=== PATIENT | female | born 1965 ===

== ENCOUNTER 2016-10-01 00:18 | Emergency (ER) | payer SELFPAY ==
[2016-10-01 00:26] VITALS: BMI 23.6
[2016-10-01] MEDS ORDERED: Oxycodone/Acetaminophen 5/325 mg Tab PO STA ×2 (00:35→01:02)
[2016-10-01 00:40] VITALS: TEMP 98.3
--- NOTE | 2016-10-01 01:02 | ED PDOC ---
Arrival/HPI <Ryland Clark - Last Filed: 10/01/16 01:56> - General Historian: Patient <Lani Healy PA-C - Last Filed: 10/01/16 02:53> - General Chief Complaint: Trauma Time Seen by Provider: 10/01/16 00:34 - History of Present Illness Narrative History of Present Illness (Text): 10/01/16 01:02 Patient reports sustaining an injury to the R forearm and head when she fell down the steps of the outside deck, patient was reportedly found by her brother on the ground unconcious, who called 911, when he returned to attend to the patient, she gained consciousness on her own, stood up and ambulated back inside of the house. Patient admits to being outside, states that she was smoking a cigarette and may have trip causing her to fall. Otherwise: (-) other complaints, (-) loss of consciousness, (-) nausea, (-) vomiting, (-) severe headache, (-) other injury, (-) neck pain, (-) subjective neurologic deficit, (-) anticoagulants. Has no history of prior significant head injury. Patient does admit to drinking etoh tonight. (Lani Healy PA-C) Past Medical History - Provider Review Nursing Documentation Reviewed: Yes - Reproductive Menopause: Yes - Psychiatric Hx Substance Use: No <Lani Healy PA-C - Last Filed: 10/01/16 02:53> Family/Social History - Physician Review Nursing Documentation Reviewed: Yes Family/Social History: No Known Family HX Smoking Status: Heavy Smoker > 10 Cigarettes Daily Hx Alcohol Use: Yes Frequency of alcohol use: Socially Hx Substance Use: No <Lani Healy PA-C - Last Filed: 10/01/16 02:53> Allergies/Home Meds <Ryland Clark - Last Filed: 10/01/16 01:56> <Lani Healy PA-C - Last Filed: 10/01/16 02:53> Allergies/Adverse Reactions: Allergies No Known Allergies Allergy (Verified 10/01/16 00:26) Review of Systems - Review of Systems Constitutional: Normal. absent: Fatigue, Weight Change, Fevers Respiratory: Normal. absent: SOB, Cough Cardiovascular: Normal. absent: Chest Pain, Palpitations Musculoskeletal: Normal, Arthralgias. absent: Back Pain, Neck Pain Skin: Normal. absent: Rash, Pruritis, Skin Lesions Neurological: Normal. absent: Headache, Dizziness, Focal Weakness <Lani Healy PA-C - Last Filed: 10/01/16 02:53> Physical Exam <Eduardo,Robert - Last Filed: 10/01/16 01:56> <Lani Healy PA-C - Last Filed: 10/01/16 02:53> - Physical Exam Narrative Physical Exam (Text): 10/01/16 01:06 GENERAL APPEARANCE: Patient is awake, alert, oriented x 3, in moderate painful distress. Strong odor of etoh on patient. SKIN: Warm, dry; (-) cyanosis, (+) small abrasion to the R taoism. HEAD: (-) swelling and tenderness, with no palpable bony defect. EYES: (-) conjunctival pallor, (-) scleral icterus, (-) nystagmus. ENMT: Mucous membranes moist. (-) Sanchez's sign. TMs: (-) blood. Nose: (- ) tenderness, (-) rhinorrhea. No oral trauma. Pharynx clear. Airway patent: (-) stridor. Full ROM of mandible without pain. NECK: (-) tenderness, (-) stiffness, (-) lymphadenopathy. CHEST AND RESPIRATORY: (-) chest wall tenderness. Lungs: (-) rales, (-) rhonchi, (-) wheezes; breath sounds equal bilaterally. HEART AND CARDIOVASCULAR: (-) irregularity; (-) murmur, (-) gallop. ABDOMEN AND GI: Soft; (-) tenderness. BACK: (-) tenderness. EXTREMITIES: (+) deformity with edema, ecchymosis and tenderness to the distal R forearm, rest of the extremities nontender, (-) limitation of motion NEURO AND PSYCH: GCS=15. Mental status as above. Has full memory of episode; director emergency: Pupils equal & reactive . EOMI. (-) facial asymmetry. Tongue and uvula midline. Strength 5/5 in all extremities. No gross sensory deficits. DTRs symmetric. (Lani Healy PA-C) Vital Signs Temp Pulse Resp BP Pulse Ox 10/01/16 01:22 70 16 116/72 98 10/01/16 00:38 98.3 F 75 17 126/78 100 Medical Decision Making <Ryland Clark - Last Filed: 10/01/16 01:56> <Lani Healy PA-C - Last Filed: 10/01/16 02:53> ED Course and Treatment: 10/01/16 01:08 51 yo F s/p fall, complaining of R forearm pain, with possible head trauma. XR R forearm, CT head ordered, given percocet for pain. CT head (-). XR R forearm shows mildly displaced fx of the distal ulna. Orthoglass sugar tong splint applied by VIDAL. Neurovascular intact post splint application. Sling applied. Based on history, exam and diagnostic results plan will be for outpatient follow-up. Patient states she fully agrees with and understands discharge instructions. States that she agrees with the plan and disposition. Verbalized and repeated discharge instructions and plan. I have given the patient opportunity to ask any additional questions. Follow up with primary care physician and ortho referral provided in 1-2 days without fail. Advised to take medication as prescribed. Return to the emergency room at any time for any new or worsening symptoms. (Lani Healy PA-C) - RAD Interpretation Narrative RAD Interpretations (Text): 10/01/16 01:41 XR R forearm: mildly displaced fracture of the distal ulna, as read by VIDAL. CT head: FINDINGS: Brain: There is no evidence of intracranial hemorrhage. No evidence of acute territorial infarction. No significant white matter disease. No edema. Ventricles: Unremarkable. No ventriculomegaly. Bones/joints: There is mild beam hardening artifact most notably near the skull base which slightly limits evaluation. No acute fracture. Soft tissues: Unremarkable. Sinuses: Small fluid level in the left maxillary sinus. Mastoid air cells: Unremarkable as visualized. No mastoid effusion. IMPRESSION: 1. No evidence for acute intracranial abnormality or displaced calvarial fracture. 2. Additional incidental and/or chronic findings as described. Dictated and Authenticated by: Bhaskar Ryder MD 10/01/2016 1:17 AM Eastern Time ([place] & [place]) (Lani Healy PA-C) Radiology Orders: 10/01/16 00:34 HEAD W/O CONTRAST [CT] Stat FOREARM RIGHT [RAD] Stat - Medication Orders Current Medication Orders: Discontinued Medications Oxycodone/Acetaminophen (Percocet 5/325 Mg Tab) 1 tab PO STAT STA Stop: 10/01/16 00:36 Last Admin: 10/01/16 00:44 Dose: 1 tab Oxycodone/Acetaminophen (Percocet 5/325 Mg Tab) 1 tab PO STAT STA Stop: 10/01/16 01:03 Last Admin: 10/01/16 01:18 Dose: 1 tab - PA / PRACTICING DERMATOLOGIST / Resident Statement TIFFANY has reviewed & agrees with the documentation as recorded. TIFFANY has examined the patient and agrees with the treatment plan. <Ryland Clark - Last Filed: 10/01/16 01:56> - PA / PRACTICING DERMATOLOGIST / Resident Statement TIFFANY has reviewed & agrees with the documentation as recorded. <Lani Healy PA-C - Last Filed: 10/01/16 02:53> Disposition/Present on Arrival <Ryland Clark - Last Filed: 10/01/16 01:56> - Present on Arrival Any Indicators Present on Arrival: No History of DVT/PE: No History of Uncontrolled Diabetes: No Urinary Catheter: No History of Decub. Ulcer: No History Surgical Site Infection Following: None - Disposition Have Diagnosis and Disposition been Completed?: Yes Disposition Time: 01:30 Patient Plan: Discharge <Lani Healy PA-C - Last Filed: 10/01/16 02:53> - Disposition Diagnosis: Fracture of forearm, closed, Head injury, acute, Alcohol intoxication Disposition: HOME/ ROUTINE Condition: STABLE Discharge Instructions (ExitCare): Arm Fracture in Adults (ED), Head Injury (ED ), Splint Care (ED) Print Language: [email or web address] Additional Instructions: Thank you for letting us take care of you today. You were treated for head injury, R forearm fracture. The emergency medical care you received today was directed at your acute symptoms. If you were prescribed any medication, please fill it and take as directed. It may take several days for your symptoms to resolve. Return to the Emergency Department if your symptoms worsen, do not improve, or if you have any other problems. Please contact your doctor in 2 days for re-evaluation and follow up / or call one of the physicians/clinics you have been referred to that are listed on the Patient Visit Information form that is included in your discharge packet. Bring any paperwork you were given at discharge with you along with any medications you are taking to your follow up visit. Our treatment cannot replace ongoing medical care by a primary care provider (PCP) outside of the emergency department. Thank you for allowing the [facility] team to be part of your care today. Prescriptions: oxyCODONE/Acetaminophen [Percocet 5/325 mg Tab] 1 ea PO QID PRN #12 tab PRN Reason: Pain, Moderate (4-7) Referrals: [facility] [Outside] - Follow up with primary Bao Reyez MD [Staff Provider] - Follow up with primary
--- NOTE | 2016-10-01 01:17 | CT ---
EXAM: CT Head Without Intravenous Contrast CLINICAL HISTORY: 51 years old, female; Injury or trauma; Fall; Initial encounter; Concussion / head injury; Consciousness not specified; Additional info: Fall, trauma TECHNIQUE: Axial computed tomography images of the head/brain without intravenous contrast. This CT exam was performed using one or more of the following dose reduction techniques: automated exposure control, adjustment of the mA and/or kV according to patient size, and/or use of iterative reconstruction technique. COMPARISON: No relevant prior studies available. FINDINGS: Brain: There is no evidence of intracranial hemorrhage. No evidence of acute territorial infarction. No significant white matter disease. No edema. Ventricles: Unremarkable. No ventriculomegaly. Bones/joints: There is mild beam hardening artifact most notably near the skull base which slightly limits evaluation. No acute fracture. Soft tissues: Unremarkable. Sinuses: Small fluid level in the left maxillary sinus. Mastoid air cells: Unremarkable as visualized. No mastoid effusion. IMPRESSION: 1. No evidence for acute intracranial abnormality or displaced calvarial fracture. 2. Additional incidental and/or chronic findings as described.
[2016-10-01 01:24] VITALS: BP 116/72; PULSE 70; RESP 16; O2SAT 98
--- NOTE | 2016-10-01 09:14 | RAD ---
Right forearm History: Trauma. Findings: Two views the right forearm demonstrated a mildly displaced and comminuted fracture involving the distal ulna. Possible involvement of the radioulnar joint space. The displacement measures approximately 3 millimeters. Impression: Mildly displaced and comminuted fracture involving the right distal ulna. Possible involvement of the radioulnar joint space.
== END 2016-10-01 02:04 | disposition home or self-care (01) ==
LOC: ED 00:18
DX: S09.90XA Unspecified injury of head, initial encounter (principal); S52.601A Unspecified fracture of lower end of right ulna, initial encounter for closed fracture; W10.9XXA Fall (on) (from) unspecified stairs and steps, initial encounter; F10.129 Alcohol abuse with intoxication, unspecified; F17.210 Nicotine dependence, cigarettes, uncomplicated

== ENCOUNTER 2018-01-08 16:07 | Inpatient (IN) | payer MEDICAID, OTHER ==
[2018-01-08 16:08] VITALS: BMI 23.6
[2018-01-08] MEDS ORDERED: Sodium Chloride 0.9% 1,000 ML IV STA (16:52)
--- NOTE | 2018-01-08 17:47 | CT ---
Date of service: 01/08/2018 PROCEDURE: CT HEAD WITHOUT CONTRAST. HISTORY: dizziness COMPARISON: Noncontrast head CT performed 10/01/16 TECHNIQUE: Axial computed tomography images were obtained through the head/brain without intravenous contrast. Radiation dose: Total exam DLP = 873.58 mGy-cm. This CT exam was performed using one or more of the following dose reduction techniques: Automated exposure control, adjustment of the mA and/or kV according to patient size, and/or use of iterative reconstruction technique. FINDINGS: Streak artifact obscures evaluation of the skullbase. HEMORRHAGE: No intracranial hemorrhage. BRAIN: Diffuse atrophy with prominence of the ventricles and sulci noted. No mass effect or edema. Intracranial atherosclerotic calcifications. Bilateral basal ganglia calcifications. Scattered periventricular and subcortical white matter hypodensities, which are nonspecific, but often seen with chronic microvascular ischemic disease. Please note that MRI with diffusion imaging is more sensitive in the detection of acute ischemic event. VENTRICLES: No hydrocephalus. CALVARIUM: Unremarkable. PARANASAL SINUSES: Mucosal polyp/retention cyst within the left maxillary sinus. The remainder the visualized paranasal sinuses appear clear. MASTOID AIR CELLS: Unremarkable as visualized. No inflammatory changes. OTHER FINDINGS: None. IMPRESSION: No acute intracranial pathology identified. Additional findings as above.
[2018-01-08 18:11] LABS: ALB/GLOB RATIO 0.9 (1.1-1.8); ALBUMIN 3.2 g/dL (3.0-4.8); ALT/SGPT 31 U/L (7-56); AST/SGOT 88 U/L (14-36); BLOOD UREA NITROGEN 14 mg/dL (7-21); CALCIUM 8.6 mg/dL (8.4-10.5); GFR NON-AFRICAN AMERICAN > 60
[2018-01-08 18:12] LABS: EOS % 1.1 % (1.5-5.0); GRAN # 1.44 (1.4-6.5); GRAN % 81.8 % (50.0-68.0); LYMPH # 0.2 (1.2-3.4); LYMPH % 13.1 % (22.0-35.0); MEAN CELL VOLUME 83.7 fl (80.0-105.0); MEAN CORPUSCULAR HEMOGLOBIN 27.1 pg (25.0-35.0); MEAN CORPUSCULAR HGB CONC 32.4 g/dl (31.0-37.0); MEAN PLATELET VOLUME 10.2 fl (7.0-11.0); MONO # 0.1 (0.1-0.6); RBC 3.32 10^6/uL (3.5-6.1); RED CELL DISTRIBUTION WIDTH 14.4 % (11.5-14.5)
[2018-01-08 18:15] LABS: WHITE BLOOD COUNT 1.8 10^3/ul (4.5-11.0)
[2018-01-08 18:21] LABS: TROPONIN I < 0.01 ng/mL
--- NOTE | 2018-01-08 18:39 | ED PDOC ---
Arrival/HPI - General Chief Complaint: Dizziness/Lightheaded Time Seen by Provider: 01/08/18 16:35 Historian: Patient - History of Present Illness Narrative History of Present Illness (Text): 01/08/18 18:53 52-year-old female who was diagnosed with HIV one year ago and never started antiviral medications presents today with a one-week history of worsening dizziness and generalized fatigue. Patient also states she has been having a dry cough. Patient is complaining of occasional chest pain. She denies palpitations. She denies nausea vomiting diarrhea or constipation. She denies headache. Patient states today she felt like she was going to pass out and was unable to go to work. She denies numbness weakness or tingling in the extremities. She denies urinary symptoms. Denies sick contacts. No other complaints Time/Duration: 1 week Symptom Onset: Gradual Symptom Course: Worsening Past Medical History - Provider Review Nursing Documentation Reviewed: Yes - Travel History Have you recently traveled outside [place] w/in the past 3 mons?: No - Tetanus Immunization Tetanus Immunization: Unknown - Cardiac Hx Cardiac Disorders: No - Pulmonary Hx Respiratory Disorders: No - Neurological Hx Neurological Disorder: No - HEENT Hx HEENT Disorder: No - Renal Hx Renal Disorder: No - Endocrine/Metabolic Hx Endocrine Disorders: No - Hematological/Oncological Hx Blood Disorders: Yes - Integumentary Hx Dermatological Disorder: No - Musculoskeletal/Rheumatological Hx Musculoskeletal Disorders: No - Gastrointestinal Hx Gastrointestinal Disorders: No - Genitourinary/Gynecological Hx Genitourinary Disorders: No - Psychiatric Hx Psychophysiologic Disorder: No Hx Substance Use: Yes (HEROIN) - Surgical History Hx Orthopedic Surgery: Yes Family/Social History - Physician Review Nursing Documentation Reviewed: Yes Family/Social History: Unknown Family HX Smoking Status: Heavy Smoker > 10 Cigarettes Daily Hx Alcohol Use: Yes Hx Substance Use: Yes (HEROIN) Allergies/Home Meds Allergies/Adverse Reactions: Allergies No Known Allergies Allergy (Verified 01/08/18 16:18) Home Medications: Home Meds Medication Instructions Recorded Confirmed No Known Home Med 01/08/18 01/08/18 Review of Systems - Review of Systems Constitutional: Fatigue. absent: Fevers ENT: absent: Sore Throat, Sinus Congestion Respiratory: Cough. absent: SOB Cardiovascular: absent: Chest Pain, Palpitations Gastrointestinal: absent: Abdominal Pain, Nausea, Vomiting Musculoskeletal: absent: Arthralgias, Back Pain, Neck Pain Neurological: Dizziness. absent: Headache Psychiatric: absent: Anxiety, Depression, Suicidal Ideation Physical Exam Vital Signs Reviewed: Yes Vital Signs Temp Pulse Resp BP Pulse Ox 01/08/18 18:49 97.8 F 68 18 106/70 96 01/08/18 16:18 97.8 F 74 16 97/70 L 100 Temperature: Afebrile Blood Pressure: Hypotensive Pulse: Regular Respiratory Rate: Normal Appearance: Positive for: Well-Appearing, Non-Toxic, Comfortable Pain Distress: None Mental Status: Positive for: Alert and Oriented X 3 - Systems Exam Head: Present: Atraumatic Pupils: Present: PERRL Extroacular Muscles: Present: EOMI Mouth: Present: Moist Mucous Membranes Neck: Present: Normal Range of Motion Respiratory/Chest: Present: Good Air Exchange, Rhonchi. No: Clear to Auscultation, Respiratory Distress, Accessory Muscle Use, Wheezes, Decreased Breath Sounds Cardiovascular: Present: Regular Rate and Rhythm Abdomen: No: Tenderness, Distention, Rebound, Guarding Back: Present: Normal Inspection Upper Extremity: Present: Normal ROM Lower Extremity: Present: Normal ROM Neurological: Present: GCS=15 Skin: Present: Warm, Dry, Normal Color. No: Rashes Psychiatric: Present: Alert, Oriented x 3 Medical Decision Making ED Course and Treatment: 01/08/18 18:55 52-year-old female with a history of HIV with dizziness generalized weakness cough and intermittent chest pain EKG normal sinus rhythm at [address] elevations normal intervals Chest x-ray no effusion no cardiomegaly CBC White blood cell count 1.8, hgb; 9.0 CMP within normal limits Troponin within normal limits LDH 1814 pt given NS Iv bolus. case discussed with dr. burkett in depth; pt with hiv, wbc 1.8, elevated ldh. cxr wnl; consider PCP PNA. case discussed with dr. fernandez accepts admission for dizziness, anemia, cough, fatigue, r/o PCP PNA pt started on: bactrim Ds PO, rocephin and zithromax IV. will admit to tele for dizziness, anemia, cough, fatigue, r/o PCP PNA impression; dizziness, anemia, cough, fatigue, hx of HIV, leukopenia admit to tele. - Lab Interpretations Lab Results: 01/08/18 17:16 01/08/18 17:16 Lab Results 01/08/18 19:07: Urine Color Light yellow, Urine Appearance Clear, Urine pH 6.5, Ur Specific [place] <= 1.005, Urine Protein Negative, Urine Glucose (UA) Negative, Urine Ketones Negative, Urine Blood Negative, Urine Nitrate Negative, Urine Bilirubin Negative, Urine Urobilinogen 0.2, Ur Leukocyte Esterase Trace H , Urine RBC Negative, Urine WBC 0 - 2, Ur Epithelial Cells 0 - 2, Urine Bacteria Rare 01/08/18 17:16: Triglycerides 99, Cholesterol Pending, LDL Cholesterol Direct Pending, HDL Cholesterol 26 L 01/08/18 17:16: Phosphorus 3.2, Magnesium 1.8 01/08/18 17:16: WBC 1.8 L*, RBC 3.32 L, Hgb 9.0 L, Hct 27.8 L, MCV 83.7, MCH 27.1, MCHC 32.4, RDW 14.4, Plt Count 239, MPV 10.2, Gran % 81.8 H, Lymph % (Auto ) 13.1 L, Cook % (Auto) 4.0, Eos % (Auto) 1.1 L, Baso % (Auto) 0.0, Gran # 1.44 , Lymph # (Auto) 0.2 L, Cook # (Auto) 0.1, Eos # (Auto) 0.0, Baso # (Auto) 0.00 01/08/18 17:16: Sodium 137, Potassium 3.5 L, Chloride 103, Carbon Dioxide 24, Anion Gap 13, BUN 14, Creatinine 0.7, Est GFR ( Amer) > 60, Est GFR (Non- Af Amer) > 60, Random Glucose 97, Calcium 8.6, Total Bilirubin 0.8, AST 88 H, ALT 31, Alkaline Phosphatase 96, Lactate Dehydrogenase 1814 H, Total Creatine Kinase 118, Troponin I < 0.01, Total Protein 6.6, Albumin 3.2, Globulin 3.4, Albumin/Globulin Ratio 0.9 L - RAD Interpretation Radiology Orders: 01/08/18 16:52 HEAD W/O CONTRAST [CT] Stat CHEST PORTABLE [RAD] Stat - Medication Orders Current Medication Orders: Guaifenesin (Robitussin) 100 mg PO Q4H PRN PRN Reason: Cough Sodium Chloride (Sodium Chloride 0.9%) 1,000 mls @ 125 mls/hr IV .Q8H MCKAYLA Last Admin: 01/08/18 22:49 Dose: 125 mls/hr eMAR Start Stop Document 01/08/18 22:49 BK (Rec: 01/08/18 22:49 BK [id number]) Intravenous Solution Start Date 01/08/18 Start Time 22:49 Azithromycin (Zithromax 500mg In Ns) 500 mg in 250 mls @ 167 mls/hr IVPB DAILY MCKAYLA PRN Reason: Protocol Nicotine (Nicoderm Cq) 1 patch TD DAILY MCKAYLA Discontinued Medications Aspirin (Aspirin) 325 mg PO STAT STA Stop: 01/08/18 19:51 Last Admin: 01/08/18 20:12 Dose: 325 mg Sodium Chloride (Sodium Chloride 0.9%) 1,000 mls @ 999 mls/hr IV .Q1H1M STA Stop: 01/08/18 17:52 Last Admin: 01/08/18 17:19 Dose: 999 mls/hr eMAR Start Stop Document 01/08/18 17:19 LA (Rec: 01/08/18 17:19 [id number]) Intravenous Solution Start Date 01/08/18 Start Time 17:19 End Date 01/08/18 End time 18:20 Total Infusion Time 61 Ceftriaxone Sodium (Rocephin 1 Gram Ivpb) 1 gm in 100 mls @ 200 mls/hr IVPB STAT STA PRN Reason: Protocol Stop: 01/08/18 20:24 Last Admin: 01/08/18 20:13 Dose: 200 mls/hr eMAR Start Stop Document 01/08/18 20:13 JOL (Rec: 01/08/18 20:13 JOL [id number]) Intravenous Solution Start Date 01/08/18 Start Time 20:24 End Date 01/08/18 End time 21:20 Total Infusion Time 56 Azithromycin (Zithromax 500mg In Ns) 500 mg in 250 mls @ 167 mls/hr IVPB STAT STA PRN Reason: Protocol Stop: 01/08/18 21:24 Last Admin: 01/08/18 21:30 Dose: 167 mls/hr eMAR Start Stop Document 01/08/18 21:30 JOL (Rec: 01/08/18 21:30 JOL [id number]) Intravenous Solution Start Date 01/08/18 Start Time 21:30 End Date 01/08/18 End time 23:00 Total Infusion Time 90 Potassium Chloride (K-Dur 20 Meq Er Tab) 40 meq PO STAT STA Stop: 01/08/18 22:58 Last Admin: 01/08/18 23:05 Dose: 40 meq Trimethoprim/Sulfamethoxazole (Bactrim Ds Tab) 2 tab PO STAT STA PRN Reason: Protocol Stop: 01/08/18 19:52 Last Admin: 01/08/18 20:12 Dose: 2 tab Disposition/Present on Arrival - Present on Arrival Any Indicators Present on Arrival: No History of DVT/PE: No History of Uncontrolled Diabetes: No Urinary Catheter: No History of Decub. Ulcer: No History Surgical Site Infection Following: None - Disposition Have Diagnosis and Disposition been Completed?: Yes Diagnosis: Dizziness, Leukopenia, Cough Disposition: HOSPITALIZED Disposition Time: 19:00 Patient Plan: Admission Condition: FAIR
[2018-01-08 19:26] LABS: PH,URINE 6.5 (4.7-8.0); URINE BILIRUBIN NEGATIVE (NEGATIVE); URINE BLOOD NEGATIVE (NEGATIVE); URINE GLUCOSE (UA) NEGATIVE (NEGATIVE); URINE LEUKOCYTE ESTERASE TRACE Leu/uL (NEGATIVE); URINE PROTEIN NEGATIVE mg/dL (<30 mg/dL); URINE UROBILINOGEN 0.2 E.U./dL (<1 E.U./dL)
[2018-01-08 19:28] LABS: URINE APPEARANCE CLEAR (CLEAR); URINE COLOR LIGHT YELLOW (YELLOW)
[2018-01-08 19:39] LABS: URINE BACTERIA RARE (NEG); URINE EPITHELIAL CELLS 0 - 2 /hpf (0-5); URINE RBC NEGATIVE /hpf (0-2); URINE WBC 0 - 2 /hpf (0-6)
--- NOTE | 2018-01-08 19:40 | CARD ---
APPROVED REPORT Date of service: 01/08/2018 EKG Measurement Heart [id number] <Conclusion> Normal sinus rhythm Normal ECG
[2018-01-08] MEDS ORDERED: Tmp-Smz 800 mg-160 mg DS Tab PO STA (19:51)
[2018-01-08] MEDS ORDERED: Azithromycin 500MG/NS 250ml 500 MG/250 ML BAG IVPB STA (19:55)
[2018-01-08] MEDS ORDERED: cefTRIAXone 1 gm 1 GM/100 ML BAG IVPB STA (19:55)
--- NOTE | 2018-01-08 21:22 | CP.PCM.HP ---
<Billy Almonte - Last Filed: 01/09/18 00:22> History of Present Illness - History of Present Illness History of Present Illness: Billy Almonte, PGY-1 History and Physical for Hospitalist Service CC: Dizziness and Shortness of Breath HPI: Ms. Bobby is a 52 year old female with a PMHx of questionable HIV and chronic back pain who presents with a 2 week history of dizziness and fatigue. Sister in law of patient reported that patient has HIV per work-up done with PMD , but patient did not confirm ever having HIV or provide any supporting documentation. Patient reports a productive cough that is associated with right sided chest pain that is exacerbated by cough. Patient reports brown sputum that occasionally comes up upon coughing. Patient states that she used to be able to walk 3 blocks but can only walk 1 - 2 blocks this week because of the fatigue. Patient admits to unintentional 10 pound weight loss in last 2 months. Patient denies acute chest pain that radiates, palpitations, abdominal pain, nausea, vomiting, fevers, chills, headaches, vision changes, bloody stools, dark stools, menses, recent travel, . PMHx: chronic back pain, ?HIV PSHx: none All: NKDA Social: Heroin use for 10 years ago, tobacco pk/day x 25 years. Cleans windows. Meds: Occasional Aleve for the back pain PMD: Dr. Loving Present on Admission - Present on Admission Any Indicators Present on Admission: No Review of Systems - Review of Systems Review of Systems: 12 point ROS completed and negative except as described in HPI. Past Patient History - Tetanus Immunizations Tetanus Immunization: Unknown - Past Social History Smoking Status: Heavy Smoker > 10 Cigarettes Daily - CARDIAC Hx Cardiac Disorders: No - PULMONARY Hx Respiratory Disorders: No - NEUROLOGICAL Hx Neurological Disorder: No - HEENT Hx HEENT Problems: No - RENAL Hx Chronic Kidney Disease: No - ENDOCRINE/METABOLIC Hx Endocrine Disorders: No - HEMATOLOGICAL/ONCOLOGICAL Hx Blood Disorders: Yes - INTEGUMENTARY Hx Dermatological Problems: No - MUSCULOSKELETAL/RHEUMATOLOGICAL Hx Musculoskeletal Disorders: No - GASTROINTESTINAL Hx Gastrointestinal Disorders: No - GENITOURINARY/GYNECOLOGICAL Hx Genitourinary Disorders: No - PSYCHIATRIC Hx Psychophysiologic Disorder: No Hx Substance Use: Yes (HEROIN) - SURGICAL HISTORY Hx Orthopedic Surgery: Yes Meds Allergies/Adverse Reactions: Allergies Allergy/AdvReac Type Severity Reaction Status Date / Time No Known Allergies Allergy Verified 01/08/18 16:18 Physical Exam - Constitutional Appears: Well, Non-toxic, No Acute Distress - Head Exam Head Exam: ATRAUMATIC, NORMAL INSPECTION, NORMOCEPHALIC - Eye Exam Eye Exam: EOMI, Normal appearance Pupil Exam: PERRL - ENT Exam ENT Exam: Mucous Membranes Moist Additional comments: No thrush appreciated on tongue or erythema in throat. - Neck Exam Neck exam: Positive for: Normal Inspection. Negative for: Tenderness - Respiratory Exam Respiratory Exam: Decreased Breath Sounds, Clear to Auscultation Bilateral, Rhonchi. absent: Rales, Wheezes, Respiratory Distress Additional comments: located in bases R>L - Cardiovascular Exam Cardiovascular Exam: RRR, +S1, +S2. absent: Bradycardia, Tachycardia, Clicks - GI/Abdominal Exam GI & Abdominal Exam: Normal Bowel Sounds, Soft. absent: Distended, Organomegaly , Tenderness - Extremities Exam Extremities exam: Positive for: normal inspection, pedal pulses present. Negative for: calf tenderness, joint swelling - Back Exam Back exam: NORMAL INSPECTION. absent: CVA tenderness (L), CVA tenderness (R), paraspinal tenderness, rash noted - Neurological Exam Neurological exam: Alert, CN II-XII Intact, Oriented x3 - Psychiatric Exam Psychiatric exam: Flat Affect - Skin Skin Exam: Dry, Intact, Normal Color, Warm Results - Vital Signs Recent Vital Signs: Last Vital Signs Temp 97.8 F 01/08/18 18:49 Pulse 68 01/08/18 18:49 Resp 18 01/08/18 18:49 BP 106/70 01/08/18 18:49 Pulse Ox 96 01/08/18 18:49 - Labs Result Diagrams: 01/08/18 17:16 01/08/18 17:16 Assessment & Plan - Assessment and Plan (Free Text) Assessment: Assessment: Ms. Bobby is a 52 year old female with a PMHx of questionable HIV and chronic back pain who presents for a 2 week history of dizziness and fatigue. Plan: Productive Cough 2/2 ? PCP 2/2 ? Hx of HIV Sister in law reports that within past year, patient was diagnosed with HIV per her primary physician. Patient did not complete workup or outpatient therapy due to issues with insurance. No documentation or knowledge provided of test result. Afebrile, no SIRS criteria upon admission, VSS LDH 1814 CXR shows no opacities, some venous congestion, costophrenic angles clear, no patchy infiltrates. No effusions or cardiomegaly. Read by me. Head CT shows no acute pathology compared to 10/05 image. Diffuse atrophy with prominence of ventricles and sulci. Intracranial atherosclerotic calcifications. Likely chronic microvascular ischemic disease. f/u HIV AB, PCR, CD-4 count f/u procal f/u with Dr. Loving for more information regarding diagnosis and workup Guafenisin 100 mg PO q4h PRN Fatigue and dizziness 2/2 leukopenia 2/2 ? HIV vs symptomatic anemia WBC 1.8, RBC 3.32, PLT 239 ANC 1476 No baseline available. NS @ 125 cc/hr f/u blood and urine culture f/u TSH, lipid panel, a1c f/u with Dr. Loving for more information regarding past lab work Symptomatic Normocytic Anemia Hgb 9.0, MCV 83.7 no obvious blood loss in stool, urine or per patient history f/u Ferritin, Retic count, Fe, TIBC, FOBT Hypokalemia 3.5 on admission repleted with 40 mEq k-dur f/u AM labs Hx of smoking and heroin abuse Nicotine patch education provided to stop use last use of heroin reported 10 years ago f/u UDS GI/DVT ppx SCD's Pepcid 40 HS Patient seen, case reviewed, and plan discussed with Dr. Lazaro. Billy Almonte, PGY-1 <Iveth LAZARO,Shreyas - Last Filed: 01/09/18 07:56> Results - Vital Signs Recent Vital Signs: Last Vital Signs Temp 99.0 F 01/09/18 06:00 Pulse 68 01/09/18 06:00 Resp 19 01/09/18 06:00 BP 101/70 01/09/18 06:00 Pulse Ox 98 01/09/18 06:00 - Labs Result Diagrams: 01/09/18 05:50 01/09/18 05:50 Labs: Laboratory Results - last 24 hr 01/09/18 01/09/18 01/09/18 02:17 05:50 05:50 WBC 2.4 L* D RBC 3.04 L Hgb 8.5 L Hct 25.6 L MCV 84.2 MCH 28.0 MCHC 33.2 RDW 14.5 Plt Count 223 MPV 10.0 Gran % 82.2 H Lymph % (Auto) 8.3 L [place] % (Auto) 5.0 Eos % (Auto) 4.1 Baso % (Auto) 0.4 Gran # 1.99 Lymph # (Auto) 0.2 L [place] # (Auto) 0.1 Eos # (Auto) 0.1 Baso # (Auto) 0.01 Retic Count 0.78 Sodium Potassium Chloride Carbon Dioxide Anion Gap BUN Creatinine Est GFR ( Amer) Est GFR (Non-Af Amer) Random Glucose Calcium Iron 43 L TIBC 222 L % Saturation 19 L Total Bilirubin AST ALT Alkaline Phosphatase Total Protein Albumin Globulin Albumin/Globulin Ratio Free T4 Urine Opiates Screen Negative Urine Methadone Screen Negative Ur Barbiturates Screen Negative Ur Phencyclidine Scrn Negative Ur Amphetamines Screen Negative U Benzodiazepines Scrn Negative U Oth Cocaine Metabols Negative U Cannabinoids Screen Negative 01/09/18 01/09/18 05:50 05:50 WBC RBC Hgb Hct MCV MCH MCHC RDW Plt Count MPV Gran % Lymph % (Auto) [place] % (Auto) Eos % (Auto) Baso % (Auto) Gran # Lymph # (Auto) [place] # (Auto) Eos # (Auto) Baso # (Auto) Retic Count Sodium 140 Potassium 4.5 Chloride 110 H Carbon Dioxide 23 Anion Gap 12 BUN 10 Creatinine 0.6 L Est GFR ( Amer) > 60 Est GFR (Non-Af Amer) > 60 Random Glucose 69 L Calcium 8.0 L Iron TIBC % Saturation Total Bilirubin 0.4 AST 76 H ALT 30 Alkaline Phosphatase 82 Total Protein 6.1 Albumin 2.6 L Globulin 3.4 Albumin/Globulin Ratio 0.8 L Free T4 1.08 Urine Opiates Screen Urine Methadone Screen Ur Barbiturates Screen Ur Phencyclidine Scrn Ur Amphetamines Screen U Benzodiazepines Scrn U Oth Cocaine Metabols U Cannabinoids Screen Attending/Attestation - Attestation I have personally seen and examined this patient.: Yes I have fully participated in the care of the patient.: Yes I have reviewed all pertinent clinical information: Yes Notes (Text): -I agree with the above H&P completed by the resident physician with the following additions and/or changes: -The patient is a 52 year old woman with no significant past medical history who is admitted with acute bronchitis, leukopenia and symptomatic anemia. Of note, her [id number] reports that the patient recently was diagnosed with HIV by PMD but the patient is unsure of this information. She will be treated empirically with IV Azithromycin. Also, HIV and CD4 counts have been ordered. She will be aggressively hydrated as well.
[2018-01-08] MEDS ORDERED: guaiFENesin 100 mg/5 ml Syrup UD PO PRN (21:57)
[2018-01-08] MEDS: Sodium Chloride 0.9% 1,000 ML IV SCH (22:49)
[2018-01-08] MEDS ORDERED: Potassium Chloride 20 mEq ER Tab PO STA ×2 (22:56→22:57)
[2018-01-08 23:39] LABS: HDL CHOLESTEROL 26 mg/dL (29-60)
[2018-01-08 23:49] LABS: LDL CHOLESTEROL 54 mg/dL (0-129)
[2018-01-09 03:09] LABS: BARBITURATES, UR NEGATIVE (NEGATIVE); BENZODIAZEPINES, UR NEGATIVE (NEGATIVE); OPIATES, UR NEGATIVE (NEGATIVE); PHENCYCLIDINE, UR NEGATIVE (NEGATIVE)
[2018-01-09 06:37] LABS: BASO # 0.01 K/mm3 (0.0-2.0); BASO % 0.4 % (0.0-3.0); EOS # 0.1 (0.0-0.7); EOS % 4.1 % (1.5-5.0); GRAN # 1.99 (1.4-6.5); GRAN % 82.2 % (50.0-68.0); HEMOGLOBIN 8.5 g/dL (12.0-16.0); LYMPH # 0.2 (1.2-3.4); LYMPH % 8.3 % (22.0-35.0); MEAN CELL VOLUME 84.2 fl (80.0-105.0); MEAN CORPUSCULAR HGB CONC 33.2 g/dl (31.0-37.0); MONO # 0.1 (0.1-0.6); PLATELET COUNT 223 10^3/uL (120.0-450.0); RBC 3.04 10^6/uL (3.5-6.1); RED CELL DISTRIBUTION WIDTH 14.5 % (11.5-14.5)
[2018-01-09 06:42] LABS: WHITE BLOOD COUNT 2.4 10^3/ul (4.5-11.0)
[2018-01-09 06:44] LABS: IRON 43 ug/dL (45-180)
[2018-01-09 06:46] LABS: ALB/GLOB RATIO 0.8 (1.1-1.8); ALBUMIN 2.6 g/dL (3.0-4.8); ALT/SGPT 30 U/L (7-56); AST/SGOT 76 U/L (14-36); BLOOD UREA NITROGEN 10 mg/dL (7-21); GFR NON-AFRICAN AMERICAN > 60
[2018-01-09 06:53] LABS: % IRON SATURATION 19 % (20-55); TOTAL IRON BINDING CAPACITY 222 ug/dL (265-497)
--- NOTE | 2018-01-09 07:43 | CP.PCM.PN ---
Subjective - Date & Time of Evaluation Date of Evaluation: 01/09/18 Time of Evaluation: 07:43 Objective - Vital Signs/Intake and Output Vital Signs (last 24 hours): Temp Pulse Resp BP Pulse Ox 99.0 F 68 19 101/70 98 01/09/18 06:00 01/09/18 06:00 01/09/18 06:00 01/09/18 06:00 01/09/18 06:00 Intake and Output: 01/09/18 01/09/18 06:59 18:59 Intake Total 1300 Output Total 200 Balance 1100 - Medications Medications: Current Medications Famotidine (Pepcid) 40 mg PO HS [facility] Guaifenesin (Robitussin) 100 mg PO Q4H PRN PRN Reason: Cough Sodium Chloride (Sodium Chloride 0.9%) 1,000 mls @ 125 mls/hr IV .Q8H [facility] Last Admin: 01/08/18 22:49 Dose: 125 mls/hr Azithromycin (Zithromax 500mg In Ns) 500 mg in 250 mls @ 167 mls/hr IVPB DAILY [facility] PRN Reason: Protocol Nicotine (Nicoderm Cq) 1 patch TD DAILY [facility] Trimethoprim/Sulfamethoxazole (Bactrim Ds Tab) 1 tab PO BID [facility] PRN Reason: Protocol - Labs Labs: 01/09/18 05:50 01/09/18 05:50 Assessment and Plan - Assessment and Plan (Free Text) Assessment: Ms. Bobby is a 52 year old female with a PMHx of questionable HIV and chronic back pain who presents for a 2 week history of dizziness and fatigue. Plan: Productive Cough 2/2 ? PCP 2/2 ? Hx of HIV Sister in law reports that within past year, patient was diagnosed with HIV per her primary physician. Patient did not complete workup or outpatient therapy due to issues with insurance. No documentation or knowledge provided of test result. Afebrile, no SIRS criteria upon admission, VSS LDH 1814 CXR shows no opacities, some venous congestion, costophrenic angles clear, no patchy infiltrates. No effusions or cardiomegaly. Read by me. Head CT shows no acute pathology compared to 10/05 image. Diffuse atrophy with prominence of ventricles and sulci. Intracranial atherosclerotic calcifications. Likely chronic microvascular ischemic disease. f/u HIV AB, PCR, CD-4 count f/u procal f/u with Dr. Loving for more information regarding diagnosis and workup Guafenisin 100 mg PO q4h PRN Fatigue and dizziness 2/2 leukopenia 2/2 ? HIV vs symptomatic anemia WBC 1.8, RBC 3.32, PLT 239 ANC 1476 No baseline available. NS @ 125 cc/hr f/u blood and urine culture f/u TSH, lipid panel, a1c f/u with Dr. Loving for more information regarding past lab work Symptomatic Normocytic Anemia Hgb 9.0, MCV 83.7 no obvious blood loss in stool, urine or per patient history f/u Ferritin, Retic count, Fe, TIBC, FOBT Hypokalemia 3.5 on admission repleted with 40 mEq k-dur f/u AM labs Hx of smoking and heroin abuse Nicotine patch education provided to stop use last use of heroin reported 10 years ago f/u UDS GI/DVT ppx SCD's Pepcid 40 HS
--- NOTE | 2018-01-09 08:38 | RAD ---
Date of service: 01/08/2018 HISTORY: chest pain/dizziness/weakness COMPARISON: No prior. FINDINGS: LUNGS: The lungs are well inflated and clear. PLEURA: No significant pleural effusion identified, no pneumothorax apparent. CARDIOVASCULAR: Normal. OSSEOUS STRUCTURES: No significant abnormalities. VISUALIZED UPPER ABDOMEN: Normal. OTHER FINDINGS: None. IMPRESSION: No active pulmonary disease.
[2018-01-09] MEDS: Azithromycin 500MG/NS 250ml 500 MG/250 ML BAG IVPB SCH (09:22)
[2018-01-09] MEDS: Sodium Chloride 0.9% 1,000 ML IV SCH ×2 (09:23→10:15)
[2018-01-09] MEDS ORDERED: Albuterol-Ipratrop 3 mg / 0.5 (3 ml) UD IH PRN (09:51)
[2018-01-09] MEDS ORDERED: Tmp-Smz 800 mg-160 mg DS Tab PO SCH (10:00)
[2018-01-09] MEDS: MethylPREDNISolone 40 mg Vial IVP SCH ×2 (10:12→21:16)
[2018-01-09] MEDS: guaiFENesin-DM 600-30 mg ER Tab PO SCH ×2 (10:12→17:14)
--- NOTE | 2018-01-09 13:03 | CP.PCM.PN ---
<Daniel Huerta - Last Filed: 01/09/18 13:44> Subjective - Date & Time of Evaluation Date of Evaluation: 01/09/18 Time of Evaluation: 13:00 - Subjective Subjective: Daniel Huerta DO PGY1 - Internal Medicine Tube Cutter Operator - Hospital Progress Note 52F w/ CC of dizziness, and cough/sob. Seen this AM at bedside, no acute events reported overnight. Still complaining of same dizziness and cough she had upon initial presentation. Denies any worsening of symptoms. Denies chest pain, palpitations, abd pain, N/V /D/C, urinary complaints. Objective - Vital Signs/Intake and Output Vital Signs (last 24 hours): Temp Pulse Resp BP Pulse Ox 98.9 F 75 18 118/75 98 01/09/18 12:00 01/09/18 12:00 01/09/18 12:00 01/09/18 12:00 01/09/18 06:00 Intake and Output: 01/09/18 01/09/18 06:59 18:59 Intake Total 1300 Output Total 200 Balance 1100 - Medications Medications: Current Medications Acetaminophen (Tylenol 325mg Tab) 650 mg PO Q6H PRN PRN Reason: Pain, Mild (1-3) Last Admin: 01/09/18 10:07 Dose: 650 mg Albuterol/Ipratropium (Duoneb 3 Mg/0.5 Mg (3 Ml) Ud) 3 ml IH [id number] [facility] Albuterol/Ipratropium (Duoneb 3 Mg/0.5 Mg (3 Ml) Ud) 3 ml IH Q2H PRN PRN Reason: Shortness of Breath Aspirin (Aspirin Chewable) 81 mg PO DAILY [facility] Last Admin: 01/09/18 10:12 Dose: 81 mg Famotidine (Pepcid) 40 mg PO HS [facility] Ferrous Sulfate (Feosol) 324 mg PO TID [facility] Last Admin: 01/09/18 09:22 Dose: 324 mg Guaifenesin/Dextromethorphan (Mucinex-Dm 600-30 Mg) 1 tab PO BID [facility] Last Admin: 01/09/18 10:12 Dose: 1 tab Sodium Chloride (Sodium Chloride 0.9%) 1,000 mls @ 125 mls/hr IV .Q8H [facility] Last Admin: 01/09/18 10:15 Dose: 125 mls/hr Azithromycin (Zithromax 500mg In Ns) 500 mg in 250 mls @ 167 mls/hr IVPB DAILY [facility] PRN Reason: Protocol Last Admin: 01/09/18 09:22 Dose: 167 mls/hr Ceftriaxone Sodium (Rocephin 1 Gram Ivpb) 1 gm in 100 mls @ 100 mls/hr IVPB DAILY [facility] PRN Reason: Protocol Methylprednisolone (Solu-Medrol) 40 mg IVP Q12 [facility] Last Admin: 01/09/18 10:12 Dose: 40 mg Nicotine (Nicoderm Cq) 1 patch TD DAILY [facility] Last Admin: 01/09/18 09:22 Dose: 1 patch - Labs Labs: 01/09/18 05:50 01/09/18 05:50 Physical Exam - Constitutional Appears: Well, Non-toxic, No Acute Distress - Head Exam Head Exam: ATRAUMATIC, NORMAL INSPECTION, NORMOCEPHALIC - Eye Exam Eye Exam: EOMI, Normal appearance Pupil Exam: PERRL - ENT Exam ENT Exam: Mucous Membranes Moist Additional comments: No thrush appreciated on tongue or erythema in throat. - Neck Exam Neck exam: Positive for: Normal Inspection. Negative for: Tenderness - Respiratory Exam Respiratory Exam: Diffuse wheezing all lung loja, rhonhorous breath sounds BL , Prolonged expiratory phase - Cardiovascular Exam Cardiovascular Exam: RRR, +S1, +S2. absent: Bradycardia, Tachycardia, Clicks - GI/Abdominal Exam GI & Abdominal Exam: Normal Bowel Sounds, Soft. absent: Distended, Organomegaly , Tenderness - Extremities Exam Extremities exam: Positive for: normal inspection, pedal pulses present. Negative for: calf tenderness, joint swelling - Back Exam Back exam: NORMAL INSPECTION. absent: CVA tenderness (L), CVA tenderness (R), paraspinal tenderness, rash noted - Neurological Exam Neurological exam: Alert, CN II-XII Intact, Oriented x3 - Psychiatric Exam Psychiatric exam: Flat Affect - Skin Skin Exam: Dry, Intact, Normal Color, Warm Assessment and Plan - Assessment and Plan (Free Text) Assessment: 52F w/ questionable PMHx of HIV, and social hx significant for 25 pack year smoking, presented [place] [facility] [place] w/ CC of Cough/SOB, Fatigue, and Dizziness. Plan: Cough w/ Wheezing + ROSE - Patient unclear on length of duration of symptoms; Given smoking hx most likely a COPD exacerbation w/ chronic bronchitis - Started Duoneb Q6H [facility], Q2H PRN - Started Solumedrol 40 Q12 - Started Mucinex DM 1 PO BID - C/w Rocephin 1gm QD - C/w Azithromycin 500mg QD - CXR shows no consolidation or infiltrate - Due to leukopenia; we will follow up w/ Sputum Cx, Blood Cx, Urine Cx, and ProCal Leukopenia, most likely 2/2 HIV - History of + HIV testing as per Dr. Loving - Patient has not followed up with PMD since tested - HIV Ab, PCR, CD4 count pending - Can consider ID/Heme Onc consultation once results Dizziness - Patient reported as positional related - Etiologies include orthostatic vs anemia related vs cardiac related - Orthostatic vital signs unremarkable - TSH elevated; T4 normal - CT Head shows no acute pathology compared to 10/05 image. Diffuse atrophy with prominence of ventricles and sulci. Intracranial atherosclerotic calcifications. Likely chronic microvascular ischemic disease - Echo pending - Carotid U/S - Bilateral 0-19% ICA Stenosis Normocytic Anemia - Symptomatic anemia at this time given patient's dizzy spells - Hb 10.2/ MCV 83.7 - Folate/ B12 pending - Fe Low/ TIBC Low/ % Saturation Low/ Ferritin pending - FOBT pending - Retic count normal Hypokalemia - Resolved Hx of smoking and heroin abuse Nicotine patch; education provided to stop tobacco use last use of heroin reported 10 years ago UDS negative GI/DVT ppx SCD's Pepcid 40 HS Patient seen, examined, and case discussed w/ attending physician Dr. Leti Huerta DO PGY1 Internal Medicine Tube Cutter Operator - Pager [phone] <Ltei Huerta R - Last Filed: 01/10/18 08:15> Objective - Vital Signs/Intake and Output Vital Signs (last 24 hours): Temp Pulse Resp BP Pulse Ox 97.4 F L 86 20 97/65 L 95 01/10/18 06:00 01/10/18 06:00 01/10/18 06:00 01/10/18 06:00 01/10/18 06:00 Intake and Output: 01/10/18 01/10/18 06:59 18:59 Intake Total 240 Output Total 3 Balance 237 - Medications Medications: Current Medications Acetaminophen (Tylenol 325mg Tab) 650 mg PO Q6H PRN PRN Reason: Pain, Mild (1-3) Last Admin: 01/09/18 10:07 Dose: 650 mg Albuterol/Ipratropium (Duoneb 3 Mg/0.5 Mg (3 Ml) Ud) 3 ml IH [id number] [facility] Last Admin: 01/10/18 07:17 Dose: 3 ml Albuterol/Ipratropium (Duoneb 3 Mg/0.5 Mg (3 Ml) Ud) 3 ml IH Q2H PRN PRN Reason: Shortness of Breath Aspirin (Aspirin Chewable) 81 mg PO DAILY [facility] Last Admin: 01/09/18 10:12 Dose: 81 mg Famotidine (Pepcid) 40 mg PO HS [facility] Last Admin: 01/09/18 21:16 Dose: 40 mg Ferrous Sulfate (Feosol) 324 mg PO TID [facility] Last Admin: 01/09/18 17:13 Dose: 324 mg Guaifenesin/Dextromethorphan (Mucinex-Dm 600-30 Mg) 1 tab PO BID [facility] Last Admin: 01/09/18 17:14 Dose: 1 tab Azithromycin (Zithromax 500mg In Ns) 500 mg in 250 mls @ 167 mls/hr IVPB DAILY [facility] PRN Reason: Protocol Last Admin: 01/09/18 09:22 Dose: 167 mls/hr Ceftriaxone Sodium (Rocephin 1 Gram Ivpb) 1 gm in 100 mls @ 100 mls/hr IVPB DAILY [facility] PRN Reason: Protocol Last Admin: 01/09/18 13:09 Dose: 100 mls/hr Methylprednisolone (Solu-Medrol) 40 mg IVP Q12 [facility] Last Admin: 01/09/18 21:16 Dose: 40 mg Nicotine (Nicoderm Cq) 1 patch TD DAILY [facility] Last Admin: 01/09/18 09:22 Dose: 1 patch - Labs Labs: 01/10/18 05:40 01/10/18 05:40 Attending/Attestation - Attestation I have personally seen and examined this patient.: Yes I have fully participated in the care of the patient.: Yes I have reviewed all pertinent clinical information, including history, physical exam and plan: Yes Notes (Text): Patient seen and examined by me at 9:45AM with resident 01/09/18. Case including HPI, physical exam, and assessment and plan discussed with resident. Agree with above with following additions/corrections. Patient is a 52-year-old female with past medical history significant for possible HIV and chronic back pain that presented to the emergency room with dizziness and fatigue. Patient states she is not feeling well. She states she is feeling cold. Patient has a cough with productive phlegm. However, she states that she not coughing a lot. She also states that she feels a little dizzy when she goes from a sitting to standing position. Dizziness resolves after she stands up. No headaches. No fevers. No nausea, vomiting, or abdominal pain. No chest pain or shortness of breath. No dysuria. No diarrhea or constipation. Physical exam: Gen: Awake and alert sitting up in bed in no acute distress HEENT: Normocephalic, atraumatic. Extraocular muscles intact, pupils equal reactive. No scleral icterus. Oropharynx is pink and moist. Neck is supple. Cardiovascular: Normal rhythm. Normal S1, S2. No murmurs, rubs, or gallops appreciated Pulmonary: Normal respiratory effort. Positive coarse breath sounds. Positive mild wheezing through. No rales appreciated. Gastrointestinal: Soft, nontender, nondistended. Positive bowel sounds all 4 quadrants, no guarding. Musculoskeletal: Moves all extremities. No calf tenderness. No edema appreciated. Central nervous system: AAO x 3. CN 2-12 grossly intact. Dermatologic: Skin warm and dry Assessment and plan: Patient is a 52-year-old female with past medical history significant for possible HIV and chronic back pain that presented to the emergency room with dizziness and fatigue. 1. Cough. Likely bronchitis. Started on Rocephin and Zithromax. Chest xray per radiologist shows no active pulmonary disease. Started on Mucinex. 2. Possible COPD. Patient is smoker. Placed on solumedrol and nebulizer treatments. Patient will need outpatient PFT testing. 3. Dizziness. Orthostatics negative. Carotid dopplers per radiologist showed bilateral 0-19% proximal ICA stenosis. 2d echo pending. Head CT per radiologist showed no acute intracranial pathology identified. Possible chronic microvascular ischemic changes. Started on ASA. 4. Leukopenia. Unclearly etiology. Infection vs possible HIV. HIV pending. Blood cultures pending. Uptrended from yesterday. Continue Antibiotics. Continue to monitor 5. Anemia. Stool for occult blood pending. Likely iron deficient. Continue ferrous sulfate. Continue to monitor CBC. 6. Elevated TSH. Normal Free T4. Patient will need to follow up outpatient for repeat blood work. 7. Tobacco abuse. Patient counseled on cessation. Case was discussed in detail with the patient and patients at bedside regarding current diagnosis and treatment plan.
[2018-01-09] MEDS: cefTRIAXone 1 gm 1 GM/100 ML BAG IVPB SCH (13:09)
--- NOTE | 2018-01-09 13:30 | US ---
PROCEDURE: Bilateral carotid artery duplex ultrasound HISTORY: Carotid stenosis dizziness PHYSICIAN(S): Vasyl Dawn MD. TECHNIQUE: Duplex sonography and color-flow Doppler were used to evaluate the carotid bifurcations and limited segments of the vertebral arteries bilaterally. FINDINGS: There is mild smooth hypoechoic plaque noted at the carotid bifurcations bilaterally. The peak systolic velocity in the proximal right internal carotid artery is 71 cm/sec. This corresponds to a 0-19 percent proximal right ICA stenosis. Normal systolic velocities are noted in the proximal right external carotid artery. There is antegrade flow in the right vertebral artery. The peak systolic velocity in the proximal left internal carotid artery is 81 cm/sec. This corresponds to a 0-19 percent proximal left ICA stenosis. Normal systolic velocities are noted in the proximal left external carotid artery. There is antegrade flow in the left vertebral artery. IMPRESSION: 1. Bilateral 0-19 percent proximal ICA stenoses. 2. Antegrade flow in both vertebral arteries.
[2018-01-09] MEDS: Albuterol-Ipratrop 3 mg / 0.5 (3 ml) UD IH SCH ×2 (13:57→20:09)
--- NOTE | 2018-01-09 17:01 | CARD ---
APPROVED REPORT Date of service: 01/09/2018 EXAM: Two-dimensional and M-mode echocardiogram with Doppler and color Doppler. INDICATION Dizziness and Vertigo 2D DIMENSIONS Left Atrium (2D)4.2 (1.6-4.0cm)IVSd0.7 (0.7-1.1cm) LVDd4.8 (3.9-5.9cm)PWd0.9 (0.7-1.1cm) LVDs3.5 (2.5-4.0cm)FS (%) 27.8 % LVEF (%)53.7 (>50%) M-Mode DIMENSIONS Aortic Root3.50 (2.2-3.7cm)Aortic Cusp Exc.2.20 (1.5-2.0cm) Aortic Valve AoV Peak Ajuxyfvw955.0cm/Disha Peak GR.6mmHg Mitral Valve MV E Iuswuvgx18.4cm/sMV A Bqnuxkmd13.1cm/sE/A ratio1.2 TDI Lateral E' Peak V15.50cm/sMedial E' Peak V9.16cm/sE/Lateral E'5.3 E/Medial E'8.9 Pulmonary Valve PV Peak Srnkqsin64.0cm/sPV Peak Grad.2mmHg Tricuspid Valve TR Peak Koqbxtzt316mb/sRAP PUMOWAIF19haYdEK Peak Gr.22mmHg [id number] LEFT VENTRICLE The left ventricle is normal size. There is normal left ventricular wall thickness. The left ventricular function is normal. The left ventricular ejection fraction is within the normal range. There is normal LV segmental wall motion. The left ventricular diastolic function is normal. RIGHT VENTRICLE The right ventricle is normal size. There is normal right ventricular wall thickness. The right ventricular systolic function is normal. ATRIA The left atrium is borderline dilated. The right atrium size is normal. AORTIC VALVE The aortic valve is normal in structure. No aortic regurgitation is present. There is no aortic valvular stenosis. MITRAL VALVE The mitral valve is normal in structure. There is no mitral valve regurgitation noted. There is no mitral valve stenosis. TRICUSPID VALVE The tricuspid valve is normal in structure. There is trace tricuspid regurgitation. PULMONIC VALVE The pulmonary valve is normal in structure. There is no pulmonic valvular regurgitation. GREAT VESSELS The aortic root is normal in size. The IVC is normal in size and collapses >50% with inspiration. PERICARDIAL EFFUSION There is no pericardial effusion. <Conclusion> The left ventricle is normal size. There is normal left ventricular wall thickness. The left ventricular function is normal. The left ventricular ejection fraction is within the normal range. There is normal LV segmental wall motion. The left ventricular diastolic function is normal.
[2018-01-10] MEDS: Albuterol-Ipratrop 3 mg / 0.5 (3 ml) UD IH SCH ×3 (01:15→13:21)
[2018-01-10 06:27] LABS: GRAN # 1.7 (1.4-6.5); GRAN % 87.7 % (50.0-68.0); HEMOGLOBIN 8.8 g/dL (12.0-16.0); LYMPH # 0.2 (1.2-3.4); LYMPH % 8.2 % (22.0-35.0); MEAN CELL VOLUME 83.2 fl (80.0-105.0); MEAN CORPUSCULAR HEMOGLOBIN 27.8 pg (25.0-35.0); MEAN CORPUSCULAR HGB CONC 33.5 g/dl (31.0-37.0); MEAN PLATELET VOLUME 10.3 fl (7.0-11.0); MONO # 0.1 (0.1-0.6); MONO % 4.1 % (1.0-6.0); RBC 3.16 10^6/uL (3.5-6.1); RED CELL DISTRIBUTION WIDTH 14.7 % (11.5-14.5)
[2018-01-10 06:33] LABS: ALB/GLOB RATIO 0.8 (1.1-1.8); ALBUMIN 2.9 g/dL (3.0-4.8); ALT/SGPT 27 U/L (7-56); AST/SGOT 70 U/L (14-36); BLOOD UREA NITROGEN 10 mg/dL (7-21); CALCIUM 8.1 mg/dL (8.4-10.5); GFR NON-AFRICAN AMERICAN > 60
[2018-01-10 06:37] LABS: WHITE BLOOD COUNT 1.9 10^3/ul (4.5-11.0)
--- NOTE | 2018-01-10 06:58 | CP.PCM.PN ---
Addendum entered and electronically signed by Daniel Huerta DO 01/10/18 14:43 : Physical Exam - Constitutional Appears: Well, No acute Distress, Comfortable - Head Exam Head Exam: ATRAUMATIC, NORMAL INSPECTION, NORMOCEPHALIC - Eye Exam Eye Exam: EOMI, Normal appearance Pupil Exam: PERRL - ENT Exam ENT Exam: Mucous Membranes Moist - Neck Exam Neck exam: Positive for: Normal Inspection. Negative for: Tenderness - Respiratory Exam Respiratory Exam: Wheezing improved; no respiratory insufficiency; still has some rhonchorus breath sounds BL - Cardiovascular Exam Cardiovascular Exam: RRR, +S1, +S2, No murmur appreciated - GI/Abdominal Exam GI & Abdominal Exam: Normal Bowel Sounds, Soft. absent: Distended, Organomegaly , Tenderness - Extremities Exam Extremities exam: Positive for: normal inspection, pedal pulses present. Negative for: calf tenderness, joint swelling - Back Exam Back exam: NORMAL INSPECTION. absent: CVA tenderness (L), CVA tenderness (R), paraspinal tenderness, rash noted - Neurological Exam Neurological exam: Alert, CN II-XII Intact, Oriented x3 - Psychiatric Exam Psychiatric exam: Flat Affect - Skin Skin Exam: Dry, Intact, Normal Color, Warm Original Note: <Daniel Huerta - Last Filed: 01/10/18 14:29> Subjective - Date & Time of Evaluation Date of Evaluation: 01/10/18 Time of Evaluation: 06:55 - Subjective Subjective: Daniel Huerta DO PGY1 - Internal Medicine Cryptographic Clerk - Hospital progress Note Patient seen and examined at bedside this morning. No acute events reported overnight; No new complaints reported this morning. Patient reports her wheezing and cost have improved from day prior. She reports that her dizziness has improved with changing positions slowly. 12 system ROS otherwise negative Objective - Vital Signs/Intake and Output Vital Signs (last 24 hours): Temp Pulse Resp BP Pulse Ox 97.4 F L 86 20 97/65 L 95 01/10/18 06:00 01/10/18 06:00 01/10/18 06:00 01/10/18 06:00 01/10/18 06:00 Intake and Output: 01/09/18 01/10/18 18:59 06:59 Intake Total 2720 240 Output Total 3 Balance 2720 237 - Medications Medications: Current Medications Acetaminophen (Tylenol 325mg Tab) 650 mg PO Q6H PRN PRN Reason: Pain, Mild (1-3) Last Admin: 01/09/18 10:07 Dose: 650 mg Albuterol/Ipratropium (Duoneb 3 Mg/0.5 Mg (3 Ml) Ud) 3 ml IH [id number] [facility] Last Admin: 01/10/18 01:15 Dose: 3 ml Albuterol/Ipratropium (Duoneb 3 Mg/0.5 Mg (3 Ml) Ud) 3 ml IH Q2H PRN PRN Reason: Shortness of Breath Aspirin (Aspirin Chewable) 81 mg PO DAILY [facility] Last Admin: 01/09/18 10:12 Dose: 81 mg Famotidine (Pepcid) 40 mg PO HS [facility] Last Admin: 01/09/18 21:16 Dose: 40 mg Ferrous Sulfate (Feosol) 324 mg PO TID [facility] Last Admin: 01/09/18 17:13 Dose: 324 mg Guaifenesin/Dextromethorphan (Mucinex-Dm 600-30 Mg) 1 tab PO BID [facility] Last Admin: 01/09/18 17:14 Dose: 1 tab Azithromycin (Zithromax 500mg In Ns) 500 mg in 250 mls @ 167 mls/hr IVPB DAILY [facility] PRN Reason: Protocol Last Admin: 01/09/18 09:22 Dose: 167 mls/hr Ceftriaxone Sodium (Rocephin 1 Gram Ivpb) 1 gm in 100 mls @ 100 mls/hr IVPB DAILY [facility] PRN Reason: Protocol Last Admin: 01/09/18 13:09 Dose: 100 mls/hr Methylprednisolone (Solu-Medrol) 40 mg IVP Q12 [facility] Last Admin: 01/09/18 21:16 Dose: 40 mg Nicotine (Nicoderm Cq) 1 patch TD DAILY [facility] Last Admin: 01/09/18 09:22 Dose: 1 patch - Labs Labs: 01/10/18 05:40 01/10/18 05:40 Assessment and Plan - Assessment and Plan (Free Text) Assessment: 52F w/ questionable PMHx of HIV, and social hx significant for 25 pack year smoking, presented to [facility] on 01/08 w/ CC of Cough/SOB, Fatigue, and Dizziness. Plan: Cough w/ Wheezing + ROSE - Patient unclear on length of duration of symptoms; Given smoking hx most likely a COPD exacerbation w/ chronic bronchitis - Changed to Duoneb Q6PRN - Changed to Solumedrol 30 Q12 - C/w Mucinex DM 1 PO BID - C/w Rocephin 1gm QD Day 2 - C/w Azithromycin 500mg QD Day 2 - CXR shows no consolidation or infiltrate - Blood Cx 2/2 negative @ 24 Hours - Sputum Cx Pending - ProCal negative Leukopenia, most likely 2/2 HIV - History of + HIV testing as per Dr. Loving - Patient has not followed up with PMD since tested - HIV Ab, PCR, CD4 count pending - Can consider ID/Heme Onc consultation once results Dizziness - Patient reported as positional related - Negative Ty Hallpike - Etiologies include orthostatic vs anemia related vs cardiac related - Orthostatic vital signs unremarkable - TSH elevated; T4 normal - CT Head shows no acute pathology compared to 10/05 image. Diffuse atrophy with prominence of ventricles and sulci. Intracranial atherosclerotic calcifications. Likely chronic microvascular ischemic disease - Echo pending - Carotid U/S - Bilateral 0-19% ICA Stenosis - PT/OT Eval: Pt not a candidate for skilled PT services Normocytic Anemia - Anemia of Chronic Disease - Symptomatic anemia at this time given patient's dizzy spells - Hb 10.2/ MCV 83.7 - Folate/ B12 pending - Fe Low/ TIBC Low/ % Saturation Low/ Ferritin elevated - FOBT pending - Retic count normal Hypokalemia - Resolved Hx of smoking and heroin abuse Nicotine patch; education provided to stop tobacco use last use of heroin reported 10 years ago UDS negative GI/DVT ppx SCD's Pepcid 40 HS Dispo: Continued inpatient admission for work up of leukopenia, and management of bronchitis Patient seen, examined, and case discussed w/ attending physician Dr. Leti Huerta DO PGY1 Internal Medicine Cryptographic Clerk - Pager [phone] <Leti Huerta R - Last Filed: 01/12/18 20:09> Objective - Vital Signs/Intake and Output Vital Signs (last 24 hours): Temp Pulse Resp BP Pulse Ox 98.6 F 62 18 123/81 96 01/12/18 14:00 01/12/18 14:00 01/12/18 14:00 01/12/18 14:00 01/12/18 14:00 - Labs Labs: 01/12/18 05:45 01/12/18 05:45 Attending/Attestation - Attestation I have personally seen and examined this patient.: Yes I have fully participated in the care of the patient.: Yes I have reviewed all pertinent clinical information, including history, physical exam and plan: Yes Notes (Text): Patient seen and examined by me at 9:15AM with resident 01/10/18. Case including HPI, physical exam, and assessment and plan discussed with resident. Agree with above with following additions/corrections. Patient is a 52-year-old female with past medical history significant for possible HIV and chronic back pain that presented to the emergency room with dizziness and fatigue. Patient states she is feeling better today. Cough improved. Dizziness has improved. No fevers or chills. No nausea, vomiting, or abdominal pain. No chest pain or shortness of breath. No dysuria. No diarrhea or constipation. Denies any headaches. Physical exam: Gen: Awake and alert sitting up in bed in no acute distress HEENT: Normocephalic, atraumatic. Extraocular muscles intact, pupils equal reactive. No scleral icterus. Oropharynx is pink and moist. Neck is supple. Cardiovascular: Normal rhythm. Normal S1, S2. No murmurs, rubs, or gallops appreciated Pulmonary: Normal respiratory effort. Decreased breath sounds. No rhonchi, rales , or wheezing appreciated. Gastrointestinal: Soft, nontender, nondistended. Positive bowel sounds all 4 quadrants, no guarding. Musculoskeletal: Moves all extremities. No calf tenderness. No edema appreciated. Central nervous system: AAO x 3. CN 2-12 grossly intact. Dermatologic: Skin warm and dry Assessment and plan: Patient is a 52-year-old female with past medical history significant for possible HIV and chronic back pain that presented to the emergency room with dizziness and fatigue. 1. Cough. Acute bronchitis. Improved. Continue Rocephin and Zithromax. Chest xray per radiologist shows no active pulmonary disease. Continue Mucinex. Continue nebulizer treatments. 2. Possible COPD. Patient is smoker. Continue solumedrol, taper off. Continue nebulizer treatments. Patient will need outpatient PFT testing. 3. Dizziness. Orthostatics negative. Carotid dopplers per radiologist showed bilateral 0-19% proximal ICA stenosis. 2d echo pending. Head CT per radiologist showed no acute intracranial pathology identified. Possible chronic microvascular ischemic changes. Continue ASA. 4. Leukopenia. Likely secondary to HIV. Blood cultures negative so far. Continue Antibiotics. Continue to monitor 5. Anemia of chronic disease. Likely secondary to HIV. Stool for occult blood pending. Continue to monitor CBC. 6. HIV positive. ID consulted, follow up recommendations. CD4 count pending. 7. Elevated TSH. Normal Free T4. Patient will need to follow up outpatient for repeat blood work. 8. Tobacco abuse. Patient counseled on cessation. Case was discussed in detail with the patient regarding current diagnosis and treatment plan.
[2018-01-10] MEDS: cefTRIAXone 1 gm 1 GM/100 ML BAG IVPB SCH (09:12)
[2018-01-10] MEDS: guaiFENesin-DM 600-30 mg ER Tab PO SCH ×2 (09:12→17:43)
[2018-01-10] MEDS: MethylPREDNISolone 40 mg Vial IVP SCH ×2 (09:54→21:24)
[2018-01-10] MEDS: Azithromycin 500MG/NS 250ml 500 MG/250 ML BAG IVPB SCH (10:10)
[2018-01-10 12:57] LABS: FOLATE 6.1 ng/mL
[2018-01-10] MEDS ORDERED: Albuterol-Ipratrop 3 mg / 0.5 (3 ml) UD IH PRN (14:33)
[2018-01-10 17:49] LABS: % CD4 (T HELPER CELL) 6 Percent (30-61); % CD8 (SUPPRESSOR T CELL) 40 Percent (12-42); ABSOLUTE CD3 CELLS 76 Cells/mcL (840-3060); ABSOLUTE CD4 CELLS <20 Cells/mcL (490-1740); ABSOLUTE CD8 CELLS 64 Cells/mcL (180-1170); ABSOLUTE LYMPHOCYTES 159 Cells/mcL (850-3900); HELPER/SUPPRESSOR RATIO 0.15 Ratio (0.86-5.00)
[2018-01-11 06:29] LABS: GRAN # 3.95 (1.4-6.5); HEMOGLOBIN 8.3 g/dL (12.0-16.0); LYMPH # 0.2 (1.2-3.4); LYMPH % 4.9 % (22.0-35.0); MEAN CELL VOLUME 83.9 fl (80.0-105.0); MEAN CORPUSCULAR HEMOGLOBIN 27.8 pg (25.0-35.0); MEAN CORPUSCULAR HGB CONC 33.1 g/dl (31.0-37.0); MEAN PLATELET VOLUME 10.5 fl (7.0-11.0); MONO # 0.1 (0.1-0.6); MONO % 2.1 % (1.0-6.0); PLATELET COUNT 233 10^3/uL (120.0-450.0); RBC 2.99 10^6/uL (3.5-6.1); RED CELL DISTRIBUTION WIDTH 15.2 % (11.5-14.5); WHITE BLOOD COUNT 4.3 10^3/ul (4.5-11.0)
[2018-01-11 07:04] LABS: ALB/GLOB RATIO 0.9 (1.1-1.8); ALBUMIN 2.8 g/dL (3.0-4.8); ALT/SGPT 35 U/L (7-56); AST/SGOT 78 U/L (14-36); BLOOD UREA NITROGEN 10 mg/dL (7-21); CALCIUM 8.9 mg/dL (8.4-10.5); GFR NON-AFRICAN AMERICAN > 60
[2018-01-11] MEDS ORDERED: Sod Polystyrene Sulf 15 gm/60 ml Susp PO ONE (07:23)
[2018-01-11 07:45] LABS: BAND 3 % (0-2); LYMPHOCYTE 4 % (22.0-35.0); MONOCYTE 4 % (1.0-6.0); NEUTROPHIL 89 % (50.0-70.0); NUCLEATED RED BLOOD CELL 1 %; PLATELET ESTIMATE NORMAL (NORMAL)
[2018-01-11] MEDS: cefTRIAXone 1 gm 1 GM/100 ML BAG IVPB SCH (09:03)
[2018-01-11] MEDS: guaiFENesin-DM 600-30 mg ER Tab PO SCH ×2 (09:04→17:08)
[2018-01-11] MEDS: Azithromycin 500MG/NS 250ml 500 MG/250 ML BAG IVPB SCH (10:39)
--- NOTE | 2018-01-11 12:07 | CP.PCM.CON ---
History of Present Illness - History of Present Illness History of Present Illness: 52 year old female with PMH of chronic back pain, possible HIV, significant smoking history, history of IV drug use came in to [facility] complaining of generalized weakness and fatigue for the past 2 weeks, with associated productive cough. She also admits to about a 1 pound weight loss in the past 2- 3 months. She denies headache, no blurring of vision, no nausea or vomiting, no abdominal pain, no dysphagia or odynophagia, no sore throat, rhinorrhea, no diarrhea, no dysuria. She denies recent travel outside of [place] in the past 3 months, denies animal contacts. Infectious Diseases consult is requested to further evaluate and manage. Review of Systems - Review of Systems All systems: reviewed and no additional remarkable complaints except (as per HPI ) Past Patient History - Tetanus Immunizations Tetanus Immunization: Unknown - Past Social History Smoking Status: Heavy Smoker > 10 Cigarettes Daily - CARDIAC Hx Cardiac Disorders: No - PULMONARY Hx Respiratory Disorders: No - NEUROLOGICAL Hx Neurological Disorder: No - HEENT Hx HEENT Problems: No - RENAL Hx Chronic Kidney Disease: No - ENDOCRINE/METABOLIC Hx Endocrine Disorders: No - HEMATOLOGICAL/ONCOLOGICAL Hx Blood Disorders: Yes - INTEGUMENTARY Hx Dermatological Problems: No - MUSCULOSKELETAL/RHEUMATOLOGICAL Hx Musculoskeletal Disorders: No - GASTROINTESTINAL Hx Gastrointestinal Disorders: No - GENITOURINARY/GYNECOLOGICAL Hx Genitourinary Disorders: No - PSYCHIATRIC Hx Psychophysiologic Disorder: No Hx Substance Use: Yes (HEROIN) - SURGICAL HISTORY Hx Orthopedic Surgery: Yes Meds Home Medications: Home Medication List Medication Instructions Recorded Confirmed Type predniSONE [Prednisone] 40 mg PO DAILY #5 tab 01/11/18 Rx Allergies/Adverse Reactions: Allergies Allergy/AdvReac Type Severity Reaction Status Date / Time No Known Allergies Allergy Verified 01/08/18 16:18 - Medications Medications: Current Medications Acetaminophen (Tylenol 325mg Tab) 650 mg PO Q6H PRN PRN Reason: Pain, Mild (1-3) Last Admin: 01/09/18 10:07 Dose: 650 mg Albuterol/Ipratropium (Duoneb 3 Mg/0.5 Mg (3 Ml) Ud) 3 ml IH [id number] PRN PRN Reason: Cough and congestion Aspirin (Aspirin Chewable) 81 mg PO DAILY [facility] Last Admin: 01/10/18 09:12 Dose: 81 mg Famotidine (Pepcid) 40 mg PO HS [facility] Last Admin: 01/10/18 21:24 Dose: 40 mg Guaifenesin/Dextromethorphan (Mucinex-Dm 600-30 Mg) 1 tab PO BID [facility] Last Admin: 01/10/18 17:43 Dose: 1 tab Azithromycin (Zithromax 500mg In Ns) 500 mg in 250 mls @ 167 mls/hr IVPB DAILY [facility] PRN Reason: Protocol Last Admin: 01/10/18 10:10 Dose: 167 mls/hr Ceftriaxone Sodium (Rocephin 1 Gram Ivpb) 1 gm in 100 mls @ 100 mls/hr IVPB DAILY [facility] PRN Reason: Protocol Last Admin: 01/10/18 09:12 Dose: 100 mls/hr Methylprednisolone (Solu-Medrol) 30 mg IVP Q12 [facility] Last Admin: 01/10/18 21:24 Dose: 30 mg Nicotine (Nicoderm Cq) 1 patch TD DAILY [facility] Last Admin: 01/10/18 09:12 Dose: 1 patch Physical Exam - Constitutional Appears: No Acute Distress, Chronically Ill - ENT Exam ENT Exam: Mucous Membranes Moist, Normal Oropharynx Additional comments: no oral thrush - Neck Exam Neck exam: Negative for: Lymphadenopathy, Meningismus - Respiratory Exam Respiratory Exam: Decreased Breath Sounds - Cardiovascular Exam Cardiovascular Exam: +S1, +S2 - GI/Abdominal Exam GI & Abdominal Exam: Soft. absent: Tenderness Results - Vital Signs Recent Vital Signs: Last Vital Signs Temp 98 F 01/11/18 06:00 Pulse 50 L 01/11/18 06:00 Resp 20 01/11/18 06:00 BP 100/70 01/11/18 06:00 Pulse Ox 99 01/11/18 06:00 - Labs Result Diagrams: 01/11/18 05:40 01/11/18 09:39 Labs: Laboratory Results - last 24 hr 01/09/18 01/09/18 01/10/18 05:50 05:50 05:40 WBC RBC Hgb Hct MCV MCH MCHC RDW Plt Count MPV Gran % Lymph % (Auto) [place] % (Auto) Eos % (Auto) Baso % (Auto) Gran # Lymph # (Auto) [place] # (Auto) Eos # (Auto) Baso # (Auto) Vitamin B12 575 Folate 6.1 Absolute Lymphs (Flow) 159 L % CD3 Cells 48 L Absolute CD3 Count 76 L % CD4 Cells 6 L Absolute CD4 Count <20 L T-Help/Suppress Ratio 0.15 L % CD8 Cells 40 Absolute CD8 Count 64 L T-Lymph Analys Comment See note HIV-1 RNA Qnt (RT-PCR) 5.65 H 01/11/18 05:40 WBC 4.3 L D RBC 2.99 L Hgb 8.3 L Hct 25.1 L MCV 83.9 MCH 27.8 MCHC 33.1 RDW 15.2 H Plt Count 233 MPV 10.5 Gran % 93.0 H Lymph % (Auto) 4.9 L [place] % (Auto) 2.1 Eos % (Auto) 0.0 L Baso % (Auto) 0.0 Gran # 3.95 Lymph # (Auto) 0.2 L [place] # (Auto) 0.1 Eos # (Auto) 0.0 Baso # (Auto) 0.00 Vitamin B12 Folate Absolute Lymphs (Flow) % CD3 Cells Absolute CD3 Count % CD4 Cells Absolute CD4 Count T-Help/Suppress Ratio % CD8 Cells Absolute CD8 Count T-Lymph Analys Comment HIV-1 RNA Qnt (RT-PCR) Assessment & Plan - Assessment and Plan (Free Text) Plan: Assessment chronic HIV infection with AIDS with current CD4 count less than 20 (6%) acute bronchitis chronic back pain significant smoking history history of IV drug use Plan Will start PJP prophylaxis with Bactrim, will check serum Crypt Ag, RPR, Quantiferon TB test; HIV-1 virus load is 5.65 log - will need to be referred to an HIV provider as an outpatient will also check HCV Ab since patient has history of IV drug use reviewed CXR; will get CT chest to rule out infiltrates - patient currently being treated with Rocephin and Zithromax - PCT is only 0.08 - will d/c Rocephin will monitor clinically
[2018-01-11] MEDS: MethylPREDNISolone 40 mg Vial IVP SCH ×2 (14:10→21:13)
--- NOTE | 2018-01-11 15:12 | CT ---
Date of service: 01/11/2018 PROCEDURE: CT Chest without contrast HISTORY: R/o infiltrate COMPARISON: None available. TECHNIQUE: Contiguous axial images were obtained through the chest without intravenous contrast enhancement. Sagittal and coronal reconstructions were performed. Radiation dose (DLP): 297 mGy-cm. This CT exam was performed using one or more of the following dose reduction techniques: Automated exposure control, adjustment of the mA and/or kV according to patient size, and/or use of iterative reconstruction technique. FINDINGS: LUNGS: There is no evidence of infiltrate. Small pleural-based nodules are seen at the left lung base the largest measuring 7 mm. MEDIASTINUM: Unremarkable thoracic aorta. No aneurysm. Normal sized heart. Main pulmonary artery unremarkable. No vascular congestion. No lymphadenopathy. PLEURA: No pleural fluid. No pneumothorax. BONES: No fracture. No destructive lesion. UPPER ABDOMEN: Grossly unremarkable. OTHER FINDINGS: None. IMPRESSION: There is no evidence of infiltrate. Small pleural-based nodules are seen at the left lung base the largest measuring 7 mm.
--- NOTE | 2018-01-11 17:23 | CP.PCM.PN ---
<Daniel Huerta - Last Filed: 01/11/18 17:10> Subjective - Date & Time of Evaluation Date of Evaluation: 01/11/18 Time of Evaluation: 17:24 - Subjective Subjective: Daniel Huerta DO PGY1 - Internal Medicine [facility] - Hospital Progress Note Patient reported improved dizziness this AM. Denies any abd or GI complaints; improved breathing, reduced cough. 12 system ROS otherwise negative. Patient was updated on HIV test results; reported that she spoke with Dr. Chandler , infectious disease,this AM. Patient aware that she will need to follow up with PMD and HIV clinic outpatient. Objective - Vital Signs/Intake and Output Vital Signs (last 24 hours): Temp Pulse Resp BP Pulse Ox 97.9 F 58 L 20 99/69 L 99 01/11/18 12:00 01/11/18 12:00 01/11/18 12:00 01/11/18 12:00 01/11/18 06:00 Intake and Output: 01/11/18 01/11/18 06:59 18:59 Intake Total 120 350 Balance 120 350 - Medications Medications: Current Medications Acetaminophen (Tylenol 325mg Tab) 650 mg PO Q6H PRN PRN Reason: Pain, Mild (1-3) Last Admin: 01/09/18 10:07 Dose: 650 mg Albuterol/Ipratropium (Duoneb 3 Mg/0.5 Mg (3 Ml) Ud) 3 ml IH [id number] PRN PRN Reason: Cough and congestion Aspirin (Aspirin Chewable) 81 mg PO DAILY [facility] Last Admin: 01/11/18 09:04 Dose: 81 mg Famotidine (Pepcid) 40 mg PO HS [facility] Last Admin: 01/10/18 21:24 Dose: 40 mg Guaifenesin/Dextromethorphan (Mucinex-Dm 600-30 Mg) 1 tab PO BID [facility] Last Admin: 01/11/18 17:08 Dose: 1 tab Azithromycin (Zithromax 500mg In Ns) 500 mg in 250 mls @ 167 mls/hr IVPB DAILY [facility] PRN Reason: Protocol Last Admin: 01/11/18 10:39 Dose: 167 mls/hr Methylprednisolone (Solu-Medrol) 10 mg IVP Q8 [facility] Last Admin: 01/11/18 14:10 Dose: 10 mg Nicotine (Nicoderm Cq) 1 patch TD DAILY [facility] Last Admin: 01/11/18 09:04 Dose: 1 patch Trimethoprim/Sulfamethoxazole (Bactrim Ds Tab) 1 tab PO MWF [facility] PRN Reason: Protocol - Labs Labs: 01/11/18 05:40 01/11/18 09:39 Physical Exam - Constitutional Appears: Well, No acute Distress, Comfortable - Head Exam Head Exam: ATRAUMATIC, NORMAL INSPECTION, NORMOCEPHALIC - Eye Exam Eye Exam: EOMI, Normal appearance Pupil Exam: PERRL - ENT Exam ENT Exam: Mucous Membranes Moist; No oral thrush appreciated - Neck Exam Neck exam: Positive for: Normal Inspection. Negative for: Tenderness - Respiratory Exam Respiratory Exam: CTAB, minimal rhonci - Cardiovascular Exam Cardiovascular Exam: RRR, +S1, +S2, No murmur appreciated - GI/Abdominal Exam GI & Abdominal Exam: Normal Bowel Sounds, Soft. absent: Distended, Organomegaly , Tenderness - Extremities Exam Extremities exam: Positive for: normal inspection, pedal pulses present. Negative for: calf tenderness, joint swelling - Back Exam Back exam: NORMAL INSPECTION. absent: CVA tenderness (L), CVA tenderness (R), paraspinal tenderness, rash noted - Neurological Exam Neurological exam: Alert, CN II-XII Intact, Oriented x3 - Psychiatric Exam Psychiatric exam: Flat Affect - Skin Skin Exam: Dry, Intact, Normal Color, Warm Assessment and Plan - Assessment and Plan (Free Text) Assessment: 52F w/ questionable PMHx of HIV, and social hx significant for 25 pack year smoking, presented to [facility] on [place] w/ CC of Cough/SOB, Fatigue, and Dizziness. Plan: Cough w/ Wheezing + ROSE - Patient unclear on length of duration of symptoms; Given smoking hx most likely a COPD exacerbation w/ chronic bronchitis - Changed to Duoneb Q6PRN - Changed to Solumedrol 10 Q8 - C/w Mucinex DM 1 PO BID - DC Rocephin 1gm QD 3 Days total - C/w Azithromycin 500mg QD Day 3 - CXR shows no consolidation or infiltrate - Blood Cx 2/2 negative @ 24 Hours - Sputum Cx Pending - ProCal negative HIV w/ Leukopenia - History of + HIV testing as per Dr. Loving - Patient has not followed up with PMD since tested - Leukopenia has been resolving - HIV RNA - 5.65 - CD4 <20 - Will require the following PPX -Bactrim DS 1 TAB PO MWF -Azitrhomycin 1200mg QW - Will refer patient to HIV clinic - Hep C Ab - negative - Quantiferon ordered - Cryptococcus Ag ordered - RPR ordered - CT Lung performed; no infiltrate appreciated; small 7mm lung nodules at bases ; Pt. will follow up outpt w/ Dr. Leon - ID Following, Appreciate reccs Dizziness - Patient reported as positional related - Negative Ty Hallpike - Etiologies include orthostatic vs anemia related vs cardiac related - Orthostatic vital signs unremarkable - TSH elevated; T4 normal - CT Head shows no acute pathology compared to 10/05 image. Diffuse atrophy with prominence of ventricles and sulci. Intracranial atherosclerotic calcifications. Likely chronic microvascular ischemic disease - Echo wnl - Carotid U/S - Bilateral 0-19% ICA Stenosis - PT/OT Eval: Pt not a candidate for skilled PT services Normocytic Anemia - Anemia of Chronic Disease - Symptomatic anemia at this time given patient's dizzy spells - Hb 10.2/ MCV 83.7 - Folate/ B12 pending - Fe Low/ TIBC Low/ % Saturation Low/ Ferritin elevated - FOBT pending - Retic count normal Hyperkalemia Elevated K to 5.2 this AM Kayexalate admin; K+ now 4.3 Hx of smoking and heroin abuse Nicotine patch; education provided to stop tobacco use last use of heroin reported 10 years ago UDS negative GI/DVT ppx SCD's Pepcid 40 HS Dispo: Continued inpatient admission for work up of leukopenia, and management of bronchitis; Currently tapering patient's IV steroids Patient seen, examined, and case discussed w/ attending physician Dr. Dot Huerta DO PGY1 Internal Medicine [facility] - Pager [phone] <Esha Chris - Last Filed: 01/12/18 07:28> Objective - Vital Signs/Intake and Output Vital Signs (last 24 hours): Temp Pulse Resp BP Pulse Ox 98.6 F 63 16 112/74 97 01/11/18 22:55 01/11/18 22:55 01/11/18 22:55 01/11/18 22:55 01/11/18 22:55 - Medications Medications: Current Medications Acetaminophen (Tylenol 325mg Tab) 650 mg PO Q6H PRN PRN Reason: Pain, Mild (1-3) Last Admin: 01/11/18 18:56 Dose: 650 mg Albuterol/Ipratropium (Duoneb 3 Mg/0.5 Mg (3 Ml) Ud) 3 ml IH [id number] PRN PRN Reason: Cough and congestion Aspirin (Aspirin Chewable) 81 mg PO DAILY [facility] Last Admin: 01/11/18 09:04 Dose: 81 mg Famotidine (Pepcid) 40 mg PO HS [facility] Last Admin: 01/11/18 21:12 Dose: 40 mg Guaifenesin/Dextromethorphan (Mucinex-Dm 600-30 Mg) 1 tab PO BID [facility] Last Admin: 01/11/18 17:08 Dose: 1 tab Azithromycin (Zithromax 500mg In Ns) 500 mg in 250 mls @ 167 mls/hr IVPB DAILY [facility] PRN Reason: Protocol Last Admin: 01/11/18 10:39 Dose: 167 mls/hr Methylprednisolone (Solu-Medrol) 10 mg IVP Q8 [facility] Last Admin: 01/12/18 06:14 Dose: 10 mg Nicotine (Nicoderm Cq) 1 patch TD DAILY [facility] Last Admin: 01/11/18 09:04 Dose: 1 patch Trimethoprim/Sulfamethoxazole (Bactrim Ds Tab) 1 tab PO MWF [facility] PRN Reason: Protocol - Labs Labs: 01/12/18 05:45 01/12/18 05:45 Attending/Attestation - Attestation I have personally seen and examined this patient.: Yes I have fully participated in the care of the patient.: Yes I have reviewed all pertinent clinical information, including history, physical exam and plan: Yes Notes (Text): 01/11/18 52 year old female with past medical history of HIV and tobacco use who presented with dizziness, cough and shortness of breath. She is on tapering iv steroids for possible COPD exacerbation. She is on duonebs and antibiotics. CT chest shows small pleural nodules at bases. Recommended close outpatient follow up. Counselled on smoking cessation. Recommended outpatient PFTs and pulmonary follow up. Her dizziness has improved. PT evaluation was appreciated. Leukocopenia has improved. Likely secondary to HIV. ID evaluation was appreciated. Recommended outpatient follow up. She is on bactrim and azithromycin. Recommend to repeat TFTs in 4-6 weeks with pmd. D/c planning likely 24 hrs if symptoms continue to improve. Esha Chris MD Hospitalist.
--- NOTE | 2018-01-11 19:23 | CARD ---
APPROVED REPORT Date of service: 01/11/2018 EKG Measurement Heart [id number] <Conclusion> Marked sinus bradycardia Abnormal ECG
[2018-01-12] MEDS: MethylPREDNISolone 40 mg Vial IVP SCH ×2 (06:14→13:33)
[2018-01-12 06:49] LABS: GRAN # 2.92 (1.4-6.5); GRAN % 90.7 % (50.0-68.0); HEMOGLOBIN 8.5 g/dL (12.0-16.0); LYMPH # 0.2 (1.2-3.4); LYMPH % 5.6 % (22.0-35.0); MEAN CELL VOLUME 84.4 fl (80.0-105.0); MEAN CORPUSCULAR HEMOGLOBIN 27.7 pg (25.0-35.0); MEAN CORPUSCULAR HGB CONC 32.8 g/dl (31.0-37.0); MEAN PLATELET VOLUME 10.2 fl (7.0-11.0); MONO # 0.1 (0.1-0.6); MONO % 3.7 % (1.0-6.0); RBC 3.07 10^6/uL (3.5-6.1); RED CELL DISTRIBUTION WIDTH 15.3 % (11.5-14.5); WHITE BLOOD COUNT 3.2 10^3/ul (4.5-11.0)
[2018-01-12 07:19] LABS: ALB/GLOB RATIO 0.9 (1.1-1.8); ALBUMIN 2.9 g/dL (3.0-4.8); ALT/SGPT 59 U/L (7-56); AST/SGOT 160 U/L (14-36); BLOOD UREA NITROGEN 13 mg/dL (7-21); CALCIUM 8.5 mg/dL (8.4-10.5); GFR NON-AFRICAN AMERICAN > 60
[2018-01-12 07:39] VITALS: RESP 18
[2018-01-12] MEDS ORDERED: Tmp-Smz 800 mg-160 mg DS Tab PO SCH (10:00)
[2018-01-12] MEDS: guaiFENesin-DM 600-30 mg ER Tab PO SCH (10:11)
[2018-01-12] MEDS: Azithromycin 500MG/NS 250ml 500 MG/250 ML BAG IVPB SCH (10:13)
[2018-01-12 15:02] VITALS: BP 123/81; PULSE 62; TEMP 98.6; O2SAT 96
--- NOTE | 2018-01-12 17:08 | CP.PCM.PN ---
Subjective - Date & Time of Evaluation Date of Evaluation: 01/12/18 Time of Evaluation: 12:25 - Subjective Subjective: Comfortable on a chair, no dysphagia, no fevers, not in distress. Objective - Vital Signs/Intake and Output Vital Signs (last 24 hours): Temp Pulse Resp BP Pulse Ox 98 F 50 L 20 100/70 99 01/11/18 06:00 01/11/18 06:00 01/11/18 06:00 01/11/18 06:00 01/11/18 06:00 Intake and Output: 01/11/18 01/11/18 06:59 18:59 Intake Total 120 Balance 120 - Medications Medications: Current Medications Acetaminophen (Tylenol 325mg Tab) 650 mg PO Q6H PRN PRN Reason: Pain, Mild (1-3) Last Admin: 01/09/18 10:07 Dose: 650 mg Albuterol/Ipratropium (Duoneb 3 Mg/0.5 Mg (3 Ml) Ud) 3 ml IH [id number] PRN PRN Reason: Cough and congestion Aspirin (Aspirin Chewable) 81 mg PO DAILY [facility] Last Admin: 01/11/18 09:04 Dose: 81 mg Famotidine (Pepcid) 40 mg PO HS [facility] Last Admin: 01/10/18 21:24 Dose: 40 mg Guaifenesin/Dextromethorphan (Mucinex-Dm 600-30 Mg) 1 tab PO BID [facility] Last Admin: 01/11/18 09:04 Dose: 1 tab Azithromycin (Zithromax 500mg In Ns) 500 mg in 250 mls @ 167 mls/hr IVPB DAILY [facility] PRN Reason: Protocol Last Admin: 01/11/18 10:39 Dose: 167 mls/hr Ceftriaxone Sodium (Rocephin 1 Gram Ivpb) 1 gm in 100 mls @ 100 mls/hr IVPB DAILY [facility] PRN Reason: Protocol Last Admin: 01/11/18 09:03 Dose: 100 mls/hr Methylprednisolone (Solu-Medrol) 10 mg IVP Q8 [facility] Nicotine (Nicoderm Cq) 1 patch TD DAILY [facility] Last Admin: 01/11/18 09:04 Dose: 1 patch Trimethoprim/Sulfamethoxazole (Bactrim Ds Tab) 1 tab PO MWF [facility] PRN Reason: Protocol - Labs Labs: 01/11/18 05:40 01/11/18 09:39 - Constitutional Appears: Chronically Ill - Head Exam Head Exam: NORMAL INSPECTION - ENT Exam ENT Exam: Mucous Membranes Moist - Neck Exam Neck Exam: absent: Meningismus - Respiratory Exam Respiratory Exam: Decreased Breath Sounds - Cardiovascular Exam Cardiovascular Exam: +S1, +S2 - GI/Abdominal Exam GI & Abdominal Exam: Soft. absent: Tenderness Assessment and Plan - Assessment and Plan (Free Text) Plan: Assessment chronic HIV infection with AIDS with current CD4 count less than 20 (6%) acute bronchitis chronic back pain significant smoking history history of IV drug use Plan continue PJP prophylaxis with Bactrim, follow up serum Crypt Ag, RPR, Quantiferon TB test; HIV-1 virus load is 5.65 log - will need to be referred to an HIV provider as an outpatient will also check HCV Ab since patient has history of IV drug use reviewed CXR; CT chest does not show infiltrates - complete 3-5 days of daily Zithromax - PCT is only 0.08 - she then will need Zithromax 1200 mg qweekly for JERSON prophylaxis discussed with medical team
--- NOTE | 2018-01-12 22:19 | CP.PCM.DIS ---
<Daniel Huerta - Last Filed: 01/12/18 23:54> Provider - Provider Date of Admission: 01/08/18 19:56 Attending physician: Esha Chris MD Primary care physician: Sienna Loving MD Consults: ANA MARIA Chandler Time Spent in preparation of Discharge (in minutes): 40 Diagnosis - Discharge Diagnosis (1) HIV (human immunodeficiency virus infection) Status: Acute Priority: High (2) Obstructive airway disease Status: Acute Priority: High (3) Acute bronchitis Status: Acute Priority: Medium (4) Orthostatic hypotension Status: Acute Priority: Medium (5) Pulmonary nodule Status: Acute Priority: Low Hospital Course - Lab Results Lab Results: Micro Results 01/08/18 20:00 Blood Blood Culture - Preliminary NO GROWTH AFTER 4 DAYS Most Recent Lab Values WBC 3.2 10^3/ul (4.5-11.0) L D 01/12/18 05:45 RBC 3.07 10^6/uL (3.5-6.1) L 01/12/18 05:45 Hgb 8.5 g/dL (12.0-16.0) L 01/12/18 05:45 Hct 25.9 % (36.0-48.0) L 01/12/18 05:45 MCV 84.4 fl (80.0-105.0) 01/12/18 05:45 MCH 27.7 pg (25.0-35.0) 01/12/18 05:45 MCHC 32.8 g/dl (31.0-37.0) 01/12/18 05:45 RDW 15.3 % (11.5-14.5) H 01/12/18 05:45 Plt Count 186 10^3/uL (120.0-450.0) 01/12/18 05:45 MPV 10.2 fl (7.0-11.0) 01/12/18 05:45 Gran % 90.7 % (50.0-68.0) H 01/12/18 05:45 Lymph % (Auto) 5.6 % (22.0-35.0) L 01/12/18 05:45 [place] % (Auto) 3.7 % (1.0-6.0) 01/12/18 05:45 Eos % (Auto) 0.0 % (1.5-5.0) L 01/12/18 05:45 Baso % (Auto) 0.0 % (0.0-3.0) 01/12/18 05:45 Gran # 2.92 (1.4-6.5) 01/12/18 05:45 Lymph # (Auto) 0.2 (1.2-3.4) L 01/12/18 05:45 [place] # (Auto) 0.1 (0.1-0.6) 01/12/18 05:45 Eos # (Auto) 0.0 (0.0-0.7) 01/12/18 05:45 Baso # (Auto) 0.00 K/mm3 (0.0-2.0) 01/12/18 05:45 Neutrophils % (Manual) 89 % (50.0-70.0) H 01/11/18 05:40 Band Neutrophils % 3 % (0-2) H 01/11/18 05:40 Lymphocytes % (Manual) 4 % (22.0-35.0) L 01/11/18 05:40 Monocytes % (Manual) 4 % (1.0-6.0) 01/11/18 05:40 Nucleated RBC % 1 % 01/11/18 05:40 Platelet Evaluation Normal (NORMAL) 01/11/18 05:40 Retic Count 0.78 % (0.5-1.5) 01/09/18 05:50 Sodium 142 mmol/L (132-148) 01/12/18 05:45 Potassium 4.6 mmol/L (3.6-5.0) 01/12/18 05:45 Chloride 107 mmol/L (98-107) 01/12/18 05:45 Carbon Dioxide 29 mmol/L (21-33) 01/12/18 05:45 Anion Gap 10 (10-20) 01/12/18 05:45 BUN 13 mg/dL (7-21) 01/12/18 05:45 Creatinine 0.5 mg/dl (0.7-1.2) L 01/12/18 05:45 Est GFR ( Amer) > 60 01/12/18 05:45 Est GFR (Non-Af Amer) > 60 01/12/18 05:45 Random Glucose 123 mg/dL (70-110) H 01/12/18 05:45 Hemoglobin A1c 6.1 % (4.2-6.5) 01/08/18 17:16 Calcium 8.5 mg/dL (8.4-10.5) 01/12/18 05:45 Phosphorus 3.2 mg/dL (2.5-4.5) 01/08/18 17:16 Magnesium 1.8 mg/dL (1.7-2.2) 01/08/18 17:16 Iron 43 ug/dL (45-180) L 01/09/18 05:50 TIBC 222 ug/dL (265-497) L 01/09/18 05:50 % Saturation 19 % (20-55) L 01/09/18 05:50 Ferritin 1660.0 ng/mL 01/09/18 05:50 Total Bilirubin 0.6 mg/dL (0.2-1.3) 01/12/18 05:45 AST 160 U/L (14-36) H D 01/12/18 05:45 ALT 59 U/L (7-56) H 01/12/18 05:45 Alkaline Phosphatase 96 U/L (38-126) 01/12/18 05:45 Lactate Dehydrogenase 1814 U/L (333-699) H 01/08/18 17:16 Total Creatine Kinase 118 U/L (35-230) 01/08/18 17:16 Troponin I < 0.01 ng/mL 01/08/18 17:16 Total Protein 6.2 g/dL (5.8-8.3) 01/12/18 05:45 Albumin 2.9 g/dL (3.0-4.8) L 01/12/18 05:45 Globulin 3.4 gm/dL 01/12/18 05:45 Albumin/Globulin Ratio 0.9 (1.1-1.8) L 01/12/18 05:45 Triglycerides 99 mg/dL (35-160) 01/08/18 17:16 Cholesterol 115 mg/dL (130-200) L 01/08/18 17:16 LDL Cholesterol Direct 54 mg/dL (0-129) 01/08/18 17:16 HDL Cholesterol 26 mg/dL (29-60) L 01/08/18 17:16 Vitamin B12 575 pg/mL (239-931) 01/10/18 05:40 Folate 6.1 ng/mL 01/10/18 05:40 Procalcitonin 0.08 NG/ML (0.19-0.49) L 01/08/18 17:16 Free T4 1.08 ng/dL (0.78-2.19) 01/09/18 05:50 TSH 3rd Generation 1.26 mIU/mL (0.46-4.68) 01/11/18 06:00 Urine Color Light yellow (YELLOW) 01/08/18 19:07 Urine Appearance Clear (CLEAR) 01/08/18 19:07 Urine pH 6.5 (4.7-8.0) 01/08/18 19:07 Ur Specific [place] <= 1.005 (1.005-1.035) 01/08/18 19:07 Urine Protein Negative mg/dL (<30 mg/dL) 01/08/18 19:07 Urine Glucose (UA) Negative mg/dL (NEGATIVE) 01/08/18 19:07 Urine Ketones Negative mg/dL (NEGATIVE) 01/08/18 19:07 Urine Blood Negative (NEGATIVE) 01/08/18 19:07 Urine Nitrate Negative (NEGATIVE) 01/08/18 19:07 Urine Bilirubin Negative (NEGATIVE) 01/08/18 19:07 Urine Urobilinogen 0.2 E.U./dL (<1 E.U./dL) 01/08/18 19:07 Ur Leukocyte Esterase Trace Osiel/uL (NEGATIVE) H 01/08/18 19:07 Urine RBC Negative /hpf (0-2) 01/08/18 19:07 Urine WBC 0 - 2 /hpf (0-6) 01/08/18 19:07 Ur Epithelial Cells 0 - 2 /hpf (0-5) 01/08/18 19:07 Urine Bacteria Rare (NEG) 01/08/18 19:07 Urine Opiates Screen Negative (NEGATIVE) 01/09/18 02:17 Urine Methadone Screen Negative (NEGATIVE) 01/09/18 02:17 Ur Barbiturates Screen Negative (NEGATIVE) 01/09/18 02:17 Ur Phencyclidine Scrn Negative (NEGATIVE) 01/09/18 02:17 Ur Amphetamines Screen Negative (NEGATIVE) 01/09/18 02:17 U Benzodiazepines Scrn Negative (NEGATIVE) 01/09/18 02:17 U Oth Cocaine Metabols Negative (NEGATIVE) 01/09/18 02:17 U Cannabinoids Screen Negative (NEGATIVE) 01/09/18 02:17 Absolute Lymphs (Flow) 159 Cells/mcL (850-3900) L 01/09/18 05:50 % CD3 Cells 48 Percent (57-85) L 01/09/18 05:50 Absolute CD3 Count 76 Cells/mcL (840-3060) L 01/09/18 05:50 % CD4 Cells 6 Percent (30-61) L 01/09/18 05:50 Absolute CD4 Count <20 Cells/mcL (490-1740) L 01/09/18 05:50 T-Help/Suppress Ratio 0.15 Ratio (0.86-5.00) L 01/09/18 05:50 % CD8 Cells 40 Percent (12-42) 01/09/18 05:50 Absolute CD8 Count 64 Cells/mcL (180-1170) L 01/09/18 05:50 T-Lymph Analys Comment See note 01/09/18 05:50 RPR Nonreactive (NONREACTIVE) 01/11/18 12:30 Cryptococcus Ag Screen Not detected (Not Detected) 01/11/18 12:30 Hepatitis C Antibody Negative (NEGATIVE) 01/11/18 12:30 HIV-1 Antibody Positive (Negative) H 01/09/18 06:00 HIV-1 RNA Qnt (RT-PCR) 5.65 (Not Detected) H 01/09/18 05:50 HIV-2 Antibody Negative (Negative) 01/09/18 06:00 HIV 1&2 Ag/Ab, 4th Gen Reactive (Nonreactive) H 01/09/18 06:00 - Hospital Course Hospital Course: Daniel Huerta DO PGY1 Internal Medicine Multiple [employer] -Hospital Discharge Summary 52F w/ a PMH of questionable HIV status, chronic back pain, and smoking history [place] [facility] [place] w/ CC of cough, dizziness, and fatigue. Workup of dizziness included CT Head which was read with chronic ischemic changes and calcifications but no acute intracranial pathology. Her Echo showed normal diastolic function w/ a EF of 53.8%. Subsequently during orthostatic testing patient became symptomatic however did not exhibit any changes in blood pressure. Patient was evaluated by PT and found to not be a candidate for skilled PT services. Ty hallpike maneuver was negative. She reported her dizziness resolved with slowly changing position when going from lying to standing. Her Initial exam revealed diffuse wheezing and rhonchi, her CXR was negative for acute disease, and procalcitonin levels were normal. No complaints of fevers , and was afebrile. Subsequently started on steroids, recieved 5 total days of IV ABX, and breathing treatments with significant improvement on clinical presentation and physical exam. Patient is thought ot have acute bronchitis in setting of undiagnosed obstructive airway disease. HIV testing was initiated, and serologic markers came back + for RNA viral load of 5.65; w/ a CD4 count of <20. ID was consulted and she was recommended to begin prophylactic antibiotic therapy. Blood and urine cultures were obtained, and patient showed 2/2 negative growth in blood cultures @ 48hr, and UCx grew staph aureus thought to most likely be contaminant vs. asymptomatic bacteruria. RPR, Cryptococcus Ag, and HepC ab testing all came back nonreactive/negative. CT Chest was ordered to rule out any further infiltrate; no infiltrates were appreciated however a small pleural based nodules largest measuring 7mm were appreciated. Patient was notified of CT results, and recommended to follow up w/ Dr. Leon for further pulm testing, and monitoring of nodule. Morning prior to discharge, patient was voicing no complaints; 12 system ROS was negative. All testing results and Discharge plan were reviewed with patient , and patient verbalized understanding of management moving forward. She was given the following instructions upon discharge: You have been diagnosed with HIV. You will need to have regular follow up at an HIV clinic to monitor disease activity/progression and for HIV medication management. We recommend that you follow up with the following HIV clinic: [facility]: [facility] [address] [place] [address], [phone] You can call the number above to set up an appointment. Please ask for NAYE PEMBERTON. She handles all new patients and works Monday- 8-6. Please do so within 3-5 days after discharge as discussed. Please follow up with your primary care doctor, Dr. Leblanc, within 3-5 days after discharge for post hospitalization follow up. Please discuss all medical ailments that were addressed during your admission, including any new diagnosis. You have been diagnosed with lung nodules. You will need to have these monitored for progression with routine CT scans. Please follow up with a lung doctor for this and for outpatient pulmonary function tests, which will test for any chronic lung disease. We recommend that you follow up with Dr. Leon, lung doctor, for this. His contact information has been provided so that you may call to schedule an appointment. You will be discharged with scripts for the following medications, please take them as instructed: 1. Albuterol Inhaler- Please take two puffs of this as needed if you feel short of breath. Please do not use this medication more than four times per day. 2. Symbicort Inhaler- Please take two puffs of this inhaler in the morning and at bedtime everyday. 3. Prednisone- Please take one tablet of this medication every day for the next five days. After five days this medication will not need to be continued. 4. Azithromycin (Antibiotic Prophylaxis for MAC infection)- Please take 1200mg of this once a week until told not to do so by the HIV clinic. 5. Bactrim DS (Antibiotic Prophylaxis for PCP pneumonia)- Please take one tablet every Monday, Monday and Monday until told not to do so by the HIV clinic. 6. Aspirin- Please take one table of this every day. Please take all medications as prescribed. Should your presenting symptoms return, please seek emergency medical attention. ------- Patient is medically optimized for discharge at this time. - Date & Time of H&P Date of H&P: 01/08/18 Time of H&P: 21:19 Discharge Exam - Head Exam Head Exam: ATRAUMATIC, NORMAL INSPECTION, NORMOCEPHALIC - Eye Exam Eye Exam: EOMI, PERRL - ENT Exam ENT Exam: Mucous Membranes Moist Additional comments: No thrush - Respiratory Exam Respiratory Exam: Clear to PA & Lateral, NORMAL BREATHING PATTERN, UNREMARKABLE. absent: Wheezes, Respiratory Distress, Stridor - Cardiovascular Exam Cardiovascular Exam: REGULAR RHYTHM, +S1, +S2. absent: Systolic Murmur - GI/Abdominal Exam GI & Abdominal Exam: Normal Bowel Sounds, Soft, Unremarkable. absent: Tenderness - Extremities Exam Extremities exam: pedal pulses present (2+ DP/ TP BL ) Additional comments: No LE Edema appreciated - Back Exam Back exam: absent: CVA tenderness (L), CVA tenderness (R) - Neurological Exam Neurological exam: CN II-XII Intact, Normal Gait, Oriented x3 - Psychiatric Exam Psychiatric exam: Normal Affect, Normal Mood - Skin Skin Exam: Dry, Intact, Normal Color, Warm Discharge Plan - Discharge Medications Prescriptions: Albuterol HFA [Ventolin HFA 90 mcg/actuation (8 g)] 2 puff IH [id number] PRN #1 inhaler PRN Reason: Cough Aspirin [Aspirin Chewable] 81 mg PO DAILY #14 chew Azithromycin 1,200 mg PO QWK #4 tablet Budesonide/Formoterol Fumarate [Symbicort] 2 puff IH BID #1 aer predniSONE [Prednisone] 40 mg PO DAILY #5 tab Sulfamethoxazole/Trimethoprim [Bactrim DS Tab] 1 tab PO MWF #12 tab - Follow Up Plan Condition: FAIR Disposition: HOME/ ROUTINE Patient education suggested?: Yes Instructions: Pneumocystis Pneumonia (PCP), Pulmonary Function Tests, HIV/AIDS (DC), Pulmonary Nodule Additional Instructions: You have been diagnosed with HIV. You will need to have regular follow up at an HIV clinic to monitor disease activity/progression and for HIV medication management. We recommend that you follow up with the following HIV clinic: [facility]: [facility] [address] [place] [address], [phone] You can call the number above to set up an appointment. Please ask for NAYE PEMBERTON. She handles all new patients and works Monday- 8-6. Please do so within 3-5 days after discharge as discussed. Please follow up with your primary care doctor, Dr. Leblanc, within 3-5 days after discharge for post hospitalization follow up. Please discuss all medical ailments that were addressed during your admission, including any new diagnosis. You have been diagnosed with lung nodules. You will need to have these monitored for progression with routine CT scans. Please follow up with a lung doctor for this and for outpatient pulmonary function tests, which will test for any chronic lung disease. We recommend that you follow up with Dr. Leon, lung doctor, for this. His contact information has been provided so that you may call to schedule an appointment. You will be discharged with scripts for the following medications, please take them as instructed: 1. Albuterol Inhaler- Please take two puffs of this as needed if you feel short of breath. Please do not use this medication more than four times per day. 2. Symbicort Inhaler- Please take two puffs of this inhaler in the morning and at bedtime everyday. 3. Prednisone- Please take one tablet of this medication every day for the next five days. After five days this medication will not need to be continued. 4. Azithromycin (Antibiotic Prophylaxis for MAC infection)- Please take 1200mg of this once a week until told not to do so by the HIV clinic. 5. Bactrim DS (Antibiotic Prophylaxis for PCP pneumonia)- Please take one tablet every Monday, Monday and Monday until told not to do so by the HIV clinic. 6. Aspirin- Please take one table of this every day. Please take all medications as prescribed. Should your presenting symptoms return, please seek emergency medical attention. Referrals: Sienna Loving MD [Primary Care Provider] - Jeremy Leon MD [Staff Provider] - <Esha Chris - Last Filed: 01/13/18 07:57> Provider - Provider Date of Admission: 01/08/18 19:56 Attending physician: Esha Chris MD Primary care physician: Sienna Loving MD Hospital Course - Lab Results Lab Results: Micro Results 01/08/18 20:00 Blood Blood Culture - Preliminary NO GROWTH AFTER 4 DAYS Most Recent Lab Values WBC 3.2 10^3/ul (4.5-11.0) L D 01/12/18 05:45 RBC 3.07 10^6/uL (3.5-6.1) L 01/12/18 05:45 Hgb 8.5 g/dL (12.0-16.0) L 01/12/18 05:45 Hct 25.9 % (36.0-48.0) L 01/12/18 05:45 MCV 84.4 fl (80.0-105.0) 01/12/18 05:45 MCH 27.7 pg (25.0-35.0) 01/12/18 05:45 MCHC 32.8 g/dl (31.0-37.0) 01/12/18 05:45 RDW 15.3 % (11.5-14.5) H 01/12/18 05:45 Plt Count 186 10^3/uL (120.0-450.0) 01/12/18 05:45 MPV 10.2 fl (7.0-11.0) 01/12/18 05:45 Gran % 90.7 % (50.0-68.0) H 01/12/18 05:45 Lymph % (Auto) 5.6 % (22.0-35.0) L 01/12/18 05:45 [place] % (Auto) 3.7 % (1.0-6.0) 01/12/18 05:45 Eos % (Auto) 0.0 % (1.5-5.0) L 01/12/18 05:45 Baso % (Auto) 0.0 % (0.0-3.0) 01/12/18 05:45 Gran # 2.92 (1.4-6.5) 01/12/18 05:45 Lymph # (Auto) 0.2 (1.2-3.4) L 01/12/18 05:45 [place] # (Auto) 0.1 (0.1-0.6) 01/12/18 05:45 Eos # (Auto) 0.0 (0.0-0.7) 01/12/18 05:45 Baso # (Auto) 0.00 K/mm3 (0.0-2.0) 01/12/18 05:45 Neutrophils % (Manual) 89 % (50.0-70.0) H 01/11/18 05:40 Band Neutrophils % 3 % (0-2) H 01/11/18 05:40 Lymphocytes % (Manual) 4 % (22.0-35.0) L 01/11/18 05:40 Monocytes % (Manual) 4 % (1.0-6.0) 01/11/18 05:40 Nucleated RBC % 1 % 01/11/18 05:40 Platelet Evaluation Normal (NORMAL) 01/11/18 05:40 Retic Count 0.78 % (0.5-1.5) 01/09/18 05:50 Sodium 142 mmol/L (132-148) 01/12/18 05:45 Potassium 4.6 mmol/L (3.6-5.0) 01/12/18 05:45 Chloride 107 mmol/L (98-107) 01/12/18 05:45 Carbon Dioxide 29 mmol/L (21-33) 01/12/18 05:45 Anion Gap 10 (10-20) 01/12/18 05:45 BUN 13 mg/dL (7-21) 01/12/18 05:45 Creatinine 0.5 mg/dl (0.7-1.2) L 01/12/18 05:45 Est GFR ( Amer) > 60 01/12/18 05:45 Est GFR (Non-Af Amer) > 60 01/12/18 05:45 Random Glucose 123 mg/dL (70-110) H 01/12/18 05:45 Hemoglobin A1c 6.1 % (4.2-6.5) 01/08/18 17:16 Calcium 8.5 mg/dL (8.4-10.5) 01/12/18 05:45 Phosphorus 3.2 mg/dL (2.5-4.5) 01/08/18 17:16 Magnesium 1.8 mg/dL (1.7-2.2) 01/08/18 17:16 Iron 43 ug/dL (45-180) L 01/09/18 05:50 TIBC 222 ug/dL (265-497) L 01/09/18 05:50 % Saturation 19 % (20-55) L 01/09/18 05:50 Ferritin 1660.0 ng/mL 01/09/18 05:50 Total Bilirubin 0.6 mg/dL (0.2-1.3) 01/12/18 05:45 AST 160 U/L (14-36) H D 01/12/18 05:45 ALT 59 U/L (7-56) H 01/12/18 05:45 Alkaline Phosphatase 96 U/L (38-126) 01/12/18 05:45 Lactate Dehydrogenase 1814 U/L (333-699) H 01/08/18 17:16 Total Creatine Kinase 118 U/L (35-230) 01/08/18 17:16 Troponin I < 0.01 ng/mL 01/08/18 17:16 Total Protein 6.2 g/dL (5.8-8.3) 01/12/18 05:45 Albumin 2.9 g/dL (3.0-4.8) L 01/12/18 05:45 Globulin 3.4 gm/dL 01/12/18 05:45 Albumin/Globulin Ratio 0.9 (1.1-1.8) L 01/12/18 05:45 Triglycerides 99 mg/dL (35-160) 01/08/18 17:16 Cholesterol 115 mg/dL (130-200) L 01/08/18 17:16 LDL Cholesterol Direct 54 mg/dL (0-129) 01/08/18 17:16 HDL Cholesterol 26 mg/dL (29-60) L 01/08/18 17:16 Vitamin B12 575 pg/mL (239-931) 01/10/18 05:40 Folate 6.1 ng/mL 01/10/18 05:40 Procalcitonin 0.08 NG/ML (0.19-0.49) L 01/08/18 17:16 Free T4 1.08 ng/dL (0.78-2.19) 01/09/18 05:50 TSH 3rd Generation 1.26 mIU/mL (0.46-4.68) 01/11/18 06:00 Urine Color Light yellow (YELLOW) 01/08/18 19:07 Urine Appearance Clear (CLEAR) 01/08/18 19:07 Urine pH 6.5 (4.7-8.0) 01/08/18 19:07 Ur Specific [place] <= 1.005 (1.005-1.035) 01/08/18 19:07 Urine Protein Negative mg/dL (<30 mg/dL) 01/08/18 19:07 Urine Glucose (UA) Negative mg/dL (NEGATIVE) 01/08/18 19:07 Urine Ketones Negative mg/dL (NEGATIVE) 01/08/18 19:07 Urine Blood Negative (NEGATIVE) 01/08/18 19:07 Urine Nitrate Negative (NEGATIVE) 01/08/18 19:07 Urine Bilirubin Negative (NEGATIVE) 01/08/18 19:07 Urine Urobilinogen 0.2 E.U./dL (<1 E.U./dL) 01/08/18 19:07 Ur Leukocyte Esterase Trace Osiel/uL (NEGATIVE) H 01/08/18 19:07 Urine RBC Negative /hpf (0-2) 01/08/18 19:07 Urine WBC 0 - 2 /hpf (0-6) 08/20/18 19:07 Ur Epithelial Cells 0 - 2 /hpf (0-5) 01/08/18 19:07 Urine Bacteria Rare (NEG) 01/08/18 19:07 Urine Opiates Screen Negative (NEGATIVE) 01/09/18 02:17 Urine Methadone Screen Negative (NEGATIVE) 01/09/18 02:17 Ur Barbiturates Screen Negative (NEGATIVE) 01/09/18 02:17 Ur Phencyclidine Scrn Negative (NEGATIVE) 01/09/18 02:17 Ur Amphetamines Screen Negative (NEGATIVE) 01/09/18 02:17 U Benzodiazepines Scrn Negative (NEGATIVE) 01/09/18 02:17 U Oth Cocaine Metabols Negative (NEGATIVE) 01/09/18 02:17 U Cannabinoids Screen Negative (NEGATIVE) 01/09/18 02:17 Absolute Lymphs (Flow) 159 Cells/mcL (850-3900) L 01/09/18 05:50 % CD3 Cells 48 Percent (57-85) L 01/09/18 05:50 Absolute CD3 Count 76 Cells/mcL (840-3060) L 01/09/18 05:50 % CD4 Cells 6 Percent (30-61) L 01/09/18 05:50 Absolute CD4 Count <20 Cells/mcL (490-1740) L 01/09/18 05:50 T-Help/Suppress Ratio 0.15 Ratio (0.86-5.00) L 01/09/18 05:50 % CD8 Cells 40 Percent (12-42) 01/09/18 05:50 Absolute CD8 Count 64 Cells/mcL (180-1170) L 01/09/18 05:50 T-Lymph Analys Comment See note 01/09/18 05:50 RPR Nonreactive (NONREACTIVE) 01/11/18 12:30 Cryptococcus Ag Screen Not detected (Not Detected) 01/11/18 12:30 Hepatitis C Antibody Negative (NEGATIVE) 01/11/18 12:30 HIV-1 Antibody Positive (Negative) H 01/09/18 06:00 HIV-1 RNA Qnt (RT-PCR) 5.65 (Not Detected) H 01/09/18 05:50 HIV-2 Antibody Negative (Negative) 01/09/18 06:00 HIV 1&2 Ag/Ab, 4th Gen Reactive (Nonreactive) H 01/09/18 06:00 Attending/Attestation - Attestation I have personally seen and examined this patient.: Yes I have fully participated in the care of the patient.: Yes I have reviewed all pertinent clinical information, including history, physical exam and plan: Yes Notes (Text): 01/12/18 52 year old female with past medical history of HIV and tobacco use who presented with cough and shortness of breath secondary to COPD/bronchitis. She was on tapering iv steroids, duonebs and antibiotics with improvement of symptoms. CT chest showed small pleural nodules at bases. Recommended close outpatient follow up. She was counselled on smoking cessation. Recommended outpatient PFTs and pulmonary follow up. She also initially had dizziness which resolved. Leukocopenia has improved. Likely secondary to HIV. She was seen by ID who recommended outpatient follow up. She was started on bactrim and azithromycin. Recommend to repeat TFTs in 4-6 weeks with pmd. She has some transaminitis today; denies any abdominal pain. LFTs elevated possibly secondary to recent antibiotics. Patient is discharged home to follow up with pmd. Monitor CBC/LFTs as outpatient with pmd. Follow up with pulmonary to follow up pulmonary nodules and outpatient PFTs. Counselled on smoking cessation. [facility]. Esha Chris MD Hospitalist.
== END 2018-01-12 15:14 | disposition home or self-care (01) | DRG 541 ==
LOC: ED 16:07 → ERH 19:56 → 2RNO 22:36 → 5RSO 01-11 18:20
PROVIDERS: ADMIT Hospitalist; ATTEND Internal Medicine
PROC: 3E0F7GC Introduction of Other Therapeutic Substance into Respiratory Tract, Via Natural or Artificial Opening (ICD-10-PCS; principal; 2018-01-09)
DX: J44.0 Chronic obstructive pulmonary disease with (acute) lower respiratory infection (principal); J20.9 Acute bronchitis, unspecified; B20 Human immunodeficiency virus [HIV] disease; E87.6 Hypokalemia; I65.23 Occlusion and stenosis of bilateral carotid arteries; G89.29 Other chronic pain; M54.9 Dorsalgia, unspecified; D63.8 Anemia in other chronic diseases classified elsewhere; I95.1 Orthostatic hypotension; D72.819 Decreased white blood cell count, unspecified; R91.1 Solitary pulmonary nodule; F17.210 Nicotine dependence, cigarettes, uncomplicated

== ENCOUNTER 2018-01-14 16:36 | Inpatient (IN) | payer MEDICAID ==
[2018-01-14 16:36] VITALS: BMI 23.6
[2018-01-14] MEDS ORDERED: Sodium Chloride 0.9% 1,000 ML IV STA ×2 (16:56→21:59)
--- NOTE | 2018-01-14 17:25 | ED PDOC ---
Arrival/HPI - General Chief Complaint: Weakness/Neurological Deficit Time Seen by Provider: 01/14/18 16:52 Historian: Patient - History of Present Illness Narrative History of Present Illness (Text): 01/14/18 17:15 52-year-old female with a history of HIV presents today with chest pain, generalized weakness and near syncope. Patient states she's been having intermittent nosebleeds today. Patient is complaining of chest pain with dyspnea on exertion. Patient states she feels weak in the lower extremities is if she is going to pass out. Pt denies abdominal pain. c/o diarrhea. no vomiting. pt denies back pain. states she has been urinating frequently. no other complaints. Past Medical History - Provider Review Nursing Documentation Reviewed: Yes - Travel History Have you recently traveled outside [place] w/in the past 3 mons?: No - Infectious Disease Hx of Infectious Diseases: None - Tetanus Immunization Tetanus Immunization: Unknown - Reproductive Menopause: Yes - Cardiac Hx Cardiac Disorders: No - Pulmonary Hx Respiratory Disorders: Yes Hx Bronchitis: Yes - Neurological Hx Neurological Disorder: No - HEENT Hx HEENT Disorder: No - Renal Hx Renal Disorder: No - Endocrine/Metabolic Hx Endocrine Disorders: No - Hematological/Oncological Hx Blood Disorders: Yes - Integumentary Hx Dermatological Disorder: No - Musculoskeletal/Rheumatological Hx Musculoskeletal Disorders: No - Gastrointestinal Hx Gastrointestinal Disorders: No - Genitourinary/Gynecological Hx Genitourinary Disorders: No - Psychiatric Hx Psychophysiologic Disorder: No Hx Substance Use: Yes (HEROIN) - Surgical History Hx Orthopedic Surgery: Yes - Anesthesia Hx Anesthesia: Yes Hx Anesthesia Reactions: No Family/Social History - Physician Review Nursing Documentation Reviewed: Yes Family/Social History: Unknown Family HX Smoking Status: Heavy Smoker > 10 Cigarettes Daily Hx Alcohol Use: No Hx Substance Use: Yes (HEROIN) Allergies/Home Meds Allergies/Adverse Reactions: Allergies No Known Allergies Allergy (Verified 01/14/18 16:50) Review of Systems - Review of Systems Constitutional: Fatigue, Other (chills) Respiratory: SOB, Other (ROSE) Cardiovascular: Chest Pain, ROSE. absent: Syncope Gastrointestinal: Diarrhea. absent: Abdominal Pain, Nausea, Vomiting Genitourinary Female: Frequency. absent: Dysuria, Hematuria Musculoskeletal: absent: Back Pain, Neck Pain Skin: absent: Rash, Pruritis Neurological: absent: Dizziness Psychiatric: absent: Anxiety, Depression Physical Exam Vital Signs Reviewed: Yes Vital Signs Temp Pulse Resp BP Pulse Ox 01/14/18 18:46 101.3 F H 67 18 98/67 L 97 01/14/18 16:45 99.4 F 104 H 18 90/60 L 99 Temperature: Afebrile Blood Pressure: Hypotensive Pulse: Tachycardic Respiratory Rate: Normal Appearance: Positive for: Well-Appearing, Non-Toxic, Comfortable Pain Distress: None Mental Status: Positive for: Alert and Oriented X 3 - Systems Exam Head: Present: Atraumatic Neck: Present: Normal Range of Motion Respiratory/Chest: Present: Clear to Auscultation, Good Air Exchange. No: Respiratory Distress, Accessory Muscle Use, Wheezes Cardiovascular: Present: Regular Rate and Rhythm. No: Murmurs Abdomen: No: Tenderness, Distention, Rebound, Guarding Back: Present: Normal Inspection. No: Midline Tenderness, Paraspinal Tenderness Upper Extremity: Present: Normal ROM Lower Extremity: Present: Normal ROM Neurological: Present: GCS=15, Speech Normal Skin: Present: Warm, Dry, Normal Color Psychiatric: Present: Alert, Oriented x 3 Medical Decision Making ED Course and Treatment: 01/14/18 17:30 52yr old female with hx of HIV. c/o chest pain, fatigue, generalized weakness and near syncope. Pt given NS iv bolus cbc: wnl CMP: elevated lfts trop; wnl LDH; 4300 bnp: elevated EKG: NSR at 71b/m no st elevations, normal axis. cxr: + infiltrate pt/ptt: UA; + blood blood and urine cultures pending pt reassessment; feeling better. BP remains low. found to be febrile 101.3. toradol 15IV given. pt with hemolysis, consider cause to be bactrim. pt found to have PNA on cxr; started on vancomycin and zosyn IV. case was discussed with dr. clement [employer]; he accepts ICU admission for Pneumonia, hypotension, hemolysis, HIV/aids all aspects of this case were discussed the attending of record. impression; Pneumonia, hypotension, hemolysis, HIV/aids admit to ICU - Lab Interpretations Lab Results: 01/14/18 17:15 01/14/18 17:15 Lab Results 01/14/18 18:07: Urine Color Light yellow, Urine Appearance Clear, Urine pH 7.0, Ur Specific [place] <= 1.005, Urine Protein Negative, Urine Glucose (UA) Negative, Urine Ketones Negative, Urine Blood Small H, Urine Nitrate Negative, Urine Bilirubin Negative, Urine Urobilinogen 0.2, Ur Leukocyte Esterase Negative , Urine RBC 5 - 10, Urine WBC 2 - 5, Ur Epithelial Cells 1 - 3, Urine Bacteria Small 01/14/18 17:15: pO2 25 L, VBG pH 7.46 H, VBG pCO2 38.0 L, VBG HCO3 27.0, VBG Total CO2 28.2 H, VBG O2 Sat (Calc) 57.1, VBG Base Excess 3.1 H, VBG Potassium 3.2 L, Sodium 130.0 L, Chloride 99.0, Glucose 133 H, Lactate 1.6, FiO2 21.0, Venous Blood Potassium 3.2 L 01/14/18 17:15: PT 16.5 H, INR 1.44, APTT 31.0 01/14/18 17:15: WBC 4.5 D, RBC 3.47 L, Hgb 9.6 L, Hct 28.8 L, MCV 83.0, MCH 27.7, MCHC 33.3, RDW 14.4, Plt Count 122, MPV 10.0, Gran % 84.6 H, Lymph % (Auto ) 9.7 L, [place] % (Auto) 5.3, Eos % (Auto) 0.2 L, Baso % (Auto) 0.2, Gran # 3.83, Lymph # (Auto) 0.4 L, [place] # (Auto) 0.2, Eos # (Auto) 0.0, Baso # (Auto) 0.01 01/14/18 17:15: Sodium 132, Chloride 97 L, Potassium 4.3, Carbon Dioxide 27, Anion Gap 12, BUN 11, Creatinine 0.7, Est GFR ( Amer) > 60, Est GFR (Non- Af Amer) > 60, Random Glucose 128 H, Calcium 8.4, Total Bilirubin 1.5 H, AST 220 H D, ALT 47, Alkaline Phosphatase 226 H D, Lactate Dehydrogenase > 4300 H, Total Creatine Kinase 427 H, CK-MB (CK-2) 2.2, CK-MB (CK-2) % Cancelled, Troponin I < 0.01, NT-Pro-B Natriuret Pep 2180 H, Total Protein 7.1, Albumin 3.3 , Globulin 3.8, Albumin/Globulin Ratio 0.9 L - RAD Interpretation Radiology Orders: 01/14/18 16:55 CHEST PORTABLE [RAD] Stat - Medication Orders Current Medication Orders: Vancomycin HCl (Vancomycin 1gm) 1 gm in 250 mls @ 167 mls/hr IVPB STAT STA PRN Reason: Protocol Stop: 01/14/18 20:16 Discontinued Medications Sodium Chloride (Sodium Chloride 0.9%) 1,000 mls @ 999 mls/hr IV .Q1H1M STA Stop: 01/14/18 17:56 Last Admin: 01/14/18 17:39 Dose: 999 mls/hr eMAR Start Stop Document 01/14/18 17:39 [facility] (Rec: 01/14/18 17:39 [facility] [id number]) Intravenous Solution Start Date 01/14/18 Start Time 17:39 End Date 01/14/18 End time 18:40 Total Infusion Time 61 Piperacillin Sod/Tazobactam Sod (Zosyn 3.375 In Ns 100ml) 100 mls @ 200 mls/hr IVPB STAT STA PRN Reason: Protocol Stop: 01/14/18 19:16 Last Admin: 01/14/18 19:29 Dose: 200 mls/hr eMAR Start Stop Document 01/14/18 19:29 [facility] (Rec: 01/14/18 19:29 GMD [id number]) Intravenous Solution Start Date 01/14/18 Start Time 19:29 End Date 01/14/18 End time 19:59 Total Infusion Time 30 Ketorolac Tromethamine (Toradol) 15 mg IVP STAT STA Stop: 01/14/18 18:50 Last Admin: 01/14/18 19:04 Dose: 15 mg MAR Pain Assessment Document 01/14/18 19:04 [facility] (Rec: 01/14/18 19:04 [facility] [id number]) Pain Reassessment Is this a pain reassessment? No IVP Administration Document 01/14/18 19:04 GMD (Rec: 01/14/18 19:04 GMD [id number]) Charges for Administration # of IVP Administrations 1 Disposition/Present on Arrival - Present on Arrival Any Indicators Present on Arrival: No History of DVT/PE: No History of Uncontrolled Diabetes: No Urinary Catheter: No History of Decub. Ulcer: No History Surgical Site Infection Following: None - Disposition Have Diagnosis and Disposition been Completed?: Yes Diagnosis: HIV (human immunodeficiency virus infection), Hypotension, Pneumonia, Hemolysis , Elevated brain natriuretic peptide (BNP) level, Generalized weakness Disposition: HOSPITALIZED Disposition Time: 19:45 Patient Plan: Admission Condition: CRITICAL Discharge Instructions (ExitCare): Human Immunodeficiency Virus and Acquired Immune Deficiency Syndrome (ED), Weakness (ED) Forms: [employer] ([employer])
[2018-01-14 17:51] LABS: BASO # 0.01 K/mm3 (0.0-2.0); BASO % 0.2 % (0.0-3.0); EOS % 0.2 % (1.5-5.0); GRAN # 3.83 (1.4-6.5); GRAN % 84.6 % (50.0-68.0); HEMOGLOBIN 9.6 g/dL (12.0-16.0); LYMPH # 0.4 (1.2-3.4); LYMPH % 9.7 % (22.0-35.0); MEAN CORPUSCULAR HEMOGLOBIN 27.7 pg (25.0-35.0); MEAN CORPUSCULAR HGB CONC 33.3 g/dl (31.0-37.0); MONO # 0.2 (0.1-0.6); MONO % 5.3 % (1.0-6.0); RBC 3.47 10^6/uL (3.5-6.1); RED CELL DISTRIBUTION WIDTH 14.4 % (11.5-14.5); WHITE BLOOD COUNT 4.5 10^3/ul (4.5-11.0)
[2018-01-14 17:53] LABS: VENOUS BLOOD GAS BASE EXCESS 3.1 mmol/L (0.0-2.0); VENOUS BLOOD GAS PO2 25 mm/Hg (30-55); VENOUS BLOOD PH 7.46 (7.32-7.43)
[2018-01-14 17:55] LABS: ALB/GLOB RATIO 0.9 (1.1-1.8); ALBUMIN 3.3 g/dL (3.0-4.8); ALT/SGPT 47 U/L (7-56); AST/SGOT 220 U/L (14-36); BLOOD UREA NITROGEN 11 mg/dL (7-21); CALCIUM 8.4 mg/dL (8.4-10.5); GFR NON-AFRICAN AMERICAN > 60
[2018-01-14 17:56] LABS: INR 1.44; PROTHROMBIN TIME 16.5 SECONDS (9.4-12.5)
[2018-01-14 18:09] LABS: B-TYPE NATRIURETIC PEPTIDE 2180 pg/mL (0-450); TROPONIN I < 0.01 ng/mL
[2018-01-14 18:19] LABS: URINE BILIRUBIN NEGATIVE (NEGATIVE); URINE BLOOD SMALL (NEGATIVE); URINE GLUCOSE (UA) NEGATIVE (NEGATIVE); URINE LEUKOCYTE ESTERASE NEGATIVE Leu/uL (NEGATIVE); URINE PROTEIN NEGATIVE mg/dL (<30 mg/dL); URINE UROBILINOGEN 0.2 E.U./dL (<1 E.U./dL)
[2018-01-14 18:20] LABS: CK-MB 2.2 ng/mL (0.0-3.6)
[2018-01-14 18:21] LABS: URINE APPEARANCE CLEAR (CLEAR); URINE COLOR LIGHT YELLOW (YELLOW)
[2018-01-14 18:28] LABS: URINE BACTERIA SMALL (NEG)
[2018-01-14] MEDS ORDERED: Piperacillin/Tazobact 3.375 gm 100 ML IVPB STA (18:47)
[2018-01-14] MEDS ORDERED: Vancomycin 1gm in NS 250ml 1 GM/250 ML BAG IVPB STA (18:47)
--- NOTE | 2018-01-14 21:26 | CP.PCM.HP ---
<Rene Sanz - Last Filed: 01/15/18 09:27> History of Present Illness - History of Present Illness History of Present Illness: History and Physical note for: Dr. Batista CC: Weakness, SOB and nose bleed Pt is a 52 yo F with pmhx of COPD, HIV, who presents today for weakness, SOB and nose bleed. She was recently d/frederick from the hospital on 01/12 where she was being treated for COPD exacerbation. She was also diagnosed with new found HIV RNA - 5.65 and CD4 <20. She was informed to follow up at the clinic to begin her ART therapy, but she states that she was too weak to go to clinic and did not follow up. She states that she was having weakness since before the hospital admission, and that she has been having difficulty breathing since 01/13 , which is present at rest. She states that her nose bleed started this morning and was brisk, but has since resolved. She admits to fever, chills, night sweats , weakness, but denies AMS, dizziness. She denies SOB at rest, denies cough, hemoptysis, wheezing, chest pain, palpitations, abdominal pain, dysphagia. She admits to increased frequency in urination, but denies dysuria, hematuria. PMHx: HIV, COPD, chronic back pain PSHx: Wrist surgery Social Hx: 1 ppd smoker x 25 yrs, quit 2 weeks ago, denies etoh abuse, Heroin use stopped 10 yrs ago Medications: ASA 81 mg QD, Zithromax 600 once/wk, symbicort, ventolin, Bactrim M ,W,F Allergies: NKDA Family Hx: Denies Present on Admission - Present on Admission Any Indicators Present on Admission: No Review of Systems - Constitutional Constitutional: Chills, Fever. absent: Headache - EENT Eyes: absent: Change in Vision, Photophobia Nose/Mouth/Throat: Epistaxis (has since resolved). absent: Bleeding Gums, Dry Mouth, Odynophagia - Cardiovascular Cardiovascular: absent: Chest Pain, Chest Pain at Rest, Edema, Pain Radiating to Arm/Neck/Jaw, Lightheadedness - Respiratory Respiratory: Dyspnea on Exertion. absent: Cough, Hemoptysis, Wheezing, Stridor - Gastrointestinal Gastrointestinal: absent: Abdominal Pain, Diarrhea, Hematemesis, Hematochezia - Genitourinary Genitourinary: Urinary Frequency. absent: Difficulty Urinating, Dysuria, Hematuria - Musculoskeletal Musculoskeletal: absent: Myalgias, Neck Pain Past Patient History - Infectious Disease Hx of Infectious Diseases: None - Tetanus Immunizations Tetanus Immunization: Unknown - Past Social History Smoking Status: Heavy Smoker > 10 Cigarettes Daily - CARDIAC Hx Cardiac Disorders: No - PULMONARY Hx Respiratory Disorders: Yes Hx Bronchitis: Yes - NEUROLOGICAL Hx Neurological Disorder: No - HEENT Hx HEENT Problems: No - RENAL Hx Chronic Kidney Disease: No - ENDOCRINE/METABOLIC Hx Endocrine Disorders: No - HEMATOLOGICAL/ONCOLOGICAL Hx Blood Disorders: Yes - INTEGUMENTARY Hx Dermatological Problems: No - MUSCULOSKELETAL/RHEUMATOLOGICAL Hx Musculoskeletal Disorders: No - GASTROINTESTINAL Hx Gastrointestinal Disorders: No - GENITOURINARY/GYNECOLOGICAL Hx Genitourinary Disorders: No - PSYCHIATRIC Hx Psychophysiologic Disorder: No Hx Substance Use: Yes (HEROIN) - SURGICAL HISTORY Hx Orthopedic Surgery: Yes - ANESTHESIA Hx Anesthesia: Yes Hx Anesthesia Reactions: No Meds Allergies/Adverse Reactions: Allergies Allergy/AdvReac Type Severity Reaction Status Date / Time No Known Allergies Allergy Verified 01/14/18 16:50 Physical Exam - Constitutional Appears: Non-toxic, No Acute Distress Additional comments: Diaphoretic - Head Exam Head Exam: ATRAUMATIC, NORMAL INSPECTION, NORMOCEPHALIC - Eye Exam Eye Exam: EOMI, Normal appearance - ENT Exam ENT Exam: Mucous Membranes Moist, Normal Exam - Neck Exam Neck exam: Positive for: Normal Inspection. Negative for: Lymphadenopathy, Meningismus, Tenderness - Respiratory Exam Respiratory Exam: Clear to Auscultation Bilateral, NORMAL BREATHING PATTERN. absent: Accessory Muscle Use, Respiratory Distress - Cardiovascular Exam Cardiovascular Exam: REGULAR RHYTHM, +S1, +S2. absent: Gallop, Rubs, +S4 - GI/Abdominal Exam GI & Abdominal Exam: Normal Bowel Sounds, Soft. absent: Guarding, Rebound, Rigid, Tenderness - Neurological Exam Neurological exam: Alert, Oriented x3 - Psychiatric Exam Psychiatric exam: Normal Affect, Normal Mood Results - Vital Signs Recent Vital Signs: Last Vital Signs Temp 101.3 F H 01/14/18 18:46 Pulse 67 01/14/18 18:46 Resp 18 01/14/18 18:46 BP 98/67 L 01/14/18 18:46 Pulse Ox 97 01/14/18 18:46 - Labs Result Diagrams: 01/15/18 04:00 01/15/18 04:00 Assessment & Plan - Assessment and Plan (Free Text) Assessment: 52 yo F with pmhx of COPD, HIV presents to the ED for weakness, SOB starting , and nosebleed which started today. Plan: Neuro: - Generalized weakness - likely 2/2 anemia vs new AIDS diagnosis - Head CT from 01/08 admission shows no acute pathology compared to 10/05 image. Diffuse atrophy with prominence of ventricles and sulci. Intracranial atherosclerotic calcifications. 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 Dr. Ramesh Amaya: - SOB with cough likely 2/2 suspected COPD exacerbation with possible URI - CXR shows no change from previous: no opacities, some venous congestion, costophrenic angles clear, no patchy infiltrates. No effusions or cardiomegaly. Read by typewriter operator automatic, official read pending. - Will give pt Duonebs, and pulmicort - Extensive smoking hx, 1 ppd x 25 yrs quit 2 wks ago - Pulm Nodule: - CT Lung performed on 01/08 admission no infiltrate appreciated; small 7mm lung nodules at bases; Heme: - Epistaxsis, resolved - Hold ASA and anticoagulants - INR, PTT is wnl - Elevated LDH: - f/u blood smear - Anemia: - Work up done on previous admission shows high ferritin with low TIBC GI: - Elevated AST - Elevated T. bili - f/u LFTs in AM : - Polyuria - recent urinalysis: - LE, - nitrates, few WBCs - F/u urine culture - Date & Time Date: 01/15/18 Time: 09:29 <LesterZoila - Last Filed: 01/15/18 19:15> Results - Vital Signs Recent Vital Signs: Last Vital Signs Temp 97.7 F 01/15/18 17:27 Pulse 72 01/15/18 18:00 Resp 16 01/15/18 17:20 BP 103/68 01/15/18 17:20 Pulse Ox 100 01/15/18 17:27 - Labs Result Diagrams: 01/15/18 04:00 01/15/18 04:00 Labs: Laboratory Results - last 24 hr 01/14/18 01/15/18 01/15/18 23:26 04:00 04:00 WBC 3.5 L D RBC 3.27 L Hgb 9.0 L Hct 27.1 L MCV 82.9 MCH 27.5 MCHC 33.2 RDW 14.7 H Plt Count 116 L MPV 10.5 Gran % 86.5 H Lymph % (Auto) 9.2 L [place] % (Auto) 4.0 Eos % (Auto) 0.0 L Baso % (Auto) 0.3 Gran # 3.01 Lymph # (Auto) 0.3 L [place] # (Auto) 0.1 Eos # (Auto) 0.0 Baso # (Auto) 0.01 Retic Count 2.36 H Haptoglobin pCO2 pO2 HCO3 ABG pH ABG Total CO2 ABG O2 Saturation ABG O2 Content ABG Base Excess ABG Hemoglobin ABG Carboxyhemoglobin POC ABG HHb (Measured) ABG Methemoglobin ABG O2 Capacity VBG pH VBG pCO2 VBG HCO3 VBG Total CO2 VBG O2 Sat (Calc) VBG Base Excess VBG Potassium Hgb O2 Saturation Glucose Lactate FiO2 Sodium 141 Potassium 3.5 L Chloride 109 H Carbon Dioxide 25 Anion Gap 10 BUN 12 Creatinine 0.5 L Est GFR ( Amer) > 60 Est GFR (Non-Af Amer) > 60 POC Glucose (mg/dL) 240 H Random Glucose 175 H Calcium 7.5 L Total Bilirubin 1.1 AST 139 H D ALT 43 Alkaline Phosphatase 168 H D NT-Pro-B Natriuret Pep 1510 H Total Protein 5.7 L Albumin 2.5 L Globulin 3.2 Albumin/Globulin Ratio 0.8 L Folate Procalcitonin Free T4 TSH 3rd Generation Cortisol AM Sample Venous Blood Potassium 01/15/18 01/15/18 01/15/18 04:00 04:00 05:00 WBC RBC Hgb Hct MCV MCH MCHC RDW Plt Count MPV Gran % Lymph % (Auto) [place] % (Auto) Eos % (Auto) Baso % (Auto) Gran # Lymph # (Auto) [place] # (Auto) Eos # (Auto) Baso # (Auto) Retic Count Haptoglobin < 20.0 L pCO2 pO2 HCO3 ABG pH ABG Total CO2 ABG O2 Saturation ABG O2 Content ABG Base Excess ABG Hemoglobin ABG Carboxyhemoglobin POC ABG HHb (Measured) ABG Methemoglobin ABG O2 Capacity VBG pH VBG pCO2 VBG HCO3 VBG Total CO2 VBG O2 Sat (Calc) VBG Base Excess VBG Potassium Hgb O2 Saturation Glucose Lactate FiO2 Sodium Potassium Chloride Carbon Dioxide Anion Gap BUN Creatinine Est GFR ( Amer) Est GFR (Non-Af Amer) POC Glucose (mg/dL) Random Glucose Calcium Total Bilirubin AST ALT Alkaline Phosphatase NT-Pro-B Natriuret Pep Total Protein Albumin Globulin Albumin/Globulin Ratio Folate 8.5 Procalcitonin Free T4 TSH 3rd Generation Cortisol AM Sample 7.9 Venous Blood Potassium 01/15/18 01/15/18 01/15/18 05:00 07:35 08:42 WBC RBC Hgb Hct MCV MCH MCHC RDW Plt Count MPV Gran % Lymph % (Auto) [place] % (Auto) Eos % (Auto) Baso % (Auto) Gran # Lymph # (Auto) [place] # (Auto) Eos # (Auto) Baso # (Auto) Retic Count Haptoglobin pCO2 pO2 HCO3 ABG pH ABG Total CO2 ABG O2 Saturation ABG O2 Content ABG Base Excess ABG Hemoglobin ABG Carboxyhemoglobin POC ABG HHb (Measured) ABG Methemoglobin ABG O2 Capacity VBG pH VBG pCO2 VBG HCO3 VBG Total CO2 VBG O2 Sat (Calc) VBG Base Excess VBG Potassium Hgb O2 Saturation Glucose Lactate FiO2 Sodium Potassium Chloride Carbon Dioxide Anion Gap BUN Creatinine Est GFR ( Amer) Est GFR (Non-Af Amer) POC Glucose (mg/dL) 98 Random Glucose Calcium Total Bilirubin AST ALT Alkaline Phosphatase NT-Pro-B Natriuret Pep Total Protein Albumin Globulin Albumin/Globulin Ratio Folate Procalcitonin 0.42 Free T4 0.93 TSH 3rd Generation 4.06 Cortisol AM Sample Venous Blood Potassium 01/15/18 01/15/18 01/15/18 08:42 10:45 11:22 WBC RBC Hgb Hct MCV MCH MCHC RDW Plt Count MPV Gran % Lymph % (Auto) [place] % (Auto) Eos % (Auto) Baso % (Auto) Gran # Lymph # (Auto) [place] # (Auto) Eos # (Auto) Baso # (Auto) Retic Count Haptoglobin pCO2 23 L pO2 74 H 160.0 H HCO3 18.8 L ABG pH 7.52 H ABG Total CO2 19.5 L ABG O2 Saturation 99.3 H ABG O2 Content 10.7 L ABG Base Excess -3.4 L ABG Hemoglobin 7.5 L ABG Carboxyhemoglobin 0.8 POC ABG HHb (Measured) 0.7 ABG Methemoglobin 1.1 ABG O2 Capacity 10.8 L VBG pH 7.34 VBG pCO2 41.0 VBG HCO3 22.1 VBG Total CO2 23.4 VBG O2 Sat (Calc) 97.2 H VBG Base Excess -3.5 L VBG Potassium 3.3 L Hgb O2 Saturation 97.5 Glucose 99 Lactate 3.0 H FiO2 21.0 28.0 Sodium 139.0 Potassium Chloride 109.0 H Carbon Dioxide Anion Gap BUN Creatinine Est GFR ( Amer) Est GFR (Non-Af Amer) POC Glucose (mg/dL) 115 H Random Glucose Calcium Total Bilirubin AST ALT Alkaline Phosphatase NT-Pro-B Natriuret Pep Total Protein Albumin Globulin Albumin/Globulin Ratio Folate Procalcitonin Free T4 TSH 3rd Generation Cortisol AM Sample Venous Blood Potassium 3.3 L 01/15/18 01/15/18 16:09 16:10 WBC RBC Hgb Hct MCV MCH MCHC RDW Plt Count MPV Gran % Lymph % (Auto) [place] % (Auto) Eos % (Auto) Baso % (Auto) Gran # Lymph # (Auto) [place] # (Auto) Eos # (Auto) Baso # (Auto) Retic Count Haptoglobin pCO2 pO2 80 H HCO3 ABG pH ABG Total CO2 ABG O2 Saturation ABG O2 Content ABG Base Excess ABG Hemoglobin ABG Carboxyhemoglobin POC ABG HHb (Measured) ABG Methemoglobin ABG O2 Capacity VBG pH 7.44 H VBG pCO2 29.0 L VBG HCO3 19.7 L VBG Total CO2 20.6 L VBG O2 Sat (Calc) 98.5 H VBG Base Excess -3.2 L VBG Potassium 3.3 L Hgb O2 Saturation Glucose 203 H Lactate 1.5 FiO2 21.0 Sodium 138.0 Potassium Chloride 112.0 H Carbon Dioxide Anion Gap BUN Creatinine Est GFR ( Amer) Est GFR (Non-Af Amer) POC Glucose (mg/dL) 188 H Random Glucose Calcium Total Bilirubin AST ALT Alkaline Phosphatase NT-Pro-B Natriuret Pep Total Protein Albumin Globulin Albumin/Globulin Ratio Folate Procalcitonin Free T4 TSH 3rd Generation Cortisol AM Sample Venous Blood Potassium 3.3 L Attending/Attestation - Attestation I have personally seen and examined this patient.: Yes I have fully participated in the care of the patient.: Yes I have reviewed all pertinent clinical information: Yes Notes (Text): will hold Bactrim 2/2 elevated LDH and concern for hemolysis. Will check haptoglobin and retic count. ID for Bactrim alternative. 01/15/18 19:15
[2018-01-14] MEDS ORDERED: Albuterol-Ipratrop 3 mg / 0.5 (3 ml) UD IH PRN (21:55)
[2018-01-15] MEDS: Piperacillin/Tazobact 3.375 gm 100 ML IVPB SCH ×2 (00:30→06:15)
[2018-01-15] MEDS: Albuterol-Ipratrop 3 mg / 0.5 (3 ml) UD IH SCH ×4 (01:19→19:21)
[2018-01-15] MEDS: Sodium Chloride 0.9% 1,000 ML IV SCH ×3 (01:54→21:53)
[2018-01-15 04:37] LABS: BASO # 0.01 K/mm3 (0.0-2.0); BASO % 0.3 % (0.0-3.0); GRAN # 3.01 (1.4-6.5); GRAN % 86.5 % (50.0-68.0); LYMPH # 0.3 (1.2-3.4); LYMPH % 9.2 % (22.0-35.0); MEAN CELL VOLUME 82.9 fl (80.0-105.0); MEAN CORPUSCULAR HEMOGLOBIN 27.5 pg (25.0-35.0); MEAN CORPUSCULAR HGB CONC 33.2 g/dl (31.0-37.0); MEAN PLATELET VOLUME 10.5 fl (7.0-11.0); MONO # 0.1 (0.1-0.6); PLATELET COUNT 116 10^3/uL (120.0-450.0); RBC 3.27 10^6/uL (3.5-6.1); RED CELL DISTRIBUTION WIDTH 14.7 % (11.5-14.5)
[2018-01-15 04:51] LABS: ALB/GLOB RATIO 0.8 (1.1-1.8); ALBUMIN 2.5 g/dL (3.0-4.8); ALT/SGPT 43 U/L (7-56); AST/SGOT 139 U/L (14-36); BLOOD UREA NITROGEN 12 mg/dL (7-21); CALCIUM 7.5 mg/dL (8.4-10.5); GFR NON-AFRICAN AMERICAN > 60
[2018-01-15 04:52] LABS: B-TYPE NATRIURETIC PEPTIDE 1510 pg/mL (0-450)
[2018-01-15 04:57] LABS: WHITE BLOOD COUNT 3.5 10^3/ul (4.5-11.0)
[2018-01-15] MEDS: Arformoterol 15 mcg/2 ml Inh Sol IH SCH ×2 (07:57→19:21)
[2018-01-15] MEDS: Budesonide 0.5 mg/2 ml Inhal Susp UD IH SCH ×2 (07:58→19:22)
--- NOTE | 2018-01-15 08:39 | CARD ---
APPROVED REPORT Date of service: 01/15/2018 EKG Measurement Heart [id number] <Conclusion> Marked sinus bradycardia, new Small inferior q waves NSSTW changes Prolonged QTc
[2018-01-15 08:49] LABS: VENOUS BLOOD GAS BASE EXCESS -3.5 mmol/L (0.0-2.0); VENOUS BLOOD GAS PO2 74 mm/Hg (30-55); VENOUS BLOOD PH 7.34 (7.32-7.43)
[2018-01-15 09:16] LABS: FREE T4 0.93 ng/dL (0.78-2.19)
--- NOTE | 2018-01-15 09:37 | RAD ---
Date of service: 01/14/2018 HISTORY: weakness COMPARISON: 01/08/2018 FINDINGS: LUNGS: No active pulmonary disease. PLEURA: No significant pleural effusion identified, no pneumothorax apparent. CARDIOVASCULAR: Normal. OSSEOUS STRUCTURES: No significant abnormalities. VISUALIZED UPPER ABDOMEN: Normal. OTHER FINDINGS: None. IMPRESSION: No active disease.
[2018-01-15] MEDS ORDERED: Azithromycin 500MG/NS 250ml 500 MG/250 ML BAG IVPB SCH (10:00)
[2018-01-15] MEDS ORDERED: Tmp-Smz 800 mg-160 mg DS Tab PO SCH ×2 (10:00→18:00)
[2018-01-15] MEDS ORDERED: Vancomycin 1gm in NS 250ml 1 GM/250 ML BAG IVPB SCH (10:00)
[2018-01-15] MEDS: Cefepime 1gm in NS 100ml 1 GM/100 ML BAG IVPB SCH ×2 (10:00→13:37)
[2018-01-15] MEDS: MethylPREDNISolone 40 mg Vial IVP SCH (10:51)
[2018-01-15 10:55] LABS: ARTERIAL BLOOD GAS HCO3 18.8 mmol/L (21-28); ARTERIAL BLOOD GAS HEMOGLOBIN 7.5 g/dL (11.7-17.4); ARTERIAL BLOOD GAS O2 CAPACITY 10.8 mL/dl (16-24); ARTERIAL BLOOD GAS O2 CONTENT 10.7 ML/dl (15-23); ARTERIAL BLOOD GAS O2 SAT 99.3 % (95-98); ARTERIAL BLOOD GAS PCO2 23 mm/Hg (35-45); ARTERIAL BLOOD GAS PH 7.52 (7.35-7.45); ARTERIAL BLOOD GAS TCO2 19.5 mmol.L (22-28)
--- NOTE | 2018-01-15 11:24 | CARD ---
APPROVED REPORT Date of service: 01/14/2018 EKG Measurement Heart [id number] <Conclusion> Normal sinus rhythm Cannot rule out Inferior infarct, age undetermined Abnormal ECG
--- NOTE | 2018-01-15 13:03 | CP.CCUPN ---
<Daniel Huerta - Last Filed: 01/15/18 12:54> CCU Subjective - Physician Review Subjective (Free Text): 01/15/18 12:54 Daniel Huerta DO PGY1 - Internal Medicine [employer] Technician - ICU Progress Note Patient was seen and examined this AM at bedside; no acute events overnight Only complaining of weakness and tremors this AM 12 system ROS is otherwise negative Critical Care Time Spent (in minutes): 60 CCU Objective - Vital Signs / Intake & Output Vital Signs (Last 4 hours): Vital Signs Temp Pulse Resp BP Pulse Ox 01/15/18 12:40 101.1 F H 75 29 H 91/57 L 99 01/15/18 12:20 100.9 F H 86 14 96/59 L 100 01/15/18 12:10 100.8 F H 89 100 01/15/18 12:00 100.8 F H 88 23 118/70 100 01/15/18 11:57 100.8 F H 84 100 01/15/18 11:49 100.6 F H 70 97 01/15/18 11:48 100.6 F H 69 98 01/15/18 11:47 100.6 F H 72 100 01/15/18 11:44 100.6 F H 79 98 01/15/18 11:40 100.6 F H 72 27 H 92/62 L 99 01/15/18 11:26 100.6 F H 77 99 01/15/18 11:20 100.4 F H 79 13 95/64 L 100 01/15/18 11:17 100.6 F H 81 100 01/15/18 11:13 100.6 F H 77 100 01/15/18 11:00 93/55 L 01/15/18 10:59 99.5 F 90 25 H 100 01/15/18 10:40 83 19 94/60 L 100 01/15/18 10:34 75 16 89/58 L 100 01/15/18 10:20 72 13 94/61 L 100 01/15/18 10:00 97 H 14 101/64 100 01/15/18 09:40 85 21 94/61 L 100 01/15/18 09:20 113 H 17 92/57 L 100 01/15/18 09:13 115 H 25 H 103/69 100 01/15/18 09:08 99.9 F H 01/15/18 09:00 117 H 25 H 103/63 100 Intake and Output (Last 8hrs): Intake & Output 01/14/18 01/15/18 01/15/18 22:59 06:59 14:59 Intake Total 1000 Balance 1000 Intake: IV 1000 Right Antecubital 1000 Other: Voiding Method Bedpan - Physical Exam Narrative Physical Exam (Free Text): 01/15/18 13:06 General: Shivering Head: Positive for: Atraumatic, Normocephalic Pupils: Positive for: PERRL Extroacular Muscles: Positive for: EOMI Mouth: Positive for: Moist Mucous Membranes, Other (Thrush) Neck: Positive for: Normal Range of Motion Respiratory/Chest: Positive for: Clear to Auscultation, Good Air Exchange, Rhonchi (minimal and diffuse). Negative for: Respiratory Distress, Accessory Muscle Use, Wheezes Cardiovascular: Positive for: Normal S1, S2, Tachycardic. Negative for: Murmurs Abdomen: Positive for: Normal Bowel Sounds. Negative for: Tenderness, Distention, Rebound, Guarding Back: Positive for: Normal Inspection. Negative for: Midline Tenderness, Paraspinal Tenderness Upper Extremity: Positive for: Normal ROM Lower Extremity: Positive for: NORMAL PULSES, Normal ROM. Negative for: Edema Neurological: Positive for: GCS=15, CN II-XII Intact, Speech Normal Skin: Positive for: Warm, Dry, Normal Color Psychiatric: Positive for: Alert, Oriented x 3 - Medications Active Medications: Active Medications Generic Name Dose Route Start Last Admin Trade Name Freq PRN Reason Stop Dose Admin Acetaminophen 650 mg 01/14/18 21:35 01/15/18 08:08 Tylenol 325mg Tab PO 650 mg Q6H PRN Administration Fever >100.4 F Albuterol/Ipratropium 3 ml 01/15/18 02:00 01/15/18 07:57 Duoneb 3 Mg/0.5 Mg (3 Ml) Ud IH 3 ml [id number] MCKAYLA Administration Albuterol/Ipratropium 3 ml 01/14/18 21:55 Duoneb 3 Mg/0.5 Mg (3 Ml) Ud IH Q2H PRN Shortness of Breath Arformoterol Tartrate 15 mcg 01/15/18 08:00 01/15/18 07:57 Brovana IH 15 mcg [id number] MCKAYLA Administration Budesonide 0.5 mg 01/15/18 08:00 01/15/18 07:58 Pulmicort Respules IH 0.5 mg [id number] MCKAYLA Administration Sodium Chloride 1,000 mls @ 100 mls/hr 01/14/18 21:45 01/15/18 10:00 Sodium Chloride 0.9% IV 100 mls/hr .Q10H MCKAYLA Administration Vancomycin HCl 1 gm in 250 mls @ 167 mls/hr 01/15/18 10:00 01/15/18 10:01 Vancomycin 1gm IVPB 167 mls/hr DAILY MCKAYLA Administration Protocol Azithromycin 500 mg in 250 mls @ 167 mls/hr 01/15/18 10:00 01/15/18 10:01 Zithromax 500mg In Ns IVPB 167 mls/hr DAILY MCKAYLA Administration Protocol Cefepime HCl 1 gm in 100 mls @ 100 mls/hr 01/15/18 09:30 01/15/18 10:00 Maxipime 1gm IVPB 100 mls/hr Q8 MCKAYLA Administration Protocol Potassium Chloride 10 meq in 100 mls @ 50 mls/hr 01/15/18 09:45 01/15/18 12: 11 Potassium Chloride 10 Meq/100 Ml IVPB 01/15/18 13:44 Not Given Q2H MCKAYLA Methylprednisolone 40 mg 01/15/18 10:15 01/15/18 10:51 Solu-Medrol IVP 40 mg DAILY MCKAYLA Administration Nicotine 1 patch 01/15/18 10:00 01/15/18 10:01 Nicoderm Cq TD 1 patch DAILY MCKAYLA Administration Trimethoprim/Sulfamethoxazole 1 tab 01/15/18 10:00 Bactrim Ds Tab PO MWF [facility] Protocol - Patient Studies Lab Studies: Lab Studies 01/15/18 01/15/18 01/15/18 Range/Units 11:22 10:45 08:42 WBC (4.5-11.0) 10^3/ul RBC (3.5-6.1) 10^6/uL Hgb (12.0-16.0) g/dL Hct (36.0-48.0) % MCV (80.0-105.0) fl MCH (25.0-35.0) pg MCHC (31.0-37.0) g/dl RDW (11.5-14.5) % Plt Count (120.0-450.0) 10^3/uL MPV (7.0-11.0) fl Gran % (50.0-68.0) % Lymph % (Auto) (22.0-35.0) % Blount % (Auto) (1.0-6.0) % Eos % (Auto) (1.5-5.0) % Baso % (Auto) (0.0-3.0) % Gran # (1.4-6.5) Lymph # (Auto) (1.2-3.4) Blount # (Auto) (0.1-0.6) Eos # (Auto) (0.0-0.7) Baso # (Auto) (0.0-2.0) K/mm3 Retic Count (0.5-1.5) % pCO2 23 L (35-45) mm/Hg pO2 160.0 H 74 H (30-55) mm/Hg HCO3 18.8 L (21-28) mmol/L ABG pH 7.52 H (7.35-7.45) ABG Total CO2 19.5 L (22-28) mmol.L ABG O2 Saturation 99.3 H (95-98) % ABG O2 Content 10.7 L (15-23) ML/dl ABG Base Excess -3.4 L (-2.0-3.0) mmol/L ABG Hemoglobin 7.5 L (11.7-17.4) g/dL ABG Carboxyhemoglobin 0.8 (0.5-1.5) % POC ABG HHb (Measured) 0.7 (0-5) % ABG Methemoglobin 1.1 (0.0-3.0) % ABG O2 Capacity 10.8 L (16-24) mL/dl VBG pH 7.34 (7.32-7.43) VBG pCO2 41.0 (40-60) VBG HCO3 22.1 (21-28) mmol/l VBG Total CO2 23.4 (22-28) mmol.L VBG O2 Sat (Calc) 97.2 H (40-65) % VBG Base Excess -3.5 L (0.0-2.0) mmol/L VBG Potassium 3.3 L (3.6-5.2) mmol/L Hgb O2 Saturation 97.5 (95.0-98.0) % Glucose 99 (65-105) mg/dl Lactate 3.0 H (0.7-2.1) mmol/L FiO2 28.0 21.0 % Sodium 139.0 (132-148) mmol/L Potassium (3.6-5.0) mmol/L Chloride 109.0 H (98-107) mmol/L Carbon Dioxide (21-33) mmol/L Anion Gap (10-20) BUN (7-21) mg/dL Creatinine (0.7-1.2) mg/dl Est GFR ( Amer) Est GFR (Non-Af Amer) POC Glucose (mg/dL) 115 H (65-110) mg/dL Random Glucose (70-110) mg/dL Calcium (8.4-10.5) mg/dL Total Bilirubin (0.2-1.3) mg/dL AST (14-36) U/L ALT (7-56) U/L Alkaline Phosphatase (38-126) U/L NT-Pro-B Natriuret Pep (0-450) pg/mL Total Protein (5.8-8.3) g/dL Albumin (3.0-4.8) g/dL Globulin gm/dL Albumin/Globulin Ratio (1.1-1.8) Procalcitonin (0.19-0.49) NG/ML Free T4 (0.78-2.19) ng/dL TSH 3rd Generation (0.46-4.68) mIU/mL Venous Blood Potassium 3.3 L (3.6-5.2) mmol/L 01/15/18 01/15/18 01/15/18 Range/Units 08:42 07:35 05:00 WBC (4.5-11.0) 10^3/ul RBC (3.5-6.1) 10^6/uL Hgb (12.0-16.0) g/dL Hct (36.0-48.0) % MCV (80.0-105.0) fl MCH (25.0-35.0) pg MCHC (31.0-37.0) g/dl RDW (11.5-14.5) % Plt Count (120.0-450.0) 10^3/uL MPV (7.0-11.0) fl Gran % (50.0-68.0) % Lymph % (Auto) (22.0-35.0) % Blount % (Auto) (1.0-6.0) % Eos % (Auto) (1.5-5.0) % Baso % (Auto) (0.0-3.0) % Gran # (1.4-6.5) Lymph # (Auto) (1.2-3.4) Blount # (Auto) (0.1-0.6) Eos # (Auto) (0.0-0.7) Baso # (Auto) (0.0-2.0) K/mm3 Retic Count (0.5-1.5) % pCO2 (35-45) mm/Hg pO2 (30-55) mm/Hg HCO3 (21-28) mmol/L ABG pH (7.35-7.45) ABG Total CO2 (22-28) mmol.L ABG O2 Saturation (95-98) % ABG O2 Content (15-23) ML/dl ABG Base Excess (-2.0-3.0) mmol/L ABG Hemoglobin (11.7-17.4) g/dL ABG Carboxyhemoglobin (0.5-1.5) % POC ABG HHb (Measured) (0-5) % ABG Methemoglobin (0.0-3.0) % ABG O2 Capacity (16-24) mL/dl VBG pH (7.32-7.43) VBG pCO2 (40-60) VBG HCO3 (21-28) mmol/l VBG Total CO2 (22-28) mmol.L VBG O2 Sat (Calc) (40-65) % VBG Base Excess (0.0-2.0) mmol/L VBG Potassium (3.6-5.2) mmol/L Hgb O2 Saturation (95.0-98.0) % Glucose (65-105) mg/dl Lactate (0.7-2.1) mmol/L FiO2 % Sodium (132-148) mmol/L Potassium (3.6-5.0) mmol/L Chloride (98-107) mmol/L Carbon Dioxide (21-33) mmol/L Anion Gap (10-20) BUN (7-21) mg/dL Creatinine (0.7-1.2) mg/dl Est GFR ( Amer) Est GFR (Non-Af Amer) POC Glucose (mg/dL) 98 (65-110) mg/dL Random Glucose (70-110) mg/dL Calcium (8.4-10.5) mg/dL Total Bilirubin (0.2-1.3) mg/dL AST (14-36) U/L ALT (7-56) U/L Alkaline Phosphatase (38-126) U/L NT-Pro-B Natriuret Pep (0-450) pg/mL Total Protein (5.8-8.3) g/dL Albumin (3.0-4.8) g/dL Globulin gm/dL Albumin/Globulin Ratio (1.1-1.8) Procalcitonin 0.42 (0.19-0.49) NG/ML Free T4 0.93 (0.78-2.19) ng/dL TSH 3rd Generation 4.06 (0.46-4.68) mIU/mL Venous Blood Potassium (3.6-5.2) mmol/L 01/15/18 01/15/18 01/14/18 Range/Units 04:00 04:00 23:26 WBC 3.5 L D (4.5-11.0) 10^3/ul RBC 3.27 L (3.5-6.1) 10^6/uL Hgb 9.0 L (12.0-16.0) g/dL Hct 27.1 L (36.0-48.0) % MCV 82.9 (80.0-105.0) fl MCH 27.5 (25.0-35.0) pg MCHC 33.2 (31.0-37.0) g/dl RDW 14.7 H (11.5-14.5) % Plt Count 116 L (120.0-450.0) 10^3/uL MPV 10.5 (7.0-11.0) fl Gran % 86.5 H (50.0-68.0) % Lymph % (Auto) 9.2 L (22.0-35.0) % Blount % (Auto) 4.0 (1.0-6.0) % Eos % (Auto) 0.0 L (1.5-5.0) % Baso % (Auto) 0.3 (0.0-3.0) % Gran # 3.01 (1.4-6.5) Lymph # (Auto) 0.3 L (1.2-3.4) Blount # (Auto) 0.1 (0.1-0.6) Eos # (Auto) 0.0 (0.0-0.7) Baso # (Auto) 0.01 (0.0-2.0) K/mm3 Retic Count 2.36 H (0.5-1.5) % pCO2 (35-45) mm/Hg pO2 (30-55) mm/Hg HCO3 (21-28) mmol/L ABG pH (7.35-7.45) ABG Total CO2 (22-28) mmol.L ABG O2 Saturation (95-98) % ABG O2 Content (15-23) ML/dl ABG Base Excess (-2.0-3.0) mmol/L ABG Hemoglobin (11.7-17.4) g/dL ABG Carboxyhemoglobin (0.5-1.5) % POC ABG HHb (Measured) (0-5) % ABG Methemoglobin (0.0-3.0) % ABG O2 Capacity (16-24) mL/dl VBG pH (7.32-7.43) VBG pCO2 (40-60) VBG HCO3 (21-28) mmol/l VBG Total CO2 (22-28) mmol.L VBG O2 Sat (Calc) (40-65) % VBG Base Excess (0.0-2.0) mmol/L VBG Potassium (3.6-5.2) mmol/L Hgb O2 Saturation (95.0-98.0) % Glucose (65-105) mg/dl Lactate (0.7-2.1) mmol/L FiO2 % Sodium 141 (132-148) mmol/L Potassium 3.5 L (3.6-5.0) mmol/L Chloride 109 H (98-107) mmol/L Carbon Dioxide 25 (21-33) mmol/L Anion Gap 10 (10-20) BUN 12 (7-21) mg/dL Creatinine 0.5 L (0.7-1.2) mg/dl Est GFR ( Amer) > 60 Est GFR (Non-Af Amer) > 60 POC Glucose (mg/dL) 240 H (65-110) mg/dL Random Glucose 175 H (70-110) mg/dL Calcium 7.5 L (8.4-10.5) mg/dL Total Bilirubin 1.1 (0.2-1.3) mg/dL AST 139 H D (14-36) U/L ALT 43 (7-56) U/L Alkaline Phosphatase 168 H D (38-126) U/L NT-Pro-B Natriuret Pep 1510 H (0-450) pg/mL Total Protein 5.7 L (5.8-8.3) g/dL Albumin 2.5 L (3.0-4.8) g/dL Globulin 3.2 gm/dL Albumin/Globulin Ratio 0.8 L (1.1-1.8) Procalcitonin (0.19-0.49) NG/ML Free T4 (0.78-2.19) ng/dL TSH 3rd Generation (0.46-4.68) mIU/mL Venous Blood Potassium (3.6-5.2) mmol/L Laboratory Results - last 24 hr 01/14/18 01/15/18 01/15/18 23:26 04:00 04:00 WBC 3.5 L D RBC 3.27 L Hgb 9.0 L Hct 27.1 L MCV 82.9 MCH 27.5 MCHC 33.2 RDW 14.7 H Plt Count 116 L MPV 10.5 Gran % 86.5 H Lymph % (Auto) 9.2 L Blount % (Auto) 4.0 Eos % (Auto) 0.0 L Baso % (Auto) 0.3 Gran # 3.01 Lymph # (Auto) 0.3 L Blount # (Auto) 0.1 Eos # (Auto) 0.0 Baso # (Auto) 0.01 Retic Count 2.36 H pCO2 pO2 HCO3 ABG pH ABG Total CO2 ABG O2 Saturation ABG O2 Content ABG Base Excess ABG Hemoglobin ABG Carboxyhemoglobin POC ABG HHb (Measured) ABG Methemoglobin ABG O2 Capacity VBG pH VBG pCO2 VBG HCO3 VBG Total CO2 VBG O2 Sat (Calc) VBG Base Excess VBG Potassium Hgb O2 Saturation Glucose Lactate FiO2 Sodium 141 Potassium 3.5 L Chloride 109 H Carbon Dioxide 25 Anion Gap 10 BUN 12 Creatinine 0.5 L Est GFR ( Amer) > 60 Est GFR (Non-Af Amer) > 60 POC Glucose (mg/dL) 240 H Random Glucose 175 H Calcium 7.5 L Total Bilirubin 1.1 AST 139 H D ALT 43 Alkaline Phosphatase 168 H D NT-Pro-B Natriuret Pep 1510 H Total Protein 5.7 L Albumin 2.5 L Globulin 3.2 Albumin/Globulin Ratio 0.8 L Procalcitonin Free T4 TSH 3rd Generation Venous Blood Potassium 01/15/18 01/15/18 01/15/18 05:00 07:35 08:42 WBC RBC Hgb Hct MCV MCH MCHC RDW Plt Count MPV Gran % Lymph % (Auto) Blount % (Auto) Eos % (Auto) Baso % (Auto) Gran # Lymph # (Auto) Blount # (Auto) Eos # (Auto) Baso # (Auto) Retic Count pCO2 pO2 HCO3 ABG pH ABG Total CO2 ABG O2 Saturation ABG O2 Content ABG Base Excess ABG Hemoglobin ABG Carboxyhemoglobin POC ABG HHb (Measured) ABG Methemoglobin ABG O2 Capacity VBG pH VBG pCO2 VBG HCO3 VBG Total CO2 VBG O2 Sat (Calc) VBG Base Excess VBG Potassium Hgb O2 Saturation Glucose Lactate FiO2 Sodium Potassium Chloride Carbon Dioxide Anion Gap BUN Creatinine Est GFR ( Amer) Est GFR (Non-Af Amer) POC Glucose (mg/dL) 98 Random Glucose Calcium Total Bilirubin AST ALT Alkaline Phosphatase NT-Pro-B Natriuret Pep Total Protein Albumin Globulin Albumin/Globulin Ratio Procalcitonin 0.42 Free T4 0.93 TSH 3rd Generation 4.06 Venous Blood Potassium 01/15/18 01/15/18 01/15/18 08:42 10:45 11:22 WBC RBC Hgb Hct MCV MCH MCHC RDW Plt Count MPV Gran % Lymph % (Auto) Blount % (Auto) Eos % (Auto) Baso % (Auto) Gran # Lymph # (Auto) Blount # (Auto) Eos # (Auto) Baso # (Auto) Retic Count pCO2 23 L pO2 74 H 160.0 H HCO3 18.8 L ABG pH 7.52 H ABG Total CO2 19.5 L ABG O2 Saturation 99.3 H ABG O2 Content 10.7 L ABG Base Excess -3.4 L ABG Hemoglobin 7.5 L ABG Carboxyhemoglobin 0.8 POC ABG HHb (Measured) 0.7 ABG Methemoglobin 1.1 ABG O2 Capacity 10.8 L VBG pH 7.34 VBG pCO2 41.0 VBG HCO3 22.1 VBG Total CO2 23.4 VBG O2 Sat (Calc) 97.2 H VBG Base Excess -3.5 L VBG Potassium 3.3 L Hgb O2 Saturation 97.5 Glucose 99 Lactate 3.0 H FiO2 21.0 28.0 Sodium 139.0 Potassium Chloride 109.0 H Carbon Dioxide Anion Gap BUN Creatinine Est GFR ( Amer) Est GFR (Non-Af Amer) POC Glucose (mg/dL) 115 H Random Glucose Calcium Total Bilirubin AST ALT Alkaline Phosphatase NT-Pro-B Natriuret Pep Total Protein Albumin Globulin Albumin/Globulin Ratio Procalcitonin Free T4 TSH 3rd Generation Venous Blood Potassium 3.3 L EKG/Cardiology Studies: Cardiology / EKG Studies 01/15/18 00:02 EKG [ELECTROCARDIOGRAM] Stat Comment: Reason For Exam: bradycardia Review of Systems - Review of Systems All systems: reviewed and no additional remarkable complaints except Review of Systems: As per [facility] Critical Care Progress Note - Extremities/Vascular Does the Patient have a Central Venous Catheter?: No - Prophylaxis GI Prophylaxis GI: PPI - Nutrition Nutrition: Nutrition Category Date Time Status Regular Diet [DIET] Diets 01/14/18 Dinner Ordered Assessment/Plan - Assessment and Plan (Free Text) Assessment: 52F w/ recently discharged from [facility] for new onset obstructive airway disease exacerbation 2/2 bronchitis, and 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 Admitted to ICU 2/2 elevated LDH and concerns of hemolysis. Neuro: Patient AAOx3 No complaints of focal deficit No findings of focal deficit on exam Less concerning for meningitis at this time CV: Map: 70-110 HR: Initially bradycardic, then tachycardic, now regular rate Findings can be secondary to shock or infectious processes BNP elevated - 2180 --> 1510 Previous Echo 1 week ago - EF 54% Repeat Echo pending Cardiology Consulted Pulm: Hypoxemia- Requiring 2.5 L O2 to maintain sats >95% ABG - Respiratory alkalosis Started on solumedrol 40 Q12 COPD O2 Sat Goal ~92% Duoneb Q6 MCKAYLA/ Q2 PRN Afometerol Q12 Budesonide Q12 No active airway disease on XR CT Chest - No infiltrate one week prior Concerns for PCP pneumo given patient is HIV/AIDS + ; and LDH - 4300 GI: Transamnitis w/ cholestatic pattern on itinitial presetnation; resolving patient denies any complaints with eating; denies any abbdominal pain on exam Can consider abd US if further concerning : Previous UCx+ for staph aureus 1wk ago Repeat Ucx No concerning findings on UA No urinary complaints Most likely asymptomatic bacteruria Renal: BUN/Cr stable Continue to monitor ID Febrile w/ complaints of chills; requiring cooling blankets to stabilize temperature Can consider offirmev if fevers don't break CXR findings as above CT Chest on previous admission negative for pulmonary infiltrate HIV CD4< 20; Not on HAART Azithromycin 500 QD Vancomycin QD Cefepime Q8 Bactrim - PCP Empiric coverage Fluconazole - Nidia Empiric coverage Thrush appreciated in mouth - started nystatin swish and swallow ID Following appreciate reccs Heme: H/H Stable LDH - 4300 Patient did received 2-3 doses of bactrim on previous admission DVT ppx - SCD GI ppx - Protonix IVP Patient seen and evaluated at bedside w/ attending physician Dr. Samuel Huerta DO PGY1 - Internal Medicine [employer] Technician - Pager [phone] - Date & Time Date: 01/15/18 Time: 14:25 <Samuel Amador - Last Filed: 01/15/18 15:18> CCU Objective - Vital Signs / Intake & Output Vital Signs (Last 4 hours): Vital Signs Temp Pulse Resp BP Pulse Ox 01/15/18 13:37 100.4 F H 01/15/18 12:40 101.1 F H 75 29 H 91/57 L 99 01/15/18 12:20 100.9 F H 86 14 96/59 L 100 01/15/18 12:10 100.8 F H 89 100 01/15/18 12:00 100.8 F H 88 23 118/70 100 01/15/18 11:57 100.8 F H 84 100 08/27/18 11:49 100.6 F H 70 97 01/15/18 11:48 100.6 F H 69 98 01/15/18 11:47 100.6 F H 72 100 01/15/18 11:44 100.6 F H 79 98 01/15/18 11:40 100.6 F H 72 27 H 92/62 L 99 01/15/18 11:26 100.6 F H 77 99 01/15/18 11:20 100.4 F H 79 13 95/64 L 100 01/15/18 11:17 100.6 F H 81 100 Intake and Output (Last 8hrs): Intake & Output 01/15/18 01/15/18 01/15/18 06:59 14:59 22:59 Intake Total 1000 Balance 1000 Intake: IV 1000 Right Antecubital 1000 Other: Voiding Method Bedpan - Medications Active Medications: Active Medications Generic Name Dose Route Start Last Admin Trade Name Freq PRN Reason Stop Dose Admin Acetaminophen 650 mg 01/14/18 21:35 01/15/18 13:37 Tylenol 325mg Tab PO 650 mg Q6H PRN Administration Fever >100.4 F Albuterol/Ipratropium 3 ml 01/15/18 02:00 01/15/18 13:03 Duoneb 3 Mg/0.5 Mg (3 Ml) Ud IH 3 ml [id number] MCKAYLA Administration Albuterol/Ipratropium 3 ml 01/14/18 21:55 Duoneb 3 Mg/0.5 Mg (3 Ml) Ud IH Q2H PRN Shortness of Breath Arformoterol Tartrate 15 mcg 01/15/18 08:00 01/15/18 07:57 Brovana IH 15 mcg [id number] MCKAYLA Administration Budesonide 0.5 mg 01/15/18 08:00 01/15/18 07:58 Pulmicort Respules IH 0.5 mg [id number] MCKAYLA Administration Sodium Chloride 1,000 mls @ 100 mls/hr 01/14/18 21:45 01/15/18 10:00 Sodium Chloride 0.9% IV 100 mls/hr .Q10H MCKAYLA Administration Vancomycin HCl 1 gm in 250 mls @ 167 mls/hr 01/15/18 10:00 01/15/18 10:01 Vancomycin 1gm IVPB 167 mls/hr DAILY MCKAYLA Administration Protocol Azithromycin 500 mg in 250 mls @ 167 mls/hr 01/15/18 10:00 01/15/18 10:01 Zithromax 500mg In Ns IVPB 167 mls/hr DAILY MCKAYLA Administration Protocol Cefepime HCl 1 gm in 100 mls @ 100 mls/hr 01/15/18 09:30 01/15/18 13:37 Maxipime 1gm IVPB 100 mls/hr Q8 MCKAYLA Administration Protocol Fluconazole 200 mls @ 100 mls/hr 01/15/18 14:40 Diflucan Iv 400mg/200ml Ns IVPB 01/15/18 16:39 STAT STA Protocol Methylprednisolone 40 mg 01/15/18 10:15 01/15/18 10:51 Solu-Medrol IVP 40 mg DAILY MCKAYLA Administration Nicotine 1 patch 01/15/18 10:00 01/15/18 10:01 Nicoderm Cq TD 1 patch DAILY MCKAYLA Administration Nystatin 5 ml 01/15/18 14:00 01/15/18 13:37 Nystatin Oral Susp PO 5 ml QID MCKAYLA Administration Pantoprazole Sodium 40 mg 01/15/18 14:30 01/15/18 14:40 Protonix Inj IVP 40 mg DAILY MCKAYLA Administration Trimethoprim/Sulfamethoxazole 1 tab 01/15/18 18:00 Bactrim Ds Tab PO TID [facility] Protocol - Patient Studies Lab Studies: Lab Studies 01/15/18 01/15/18 01/15/18 Range/Units 11:22 10:45 08:42 WBC (4.5-11.0) 10^3/ul RBC (3.5-6.1) 10^6/uL Hgb (12.0-16.0) g/dL Hct (36.0-48.0) % MCV (80.0-105.0) fl MCH (25.0-35.0) pg MCHC (31.0-37.0) g/dl RDW (11.5-14.5) % Plt Count (120.0-450.0) 10^3/uL MPV (7.0-11.0) fl Gran % (50.0-68.0) % Lymph % (Auto) (22.0-35.0) % Blount % (Auto) (1.0-6.0) % Eos % (Auto) (1.5-5.0) % Baso % (Auto) (0.0-3.0) % Gran # (1.4-6.5) Lymph # (Auto) (1.2-3.4) Blount # (Auto) (0.1-0.6) Eos # (Auto) (0.0-0.7) Baso # (Auto) (0.0-2.0) K/mm3 Retic Count (0.5-1.5) % pCO2 23 L (35-45) mm/Hg pO2 160.0 H 74 H (30-55) mm/Hg HCO3 18.8 L (21-28) mmol/L ABG pH 7.52 H (7.35-7.45) ABG Total CO2 19.5 L (22-28) mmol.L ABG O2 Saturation 99.3 H (95-98) % ABG O2 Content 10.7 L (15-23) ML/dl ABG Base Excess -3.4 L (-2.0-3.0) mmol/L ABG Hemoglobin 7.5 L (11.7-17.4) g/dL ABG Carboxyhemoglobin 0.8 (0.5-1.5) % POC ABG HHb (Measured) 0.7 (0-5) % ABG Methemoglobin 1.1 (0.0-3.0) % ABG O2 Capacity 10.8 L (16-24) mL/dl VBG pH 7.34 (7.32-7.43) VBG pCO2 41.0 (40-60) VBG HCO3 22.1 (21-28) mmol/l VBG Total CO2 23.4 (22-28) mmol.L VBG O2 Sat (Calc) 97.2 H (40-65) % VBG Base Excess -3.5 L (0.0-2.0) mmol/L VBG Potassium 3.3 L (3.6-5.2) mmol/L Hgb O2 Saturation 97.5 (95.0-98.0) % Glucose 99 (65-105) mg/dl Lactate 3.0 H (0.7-2.1) mmol/L FiO2 28.0 21.0 % Sodium 139.0 (132-148) mmol/L Potassium (3.6-5.0) mmol/L Chloride 109.0 H (98-107) mmol/L Carbon Dioxide (21-33) mmol/L Anion Gap (10-20) BUN (7-21) mg/dL Creatinine (0.7-1.2) mg/dl Est GFR ( Amer) Est GFR (Non-Af Amer) POC Glucose (mg/dL) 115 H (65-110) mg/dL Random Glucose (70-110) mg/dL Calcium (8.4-10.5) mg/dL Total Bilirubin (0.2-1.3) mg/dL AST (14-36) U/L ALT (7-56) U/L Alkaline Phosphatase (38-126) U/L NT-Pro-B Natriuret Pep (0-450) pg/mL Total Protein (5.8-8.3) g/dL Albumin (3.0-4.8) g/dL Globulin gm/dL Albumin/Globulin Ratio (1.1-1.8) Folate ng/mL Procalcitonin (0.19-0.49) NG/ML Free T4 (0.78-2.19) ng/dL TSH 3rd Generation (0.46-4.68) mIU/mL Venous Blood Potassium 3.3 L (3.6-5.2) mmol/L 01/15/18 01/15/18 01/15/18 Range/Units 08:42 07:35 05:00 WBC (4.5-11.0) 10^3/ul RBC (3.5-6.1) 10^6/uL Hgb (12.0-16.0) g/dL Hct (36.0-48.0) % MCV (80.0-105.0) fl MCH (25.0-35.0) pg MCHC (31.0-37.0) g/dl RDW (11.5-14.5) % Plt Count (120.0-450.0) 10^3/uL MPV (7.0-11.0) fl Gran % (50.0-68.0) % Lymph % (Auto) (22.0-35.0) % Blount % (Auto) (1.0-6.0) % Eos % (Auto) (1.5-5.0) % Baso % (Auto) (0.0-3.0) % Gran # (1.4-6.5) Lymph # (Auto) (1.2-3.4) Blount # (Auto) (0.1-0.6) Eos # (Auto) (0.0-0.7) Baso # (Auto) (0.0-2.0) K/mm3 Retic Count (0.5-1.5) % pCO2 (35-45) mm/Hg pO2 (30-55) mm/Hg HCO3 (21-28) mmol/L ABG pH (7.35-7.45) ABG Total CO2 (22-28) mmol.L ABG O2 Saturation (95-98) % ABG O2 Content (15-23) ML/dl ABG Base Excess (-2.0-3.0) mmol/L ABG Hemoglobin (11.7-17.4) g/dL ABG Carboxyhemoglobin (0.5-1.5) % POC ABG HHb (Measured) (0-5) % ABG Methemoglobin (0.0-3.0) % ABG O2 Capacity (16-24) mL/dl VBG pH (7.32-7.43) VBG pCO2 (40-60) VBG HCO3 (21-28) mmol/l VBG Total CO2 (22-28) mmol.L VBG O2 Sat (Calc) (40-65) % VBG Base Excess (0.0-2.0) mmol/L VBG Potassium (3.6-5.2) mmol/L Hgb O2 Saturation (95.0-98.0) % Glucose (65-105) mg/dl Lactate (0.7-2.1) mmol/L FiO2 % Sodium (132-148) mmol/L Potassium (3.6-5.0) mmol/L Chloride (98-107) mmol/L Carbon Dioxide (21-33) mmol/L Anion Gap (10-20) BUN (7-21) mg/dL Creatinine (0.7-1.2) mg/dl Est GFR ( Amer) Est GFR (Non-Af Amer) POC Glucose (mg/dL) 98 (65-110) mg/dL Random Glucose (70-110) mg/dL Calcium (8.4-10.5) mg/dL Total Bilirubin (0.2-1.3) mg/dL AST (14-36) U/L ALT (7-56) U/L Alkaline Phosphatase (38-126) U/L NT-Pro-B Natriuret Pep (0-450) pg/mL Total Protein (5.8-8.3) g/dL Albumin (3.0-4.8) g/dL Globulin gm/dL Albumin/Globulin Ratio (1.1-1.8) Folate ng/mL Procalcitonin 0.42 (0.19-0.49) NG/ML Free T4 0.93 (0.78-2.19) ng/dL TSH 3rd Generation 4.06 (0.46-4.68) mIU/mL Venous Blood Potassium (3.6-5.2) mmol/L 01/15/18 01/15/18 01/15/18 Range/Units 05:00 04:00 04:00 WBC 3.5 L D (4.5-11.0) 10^3/ul RBC 3.27 L (3.5-6.1) 10^6/uL Hgb 9.0 L (12.0-16.0) g/dL Hct 27.1 L (36.0-48.0) % MCV 82.9 (80.0-105.0) fl MCH 27.5 (25.0-35.0) pg MCHC 33.2 (31.0-37.0) g/dl RDW 14.7 H (11.5-14.5) % Plt Count 116 L (120.0-450.0) 10^3/uL MPV 10.5 (7.0-11.0) fl Gran % 86.5 H (50.0-68.0) % Lymph % (Auto) 9.2 L (22.0-35.0) % Blount % (Auto) 4.0 (1.0-6.0) % Eos % (Auto) 0.0 L (1.5-5.0) % Baso % (Auto) 0.3 (0.0-3.0) % Gran # 3.01 (1.4-6.5) Lymph # (Auto) 0.3 L (1.2-3.4) Blount # (Auto) 0.1 (0.1-0.6) Eos # (Auto) 0.0 (0.0-0.7) Baso # (Auto) 0.01 (0.0-2.0) K/mm3 Retic Count 2.36 H (0.5-1.5) % pCO2 (35-45) mm/Hg pO2 (30-55) mm/Hg HCO3 (21-28) mmol/L ABG pH (7.35-7.45) ABG Total CO2 (22-28) mmol.L ABG O2 Saturation (95-98) % ABG O2 Content (15-23) ML/dl ABG Base Excess (-2.0-3.0) mmol/L ABG Hemoglobin (11.7-17.4) g/dL ABG Carboxyhemoglobin (0.5-1.5) % POC ABG HHb (Measured) (0-5) % ABG Methemoglobin (0.0-3.0) % ABG O2 Capacity (16-24) mL/dl VBG pH (7.32-7.43) VBG pCO2 (40-60) VBG HCO3 (21-28) mmol/l VBG Total CO2 (22-28) mmol.L VBG O2 Sat (Calc) (40-65) % VBG Base Excess (0.0-2.0) mmol/L VBG Potassium (3.6-5.2) mmol/L Hgb O2 Saturation (95.0-98.0) % Glucose (65-105) mg/dl Lactate (0.7-2.1) mmol/L FiO2 % Sodium 141 (132-148) mmol/L Potassium 3.5 L (3.6-5.0) mmol/L Chloride 109 H (98-107) mmol/L Carbon Dioxide 25 (21-33) mmol/L Anion Gap 10 (10-20) BUN 12 (7-21) mg/dL Creatinine 0.5 L (0.7-1.2) mg/dl Est GFR ( Amer) > 60 Est GFR (Non-Af Amer) > 60 POC Glucose (mg/dL) (65-110) mg/dL Random Glucose 175 H (70-110) mg/dL Calcium 7.5 L (8.4-10.5) mg/dL Total Bilirubin 1.1 (0.2-1.3) mg/dL AST 139 H D (14-36) U/L ALT 43 (7-56) U/L Alkaline Phosphatase 168 H D (38-126) U/L NT-Pro-B Natriuret Pep 1510 H (0-450) pg/mL Total Protein 5.7 L (5.8-8.3) g/dL Albumin 2.5 L (3.0-4.8) g/dL Globulin 3.2 gm/dL Albumin/Globulin Ratio 0.8 L (1.1-1.8) Folate 8.5 ng/mL Procalcitonin (0.19-0.49) NG/ML Free T4 (0.78-2.19) ng/dL TSH 3rd Generation (0.46-4.68) mIU/mL Venous Blood Potassium (3.6-5.2) mmol/L 01/14/18 Range/Units 23:26 WBC (4.5-11.0) 10^3/ul RBC (3.5-6.1) 10^6/uL Hgb (12.0-16.0) g/dL Hct (36.0-48.0) % MCV (80.0-105.0) fl MCH (25.0-35.0) pg MCHC (31.0-37.0) g/dl RDW (11.5-14.5) % Plt Count (120.0-450.0) 10^3/uL MPV (7.0-11.0) fl Gran % (50.0-68.0) % Lymph % (Auto) (22.0-35.0) % Blount % (Auto) (1.0-6.0) % Eos % (Auto) (1.5-5.0) % Baso % (Auto) (0.0-3.0) % Gran # (1.4-6.5) Lymph # (Auto) (1.2-3.4) Blount # (Auto) (0.1-0.6) Eos # (Auto) (0.0-0.7) Baso # (Auto) (0.0-2.0) K/mm3 Retic Count (0.5-1.5) % pCO2 (35-45) mm/Hg pO2 (30-55) mm/Hg HCO3 (21-28) mmol/L ABG pH (7.35-7.45) ABG Total CO2 (22-28) mmol.L ABG O2 Saturation (95-98) % ABG O2 Content (15-23) ML/dl ABG Base Excess (-2.0-3.0) mmol/L ABG Hemoglobin (11.7-17.4) g/dL ABG Carboxyhemoglobin (0.5-1.5) % POC ABG HHb (Measured) (0-5) % ABG Methemoglobin (0.0-3.0) % ABG O2 Capacity (16-24) mL/dl VBG pH (7.32-7.43) VBG pCO2 (40-60) VBG HCO3 (21-28) mmol/l VBG Total CO2 (22-28) mmol.L VBG O2 Sat (Calc) (40-65) % VBG Base Excess (0.0-2.0) mmol/L VBG Potassium (3.6-5.2) mmol/L Hgb O2 Saturation (95.0-98.0) % Glucose (65-105) mg/dl Lactate (0.7-2.1) mmol/L FiO2 % Sodium (132-148) mmol/L Potassium (3.6-5.0) mmol/L Chloride (98-107) mmol/L Carbon Dioxide (21-33) mmol/L Anion Gap (10-20) BUN (7-21) mg/dL Creatinine (0.7-1.2) mg/dl Est GFR ( Amer) Est GFR (Non-Af Amer) POC Glucose (mg/dL) 240 H (65-110) mg/dL Random Glucose (70-110) mg/dL Calcium (8.4-10.5) mg/dL Total Bilirubin (0.2-1.3) mg/dL AST (14-36) U/L ALT (7-56) U/L Alkaline Phosphatase (38-126) U/L NT-Pro-B Natriuret Pep (0-450) pg/mL Total Protein (5.8-8.3) g/dL Albumin (3.0-4.8) g/dL Globulin gm/dL Albumin/Globulin Ratio (1.1-1.8) Folate ng/mL Procalcitonin (0.19-0.49) NG/ML Free T4 (0.78-2.19) ng/dL TSH 3rd Generation (0.46-4.68) mIU/mL Venous Blood Potassium (3.6-5.2) mmol/L Laboratory Results - last 24 hr 01/14/18 01/15/18 01/15/18 23:26 04:00 04:00 WBC 3.5 L D RBC 3.27 L Hgb 9.0 L Hct 27.1 L MCV 82.9 MCH 27.5 MCHC 33.2 RDW 14.7 H Plt Count 116 L MPV 10.5 Gran % 86.5 H Lymph % (Auto) 9.2 L Blount % (Auto) 4.0 Eos % (Auto) 0.0 L Baso % (Auto) 0.3 Gran # 3.01 Lymph # (Auto) 0.3 L Blount # (Auto) 0.1 Eos # (Auto) 0.0 Baso # (Auto) 0.01 Retic Count 2.36 H pCO2 pO2 HCO3 ABG pH ABG Total CO2 ABG O2 Saturation ABG O2 Content ABG Base Excess ABG Hemoglobin ABG Carboxyhemoglobin POC ABG HHb (Measured) ABG Methemoglobin ABG O2 Capacity VBG pH VBG pCO2 VBG HCO3 VBG Total CO2 VBG O2 Sat (Calc) VBG Base Excess VBG Potassium Hgb O2 Saturation Glucose Lactate FiO2 Sodium 141 Potassium 3.5 L Chloride 109 H Carbon Dioxide 25 Anion Gap 10 BUN 12 Creatinine 0.5 L Est GFR ( Amer) > 60 Est GFR (Non-Af Amer) > 60 POC Glucose (mg/dL) 240 H Random Glucose 175 H Calcium 7.5 L Total Bilirubin 1.1 AST 139 H D ALT 43 Alkaline Phosphatase 168 H D NT-Pro-B Natriuret Pep 1510 H Total Protein 5.7 L Albumin 2.5 L Globulin 3.2 Albumin/Globulin Ratio 0.8 L Folate Procalcitonin Free T4 TSH 3rd Generation Venous Blood Potassium 01/15/18 01/15/18 01/15/18 05:00 05:00 07:35 WBC RBC Hgb Hct MCV MCH MCHC RDW Plt Count MPV Gran % Lymph % (Auto) Blount % (Auto) Eos % (Auto) Baso % (Auto) Gran # Lymph # (Auto) Blount # (Auto) Eos # (Auto) Baso # (Auto) Retic Count pCO2 pO2 HCO3 ABG pH ABG Total CO2 ABG O2 Saturation ABG O2 Content ABG Base Excess ABG Hemoglobin ABG Carboxyhemoglobin POC ABG HHb (Measured) ABG Methemoglobin ABG O2 Capacity VBG pH VBG pCO2 VBG HCO3 VBG Total CO2 VBG O2 Sat (Calc) VBG Base Excess VBG Potassium Hgb O2 Saturation Glucose Lactate FiO2 Sodium Potassium Chloride Carbon Dioxide Anion Gap BUN Creatinine Est GFR ( Amer) Est GFR (Non-Af Amer) POC Glucose (mg/dL) 98 Random Glucose Calcium Total Bilirubin AST ALT Alkaline Phosphatase NT-Pro-B Natriuret Pep Total Protein Albumin Globulin Albumin/Globulin Ratio Folate 8.5 Procalcitonin 0.42 Free T4 TSH 3rd Generation Venous Blood Potassium 01/15/18 01/15/18 01/15/18 08:42 08:42 10:45 WBC RBC Hgb Hct MCV MCH MCHC RDW Plt Count MPV Gran % Lymph % (Auto) Blount % (Auto) Eos % (Auto) Baso % (Auto) Gran # Lymph # (Auto) Blount # (Auto) Eos # (Auto) Baso # (Auto) Retic Count pCO2 23 L pO2 74 H 160.0 H HCO3 18.8 L ABG pH 7.52 H ABG Total CO2 19.5 L ABG O2 Saturation 99.3 H ABG O2 Content 10.7 L ABG Base Excess -3.4 L ABG Hemoglobin 7.5 L ABG Carboxyhemoglobin 0.8 POC ABG HHb (Measured) 0.7 ABG Methemoglobin 1.1 ABG O2 Capacity 10.8 L VBG pH 7.34 VBG pCO2 41.0 VBG HCO3 22.1 VBG Total CO2 23.4 VBG O2 Sat (Calc) 97.2 H VBG Base Excess -3.5 L VBG Potassium 3.3 L Hgb O2 Saturation 97.5 Glucose 99 Lactate 3.0 H FiO2 21.0 28.0 Sodium 139.0 Potassium Chloride 109.0 H Carbon Dioxide Anion Gap BUN Creatinine Est GFR ( Amer) Est GFR (Non-Af Amer) POC Glucose (mg/dL) Random Glucose Calcium Total Bilirubin AST ALT Alkaline Phosphatase NT-Pro-B Natriuret Pep Total Protein Albumin Globulin Albumin/Globulin Ratio Folate Procalcitonin Free T4 0.93 TSH 3rd Generation 4.06 Venous Blood Potassium 3.3 L 01/15/18 11:22 WBC RBC Hgb Hct MCV MCH MCHC RDW Plt Count MPV Gran % Lymph % (Auto) Blount % (Auto) Eos % (Auto) Baso % (Auto) Gran # Lymph # (Auto) Blount # (Auto) Eos # (Auto) Baso # (Auto) Retic Count pCO2 pO2 HCO3 ABG pH ABG Total CO2 ABG O2 Saturation ABG O2 Content ABG Base Excess ABG Hemoglobin ABG Carboxyhemoglobin POC ABG HHb (Measured) ABG Methemoglobin ABG O2 Capacity VBG pH VBG pCO2 VBG HCO3 VBG Total CO2 VBG O2 Sat (Calc) VBG Base Excess VBG Potassium Hgb O2 Saturation Glucose Lactate FiO2 Sodium Potassium Chloride Carbon Dioxide Anion Gap BUN Creatinine Est GFR ( Amer) Est GFR (Non-Af Amer) POC Glucose (mg/dL) 115 H Random Glucose Calcium Total Bilirubin AST ALT Alkaline Phosphatase NT-Pro-B Natriuret Pep Total Protein Albumin Globulin Albumin/Globulin Ratio Folate Procalcitonin Free T4 TSH 3rd Generation Venous Blood Potassium EKG/Cardiology Studies: Cardiology / EKG Studies 01/15/18 00:02 EKG [ELECTROCARDIOGRAM] Stat Comment: Reason For Exam: bradycardia Critical Care Progress Note - Nutrition Nutrition: Nutrition Category Date Time Status Regular Diet [DIET] Diets 01/14/18 Dinner Ordered Addendum Addendum: 01/15/18 15:16 ICU Attending Addendum: Patient seen and examined. Case reviewed on round with housestaff. Agree with resident note above with the following additions/exceptions: 52F with COPD and recently dx with AIDS (CD4 < 20) returns to the hospital after recently being discharged on 01/12 where she was tx for a COPD exasc and dx with AIDS. Apparently she has not been taking her opportunist infection ppx. She presented to the ED on 01/14 with sob, lethargy, nose bleeding. She was borderline hypotensive on admission but has not required pressors. She is requiring 3L NC. She has been hypothermic and also very febrile with temps up to 104. On admittion, bactrim was held with concern for side effects. She has not been started on ART. At this point, she is likely septic with a wide-range of possible causes given her immunocomp state. She may simply have HCAP given her recent hospitalization so I agree with vanc/zosyn for coverage. I would expect her CXR to be more suggestive of HCAP so my main concern is PCP. She was not taking her bactrim ppx and she should be empirically treated. ID is on board and I will discuss the following concerns with them: -> We should begin tx with high dose bactrim . Although CXR not classic, upto 39 % of patients will have a normal CXR especially if early in the infection process. If she no longer requiring 02, and if ABG shows PaO2 > 70 then will not need steroids for PCP tx. -> She should begin ART therapy as data suggests early (<2 weeks) initiation of ART has improved morbidity and mortality outcomes as opposed to late (>2weeks). We will have to guard for IRIS howevever benefits have been shown to outweight the risk. ->Given her fevers, we should begin Fluconazole empircally to cover most fungi -> Azithro for mac ppx -> With nosebleed in an immunocomp patient, Mucor is a concern however I do not see lesions consistent with it. May consider CT sinus. Will need to follow up on blood cultures as well as repeat CXR tomorrow Check induced sputum Will also treat with duonebds and steroids for COPD check ABG Ultimately may need broncoscopy when staff available / scheduling Trend LFTs, AST 2x > ALT; etoh? Rest of care as noted above. Samuel Amador MD Charge Entry Clerk Critical care time : 55 mins
[2018-01-15] MEDS: Nystatin 100,000 Units/ml Oral Susp 5 ml UD PO SCH ×3 (13:37→21:52)
[2018-01-15] MEDS ORDERED: Fluconazole IV 400mg/200ml NS 200 ML IVPB STA (14:40)
--- NOTE | 2018-01-15 14:42 | CP.PCM.PN ---
<Ricky Dang - Last Filed: 01/15/18 18:00> Subjective - Date & Time of Evaluation Date of Evaluation: 01/15/18 Time of Evaluation: 07:00 - Subjective Subjective: Hospitalist Service Progress Note Ricky Laurence, PGY-3 IM Patient seen and examined at bedside in ICU. Currently receiving breathing tx at time of exam. While examining, concerning for temp of 105.4 on bedside monitor, acutely shaking which patient reported was chills. Awake and alert, fully cognizant throughout, so unlikely seizure. Denies hx of IV drug use, although has previously admitted to IV heroin as per admitting team and prior documentation, so patient is unreliable. Insists she picked up all medications on last discharge and was compliant. Denies emesis, current chest pain, current shortness of breath, focal weakness, syncope/near syncope. Admits to persisting general weakness, chills, malaise. Objective - Vital Signs/Intake and Output Vital Signs (last 24 hours): Temp Pulse Resp BP Pulse Ox 100.4 F H 75 29 H 91/57 L 99 01/15/18 13:37 01/15/18 12:40 01/15/18 12:40 01/15/18 12:40 01/15/18 12:40 Intake and Output: 01/15/18 01/15/18 06:59 18:59 Intake Total 1000 Balance 1000 - Medications Medications: Current Medications Acetaminophen (Tylenol 325mg Tab) 650 mg PO Q6H PRN PRN Reason: Fever >100.4 F Last Admin: 01/15/18 13:37 Dose: 650 mg Albuterol/Ipratropium (Duoneb 3 Mg/0.5 Mg (3 Ml) Ud) 3 ml IH [id number] [facility] Last Admin: 01/15/18 13:03 Dose: 3 ml Albuterol/Ipratropium (Duoneb 3 Mg/0.5 Mg (3 Ml) Ud) 3 ml IH Q2H PRN PRN Reason: Shortness of Breath Arformoterol Tartrate (Brovana) 15 mcg IH [id number] [facility] Last Admin: 01/15/18 07:57 Dose: 15 mcg Budesonide (Pulmicort Respules) 0.5 mg IH [id number] [facility] Last Admin: 01/15/18 07:58 Dose: 0.5 mg Sodium Chloride (Sodium Chloride 0.9%) 1,000 mls @ 100 mls/hr IV .Q10H [facility] Last Admin: 01/15/18 10:00 Dose: 100 mls/hr Vancomycin HCl (Vancomycin 1gm) 1 gm in 250 mls @ 167 mls/hr IVPB DAILY WIN PRN Reason: Protocol Last Admin: 01/15/18 10:01 Dose: 167 mls/hr Azithromycin (Zithromax 500mg In Ns) 500 mg in 250 mls @ 167 mls/hr IVPB DAILY IWN PRN Reason: Protocol Last Admin: 01/15/18 10:01 Dose: 167 mls/hr Cefepime HCl (Maxipime 1gm) 1 gm in 100 mls @ 100 mls/hr IVPB Q8 WIN PRN Reason: Protocol Last Admin: 01/15/18 13:37 Dose: 100 mls/hr Methylprednisolone (Solu-Medrol) 40 mg IVP DAILY [facility] Last Admin: 01/15/18 10:51 Dose: 40 mg Nicotine (Nicoderm Cq) 1 patch TD DAILY [facility] Last Admin: 01/15/18 10:01 Dose: 1 patch Nystatin (Nystatin Oral Susp) 5 ml PO QID [facility] Last Admin: 01/15/18 13:37 Dose: 5 ml Pantoprazole Sodium (Protonix Inj) 40 mg IVP DAILY [facility] Trimethoprim/Sulfamethoxazole (Bactrim Ds Tab) 1 tab PO MWF WIN PRN Reason: Protocol - Labs Labs: 01/15/18 04:00 01/15/18 04:00 PT 16.5 SECONDS (9.4-12.5) H 01/14/18 17:15 INR 1.44 01/14/18 17:15 APTT 31.0 Seconds (25.1-36.5) 01/14/18 17:15 - Constitutional Appears: Unkempt, Chronically Ill, Other (acutely tremulous, but not distressed , ill-appearing but not toxic) - Head Exam Head Exam: ATRAUMATIC, NORMOCEPHALIC - Eye Exam Eye Exam: EOMI, Normal appearance. absent: Conjunctival injection, Scleral icterus Pupil Exam: absent: Fixed, Irregular - ENT Exam ENT Exam: Mucous Membranes Moist Additional comments: receiving breathing tx during exam - Neck Exam Neck Exam: Full ROM. absent: Thyromegaly Additional comments: no neck stiffness appreciated, but exam limited due to breathing tx and grossly tremulous patient - Respiratory Exam Respiratory Exam: Decreased Breath Sounds (minimal breath sounds in all lung loja), Prolonged Expiratory Phase. absent: Accessory Muscle Use, Chest Wall Tenderness, Clear to Ausculation Bilateral, Rales, Rhonchi, Wheezes, Stridor - Cardiovascular Exam Cardiovascular Exam: Tachycardia, REGULAR RHYTHM, +S1, +S2. absent: Bradycardia , Irregular Rhythm, JVD, +S4 - GI/Abdominal Exam GI & Abdominal Exam: Soft, Normal Bowel Sounds. absent: Distended, Firm, Rigid , Tenderness, Diminished Bowel Sounds, Hyperactive Bowel Sounds, Hypoactive Bowel Sounds - Extremities Exam Extremities Exam: absent: Calf Tenderness, Pedal Edema - Neurological Exam Additional comments: awake and alert diffusely tremulous but no AMS and remains able to independently move extremities so unlikely seizure motor appears grossly intact and equal bilaterally following commands appropriately - Psychiatric Exam Psychiatric exam: Normal Affect, Normal Mood - Skin Skin Exam: Dry, Intact, Normal Color, Warm Assessment and Plan - Assessment and Plan (Free Text) Assessment: This is a 52 yo F with PMH of COPD, recently diagnosed AIDS, hx of IV heroin abuse, and chronic back pain, recently discharged for COPD exacerbation, who represented for weakness, SOB, and nose bleed (resolved prior to admission). She was admitted to the ICU due to bradycardia and hypotension on presentation, concerning for possible severe sepsis in setting of immunocompromised patient. Plan: 1) Severe sepsis -ddx: HCAP vs PCP Pneumo vs MAC, high risk for opportunistic infxns in setting of AIDS (CDS < 20) and possibly non-compliance with ppx meds -Severe sepsis due to possible end-organ damage (elevated LFTs), elevated lactate (3.0) this AM, hypotensive/bradycardic/hypothermic, in setting of immunocompromised patient BP now stable, no pressor support needed at this time Trever hugger for hypothermia, Cooling blanket for Temp 105.4F -Unclear source, CXR and UA not suggestive of infectious processes -CXR on admission not suggestive of acute infectious process, no clear infiltrates, will repeat tomorrow -Hypoxemia requiring supplemental O2, but may be due to COPD rather than sepsis -Given elevated LFTs and med non-compliance, highly concerning for PCP pneumo; bactrim currently on hold due to concerns for medication adverse reaction -On Vanco for MRSA/G+ coverage, Zithro for atypicals; got IV Zosyn x1 in ED, fell off, will empirically cover for G- and Pseudomonas with Cefepime; pending ID's recs for abx coverage; also given fluconazole IV x1 for empiric antifungal coverage Nystatin swish and swallow for oral candidiasis, but no sore throat/dysphagia , so low suspicious of esophageal candidiasis -cultures pending, f/u -ID following, appreciate all recs -Not presently on HAART medications, pending ID/ICU recs for starting 2) Transaminitis -shock liver vs 2/2 severe sepsis -concern for PCP pneumo in this patient -improved today -avoid hepatotoxic meds where feasible; will need some tylenol vs active cooling measures for fevers, ofirmev? defer to ICU team for determination -when improved stability, can consider abd US 3) COPD -possible exacerbation, raiv in setting of questionable med compliance -on solumedrol 40q12, Nebs q6 win/q2 prn -Sat goal > 92%, but avoid persistent oxygenation at 100% to prevent suppression of respiratory drive -Continue alfometerol and budesonide q12 -AM ABG reviewed, suggestive of respiratory alkalosis, not retaining CO2 4) Bradycardia and elevated BNP -Bradycardia resolved -BNP improving, no hx of CHF, may be stress 2/2 severe sepsis -Cardio consulted, appreciate all recs -Echo 1 week prior with EF 54%, and low suspicion for SD, so unlikely acute CHF picture 5) Elevated LDH -hemolysis vs elevation 2/2 liver dysfunction from severe sepsis -continue to monitor -peripheral smear obtained, sent to Pathologist for review, will f/u Dispo: ICU for severe sepsis in setting of AIDS with suspected medication non- compliance FEN: Regular diet Access: Peripheral IVs Consults: ICU, Cardio, ID Ppx: SCDs for DVT, Protonix for GI Code Status: DNI Patient seen, reviewed, and discussed with attending, Dr. Chris <Esha Chris - Last Filed: 01/16/18 08:35> Objective - Vital Signs/Intake and Output Vital Signs (last 24 hours): Temp Pulse Resp BP Pulse Ox 101 F H 50 L 29 H 132/74 98 01/16/18 06:00 01/16/18 06:00 01/16/18 06:00 01/16/18 06:00 01/16/18 06:00 Intake and Output: 01/16/18 01/16/18 06:59 18:59 Intake Total 1900 Output Total 1200 Balance 700 - Medications Medications: Current Medications Acetaminophen (Tylenol 325mg Tab) 650 mg PO Q6H PRN PRN Reason: Fever >100.4 F Last Admin: 01/16/18 03:27 Dose: 650 mg Albuterol/Ipratropium (Duoneb 3 Mg/0.5 Mg (3 Ml) Ud) 3 ml IH [id number] [facility] Last Admin: 01/16/18 07:20 Dose: 3 ml Albuterol/Ipratropium (Duoneb 3 Mg/0.5 Mg (3 Ml) Ud) 3 ml IH Q2H PRN PRN Reason: Shortness of Breath Arformoterol Tartrate (Brovana) 15 mcg IH [id number] [facility] Last Admin: 01/16/18 07:20 Dose: 15 mcg Atovaquone (Mepron) 750 mg PO BID WIN PRN Reason: Protocol Stop: 01/24/18 19:31 Last Admin: 01/15/18 19:50 Dose: 750 mg Budesonide (Pulmicort Respules) 0.5 mg IH [id number] [facility] Last Admin: 01/16/18 07:20 Dose: 0.5 mg Clarithromycin (Biaxin Filmtab) 500 mg PO Q12 WIN PRN Reason: Protocol Stop: 01/24/18 22:01 Last Admin: 01/15/18 21:48 Dose: 500 mg Sodium Chloride (Sodium Chloride 0.9%) 1,000 mls @ 100 mls/hr IV .Q10H [facility] Last Admin: 01/15/18 21:53 Dose: 100 mls/hr Meropenem (Merrem Iv 1 Gm Premix) 50 mls @ 100 mls/hr IVPB Q8 WIN PRN Reason: Protocol Stop: 01/24/18 19:31 Last Admin: 01/16/18 06:15 Dose: 100 mls/hr Methylprednisolone (Solu-Medrol) 40 mg IVP DAILY [facility] Last Admin: 01/15/18 10:51 Dose: 40 mg Nicotine (Nicoderm Cq) 1 patch TD DAILY [facility] Last Admin: 01/15/18 10:01 Dose: 1 patch Nystatin (Nystatin Oral Susp) 5 ml PO QID [facility] Last Admin: 01/15/18 21:52 Dose: 5 ml Pantoprazole Sodium (Protonix Ec Tab) 40 mg PO 0600 [facility] - Labs Labs: 01/16/18 06:00 01/16/18 06:00 PT 16.5 SECONDS (9.4-12.5) H 01/14/18 17:15 INR 1.44 01/14/18 17:15 APTT 31.0 Seconds (25.1-36.5) 01/14/18 17:15 Attending/Attestation - Attestation I have personally seen and examined this patient.: Yes I have fully participated in the care of the patient.: Yes I have reviewed all pertinent clinical information, including history, physical exam and plan: Yes Notes (Text): 01/15/18 52 year old female with past medical history of COPD, HIV/AIDs, history of IVDA , and chronic back pain who was recently discharged after COPD exacerbation. She presented with sepsis with fever, hypotension and bradycardia. Source was unclear as UA/CXR were negative but she has history of HIV/AIDs, medication noncompliance. She is started on broad spectrum iv antibiotics. Will follow up on cultures. ID evaluation was requested. Cardiology evaluation was requested for bradycardia/hypotension which have improved. She also has some transaminitis. Will continue to monitor. She is on iv steroids for COPD and duonebs. Esha Chris MD Hospitalist.
--- NOTE | 2018-01-15 15:56 | CON ---
Copied To: Ten Bains MD Attending MD: Ten Bains MD DATE: 01/15/2018 REASON FOR CONSULTATION: Chest pain and near syncope. HISTORY OF PRESENT ILLNESS: Patient is a 52-year-old female who is HIV positive. Patient with chest pain, generalized weakness and near syncope. Patient denies any history of heart attack in the past. At the time of my evaluation, patient was chest pain free. Patient was recently discharged after she was admitted on 01/08/2018 for similar scenario of dizziness, weakness and near syncope. Echocardiographic study six days ago revealed normal ventricular size, wall thickness, systolic function as well as diastolic function. SOCIAL HISTORY: Patient is a smoker and drinker. MEDICATIONS: Bactrim DS one tablet Monday, Monday and Monday; Brovana 15 mcg inhalation every 12 hours; albuterol inhaler every 2 hours p.r.n., Maxipime 1 g intravenously every 8 hours, nicotine patch, KCl intravenous supplement, vancomycin 1 g intravenously daily, Zithromax 500 mg intravenously daily. PHYSICAL EXAMINATION: GENERAL: The patient is a middle-aged female who does not appear to be in acute distress. VITAL SIGNS: Blood pressure 120/90, heart rate 102, rectal temperature 104.4. HEENT: Pale conjunctivae. CHEST: Bilateral rhonchi. HEART: S1, S2 regular. EXTREMITIES: No edema. LABORATORY DATA: Today, sodium 141, potassium 3.5, chloride 109, CO2 25, glucose 175, BUN 12, creatinine 0.5. ProBNP 1510. Today's hemoglobin and hematocrit 9 and 27.1, white count 3.5, platelet count 116,000. Urine drug screen was negative during the last admission. Chest x-ray on admission was unremarkable except for prominent central vasculature. EKG revealed sinus rhythm with inferior Q waves. ASSESSMENT: 1. Atypical chest pain, rule out myocardial infarction. 2. Dizziness and near syncope. 3. Human immunodeficiency virus positive. 4. Anemia and thrombocytopenia as well as leukopenia on the most recent admission last week. 5. Hypokalemia. 6. Chronic obstructive lung disease. RECOMMENDATIONS: Continue current Bactrim, IV Maxipime, potassium chloride intravenous replacement, normal saline hydration 100 mL per hour, IV vancomycin 1 g daily and IV Zithromax 500 mg intravenously daily. During last admission, carotid ultrasound revealed no significant disease. Head CT scan without contrast revealed no acute findings. No further cardiac workup is indicated at this time. Ten Bains MD
[2018-01-15 16:18] LABS: VENOUS BLOOD GAS BASE EXCESS -3.2 mmol/L (0.0-2.0); VENOUS BLOOD GAS PO2 80 mm/Hg (30-55); VENOUS BLOOD PH 7.44 (7.32-7.43)
[2018-01-15] MEDS ORDERED: Iohexol 240 (50 ml) ONE (19:31)
[2018-01-15] MEDS: Atovaquone 750 mg/5 ml Susp UD PO SCH (19:50)
[2018-01-15] MEDS: Meropenem IV 1 gm in NS 50 ML IVPB SCH (19:51)
[2018-01-16] MEDS: Albuterol-Ipratrop 3 mg / 0.5 (3 ml) UD IH SCH ×4 (01:49→20:35)
[2018-01-16] MEDS: Meropenem IV 1 gm in NS 50 ML IVPB SCH ×3 (06:15→21:42)
--- NOTE | 2018-01-16 06:50 | CON ---
Copied To: Seymour Siddiqi MD Attending MD: Seymour Siddiqi MD DATE: 01/15/2018 LOCATION: The patient was seen earlier today in [facility], bed 3 in CCU. CHIEF COMPLAINT: Weakness x several days. HISTORY OF PRESENT ILLNESS: This is a 52-year-old [place]ian female with positive HIV, recently hospitalized. The patient has a history of intravenous drug abuser and is significant for long time for smoking and was admitted with weakness, was recently in the hospital, found to be HIV, has not been on any HIV medications and she has used heroin in the past and she is having fevers and shortness of breath and cough and she denies any blurred vision. No headaches. No neck pain. No abdominal pain, diarrhea or constipation or bright red blood per rectum or melena. PAST MEDICAL HISTORY: Significant for chronic back pain, smoking, history of intravenous drug abuse and the patient with HIV and AIDS, although, she states that diagnosis was recently made. PAST SURGICAL HISTORY: Significant for orthopedic surgery. SOCIAL HISTORY: She lives in [place]. ALLERGIES: SHE HAS NO KNOWN ALLERGIES. She states she has not used intravenous drugs recently and she has no exposure to tuberculosis. Last travel to [place] was 3 years ago. MEDICATIONS AT HOME: Reveals the patient had been on prednisone. The patient was also given Bactrim, azithromycin because she did not take care of medication. PHYSICAL EXAMINATION: GENERAL: On exam, she is in bed, appearing chronically ill and debilitated. VITAL SIGNS: Temperature of 98. She did have a temperature of 100.4 earlier and was up to 100.8. She was hypothermic prior to that and heart rate of 63, was in the 50s and was up to 113 earlier. Respiratory rate of 16, was up to 23, blood pressure is 103/60. The patient's BMI is 25. The patient's saturation is at 100% O2 saturation with room air. HEENT: Examination of HEENT is unremarkable. No oral thrush. NECK: Supple. LUNGS: Have decreased breath sounds. HEART: Normal S1, S2. ABDOMEN: Soft, nontender. LABORATORY DATA: Laboratory examination reveals white count is 4.5, hemoglobin of 9, platelets are noted 122, 84% granulocytosis. Coagulation is noted and chemistries and gases are noted. The patient's pO2 is noted. The chemistries reveals the patient has a glucose 175, AST is 139, ALT is 43, alk phos is 168. BNP is 1510 with a creatinine of 0.5, procalcitonin 0.42. LDH is greater than 4300. Urinalysis is unremarkable. Review of laboratories from previous admission on 01/11/2018, 4 days ago, reveals the RPR to be negative. The Cryptococcus antigen is negative. Hepatitis C antibody is negative. HIV is positive, RNA is 5.65, log positive and fourth generation HIV is positive and TB QuantiFERON is indeterminate. Immunology reveals CD-4 percentage is 6% with less than 20, total absolute count. By definition, she has AIDS. Toxicology is negative. Urinalysis is noted. Chemistries are reviewed and BNP is noted and microbiology reveals the blood cultures are negative from 01/14/2018 and also from 01/08/2018. Imaging reveals the patient had a chest x-ray which was reported to be negative and Dr. Selby progress note is reviewed and Dr. Ryan's progress note is reviewed. Dr. Amador's progress note is reviewed. Review of the imaging from last admission, the patient did have a CT scan of the chest on 01/11/2018. No evidence of infiltrate. There is a small pleural base nodule in left base and a CAT scan of the head is reviewed. No evidence of any acute findings. The patient also had an echo on the 01/09/2018 which showed an ejection fraction of 53%. Normal left ventricular size and left ventricular wall thickness is normal and normal diastolic function. ____ consultation is reviewed from today. ASSESSMENT AND PLAN: A 52-year-old female with positive human immunodeficiency virus and acquired immune deficiency syndrome, intravenous drug abuser by history, but not recently, smoking, chronic back pain, chronic obstructive lung disease. The patient has LFT elevation with alk phos elevation with fever and leukopenia, tachycardia. 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 Statistically with T-cells of less than 20. The patient has a 95% of having Mycobacterium avium-intracellulare which can be cultured from the bone marrow in a patient with end-stage acquired immune deficiency syndrome and end-stage chronic obstructive pulmonary disease with no infiltrates on the CAT scan on this last admission and LDH of over 4000 can give you either lymphoma, toxoplasmosis or histoplasmosis. Currently, we will continue the intravenous antibiotics, may empirically treat with meropenem which has Mycobacterium avium intracellulare activity in addition to nosocomial infections, although with a negative chest x-ray, oxygenation healthcare-associated pneumonia and with normal procalcitonin makes bacterial pneumonia less likely with a negative chest x-ray. We will treat with meropenem for Mycobacterium avium complex therapy intravenously at 1 g IV every 8 hours, discontinue the cefepime. We will discontinue the Bactrim due to fact that the patient is already bone marrow suppressed and use Mepron. We will also use p.o. Zithromax and also we will also discontinue the vancomycin. Negative blood cultures both on this admission makes endocarditis less likely and I will order a nasal methicillin-sensitive Staphylococcus aureus screen and we will use the Biaxin for Mycobacterium avium intracellulare treatment. We will order a Histoplasma urine for Histoplasma antigen and Fungitell 2-3, 1-3 beta-D Glucan assay and a CAT scan of the abdomen and pelvis and evaluate the size of the liver and spleen and we will make further recommendations upon the availability of the Histoplasma galactomannan antigen testing, Histoplasma antibody and toxoplasma IgG, IgM. The patient should be followed with human immunodeficiency virus medications. I will make further recommendations upon availability of initial results. Overall prognosis is quite poor for this patient. Seymour Siddiqi MD
[2018-01-16 07:10] LABS: BASO # 0.01 K/mm3 (0.0-2.0); BASO % 0.4 % (0.0-3.0); EOS % 0.4 % (1.5-5.0); GRAN # 2.36 (1.4-6.5); GRAN % 84.8 % (50.0-68.0); HEMOGLOBIN 7.8 g/dL (12.0-16.0); LYMPH # 0.3 (1.2-3.4); LYMPH % 9.4 % (22.0-35.0); MEAN CELL VOLUME 81.8 fl (80.0-105.0); MEAN CORPUSCULAR HEMOGLOBIN 27.9 pg (25.0-35.0); MEAN CORPUSCULAR HGB CONC 34.1 g/dl (31.0-37.0); MEAN PLATELET VOLUME 10.8 fl (7.0-11.0); MONO # 0.1 (0.1-0.6); RBC 2.8 10^6/uL (3.5-6.1); RED CELL DISTRIBUTION WIDTH 15.1 % (11.5-14.5)
[2018-01-16] MEDS: Arformoterol 15 mcg/2 ml Inh Sol IH SCH ×2 (07:20→20:35)
[2018-01-16] MEDS: Budesonide 0.5 mg/2 ml Inhal Susp UD IH SCH ×2 (07:20→20:35)
[2018-01-16 07:33] LABS: ALB/GLOB RATIO 0.8 (1.1-1.8); ALBUMIN 2.5 g/dL (3.0-4.8); ALT/SGPT 36 U/L (7-56); AST/SGOT 130 U/L (14-36); BLOOD UREA NITROGEN 6 mg/dL (7-21); CALCIUM 7.5 mg/dL (8.4-10.5); GFR NON-AFRICAN AMERICAN > 60
[2018-01-16] MEDS: Pantoprazole 40 mg EC Tab PO SCH (07:35)
[2018-01-16 07:45] LABS: WHITE BLOOD COUNT 2.8 10^3/ul (4.5-11.0)
--- NOTE | 2018-01-16 08:50 | CP.PCM.PN ---
Subjective - Date & Time of Evaluation Date of Evaluation: 01/16/18 Time of Evaluation: 08:49 - Subjective Subjective: PGY3 ID Progress note for Dr. Siddiqi Objective - Vital Signs/Intake and Output Vital Signs (last 24 hours): Temp Pulse Resp BP Pulse Ox 101 F H 50 L 29 H 132/74 98 01/16/18 06:00 01/16/18 06:00 01/16/18 06:00 01/16/18 06:00 01/16/18 06:00 Intake and Output: 01/16/18 01/16/18 06:59 18:59 Intake Total 1900 Output Total 1200 Balance 700 - Medications Medications: Current Medications Acetaminophen (Tylenol 325mg Tab) 650 mg PO Q6H PRN PRN Reason: Fever >100.4 F Last Admin: 01/16/18 03:27 Dose: 650 mg Albuterol/Ipratropium (Duoneb 3 Mg/0.5 Mg (3 Ml) Ud) 3 ml IH [id number] [facility] Last Admin: 01/16/18 07:20 Dose: 3 ml Albuterol/Ipratropium (Duoneb 3 Mg/0.5 Mg (3 Ml) Ud) 3 ml IH Q2H PRN PRN Reason: Shortness of Breath Arformoterol Tartrate (Brovana) 15 mcg IH [id number] [facility] Last Admin: 01/16/18 07:20 Dose: 15 mcg Atovaquone (Mepron) 750 mg PO BID [facility]CK[facility] PRN Reason: Protocol Stop: 01/24/18 19:31 Last Admin: 01/15/18 19:50 Dose: 750 mg Budesonide (Pulmicort Respules) 0.5 mg IH [id number] [facility] Last Admin: 01/16/18 07:20 Dose: 0.5 mg Clarithromycin (Biaxin Filmtab) 500 mg PO Q12 [facility]CKAY[facility] PRN Reason: Protocol Stop: 01/24/18 22:01 Last Admin: 01/15/18 21:48 Dose: 500 mg Sodium Chloride (Sodium Chloride 0.9%) 1,000 mls @ 100 mls/hr IV .Q10H [facility]CKAY[facility] Last Admin: 01/15/18 21:53 Dose: 100 mls/hr Meropenem (Merrem Iv 1 Gm Premix) 50 mls @ 100 mls/hr IVPB Q8 [facility] PRN Reason: Protocol Stop: 01/24/18 19:31 Last Admin: 01/16/18 06:15 Dose: 100 mls/hr Methylprednisolone (Solu-Medrol) 40 mg IVP DAILY [facility] Last Admin: 01/15/18 10:51 Dose: 40 mg Nicotine (Nicoderm Cq) 1 patch TD DAILY [facility] Last Admin: 01/15/18 10:01 Dose: 1 patch Nystatin (Nystatin Oral Susp) 5 ml PO QID [facility] Last Admin: 01/15/18 21:52 Dose: 5 ml Pantoprazole Sodium (Protonix Ec Tab) 40 mg PO 0600 [facility] - Labs Labs: 01/16/18 06:00 01/16/18 06:00 PT 16.5 SECONDS (9.4-12.5) H 01/14/18 17:15 INR 1.44 01/14/18 17:15 APTT 31.0 Seconds (25.1-36.5) 01/14/18 17:15
[2018-01-16] MEDS ORDERED: Potassium Phosphate 15 MMOLE in Sodium Chloride 0.9% 250 ML IVPB ONE (09:53)
--- NOTE | 2018-01-16 10:02 | CT ---
Date of service: 01/15/2018 PROCEDURE: CT Abdomen and Pelvis with contrast HISTORY: fever live r spleen size COMPARISON: No prior abdomen and pelvis CT available for comparison. TECHNIQUE: Helical CT of the abdomen and pelvis was performed following oral contrast administration. Intravenous contrast was not administered as per referring physician request. Contrast dose: None Radiation dose: Total exam DLP = 538.86 mGy-cm. This CT exam was performed using one or more of the following dose reduction techniques: Automated exposure control, adjustment of the mA and/or kV according to patient size, and/or use of iterative reconstruction technique. FINDINGS: LOWER THORAX: Limited bibasilar atelectasis identified. Minimal hiatal hernia noted. LIVER: A 4.2 x 3.7 x 3.3 cm hypodense lesion is seen at the dome of the liver potentially representing a complex cyst or low-density soft tissue mass. A 1.6 cm lucency seen in the right lobe more laterally with density similar to that in the larger lesion noted above. Follow-up MRI recommended with without intravenous gadolinium unless there is a contraindication. GALLBLADDER AND BILE DUCTS: Unremarkable. PANCREAS: Unremarkable. No gross lesion or ductal dilatation. SPLEEN: Borderline splenomegaly with the spleen measuring 13.0 cm. No focal lesion appreciable in this unenhanced examination. ADRENALS: Unremarkable. No mass. KIDNEYS AND URETERS: Unremarkable. No hydronephrosis. No solid mass. VASCULATURE: Unremarkable. No aortic aneurysm. BOWEL: Unremarkable. No obstruction. No gross mural thickening. APPENDIX: Normal appendix. PERITONEUM: Unremarkable. No free fluid. No free air. LYMPH NODES: Unremarkable. No enlarged lymph nodes. BLADDER: Unremarkable. REPRODUCTIVE: Unremarkable. BONES: No acute fracture. OTHER FINDINGS: None. IMPRESSION: Two indeterminate hepatic lesions are identified requiring further characterization as they do not reflects simple cyst by Hounsfield measurements alone. Follow-up MRI or CT with and without contrast is advised for greater characterization. Given clinical history, abscess not excluded however neoplasm and other etiologies are possible as well. No additional potential acute abdominal or pelvic findings. Concordant preliminary report from [facility], 01/15/2018.
[2018-01-16] MEDS: MethylPREDNISolone 40 mg Vial IVP SCH (10:10)
[2018-01-16] MEDS: Nystatin 100,000 Units/ml Oral Susp 5 ml UD PO SCH ×4 (10:10→21:42)
[2018-01-16] MEDS: Atovaquone 750 mg/5 ml Susp UD PO SCH ×2 (10:17→17:14)
--- NOTE | 2018-01-16 11:20 | PN ---
Copied To: Seymour Siddiqi MD Attending MD: Seymour Siddiqi MD DATE: 01/16/2018 SUBJECTIVE: The patient is seen earlier today in the ICU 129, bed 3. She is awake and alert. She is doing well. She continues to have fever; however, nontoxic. She does not have any headaches, no blurred vision. No chest pain. No cough. No abdominal pain or diarrhea. No dysuria or frequency. PHYSICAL EXAMINATION: VITAL SIGNS: The patient's temperature is 102.5, heart rate is 71, respiratory rate of 29, blood pressure is 130/70. HEENT: Unremarkable. NECK: Supple. LUNGS: Have decreased breath sounds. HEART: Normal S1, S2. ABDOMEN: Soft, nontender. LABORATORY EXAMINATION: Reveals a white count of 2.8, hemoglobin of 7 and platelets of 92 with the patient's 84% granulocytosis. Coagulation is noted. INR of 1.44. Blood gases are reviewed and chemistries reveals the patient does have an elevated LDH of 4300, creatinine of 0.4. The patient has a procalcitonin which is negative x2; yesterday is 0.42 and alk phos is elevated at 137, low albumin of 2.5 and urinalysis is unremarkable. The patient's blood cultures are no growth at 24 hours. The patient had a CAT scan of the abdomen and pelvis, results are pending. ASSESSMENT AND PLAN: A 52-year-old female who states that she is known she has been positive for many years, she was told by Dr. 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 We will check on the CAT scan of the abdomen and pelvis. We will check on the Histoplasma, toxoplasma, serology, Histoplasma urine antigen should be checked, currently on meropenem. Continues to have fevers and we will check on the final culture results. The patient had a negative on the 01/11. We will check on hepatitis profile, the Parvovirus, histo and 1-3 beta-D Glucan assay. We will make further recommendations. The patient is also currently on clarithromycin for empiric JERSON therapy and Mepron and meropenem which has Mycobacterium avium complex coverage and Solu-Medrol for chronic obstructive pulmonary disease. May consider discontinuing the Solu-Medrol and the patient is not wheezing and we will follow closely with you. Seymour Siddiqi MD
--- NOTE | 2018-01-16 12:08 | RAD ---
Date of service: 01/16/2018 HISTORY: Possible PCP PNA COMPARISON: 01/14/2018 FINDINGS: LUNGS: No active pulmonary disease. PLEURA: No significant pleural effusion identified, no pneumothorax apparent. CARDIOVASCULAR: Normal. OSSEOUS STRUCTURES: No significant abnormalities. VISUALIZED UPPER ABDOMEN: Normal. OTHER FINDINGS: None. IMPRESSION: No active disease.
--- NOTE | 2018-01-16 12:13 | PN ---
Copied To: Ten Bains MD Attending MD: Ten Bains MD DATE: 01/16/2018 FOLLOWUP SUBJECTIVE: The patient denies chest pain. PHYSICAL EXAMINATION: VITAL SIGNS: Blood pressure 18/74, heart rate 50, rectal temperature is 101 degrees Fahrenheit. HEENT: Pale conjunctivae. CHEST: Bilateral rhonchi. HEART: S1 and S2 regular. EXTREMITIES: Trace leg edema. LABORATORY DATA: Hemoglobin and hematocrit 7.8 and 22.9, white count 2.8, platelet count 92,000. Today's SMA-7: Sodium 138, potassium 3.6, chloride of 110, CO2 of 21, glucose 90, BUN 6, creatinine 0.4. ASSESSMENT: 1. Intermittent chest pain, myocardial infarction ruled out. 2. Dizziness and near syncope. 3. Human immunodeficiency virus positive. 4. Pancytopenia. 5. Chronic obstructive lung disease. 6. Improved hyponatremia. RECOMMENDATIONS: Continue current oral Biaxin at 500 mg twice a day, Brovana 15 mcg inhalation every 12 hours, IV meropenem at 1 g every 8 hours, Nicoderm patch, intravenous potassium chloride supplement, Solu-Medrol at 40 mg intravenously daily. The patient can be transferred to telemetry. Ten Bains MD
[2018-01-16 13:07] LABS: HEPATITIS C ANTIBODY NEGATIVE (NEGATIVE)
--- NOTE | 2018-01-16 13:58 | CP.PCM.PN ---
Subjective - Date & Time of Evaluation Date of Evaluation: 01/16/18 Time of Evaluation: 09:45 - Subjective Subjective: Vishnu Henderson DO PGY-1, Vendor Management Specialist Medicine Progress Note for Dr. Chris Pt seen and examined at bedside this am. Denies any acute complaints currently. Had issues with sleeping overnight per RN report. Tolerating PO diet. 12 point ROS obtained and otherwise neg. Objective - Vital Signs/Intake and Output Vital Signs (last 24 hours): Temp Pulse Resp BP Pulse Ox 102.2 F H 92 H 23 132/86 83 L 01/16/18 12:41 01/16/18 12:00 01/16/18 12:00 01/16/18 12:00 01/16/18 12:00 Intake and Output: 01/16/18 01/16/18 06:59 18:59 Intake Total 1900 Output Total 1200 Balance 700 - Medications Medications: Current Medications Acetaminophen (Tylenol 325mg Tab) 650 mg PO Q6H PRN PRN Reason: Fever >100.4 F Last Admin: 01/16/18 12:41 Dose: 650 mg Albuterol/Ipratropium (Duoneb 3 Mg/0.5 Mg (3 Ml) Ud) 3 ml IH [id number] [facility] Last Admin: 01/16/18 07:20 Dose: 3 ml Albuterol/Ipratropium (Duoneb 3 Mg/0.5 Mg (3 Ml) Ud) 3 ml IH Q2H PRN PRN Reason: Shortness of Breath Arformoterol Tartrate (Brovana) 15 mcg IH [id number] [facility] Last Admin: 01/16/18 07:20 Dose: 15 mcg Atovaquone (Mepron) 750 mg PO BID [facility] PRN Reason: Protocol Stop: 01/24/18 19:31 Last Admin: 01/16/18 10:17 Dose: 750 mg Budesonide (Pulmicort Respules) 0.5 mg IH [id number] [facility] Last Admin: 01/16/18 07:20 Dose: 0.5 mg Clarithromycin (Biaxin Filmtab) 500 mg PO Q12 [facility] PRN Reason: Protocol Stop: 01/24/18 22:01 Last Admin: 01/16/18 10:19 Dose: 500 mg Sodium Chloride (Sodium Chloride 0.9%) 1,000 mls @ 100 mls/hr IV .Q10H [facility] Last Admin: 01/15/18 21:53 Dose: 100 mls/hr Meropenem (Merrem Iv 1 Gm Premix) 50 mls @ 100 mls/hr IVPB Q8 [facility] PRN Reason: Protocol Stop: 01/24/18 19:31 Last Admin: 01/16/18 13:28 Dose: 100 mls/hr Potassium Phosphate 15 mmole/ (Sodium Chloride) 255 mls @ 42.5 mls/hr IVPB ONCE ONE Stop: 01/16/18 15:52 Last Admin: 01/16/18 10:14 Dose: 42.5 mls/hr Methylprednisolone (Solu-Medrol) 40 mg IVP DAILY [facility] Last Admin: 01/16/18 10:10 Dose: 40 mg Nicotine (Nicoderm Cq) 1 patch TD DAILY [facility] Last Admin: 01/16/18 10:10 Dose: 1 patch Nystatin (Nystatin Oral Susp) 5 ml PO QID [facility] Last Admin: 01/16/18 13:28 Dose: 5 ml Pantoprazole Sodium (Protonix Ec Tab) 40 mg PO 0600 [facility] Last Admin: 01/16/18 07:35 Dose: 40 mg - Labs Labs: 01/16/18 06:00 01/16/18 06:00 PT 16.5 SECONDS (9.4-12.5) H 01/14/18 17:15 INR 1.44 01/14/18 17:15 APTT 31.0 Seconds (25.1-36.5) 01/14/18 17:15 - Constitutional Appears: Non-toxic, No Acute Distress - Head Exam Head Exam: ATRAUMATIC, NORMAL INSPECTION - Eye Exam Eye Exam: EOMI, Normal appearance, PERRL - ENT Exam ENT Exam: Mucous Membranes Moist - Respiratory Exam Respiratory Exam: Decreased Breath Sounds, NORMAL BREATHING PATTERN - Cardiovascular Exam Cardiovascular Exam: REGULAR RHYTHM, +S1, +S2 - GI/Abdominal Exam GI & Abdominal Exam: Soft, Normal Bowel Sounds - Extremities Exam Extremities Exam: Full ROM, Normal Capillary Refill, Normal Inspection - Neurological Exam Neurological Exam: Alert, Awake, CN II-XII Intact, Oriented x3 - Skin Skin Exam: Dry, Intact, Normal Color, Warm Assessment and Plan - Assessment and Plan (Free Text) Assessment: 52 yo F with PMH of COPD, recently diagnosed AIDS, hx of IV heroin abuse, and chronic back pain, recently discharged for COPD exacerbation, who presented with weakness, SOB, and nose bleed (resolved prior to admission). She was admitted to the ICU due to bradycardia and hypotension on presentation, concerning for possible severe sepsis in setting of immunocompromised patient. Pt downgraded from ICU this am to medical floor. Plan: Severe Sepsis -Ddx: HCAP vs PCP Pneumo vs MAC, high risk for opportunistic infxns in setting of AIDS (CD4 < 20) and possible non-compliance with ppx meds -Severe sepsis due to possible end-organ damage (elevated LFTs), elevated lactate 3.0, hypotensive/bradycardic/hypothermic, in setting of immunocompromised patient; BP now stable, no pressor support needed at this time -Tmax 102.5 overnight, not needing Trever hugger at this time -Pt downgraded to medical floor -Unclear source, CXR and UA not suggestive of infectious processes -CXR on admission not suggestive of acute infectious process, no clear infiltrates -Repeat CXR this am demonstrated no active disease -Hypoxemia requiring supplemental O2, but may be due to COPD rather than sepsis -Given elevated LFTs and med non-compliance, highly concerning for PCP pneumo; bactrim currently on hold due to concerns for medication adverse reaction -C/w atovaquone 750 mg PO bid, Biaxin 500 mg PO q 12h, Merrem 1 g q 8 h IVPB -Nystatin swish and swallow for oral candidiasis, but no sore throat/dysphagia, so low suspicious of esophageal candidiasis -Blood cxs x 2 NG after 24 hrs -ID consulted, recs appreciated -Not presently on HAART medications, pending ID recs for initiating regimen Transaminitis -Shock liver vs. 2/2 severe sepsis -Concern for PCP pneumo vs. JERSON -Improved today, AST 130, ALT 36, Alk phos 137, total bili 0.9 -Avoid hepatotoxic meds where feasible -Repeat abd/pelvis CT 01/15: 2 indeterminate hepatic lesions identified, do not represent simple cysts, abscess and neoplasm not excluded; no acute findings noted COPD -Possible exacerbation, ravi in setting of questionable med compliance -Solumedrol 40 mg daily, Nebs q6 win/q2 prn -Sat goal > 92%, but avoid persistent oxygenation at 100% to prevent suppression of respiratory drive -Continue alfometerol and budesonide q12 -Continue to monitor pt clinically Bradycardia and elevated BNP -Bradycardia resolved -BNP improving, no hx of CHF, may be stress 2/2 severe sepsis -Cardio consulted, recs appreciated -Echo 1 week prior to admission with EF 54%, and low suspicion for DE, so unlikely acute CHF picture Elevated LDH -Hemolysis vs elevation 2/2 liver dysfunction from severe sepsis -Continue to monitor -Peripheral smear: no evidence for increased blast population or lymphoproliferative disorder Pancytopenia Likely 2/2 to AIDS dx Heme/onc consulted, recs appreciated GI/DVT ppx: Protonix/SCDs Pt seen, examined with, and plan discussed with Dr. Chris, attending. Vishnu Henderson DO PGY-1, Vendor Management Specialist Pager #[phone]
--- NOTE | 2018-01-16 16:36 | CP.CCUPN ---
<Daniel Huerta - Last Filed: 01/16/18 16:31> CCU Subjective - Physician Review Subjective (Free Text): 01/16/18 16:31 Daniel Huerta DO PGY1 - Internal Medicine Crate [facility] - ICU Progress Note 12 system ROS is otherwise negative No complaints this AM; Denies SOB, CP, COugh, Abd pain, N/V/D/C, FND. 12 system ROS is negative at this time. Critical Care Time Spent (in minutes): 60 CCU Objective - Vital Signs / Intake & Output Vital Signs (Last 4 hours): Vital Signs Temp Pulse Resp BP Pulse Ox 01/16/18 14:00 98.7 F 75 18 116/79 99 01/16/18 12:41 102.2 F H Intake and Output (Last 8hrs): Intake & Output 01/16/18 01/16/18 01/16/18 06:59 14:59 22:59 Intake Total 1900 Output Total 1200 Balance 700 Weight 175 lb Intake: IV 1400 Left Antecubital 0 Right Wrist 1400 Oral 500 Output: Urine 1200 Urine, Voided 1200 Other: # Bowel Movements 0 - Physical Exam Head: Positive for: Atraumatic, Normocephalic Pupils: Positive for: PERRL Extroacular Muscles: Positive for: EOMI Mouth: Positive for: Moist Mucous Membranes, Other (Thrush improving) Neck: Positive for: Normal Range of Motion Respiratory/Chest: Positive for: Clear to Auscultation, Good Air Exchange, Rhonchi (minimal and diffuse - improving). Negative for: Respiratory Distress, Accessory Muscle Use, Wheezes Cardiovascular: Positive for: Normal S1, S2, Tachycardic. Negative for: Murmurs Abdomen: Positive for: Normal Bowel Sounds. Negative for: Tenderness, Distention, Rebound, Guarding Back: Positive for: Normal Inspection. Negative for: Midline Tenderness, Paraspinal Tenderness Upper Extremity: Positive for: Normal ROM Lower Extremity: Positive for: NORMAL PULSES, Normal ROM. Negative for: Edema Neurological: Positive for: GCS=15, CN II-XII Intact, Speech Normal Skin: Positive for: Warm, Dry, Normal Color Psychiatric: Positive for: Alert, Oriented x 3 - Medications Active Medications: Active Medications Generic Name Dose Route Start Last Admin Trade Name Freq PRN Reason Stop Dose Admin Acetaminophen 650 mg 01/14/18 21:35 01/16/18 12:41 Tylenol 325mg Tab PO 650 mg Q6H PRN Administration Fever >100.4 F Albuterol/Ipratropium 3 ml 01/15/18 02:00 01/16/18 13:54 Duoneb 3 Mg/0.5 Mg (3 Ml) Ud IH 3 ml [id number] MCKAYLA Administration Albuterol/Ipratropium 3 ml 01/14/18 21:55 Duoneb 3 Mg/0.5 Mg (3 Ml) Ud IH Q2H PRN Shortness of Breath Arformoterol Tartrate 15 mcg 01/15/18 08:00 01/16/18 07:20 Brovana IH 15 mcg [id number] MCKAYLA Administration Atovaquone 750 mg 01/15/18 19:30 01/16/18 10:17 Mepron PO 01/24/18 19:31 750 mg BID MCKAYLA Administration Protocol Budesonide 0.5 mg 01/15/18 08:00 01/16/18 07:20 Pulmicort Respules IH 0.5 mg [id number] MCKAYLA Administration Clarithromycin 500 mg 01/15/18 22:00 01/16/18 10:19 Biaxin Filmtab PO 01/24/18 22:01 500 mg Q12 MCKAYLA Administration Protocol Sodium Chloride 1,000 mls @ 100 mls/hr 01/14/18 21:45 01/15/18 21:53 Sodium Chloride 0.9% IV 100 mls/hr .Q10H MCKAYLA Administration Meropenem 50 mls @ 100 mls/hr 01/15/18 19:30 01/16/18 13:28 Merrem Iv 1 Gm Premix IVPB 01/24/18 19:31 100 mls/hr Q8 MCKAYLA Administration Protocol Methylprednisolone 40 mg 01/15/18 10:15 01/16/18 10:10 Solu-Medrol IVP 40 mg DAILY MCKAYLA Administration Nicotine 1 patch 01/15/18 10:00 01/16/18 10:10 Nicoderm Cq TD 1 patch DAILY MCKAYLA Administration Nystatin 5 ml 01/15/18 14:00 01/16/18 13:28 Nystatin Oral Susp PO 5 ml QID MCKAYLA Administration Pantoprazole Sodium 40 mg 01/16/18 06:30 01/16/18 07:35 Protonix Ec Tab PO 40 mg 0600 MCKAYLA Administration - Patient Studies Lab Studies: Microbiology Studies 08/26/18 23:20 MRSA Culture (Admit) - Final Nose MRSA NOT DETECTED Lab Studies 01/16/18 01/16/18 01/16/18 Range/Units 07:43 06:00 06:00 WBC (4.5-11.0) 10^3/ul RBC (3.5-6.1) 10^6/uL Hgb (12.0-16.0) g/dL Hct (36.0-48.0) % MCV (80.0-105.0) fl MCH (25.0-35.0) pg MCHC (31.0-37.0) g/dl RDW (11.5-14.5) % Plt Count (120.0-450.0) 10^3/uL MPV (7.0-11.0) fl Gran % (50.0-68.0) % Lymph % (Auto) (22.0-35.0) % Stevens % (Auto) (1.0-6.0) % Eos % (Auto) (1.5-5.0) % Baso % (Auto) (0.0-3.0) % Gran # (1.4-6.5) Lymph # (Auto) (1.2-3.4) Stevens # (Auto) (0.1-0.6) Eos # (Auto) (0.0-0.7) Baso # (Auto) (0.0-2.0) K/mm3 Sodium 138 (132-148) mmol/L Potassium 3.6 (3.6-5.0) mmol/L Chloride 110 H (98-107) mmol/L Carbon Dioxide 21 (21-33) mmol/L Anion Gap 11 (10-20) BUN 6 L (7-21) mg/dL Creatinine 0.4 L (0.7-1.2) mg/dl Est GFR ( Amer) > 60 Est GFR (Non-Af Amer) > 60 POC Glucose (mg/dL) 86 (65-110) mg/dL Random Glucose 90 (70-110) mg/dL Calcium 7.5 L (8.4-10.5) mg/dL Phosphorus 1.9 L (2.5-4.5) mg/dL Magnesium 1.8 (1.7-2.2) mg/dL Total Bilirubin 0.9 (0.2-1.3) mg/dL AST 130 H (14-36) U/L ALT 36 (7-56) U/L Alkaline Phosphatase 137 H (38-126) U/L Total Protein 5.7 L (5.8-8.3) g/dL Albumin 2.5 L (3.0-4.8) g/dL Globulin 3.2 gm/dL Albumin/Globulin Ratio 0.8 L (1.1-1.8) Cortisol AM Sample (4.46-22.7) ug/dL Hepatitis C Antibody (NEGATIVE) Blood Type Confirm 01/16/18 01/16/18 01/16/18 Range/Units 06:00 06:00 05:45 WBC 2.8 L* (4.5-11.0) 10^3/ul RBC 2.80 L (3.5-6.1) 10^6/uL Hgb 7.8 L (12.0-16.0) g/dL Hct 22.9 L (36.0-48.0) % MCV 81.8 (80.0-105.0) fl MCH 27.9 (25.0-35.0) pg MCHC 34.1 (31.0-37.0) g/dl RDW 15.1 H (11.5-14.5) % Plt Count 92 L (120.0-450.0) 10^3/uL MPV 10.8 (7.0-11.0) fl Gran % 84.8 H (50.0-68.0) % Lymph % (Auto) 9.4 L (22.0-35.0) % Stevens % (Auto) 5.0 (1.0-6.0) % Eos % (Auto) 0.4 L (1.5-5.0) % Baso % (Auto) 0.4 (0.0-3.0) % Gran # 2.36 (1.4-6.5) Lymph # (Auto) 0.3 L (1.2-3.4) Stevens # (Auto) 0.1 (0.1-0.6) Eos # (Auto) 0.0 (0.0-0.7) Baso # (Auto) 0.01 (0.0-2.0) K/mm3 Sodium (132-148) mmol/L Potassium (3.6-5.0) mmol/L Chloride (98-107) mmol/L Carbon Dioxide (21-33) mmol/L Anion Gap (10-20) BUN (7-21) mg/dL Creatinine (0.7-1.2) mg/dl Est GFR ( Amer) Est GFR (Non-Af Amer) POC Glucose (mg/dL) (65-110) mg/dL Random Glucose (70-110) mg/dL Calcium (8.4-10.5) mg/dL Phosphorus (2.5-4.5) mg/dL Magnesium (1.7-2.2) mg/dL Total Bilirubin (0.2-1.3) mg/dL AST (14-36) U/L ALT (7-56) U/L Alkaline Phosphatase (38-126) U/L Total Protein (5.8-8.3) g/dL Albumin (3.0-4.8) g/dL Globulin gm/dL Albumin/Globulin Ratio (1.1-1.8) Cortisol AM Sample (4.46-22.7) ug/dL Hepatitis C Antibody Negative (NEGATIVE) Blood Type Confirm B POSITIVE 01/15/18 01/15/18 Range/Units 22:04 04:00 WBC (4.5-11.0) 10^3/ul RBC (3.5-6.1) 10^6/uL Hgb (12.0-16.0) g/dL Hct (36.0-48.0) % MCV (80.0-105.0) fl MCH (25.0-35.0) pg MCHC (31.0-37.0) g/dl RDW (11.5-14.5) % Plt Count (120.0-450.0) 10^3/uL MPV (7.0-11.0) fl Gran % (50.0-68.0) % Lymph % (Auto) (22.0-35.0) % Stevens % (Auto) (1.0-6.0) % Eos % (Auto) (1.5-5.0) % Baso % (Auto) (0.0-3.0) % Gran # (1.4-6.5) Lymph # (Auto) (1.2-3.4) Stevens # (Auto) (0.1-0.6) Eos # (Auto) (0.0-0.7) Baso # (Auto) (0.0-2.0) K/mm3 Sodium (132-148) mmol/L Potassium (3.6-5.0) mmol/L Chloride (98-107) mmol/L Carbon Dioxide (21-33) mmol/L Anion Gap (10-20) BUN (7-21) mg/dL Creatinine (0.7-1.2) mg/dl Est GFR ( Amer) Est GFR (Non-Af Amer) POC Glucose (mg/dL) 255 H (65-110) mg/dL Random Glucose (70-110) mg/dL Calcium (8.4-10.5) mg/dL Phosphorus (2.5-4.5) mg/dL Magnesium (1.7-2.2) mg/dL Total Bilirubin (0.2-1.3) mg/dL AST (14-36) U/L ALT (7-56) U/L Alkaline Phosphatase (38-126) U/L Total Protein (5.8-8.3) g/dL Albumin (3.0-4.8) g/dL Globulin gm/dL Albumin/Globulin Ratio (1.1-1.8) Cortisol AM Sample 7.9 (4.46-22.7) ug/dL Hepatitis C Antibody (NEGATIVE) Blood Type Confirm Laboratory Results - last 24 hr 01/15/18 01/15/18 01/16/18 04:00 22:04 05:45 WBC RBC Hgb Hct MCV MCH MCHC RDW Plt Count MPV Gran % Lymph % (Auto) Stevens % (Auto) Eos % (Auto) Baso % (Auto) Gran # Lymph # (Auto) Stevens # (Auto) Eos # (Auto) Baso # (Auto) Sodium Potassium Chloride Carbon Dioxide Anion Gap BUN Creatinine Est GFR ( Amer) Est GFR (Non-Af Amer) POC Glucose (mg/dL) 255 H Random Glucose Calcium Phosphorus Magnesium Total Bilirubin AST ALT Alkaline Phosphatase Total Protein Albumin Globulin Albumin/Globulin Ratio Cortisol AM Sample 7.9 Hepatitis C Antibody Blood Type Confirm B POSITIVE 08/01/16/18 01/16/18 06:00 06:00 06:00 WBC 2.8 L* RBC 2.80 L Hgb 7.8 L Hct 22.9 L MCV 81.8 MCH 27.9 MCHC 34.1 RDW 15.1 H Plt Count 92 L MPV 10.8 Gran % 84.8 H Lymph % (Auto) 9.4 L Stevens % (Auto) 5.0 Eos % (Auto) 0.4 L Baso % (Auto) 0.4 Gran # 2.36 Lymph # (Auto) 0.3 L Stevens # (Auto) 0.1 Eos # (Auto) 0.0 Baso # (Auto) 0.01 Sodium 138 Potassium 3.6 Chloride 110 H Carbon Dioxide 21 Anion Gap 11 BUN 6 L Creatinine 0.4 L Est GFR ( Amer) > 60 Est GFR (Non-Af Amer) > 60 POC Glucose (mg/dL) Random Glucose 90 Calcium 7.5 L Phosphorus Magnesium Total Bilirubin 0.9 AST 130 H ALT 36 Alkaline Phosphatase 137 H Total Protein 5.7 L Albumin 2.5 L Globulin 3.2 Albumin/Globulin Ratio 0.8 L Cortisol AM Sample Hepatitis C Antibody Negative Blood Type Confirm 01/16/18 01/16/18 06:00 07:43 WBC RBC Hgb Hct MCV MCH MCHC RDW Plt Count MPV Gran % Lymph % (Auto) Stevens % (Auto) Eos % (Auto) Baso % (Auto) Gran # Lymph # (Auto) Stevens # (Auto) Eos # (Auto) Baso # (Auto) Sodium Potassium Chloride Carbon Dioxide Anion Gap BUN Creatinine Est GFR ( Amer) Est GFR (Non-Af Amer) POC Glucose (mg/dL) 86 Random Glucose Calcium Phosphorus 1.9 L Magnesium 1.8 Total Bilirubin AST ALT Alkaline Phosphatase Total Protein Albumin Globulin Albumin/Globulin Ratio Cortisol AM Sample Hepatitis C Antibody Blood Type Confirm Fingerstick Blood Sugar Results: 133 Review of Systems - Review of Systems All systems: reviewed and no additional remarkable complaints except Review of Systems: as per HPI Critical Care Progress Note - Nutrition Nutrition: Nutrition Category Date Time Status Regular Diet [DIET] Diets 01/14/18 Dinner Ordered Assessment/Plan - Assessment and Plan (Free Text) Assessment: 52F w/ recently [place] [facility] [place] new onset obstructive airway disease exacerbation 2/2 bronchitis, and 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 Admitted to ICU 2/2 elevated LDH and concerns of hemolysis. Neuro: Patient AAOx3 No complaints of focal deficit No findings of focal deficit on exam Less concerning for meningitis at this time CV: Map: 70-110 HR: Jose Cruz this AM, now RR Findings can be secondary to infection BNP elevated - 2180 --> 1510 Previous Echo 1 week ago - EF 54% Cardiology Following Pulm: Hypoxemia- Requiring 2.5 L O2 to maintain sats >95% ABG - Respiratory alkalosis Started on solumedrol 40 Q12 COPD O2 Sat Goal ~92% Duoneb Q6 MCKAYLA/ Q2 PRN Afometerol Q12 Budesonide Q12 No active airway disease on XR CT Chest - No infiltrate one week prior Concerns for PCP pneumo given patient is HIV/AIDS + ; and LDH - 4300 GI: Transamnitis w/ cholestatic pattern on itinitial presetnation; resolving patient denies any complaints with eating; denies any abbdominal pain on exam Can consider abd US if further concerning : Previous UCx+ for staph aureus 1wk ago Repeat Ucx No concerning findings on UA No urinary complaints Most likely asymptomatic bacteruria Renal: BUN/Cr stable Continue to monitor ID AFebrile at this time; fevers overnight controlled w/ acetaminophen 650 CXR findings as above CT Chest on previous admission negative for pulmonary infiltrate HIV CD4< 20; Not on HAART DC'd Azithromycin 500 QD, Vancomycin QD, Cefepime Q8 Started: Clarithromycin 500 Q12, Merem 1gm Q8, and Atovaquone 750mg BID Bactrim - PCP Empiric coverage Fluconazole - Nidia Empiric coverage Thrush appreciated in mouth - started nystatin swish and swallow - improving ID Following appreciate reccs Heme: H/H Stable LDH - 4300 Patient did received 2-3 doses of bactrim on previous admission Heme-Onc consulted for pancytopenia DVT ppx - SCD GI ppx - Protonix IVP DISPO: Stable for transfer to med/surg Patient seen and evaluated at bedside w/ attending physician Dr. Nataliia Huerta DO PGY1 - Internal Medicine [facility] - Pager [phone] - Date & Time Date: 01/16/18 Time: 16:45 <Medardo William - Last Filed: 01/18/18 16:25> CCU Objective - Vital Signs / Intake & Output Vital Signs (Last 4 hours): Vital Signs Temp Pulse Resp BP Pulse Ox 01/18/18 14:00 98 F 100 H 20 121/83 97 Intake and Output (Last 8hrs): Intake & Output 01/18/18 01/18/18 01/18/18 06:59 14:59 22:59 Intake Total 1740 Balance 1740 Intake: IV 1200 Left Antecubital 1200 Oral 540 Other: # Voids Urine, Voided 2 - Medications Active Medications: Active Medications Generic Name Dose Route Start Last Admin Trade Name Freq PRN Reason Stop Dose Admin Acetaminophen 650 mg 01/14/18 21:35 01/16/18 12:41 Tylenol 325mg Tab PO 650 mg Q6H PRN Administration Fever >100.4 F Albuterol/Ipratropium 3 ml 01/15/18 02:00 01/18/18 13:21 Duoneb 3 Mg/0.5 Mg (3 Ml) Ud IH 3 ml [id number] MCKAYLA Administration Albuterol/Ipratropium 3 ml 01/14/18 21:55 Duoneb 3 Mg/0.5 Mg (3 Ml) Ud IH Q2H PRN Shortness of Breath Arformoterol Tartrate 15 mcg 01/15/18 08:00 01/18/18 08:30 Brovana IH 15 mcg [id number] MCKAYLA Administration Atovaquone 750 mg 01/15/18 19:30 01/18/18 10:12 Mepron PO 01/24/18 19:31 750 mg BID MCKAYLA Administration Protocol Budesonide 0.5 mg 01/15/18 08:00 01/18/18 08:31 Pulmicort Respules IH 0.5 mg [id number] MCKAYLA Administration Clarithromycin 500 mg 01/15/18 22:00 01/18/18 10:12 Biaxin Filmtab PO 01/24/18 22:01 500 mg Q12 MCKAYLA Administration Protocol Sodium Chloride 1,000 mls @ 100 mls/hr 01/14/18 21:45 01/17/18 21:18 Sodium Chloride 0.9% IV 100 mls/hr .Q10H MCKAYLA Administration Nicotine 1 patch 01/15/18 10:00 01/18/18 10:12 Nicoderm Cq TD 1 patch DAILY MCKAYLA Administration Nystatin 5 ml 01/15/18 14:00 01/18/18 13:30 Nystatin Oral Susp PO 5 ml QID MCKAYLA Administration Pantoprazole Sodium 40 mg 01/16/18 06:30 01/18/18 05:19 Protonix Ec Tab PO 40 mg 0600 MCKAYLA Administration Potassium Phos/Sodium Phos 3 pkt 01/17/18 10:00 01/18/18 13:30 Neutra-Phos PO 3 pkt TID MCKAYLA Administration Prednisone 40 mg 01/18/18 10:00 01/18/18 10:12 Prednisone Tab PO 40 mg DAILY MCKAYLA Administration - Patient Studies Lab Studies: Lab Studies 01/18/18 01/18/18 01/18/18 Range/Units 16:11 11:16 06:43 WBC (4.5-11.0) 10^3/ul RBC (3.5-6.1) 10^6/uL Hgb (12.0-16.0) g/dL Hct (36.0-48.0) % MCV (80.0-105.0) fl MCH (25.0-35.0) pg MCHC (31.0-37.0) g/dl RDW (11.5-14.5) % Plt Count (120.0-450.0) 10^3/uL MPV (7.0-11.0) fl Gran % (50.0-68.0) % Lymph % (Auto) (22.0-35.0) % Stevens % (Auto) (1.0-6.0) % Eos % (Auto) (1.5-5.0) % Baso % (Auto) (0.0-3.0) % Gran # (1.4-6.5) Lymph # (Auto) (1.2-3.4) Stevens # (Auto) (0.1-0.6) Eos # (Auto) (0.0-0.7) Baso # (Auto) (0.0-2.0) K/mm3 Neutrophils % (Manual) (50.0-70.0) % Band Neutrophils % (0-2) % Lymphocytes % (Manual) (22.0-35.0) % Monocytes % (Manual) (1.0-6.0) % Myelocytes % % Platelet Evaluation (NORMAL) Sodium (132-148) mmol/L Potassium (3.6-5.0) mmol/L Chloride (98-107) mmol/L Carbon Dioxide (21-33) mmol/L Anion Gap (10-20) BUN (7-21) mg/dL Creatinine (0.7-1.2) mg/dl Est GFR ( Amer) Est GFR (Non-Af Amer) POC Glucose (mg/dL) 134 H 174 H 92 (65-110) mg/dL Random Glucose (70-110) mg/dL Calcium (8.4-10.5) mg/dL Phosphorus (2.5-4.5) mg/dL Magnesium (1.7-2.2) mg/dL Total Bilirubin (0.2-1.3) mg/dL AST (14-36) U/L ALT (7-56) U/L Alkaline Phosphatase (38-126) U/L Total Protein (5.8-8.3) g/dL Albumin (3.0-4.8) g/dL Globulin gm/dL Albumin/Globulin Ratio (1.1-1.8) Cryptococcus Ag Screen (Not Detected) Parvovirus B19 IgG Ab (<0.9) Parvovirus B19 IgM Ab (<0.9) Parvovirus Interpret (()) 01/18/18 01/18/18 01/17/18 Range/Units 06:30 06:30 22:00 WBC 4.6 (4.5-11.0) 10^3/ul RBC 2.77 L (3.5-6.1) 10^6/uL Hgb 7.7 L (12.0-16.0) g/dL Hct 23.0 L (36.0-48.0) % MCV 83.0 (80.0-105.0) fl MCH 27.8 (25.0-35.0) pg MCHC 33.5 (31.0-37.0) g/dl RDW 15.5 H (11.5-14.5) % Plt Count 130 (120.0-450.0) 10^3/uL MPV 10.8 (7.0-11.0) fl Gran % 90.1 H (50.0-68.0) % Lymph % (Auto) 6.6 L (22.0-35.0) % Stevens % (Auto) 3.1 (1.0-6.0) % Eos % (Auto) 0.0 L (1.5-5.0) % Baso % (Auto) 0.2 (0.0-3.0) % Gran # 4.12 (1.4-6.5) Lymph # (Auto) 0.3 L (1.2-3.4) Stevens # (Auto) 0.1 (0.1-0.6) Eos # (Auto) 0.0 (0.0-0.7) Baso # (Auto) 0.01 (0.0-2.0) K/mm3 Neutrophils % (Manual) 88 H (50.0-70.0) % Band Neutrophils % 1 (0-2) % Lymphocytes % (Manual) 8 L (22.0-35.0) % Monocytes % (Manual) 2 (1.0-6.0) % Myelocytes % 1 % Platelet Evaluation Normal (NORMAL) Sodium 141 (132-148) mmol/L Potassium 4.1 (3.6-5.0) mmol/L Chloride 106 (98-107) mmol/L Carbon Dioxide 27 (21-33) mmol/L Anion Gap 12 (10-20) BUN 6 L (7-21) mg/dL Creatinine 0.5 L (0.7-1.2) mg/dl Est GFR ( Amer) > 60 Est GFR (Non-Af Amer) > 60 POC Glucose (mg/dL) 273 H (65-110) mg/dL Random Glucose 100 (70-110) mg/dL Calcium 8.1 L (8.4-10.5) mg/dL Phosphorus 2.6 (2.5-4.5) mg/dL Magnesium 2.1 (1.7-2.2) mg/dL Total Bilirubin 0.9 (0.2-1.3) mg/dL AST 176 H D (14-36) U/L ALT 49 (7-56) U/L Alkaline Phosphatase 145 H (38-126) U/L Total Protein 5.4 L (5.8-8.3) g/dL Albumin 2.7 L (3.0-4.8) g/dL Globulin 2.7 gm/dL Albumin/Globulin Ratio 1.0 L (1.1-1.8) Cryptococcus Ag Screen (Not Detected) Parvovirus B19 IgG Ab (<0.9) Parvovirus B19 IgM Ab (<0.9) Parvovirus Interpret (()) 01/17/18 01/17/18 01/17/18 Range/Units 16:16 11:22 06:53 WBC (4.5-11.0) 10^3/ul RBC (3.5-6.1) 10^6/uL Hgb (12.0-16.0) g/dL Hct (36.0-48.0) % MCV (80.0-105.0) fl MCH (25.0-35.0) pg MCHC (31.0-37.0) g/dl RDW (11.5-14.5) % Plt Count (120.0-450.0) 10^3/uL MPV (7.0-11.0) fl Gran % (50.0-68.0) % Lymph % (Auto) (22.0-35.0) % Stevens % (Auto) (1.0-6.0) % Eos % (Auto) (1.5-5.0) % Baso % (Auto) (0.0-3.0) % Gran # (1.4-6.5) Lymph # (Auto) (1.2-3.4) Stevens # (Auto) (0.1-0.6) Eos # (Auto) (0.0-0.7) Baso # (Auto) (0.0-2.0) K/mm3 Neutrophils % (Manual) (50.0-70.0) % Band Neutrophils % (0-2) % Lymphocytes % (Manual) (22.0-35.0) % Monocytes % (Manual) (1.0-6.0) % Myelocytes % % Platelet Evaluation (NORMAL) Sodium (132-148) mmol/L Potassium (3.6-5.0) mmol/L Chloride (98-107) mmol/L Carbon Dioxide (21-33) mmol/L Anion Gap (10-20) BUN (7-21) mg/dL Creatinine (0.7-1.2) mg/dl Est GFR ( Amer) Est GFR (Non-Af Amer) POC Glucose (mg/dL) 178 H 137 H 114 H (65-110) mg/dL Random Glucose (70-110) mg/dL Calcium (8.4-10.5) mg/dL Phosphorus (2.5-4.5) mg/dL Magnesium (1.7-2.2) mg/dL Total Bilirubin (0.2-1.3) mg/dL AST (14-36) U/L ALT (7-56) U/L Alkaline Phosphatase (38-126) U/L Total Protein (5.8-8.3) g/dL Albumin (3.0-4.8) g/dL Globulin gm/dL Albumin/Globulin Ratio (1.1-1.8) Cryptococcus Ag Screen (Not Detected) Parvovirus B19 IgG Ab (<0.9) Parvovirus B19 IgM Ab (<0.9) Parvovirus Interpret (()) 01/16/18 01/16/18 Range/Units 06:00 06:00 WBC (4.5-11.0) 10^3/ul RBC (3.5-6.1) 10^6/uL Hgb (12.0-16.0) g/dL Hct (36.0-48.0) % MCV (80.0-105.0) fl MCH (25.0-35.0) pg MCHC (31.0-37.0) g/dl RDW (11.5-14.5) % Plt Count (120.0-450.0) 10^3/uL MPV (7.0-11.0) fl Gran % (50.0-68.0) % Lymph % (Auto) (22.0-35.0) % Stevens % (Auto) (1.0-6.0) % Eos % (Auto) (1.5-5.0) % Baso % (Auto) (0.0-3.0) % Gran # (1.4-6.5) Lymph # (Auto) (1.2-3.4) Stevens # (Auto) (0.1-0.6) Eos # (Auto) (0.0-0.7) Baso # (Auto) (0.0-2.0) K/mm3 Neutrophils % (Manual) (50.0-70.0) % Band Neutrophils % (0-2) % Lymphocytes % (Manual) (22.0-35.0) % Monocytes % (Manual) (1.0-6.0) % Myelocytes % % Platelet Evaluation (NORMAL) Sodium (132-148) mmol/L Potassium (3.6-5.0) mmol/L Chloride (98-107) mmol/L Carbon Dioxide (21-33) mmol/L Anion Gap (10-20) BUN (7-21) mg/dL Creatinine (0.7-1.2) mg/dl Est GFR ( Amer) Est GFR (Non-Af Amer) POC Glucose (mg/dL) (65-110) mg/dL Random Glucose (70-110) mg/dL Calcium (8.4-10.5) mg/dL Phosphorus (2.5-4.5) mg/dL Magnesium (1.7-2.2) mg/dL Total Bilirubin (0.2-1.3) mg/dL AST (14-36) U/L ALT (7-56) U/L Alkaline Phosphatase (38-126) U/L Total Protein (5.8-8.3) g/dL Albumin (3.0-4.8) g/dL Globulin gm/dL Albumin/Globulin Ratio (1.1-1.8) Cryptococcus Ag Screen Not detected (Not Detected) Parvovirus B19 IgG Ab 0.1 (<0.9) Parvovirus B19 IgM Ab 0.1 (<0.9) Parvovirus Interpret (()) Laboratory Results - last 24 hr 01/16/18 01/16/18 01/17/18 06:00 06:00 06:53 WBC RBC Hgb Hct MCV MCH MCHC RDW Plt Count MPV Gran % Lymph % (Auto) Stevens % (Auto) Eos % (Auto) Baso % (Auto) Gran # Lymph # (Auto) Stevens # (Auto) Eos # (Auto) Baso # (Auto) Neutrophils % (Manual) Band Neutrophils % Lymphocytes % (Manual) Monocytes % (Manual) Myelocytes % Platelet Evaluation Sodium Potassium Chloride Carbon Dioxide Anion Gap BUN Creatinine Est GFR ( Amer) Est GFR (Non-Af Amer) POC Glucose (mg/dL) 114 H Random Glucose Calcium Phosphorus Magnesium Total Bilirubin AST ALT Alkaline Phosphatase Total Protein Albumin Globulin Albumin/Globulin Ratio Cryptococcus Ag Screen Not detected Parvovirus B19 IgG Ab 0.1 Parvovirus B19 IgM Ab 0.1 Parvovirus Interpret 01/17/18 01/17/18 01/17/18 11:22 16:16 22:00 WBC RBC Hgb Hct MCV MCH MCHC RDW Plt Count MPV Gran % Lymph % (Auto) Stevens % (Auto) Eos % (Auto) Baso % (Auto) Gran # Lymph # (Auto) Stevens # (Auto) Eos # (Auto) Baso # (Auto) Neutrophils % (Manual) Band Neutrophils % Lymphocytes % (Manual) Monocytes % (Manual) Myelocytes % Platelet Evaluation Sodium Potassium Chloride Carbon Dioxide Anion Gap BUN Creatinine Est GFR ( Amer) Est GFR (Non-Af Amer) POC Glucose (mg/dL) 137 H 178 H 273 H Random Glucose Calcium Phosphorus Magnesium Total Bilirubin AST ALT Alkaline Phosphatase Total Protein Albumin Globulin Albumin/Globulin Ratio Cryptococcus Ag Screen Parvovirus B19 IgG Ab Parvovirus B19 IgM Ab Parvovirus Interpret 01/18/18 01/18/18 01/18/18 06:30 06:30 06:43 WBC 4.6 RBC 2.77 L Hgb 7.7 L Hct 23.0 L MCV 83.0 MCH 27.8 MCHC 33.5 RDW 15.5 H Plt Count 130 MPV 10.8 Gran % 90.1 H Lymph % (Auto) 6.6 L Stevens % (Auto) 3.1 Eos % (Auto) 0.0 L Baso % (Auto) 0.2 Gran # 4.12 Lymph # (Auto) 0.3 L Stevens # (Auto) 0.1 Eos # (Auto) 0.0 Baso # (Auto) 0.01 Neutrophils % (Manual) 88 H Band Neutrophils % 1 Lymphocytes % (Manual) 8 L Monocytes % (Manual) 2 Myelocytes % 1 Platelet Evaluation Normal Sodium 141 Potassium 4.1 Chloride 106 Carbon Dioxide 27 Anion Gap 12 BUN 6 L Creatinine 0.5 L Est GFR ( Amer) > 60 Est GFR (Non-Af Amer) > 60 POC Glucose (mg/dL) 92 Random Glucose 100 Calcium 8.1 L Phosphorus 2.6 Magnesium 2.1 Total Bilirubin 0.9 AST 176 H D ALT 49 Alkaline Phosphatase 145 H Total Protein 5.4 L Albumin 2.7 L Globulin 2.7 Albumin/Globulin Ratio 1.0 L Cryptococcus Ag Screen Parvovirus B19 IgG Ab Parvovirus B19 IgM Ab Parvovirus Interpret 01/18/18 01/18/18 11:16 16:11 WBC RBC Hgb Hct MCV MCH MCHC RDW Plt Count MPV Gran % Lymph % (Auto) Stevens % (Auto) Eos % (Auto) Baso % (Auto) Gran # Lymph # (Auto) Stevens # (Auto) Eos # (Auto) Baso # (Auto) Neutrophils % (Manual) Band Neutrophils % Lymphocytes % (Manual) Monocytes % (Manual) Myelocytes % Platelet Evaluation Sodium Potassium Chloride Carbon Dioxide Anion Gap BUN Creatinine Est GFR ( Amer) Est GFR (Non-Af Amer) POC Glucose (mg/dL) 174 H 134 H Random Glucose Calcium Phosphorus Magnesium Total Bilirubin AST ALT Alkaline Phosphatase Total Protein Albumin Globulin Albumin/Globulin Ratio Cryptococcus Ag Screen Parvovirus B19 IgG Ab Parvovirus B19 IgM Ab Parvovirus Interpret Critical Care Progress Note - Nutrition Nutrition: Nutrition Category Date Time Status Regular Diet [DIET] Diets 01/14/18 Dinner Ordered Attending/Attestation - Attestation I have personally seen and examined this patient.: Yes I have fully participated in the care of the patient.: Yes I have reviewed all pertinent clinical information: Yes Notes (Text): 01/18/18 16:24 52 yo female with HIV, came with sepsis, was fluid resuscitated and achieved hemodynamic stability. Ok to downgrade to tele ccm time 40 min
[2018-01-16 19:45] LABS: HEPATITIS B SURFACE AG Negative (NEGATIVE)
[2018-01-16 19:51] LABS: HEPATITIS A IGM NEGATIVE (NEGATIVE); HEPATITIS B CORE AB NEGATIVE (NEGATIVE)
[2018-01-17] MEDS: Albuterol-Ipratrop 3 mg / 0.5 (3 ml) UD IH SCH ×4 (02:57→19:52)
[2018-01-17] MEDS: Sodium Chloride 0.9% 1,000 ML IV SCH ×2 (05:19→21:18)
[2018-01-17] MEDS: Pantoprazole 40 mg EC Tab PO SCH (05:31)
[2018-01-17] MEDS: Meropenem IV 1 gm in NS 50 ML IVPB SCH ×3 (05:31→21:14)
[2018-01-17 07:00] LABS: BASO # 0.01 K/mm3 (0.0-2.0); BASO % 0.2 % (0.0-3.0); EOS % 0.2 % (1.5-5.0); GRAN # 3.81 (1.4-6.5); GRAN % 87.1 % (50.0-68.0); HEMOGLOBIN 8.1 g/dL (12.0-16.0); LYMPH # 0.4 (1.2-3.4); LYMPH % 9.8 % (22.0-35.0); MEAN CELL VOLUME 82.4 fl (80.0-105.0); MEAN CORPUSCULAR HEMOGLOBIN 27.5 pg (25.0-35.0); MEAN CORPUSCULAR HGB CONC 33.3 g/dl (31.0-37.0); MEAN PLATELET VOLUME 10.8 fl (7.0-11.0); MONO # 0.1 (0.1-0.6); MONO % 2.7 % (1.0-6.0); RBC 2.95 10^6/uL (3.5-6.1); RED CELL DISTRIBUTION WIDTH 15.5 % (11.5-14.5); WHITE BLOOD COUNT 4.4 10^3/ul (4.5-11.0)
[2018-01-17] MEDS: Arformoterol 15 mcg/2 ml Inh Sol IH SCH ×2 (07:29→19:52)
[2018-01-17] MEDS: Budesonide 0.5 mg/2 ml Inhal Susp UD IH SCH ×2 (07:29→19:52)
[2018-01-17 07:57] VITALS: RESP 20
[2018-01-17 08:29] LABS: ALB/GLOB RATIO 0.8 (1.1-1.8); ALBUMIN 2.5 g/dL (3.0-4.8); ALT/SGPT 33 U/L (7-56); AST/SGOT 98 U/L (14-36); BLOOD UREA NITROGEN 7 mg/dL (7-21); CALCIUM 7.7 mg/dL (8.4-10.5); GFR NON-AFRICAN AMERICAN > 60
[2018-01-17] MEDS ORDERED: Potassium Phosphate 15 MMOLE in Dextrose 5% In Water 250 ML IVPB ONE (08:45)
[2018-01-17] MEDS ORDERED: Potassium Phosphate 15 MMOLE in Sodium Chloride 0.9% 250 ML IVPB ONE (09:00)
[2018-01-17] MEDS: Atovaquone 750 mg/5 ml Susp UD PO SCH ×2 (09:19→18:51)
[2018-01-17] MEDS: Potassium & Sodium Phosphate PO SCH ×3 (09:19→18:52)
[2018-01-17] MEDS: Nystatin 100,000 Units/ml Oral Susp 5 ml UD PO SCH ×4 (09:19→21:13)
[2018-01-17] MEDS: MethylPREDNISolone 40 mg Vial IVP SCH (09:32)
--- NOTE | 2018-01-17 09:35 | CP.PCM.PN ---
Subjective - Date & Time of Evaluation Date of Evaluation: 01/17/18 Time of Evaluation: 07:30 - Subjective Subjective: Vishnu Henderson, PGY-1, [employer] [facility] Progress Note for Dr. Walter Pt seen and examined at bedside. States she has had pinpoint chest pain all night underneath L breast radiating laterally, but did not inform nurse about her pain. Stating it's 5/10, improved from 8/10 during symptom onset. Requesting pain med to help with symptoms. Otherwise denies fever, chills, headache, shortness of breath, n/v/d/c, abd pain, urinary complaints, or other symptoms. Last time pt spiked fever was 12 noon yesterday, 102.5. Objective - Vital Signs/Intake and Output Vital Signs (last 24 hours): Temp Pulse Resp BP Pulse Ox 98.6 F 65 20 113/73 99 01/17/18 06:00 01/17/18 06:00 01/17/18 06:00 01/17/18 06:00 01/17/18 06:00 Intake and Output: 01/17/18 01/17/18 06:59 18:59 Intake Total 3000 Balance 3000 - Medications Medications: Current Medications Acetaminophen (Tylenol 325mg Tab) 650 mg PO Q6H PRN PRN Reason: Fever >100.4 F Last Admin: 01/16/18 12:41 Dose: 650 mg Albuterol/Ipratropium (Duoneb 3 Mg/0.5 Mg (3 Ml) Ud) 3 ml [facility] [id number] [facility] Last Admin: 01/17/18 07:29 Dose: 3 ml Albuterol/Ipratropium (Duoneb 3 Mg/0.5 Mg (3 Ml) Ud) 3 ml IH Q2H PRN PRN Reason: Shortness of Breath Arformoterol Tartrate (Brovana) 15 mcg IH [id number] WIN Last Admin: 01/17/18 07:29 Dose: 15 mcg Atovaquone (Mepron) 750 mg PO BID WIN PRN Reason: Protocol Stop: 01/24/18 19:31 Last Admin: 01/17/18 09:19 Dose: 750 mg Budesonide (Pulmicort Respules) 0.5 mg I[facility] [id number] [facility] Last Admin: 01/17/18 07:29 Dose: 0.5 mg Clarithromycin (Biaxin Filmtab) 500 mg PO Q12 [facility] PRN Reason: Protocol Stop: 01/24/18 22:01 Last Admin: 01/17/18 09:19 Dose: 500 mg Sodium Chloride (Sodium Chloride 0.9%) 1,000 mls @ 100 mls/hr IV .Q10H [facility] Last Admin: 01/17/18 05:19 Dose: 100 mls/hr Meropenem (Merrem Iv 1 Gm Premix) 50 mls @ 100 mls/hr IVPB Q8 WIN PRN Reason: Protocol Stop: 01/24/18 19:31 Last Admin: 01/17/18 05:31 Dose: 100 mls/hr Potassium Phosphate 15 mmole/ (Sodium Chloride) 255 mls @ 42.5 mls/hr IVPB ONCE ONE Stop: 01/17/18 14:59 Methylprednisolone (Solu-Medrol) 40 mg IVP DAILY [facility] Last Admin: 01/16/18 10:10 Dose: 40 mg Nicotine (Nicoderm Cq) 1 patch TD DAILY [facility] Last Admin: 01/17/18 09:21 Dose: 1 patch Nystatin (Nystatin Oral Susp) 5 ml PO QID [facility] Last Admin: 01/17/18 09:19 Dose: 5 ml Pantoprazole Sodium (Protonix Ec Tab) 40 mg PO 0600 [facility] Last Admin: 01/17/18 05:31 Dose: 40 mg Potassium Phos/Sodium Phos (Neutra-Phos) 3 pkt PO TID [facility] Last Admin: 01/17/18 09:19 Dose: 3 pkt - Labs Labs: 01/17/18 06:15 01/17/18 06:15 PT 16.5 SECONDS (9.4-12.5) H 01/14/18 17:15 INR 1.44 01/14/18 17:15 APTT 31.0 Seconds (25.1-36.5) 01/14/18 17:15 - Constitutional Appears: Non-toxic, No Acute Distress, Chronically Ill - Head Exam Head Exam: ATRAUMATIC, NORMAL INSPECTION - Eye Exam Eye Exam: EOMI, Normal appearance, PERRL - ENT Exam ENT Exam: Mucous Membranes Moist, Normal Oropharynx - Respiratory Exam Respiratory Exam: Clear to Ausculation Bilateral, NORMAL BREATHING PATTERN - Cardiovascular Exam Cardiovascular Exam: REGULAR RHYTHM, +S1, +S2 Additional comments: Reproducible tenderness with palpation of chest wall - GI/Abdominal Exam GI & Abdominal Exam: Soft, Normal Bowel Sounds. absent: Tenderness - Extremities Exam Extremities Exam: Full ROM, Normal Capillary Refill, Normal Inspection - Neurological Exam Neurological Exam: Alert, Awake, CN II-XII Intact, Oriented x3 - Skin Skin Exam: Dry, Intact, Normal Color, Warm Assessment and Plan - Assessment and Plan (Free Text) Assessment: 52 yo F with PMH of COPD, recently diagnosed AIDS, hx of IV heroin abuse, and chronic back pain, recently discharged for COPD exacerbation, who presented with weakness, SOB, and nose bleed (resolved prior to admission). She was admitted to the ICU due to bradycardia and hypotension on presentation, concerning for possible severe sepsis in setting of immunocompromised patient. Pt downgraded from ICU this am to medical floor. Plan: Severe Sepsis -Ddx: HCAP vs PCP Pneumo vs MAC, high risk for opportunistic infxns in setting of AIDS (CD4 < 20) and possible non-compliance with ppx meds -Severe sepsis due to possible end-organ damage (elevated LFTs), elevated lactate 3.0, hypotensive/bradycardic/hypothermic, in setting of immunocompromised patient; BP now stable, no pressor support needed at this time -Tmax 102.5 yesterday at noon, not needing Trever hugger at this time, continue to monitor temps -Pt downgraded to medical floor from ICU -Unclear source, CXR and UA not suggestive of infectious processes -CXR on admission not suggestive of acute infectious process, no clear infiltrates -Hypoxemia resolved, pt saturating well on room air at this time -Given elevated LFTs and med non-compliance, highly concerning for PCP pneumo; bactrim currently on hold due to concerns for medication adverse reaction -C/w atovaquone 750 mg PO bid, Biaxin 500 mg PO q 12h, Merrem 1 g q 8 h IVPB -Nystatin swish and swallow for oral candidiasis, but no sore throat/dysphagia, so low suspicious of esophageal candidiasis -Blood cxs x 2 NG after 24 hrs -ID consulted, recs appreciated -Not presently on HAART medications, pending ID recs for initiating regimen -CT head today demonstrated no acute changes; pt tested positive for Toxoplasma Ab Transaminitis -Shock liver vs. 2/2 severe sepsis -Concern for PCP pneumo vs. JERSON -Improved today, AST 130, ALT 36, Alk phos 137, total bili 0.9 -Avoid hepatotoxic meds where feasible -Repeat abd/pelvis CT 01/15: 2 indeterminate hepatic lesions identified, do not represent simple cysts, abscess and neoplasm not excluded; no acute findings noted COPD -Possible exacerbation, ravi in setting of questionable med compliance -Will change to PO Prednisone 40 mg daily, Nebs q6 win/q2 prn -Sat goal > 92%, but avoid persistent oxygenation at 100% to prevent suppression of respiratory drive -Continue alfometerol and budesonide q12 -Continue to monitor pt clinically Bradycardia and elevated BNP -Bradycardia resolved -BNP improving, no hx of CHF, may be stress 2/2 severe sepsis -Cardio consulted, recs appreciated -Echo 1 week prior to admission with EF 54%, and low suspicion for NH, so unlikely acute CHF picture Elevated LDH -Hemolysis vs elevation 2/2 liver dysfunction from severe sepsis -Continue to monitor -Peripheral smear: no evidence for increased blast population or lymphoproliferative disorder Pancytopenia Likely 2/2 to AIDS dx Heme/onc consulted, recs appreciated Hypophosphatemia P 1.3, s/p IV Potassium Phosphate and Neutra-Phos 3 packets PO tid F/u repeat levels tomorrow am GI/DVT ppx: Protonix/SCDs PT eval pending Pt seen, examined with, and plan discussed with Dr. Walter, attending. Vishnu Henderson DO PGY-1, [employer] Pager #[phone]
[2018-01-17] MEDS ORDERED: Iohexol 350 MG/100 ML VIAL ONE (12:24)
--- NOTE | 2018-01-17 13:36 | CT ---
Date of service: 01/17/2018 PROCEDURE: CT HEAD WITH CONTRAST HISTORY: positive toxoplasmosis antibody, recent dx aids COMPARISON: None available. TECHNIQUE: Axial computed tomography images were obtained through the head/brain with intravenous contrast. Contrast dose: 100 cc of Omni 350 Radiation dose: Total exam DLP = 944 mGy-cm. This CT exam was performed using one or more of the following dose reduction techniques: Automated exposure control, adjustment of the mA and/or kV according to patient size, and/or use of iterative reconstruction technique. FINDINGS: HEMORRHAGE: No intracranial hemorrhage. BRAIN: No mass, mass effect or edema. No abnormal intracranial enhancement. No atrophy or chronic microvascular ischemic changes. VENTRICLES: Unremarkable. No hydrocephalus. CALVARIUM: Unremarkable. PARANASAL SINUSES: Unremarkable as visualized. No significant inflammatory changes. MASTOID AIR CELLS: Unremarkable as visualized. No mastoid effusion. OTHER FINDINGS: None. IMPRESSION: Normal contrast enhanced CT of the head.
[2018-01-18] MEDS: Albuterol-Ipratrop 3 mg / 0.5 (3 ml) UD IH SCH ×3 (01:11→13:21)
[2018-01-18] MEDS: Meropenem IV 1 gm in NS 50 ML IVPB SCH (05:18)
[2018-01-18] MEDS: Pantoprazole 40 mg EC Tab PO SCH (05:19)
[2018-01-18 07:24] LABS: BASO # 0.01 K/mm3 (0.0-2.0); BASO % 0.2 % (0.0-3.0); GRAN # 4.12 (1.4-6.5); GRAN % 90.1 % (50.0-68.0); HEMOGLOBIN 7.7 g/dL (12.0-16.0); LYMPH # 0.3 (1.2-3.4); LYMPH % 6.6 % (22.0-35.0); MEAN CORPUSCULAR HEMOGLOBIN 27.8 pg (25.0-35.0); MEAN CORPUSCULAR HGB CONC 33.5 g/dl (31.0-37.0); MEAN PLATELET VOLUME 10.8 fl (7.0-11.0); MONO # 0.1 (0.1-0.6); MONO % 3.1 % (1.0-6.0); PLATELET COUNT 130 10^3/uL (120.0-450.0); RBC 2.77 10^6/uL (3.5-6.1); RED CELL DISTRIBUTION WIDTH 15.5 % (11.5-14.5); WHITE BLOOD COUNT 4.6 10^3/ul (4.5-11.0)
[2018-01-18 08:03] LABS: ALBUMIN 2.7 g/dL (3.0-4.8); ALT/SGPT 49 U/L (7-56); AST/SGOT 176 U/L (14-36); BLOOD UREA NITROGEN 6 mg/dL (7-21); CALCIUM 8.1 mg/dL (8.4-10.5); GFR NON-AFRICAN AMERICAN > 60
--- NOTE | 2018-01-18 08:23 | PN ---
Copied To: Seymour Siddiqi MD Attending MD: Seymour Siddiqi MD DATE: 01/17/2018 SUBJECTIVE: The patient was seen earlier this morning in room 570, bed 1. No fevers and no chills. PHYSICAL EXAMINATION VITAL SIGNS: Temperature is 98, blood pressure is 119/80, respiratory rate of 16. HEENT: Examination of HEENT is unremarkable. NECK: Supple. LUNGS: Have decreased breath sounds. HEART: Normal S1, S2. ABDOMEN: Soft. LABORATORY DATA: Laboratory examination reveals the patient to have a white count of 4.4, hemoglobin of 8, platelets of 120 and coagulation is noted. Blood gases are reviewed and chemistries revealed the patient's BUN of 12 and creatinine of 0.5. Procalcitonin is 0.42. Urinalysis is noted and the patient's serology is positive for toxoplasma and antibody it is not clear whether it is IgG or IgM. 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 The patient had a CAT scan of the head. She denied any headaches in the past. was normal. We will follow with you. Seymour Siddiqi MD
[2018-01-18] MEDS: Arformoterol 15 mcg/2 ml Inh Sol IH SCH (08:30)
[2018-01-18] MEDS: Budesonide 0.5 mg/2 ml Inhal Susp UD IH SCH (08:31)
[2018-01-18 09:07] LABS: BAND 1 % (0-2); LYMPHOCYTE 8 % (22.0-35.0); MONOCYTE 2 % (1.0-6.0); MYELOCYTE 1 %; NEUTROPHIL 88 % (50.0-70.0); PLATELET ESTIMATE NORMAL (NORMAL)
[2018-01-18] MEDS: Nystatin 100,000 Units/ml Oral Susp 5 ml UD PO SCH ×2 (10:11→13:30)
[2018-01-18] MEDS: Potassium & Sodium Phosphate PO SCH ×2 (10:12→13:30)
[2018-01-18] MEDS: Atovaquone 750 mg/5 ml Susp UD PO SCH (10:12)
--- NOTE | 2018-01-18 13:47 | PN ---
Copied To: Seymour Siddiqi MD Attending MD: Seymour Siddiqi MD DATE: 01/18/2018 SUBJECTIVE: The patient is in bed, in no acute distress, nontoxic. PHYSICAL EXAMINATION: VITAL SIGNS: On exam, temperature is 97, blood pressure is 120/80, respiratory rate of 18. HEENT: Examination of HEENT is unremarkable. NECK: Supple. LUNGS: Have decreased breath sounds. HEART: Normal S1, S2. ABDOMEN: Soft, nontender. LABORATORY DATA: Laboratory examination reveals a white count of 4.6, hemoglobin of 7, platelets of 130, BUN of 6, creatinine of 0.5. Procalcitonin is 0.42. Cryptococcus is negative. Hepatitis profile is negative. Toxoplasma antibody is positive. Urine cultures positive. Review of orders reveals the patient to be on p.o. clarithromycin and p.o. Mepron and meropenem and prednisone. The patient had a CAT scan of the head. It is a normal contrast enhanced CAT scan. 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 At this point. we will discontinue the meropenem. The patient should follow up with her primary doctor and human immunodeficiency virus specialist. She is advised to go to [facility]'s human immunodeficiency virus clinic. The patient's last chest x-ray was on 01/14/2018, which is no active disease. Seymour Siddiqi MD
[2018-01-18 14:14] VITALS: BP 121/83; PULSE 100; TEMP 98; O2SAT 97
--- NOTE | 2018-01-18 14:53 | CP.PCM.DIS ---
<Vishnu Henderson - Last Filed: 01/18/18 14:49> Provider - Provider Date of Admission: 01/14/18 19:48 Attending physician: Esha Chris MD Primary care physician: Sienna Loving MD Consults: Cardiology - Dr. Bains ID - Dr. Siddiqi Heme/Onc: Dr. Lerner Time Spent in preparation of Discharge (in minutes): 45 Hospital Course - Lab Results Lab Results: Micro Results 01/14/18 23:20 Nose MRSA Culture (Admit) - Final MRSA NOT DETECTED Most Recent Lab Values WBC 4.6 10^3/ul (4.5-11.0) 01/18/18 06:30 RBC 2.77 10^6/uL (3.5-6.1) L 01/18/18 06:30 Hgb 7.7 g/dL (12.0-16.0) L 01/18/18 06:30 Hct 23.0 % (36.0-48.0) L 01/18/18 06:30 MCV 83.0 fl (80.0-105.0) 01/18/18 06:30 MCH 27.8 pg (25.0-35.0) 01/18/18 06:30 MCHC 33.5 g/dl (31.0-37.0) 01/18/18 06:30 RDW 15.5 % (11.5-14.5) H 01/18/18 06:30 Plt Count 130 10^3/uL (120.0-450.0) 01/18/18 06:30 MPV 10.8 fl (7.0-11.0) 01/18/18 06:30 Gran % 90.1 % (50.0-68.0) H 01/18/18 06:30 Lymph % (Auto) 6.6 % (22.0-35.0) L 01/18/18 06:30 Whitman % (Auto) 3.1 % (1.0-6.0) 01/18/18 06:30 Eos % (Auto) 0.0 % (1.5-5.0) L 01/18/18 06:30 Baso % (Auto) 0.2 % (0.0-3.0) 01/18/18 06:30 Gran # 4.12 (1.4-6.5) 01/18/18 06:30 Lymph # (Auto) 0.3 (1.2-3.4) L 01/18/18 06:30 Whitman # (Auto) 0.1 (0.1-0.6) 01/18/18 06:30 Eos # (Auto) 0.0 (0.0-0.7) 01/18/18 06:30 Baso # (Auto) 0.01 K/mm3 (0.0-2.0) 01/18/18 06:30 Neutrophils % (Manual) 88 % (50.0-70.0) H 01/18/18 06:30 Band Neutrophils % 1 % (0-2) 01/18/18 06:30 Lymphocytes % (Manual) 8 % (22.0-35.0) L 01/18/18 06:30 Monocytes % (Manual) 2 % (1.0-6.0) 01/18/18 06:30 Myelocytes % 1 % 01/18/18 06:30 Platelet Evaluation Normal (NORMAL) 01/18/18 06:30 Retic Count 2.36 % (0.5-1.5) H 01/15/18 04:00 Haptoglobin < 20.0 mg/dL (30.0-200.0) L 01/15/18 04:00 PT 16.5 SECONDS (9.4-12.5) H 01/14/18 17:15 INR 1.44 01/14/18 17:15 APTT 31.0 Seconds (25.1-36.5) 01/14/18 17:15 pCO2 23 mm/Hg (35-45) L 01/15/18 10:45 pO2 80 mm/Hg (30-55) H 01/15/18 16:10 HCO3 18.8 mmol/L (21-28) L 01/15/18 10:45 ABG pH 7.52 (7.35-7.45) H 01/15/18 10:45 ABG Total CO2 19.5 mmol.L (22-28) L 01/15/18 10:45 ABG O2 Saturation 99.3 % (95-98) H 01/15/18 10:45 ABG O2 Content 10.7 ML/dl (15-23) L 01/15/18 10:45 ABG Base Excess -3.4 mmol/L (-2.0-3.0) L 01/15/18 10:45 ABG Hemoglobin 7.5 g/dL (11.7-17.4) L 01/15/18 10:45 ABG Carboxyhemoglobin 0.8 % (0.5-1.5) 01/15/18 10:45 POC ABG HHb (Measured) 0.7 % (0-5) 01/15/18 10:45 ABG Methemoglobin 1.1 % (0.0-3.0) 01/15/18 10:45 ABG O2 Capacity 10.8 mL/dl (16-24) L 01/15/18 10:45 VBG pH 7.44 (7.32-7.43) H 01/15/18 16:10 VBG pCO2 29.0 (40-60) L 01/15/18 16:10 VBG HCO3 19.7 mmol/l (21-28) L 01/15/18 16:10 VBG Total CO2 20.6 mmol.L (22-28) L 01/15/18 16:10 VBG O2 Sat (Calc) 98.5 % (40-65) H 01/15/18 16:10 VBG Base Excess -3.2 mmol/L (0.0-2.0) L 01/15/18 16:10 VBG Potassium 3.3 mmol/L (3.6-5.2) L 01/15/18 16:10 Hgb O2 Saturation 97.5 % (95.0-98.0) 01/15/18 10:45 Sodium 138.0 mmol/L (132-148) 01/15/18 16:10 Chloride 112.0 mmol/L (98-107) H 01/15/18 16:10 Glucose 203 mg/dl (65-105) H 01/15/18 16:10 Lactate 1.5 mmol/L (0.7-2.1) 01/15/18 16:10 FiO2 21.0 % 01/15/18 16:10 Sodium 141 mmol/L (132-148) 01/18/18 06:30 Potassium 4.1 mmol/L (3.6-5.0) 01/18/18 06:30 Chloride 106 mmol/L (98-107) 01/18/18 06:30 Carbon Dioxide 27 mmol/L (21-33) 01/18/18 06:30 Anion Gap 12 (10-20) 01/18/18 06:30 BUN 6 mg/dL (7-21) L 01/18/18 06:30 Creatinine 0.5 mg/dl (0.7-1.2) L 01/18/18 06:30 Est GFR ( Amer) > 60 01/18/18 06:30 Est GFR (Non-Af Amer) > 60 01/18/18 06:30 POC Glucose (mg/dL) 174 mg/dL (65-110) H 01/18/18 11:16 Random Glucose 100 mg/dL (70-110) 01/18/18 06:30 Calcium 8.1 mg/dL (8.4-10.5) L 01/18/18 06:30 Phosphorus 2.6 mg/dL (2.5-4.5) 01/18/18 06:30 Magnesium 2.1 mg/dL (1.7-2.2) 01/18/18 06:30 Total Bilirubin 0.9 mg/dL (0.2-1.3) 01/18/18 06:30 AST 176 U/L (14-36) H D 01/18/18 06:30 ALT 49 U/L (7-56) 01/18/18 06:30 Alkaline Phosphatase 145 U/L (38-126) H 01/18/18 06:30 Lactate Dehydrogenase > 4300 U/L (333-699) H 01/14/18 17:15 Total Creatine Kinase 427 U/L (35-230) H 01/14/18 17:15 CK-MB (CK-2) 2.2 ng/mL (0.0-3.6) 01/14/18 17:15 CK-MB (CK-2) % Cancelled 01/14/18 17:15 Troponin I < 0.01 ng/mL 01/14/18 17:15 NT-Pro-B Natriuret Pep 1510 pg/mL (0-450) H 01/15/18 04:00 Total Protein 5.4 g/dL (5.8-8.3) L 01/18/18 06:30 Albumin 2.7 g/dL (3.0-4.8) L 01/18/18 06:30 Globulin 2.7 gm/dL 01/18/18 06:30 Albumin/Globulin Ratio 1.0 (1.1-1.8) L 01/18/18 06:30 Folate 8.5 ng/mL 01/15/18 05:00 Procalcitonin 0.42 NG/ML (0.19-0.49) 01/15/18 05:00 Free T4 0.93 ng/dL (0.78-2.19) 01/15/18 08:42 TSH 3rd Generation 4.06 mIU/mL (0.46-4.68) 01/15/18 08:42 Cortisol AM Sample 7.9 ug/dL (4.46-22.7) 01/15/18 04:00 Venous Blood Potassium 3.3 mmol/L (3.6-5.2) L 01/15/18 16:10 Urine Color Light yellow (YELLOW) 01/14/18 18:07 Urine Appearance Clear (CLEAR) 01/14/18 18:07 Urine pH 7.0 (4.7-8.0) 01/14/18 18:07 Ur Specific Miller <= 1.005 (1.005-1.035) 01/14/18 18:07 Urine Protein Negative mg/dL (<30 mg/dL) 01/14/18 18:07 Urine Glucose (UA) Negative mg/dL (NEGATIVE) 01/14/18 18:07 Urine Ketones Negative mg/dL (NEGATIVE) 01/14/18 18:07 Urine Blood Small (NEGATIVE) H 01/14/18 18:07 Urine Nitrate Negative (NEGATIVE) 01/14/18 18:07 Urine Bilirubin Negative (NEGATIVE) 01/14/18 18:07 Urine Urobilinogen 0.2 E.U./dL (<1 E.U./dL) 01/14/18 18:07 Ur Leukocyte Esterase Negative Osiel/uL (NEGATIVE) 01/14/18 18:07 Urine RBC 5 - 10 /hpf (0-2) 01/14/18 18:07 Urine WBC 2 - 5 /hpf (0-6) 01/14/18 18:07 Ur Epithelial Cells 1 - 3 /hpf (0-5) 08/26/18 18:07 Urine Bacteria Small (NEG) 01/14/18 18:07 Cryptococcus Ag Screen Not detected (Not Detected) 01/16/18 06:00 Hepatitis A IgM Ab Negative (NEGATIVE) 01/16/18 06:00 Hep Bs Antigen Negative (NEGATIVE) 01/16/18 06:00 Hep B Core IgM Ab Negative (NEGATIVE) 01/16/18 06:00 Hepatitis C Antibody Negative (NEGATIVE) 01/16/18 06:00 Toxoplasma Antibody Positive (NEGATIVE) H 01/16/18 06:00 Blood Type B POSITIVE 01/14/18 19:20 Blood Type Confirm B POSITIVE 01/16/18 05:45 Antibody Screen Negative 01/14/18 19:20 DEBORAH, Poly Interpret Negative (NEGATIVE) 01/14/18 19:20 Indirect Antiglob Test Negative 01/14/18 19:20 BBK History Checked No verified bt 01/14/18 19:20 - Hospital Course Hospital Course: Vishnu Henderson DO PGY-1, [employer] Medicine Discharge Summary Pt is a 52 yo F with Pmhx of COPD, HIV, who presented on 01/15/18 for weakness, SOB and nose bleed. She was recently discharged from the hospital on 01/12/18 when she was being treated for COPD exacerbation. She was also diagnosed with new found HIV RNA - 5.65 and CD4 <20. She was informed to follow up at the clinic to begin her ART therapy, but she stated that she was too weak to go to clinic and did not follow up. She states that she was having weakness since before the hospital admission, and that she had been having difficulty breathing since 01/13/18, which was present at rest. She stated that her nose bleed started this morning and was brisk, but has since resolved. She admitted to fever, chills, night sweats, weakness, but denied AMS, dizziness. She denied SOB at rest, denies cough, hemoptysis, wheezing, chest pain, palpitations, abdominal pain, dysphagia. She admitted to increased frequency in urination, but denies dysuria, hematuria. Pt's generalized weakness likely secondary to anemia vs. new AIDS diagnosis. Head Ct demonstrated no acute changes, despite pt testing positive for Toxoplasma Ab. Pt was given fluids, blood cxs were drawn which demonstrated no growth of bacteria. BNP was elevated, but likely secondary to severe sepsis pt presented with, not likely due to acute CHF. Pt had echo done on 01/08/18 which demonstrated no abnormalities and normal EF of 53 %. Pt was initially presented with fever, was started on Bactrim but was d/c'd by ID (Dr. Sididqi) due to low cell counts and transaminitis during admission. 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 Pt was admitted to ICU for hypotension, bradycardia, and severe sepsis, and was downgraded to medical floor with improvement of symptoms. Dr. Lerner (Heme/Onc) was consulted for pancytopenia, likely 2/2 to AIDS dx, and recommended pt follow-up as outpatient in clinic. Pt was discharged to home in stable condition on 01/18/18 on home medications and PO Mepron and Biaxin (given 30 day course, pt instructed to follow-up with infectious disease specialist for refills) as per Dr. Siddiqi , and instructed to follow-up with PCP Dr. Loving within 1 week of discharge and an infectious disease specialist accepted by her insurance within 1-2 weeks of discharge to discuss initiation of HAART therapy. Pt understood course of treatment and is compliant with discharge and follow-up instructions. Discharge Exam - Head Exam Head Exam: ATRAUMATIC, NORMAL INSPECTION - Eye Exam Eye Exam: EOMI, Normal appearance, PERRL - ENT Exam ENT Exam: Mucous Membranes Moist, Normal Oropharynx - Respiratory Exam Respiratory Exam: Clear to PA & Lateral, NORMAL BREATHING PATTERN, UNREMARKABLE - Cardiovascular Exam Cardiovascular Exam: REGULAR RHYTHM, +S1, +S2 - GI/Abdominal Exam GI & Abdominal Exam: Normal Bowel Sounds, Soft, Unremarkable - Extremities Exam Extremities exam: full ROM, normal capillary refill, normal inspection, pedal pulses present - Neurological Exam Neurological exam: Alert, CN II-XII Intact, Normal Gait, Oriented x3 - Psychiatric Exam Psychiatric exam: Normal Affect, Normal Mood - Skin Skin Exam: Dry, Intact, Normal Color, Warm Discharge Plan - Discharge Medications Prescriptions: RX: Atovaquone [Mepron] 750 mg PO BID #60 packet RX: Clarithromycin [Biaxin Filmtab] 500 mg PO BID #60 tab - Follow Up Plan Condition: CRITICAL Disposition: HOME/ ROUTINE Instructions: Fatigue, HIV/AIDS (DC), Generalized Weakness, Low Blood Pressure , Human Immunodeficiency Virus and Acquired Immune Deficiency Syndrome (DC), Weakness (GEN) Additional Instructions: Please follow-up with your primary care physician (Dr. Loving) within 1 week of discharge. Please follow-up with an infectious disease specialist within 1-2 weeks of discharge regarding initiating medication therapy for HIV/AIDS. Please follow-up with Dr. Lerner (Hematology/Oncology) within 1-2 weeks of discharge. Please resume all home medications as prescribed. Please take Mepron twice daily. Please take Biaxin twice daily. Should symptoms recur or worsen, please go to your primary care physician's office, or go to your nearest emergency department. Referrals: Sienna Loving MD [Primary Care Provider] - Nhan Lerner MD [Staff Provider] - <Zoila Batista - Last Filed: 01/18/18 16:09> Provider - Provider Date of Admission: 01/14/18 19:48 Attending physician: Esha Chris MD Primary care physician: Sienna Loving MD Hospital Course - Lab Results Lab Results: Micro Results 01/14/18 23:20 Nose MRSA Culture (Admit) - Final MRSA NOT DETECTED Most Recent Lab Values WBC 4.6 10^3/ul (4.5-11.0) 01/18/18 06:30 RBC 2.77 10^6/uL (3.5-6.1) L 01/18/18 06:30 Hgb 7.7 g/dL (12.0-16.0) L 01/18/18 06:30 Hct 23.0 % (36.0-48.0) L 01/18/18 06:30 MCV 83.0 fl (80.0-105.0) 01/18/18 06:30 MCH 27.8 pg (25.0-35.0) 01/18/18 06:30 MCHC 33.5 g/dl (31.0-37.0) 01/18/18 06:30 RDW 15.5 % (11.5-14.5) H 01/18/18 06:30 Plt Count 130 10^3/uL (120.0-450.0) 01/18/18 06:30 MPV 10.8 fl (7.0-11.0) 01/18/18 06:30 Gran % 90.1 % (50.0-68.0) H 01/18/18 06:30 Lymph % (Auto) 6.6 % (22.0-35.0) L 01/18/18 06:30 Whitman % (Auto) 3.1 % (1.0-6.0) 01/18/18 06:30 Eos % (Auto) 0.0 % (1.5-5.0) L 01/18/18 06:30 Baso % (Auto) 0.2 % (0.0-3.0) 01/18/18 06:30 Gran # 4.12 (1.4-6.5) 01/18/18 06:30 Lymph # (Auto) 0.3 (1.2-3.4) L 01/18/18 06:30 Whitman # (Auto) 0.1 (0.1-0.6) 01/18/18 06:30 Eos # (Auto) 0.0 (0.0-0.7) 01/18/18 06:30 Baso # (Auto) 0.01 K/mm3 (0.0-2.0) 01/18/18 06:30 Neutrophils % (Manual) 88 % (50.0-70.0) H 01/18/18 06:30 Band Neutrophils % 1 % (0-2) 01/18/18 06:30 Lymphocytes % (Manual) 8 % (22.0-35.0) L 01/18/18 06:30 Monocytes % (Manual) 2 % (1.0-6.0) 01/18/18 06:30 Myelocytes % 1 % 01/18/18 06:30 Platelet Evaluation Normal (NORMAL) 01/18/18 06:30 Retic Count 2.36 % (0.5-1.5) H 01/15/18 04:00 Haptoglobin < 20.0 mg/dL (30.0-200.0) L 01/15/18 04:00 PT 16.5 SECONDS (9.4-12.5) H 01/14/18 17:15 INR 1.44 01/14/18 17:15 APTT 31.0 Seconds (25.1-36.5) 01/14/18 17:15 pCO2 23 mm/Hg (35-45) L 01/15/18 10:45 pO2 80 mm/Hg (30-55) H 01/15/18 16:10 HCO3 18.8 mmol/L (21-28) L 01/15/18 10:45 ABG pH 7.52 (7.35-7.45) H 01/15/18 10:45 ABG Total CO2 19.5 mmol.L (22-28) L 01/15/18 10:45 ABG O2 Saturation 99.3 % (95-98) H 01/15/18 10:45 ABG O2 Content 10.7 ML/dl (15-23) L 01/15/18 10:45 ABG Base Excess -3.4 mmol/L (-2.0-3.0) L 01/15/18 10:45 ABG Hemoglobin 7.5 g/dL (11.7-17.4) L 01/15/18 10:45 ABG Carboxyhemoglobin 0.8 % (0.5-1.5) 01/15/18 10:45 POC ABG HHb (Measured) 0.7 % (0-5) 01/15/18 10:45 ABG Methemoglobin 1.1 % (0.0-3.0) 01/15/18 10:45 ABG O2 Capacity 10.8 mL/dl (16-24) L 01/15/18 10:45 VBG pH 7.44 (7.32-7.43) H 01/15/18 16:10 VBG pCO2 29.0 (40-60) L 01/15/18 16:10 VBG HCO3 19.7 mmol/l (21-28) L 01/15/18 16:10 VBG Total CO2 20.6 mmol.L (22-28) L 01/15/18 16:10 VBG O2 Sat (Calc) 98.5 % (40-65) H 01/15/18 16:10 VBG Base Excess -3.2 mmol/L (0.0-2.0) L 01/15/18 16:10 VBG Potassium 3.3 mmol/L (3.6-5.2) L 01/15/18 16:10 Hgb O2 Saturation 97.5 % (95.0-98.0) 01/15/18 10:45 Sodium 138.0 mmol/L (132-148) 01/15/18 16:10 Chloride 112.0 mmol/L (98-107) H 01/15/18 16:10 Glucose 203 mg/dl (65-105) H 01/15/18 16:10 Lactate 1.5 mmol/L (0.7-2.1) 01/15/18 16:10 FiO2 21.0 % 01/15/18 16:10 Sodium 141 mmol/L (132-148) 01/18/18 06:30 Potassium 4.1 mmol/L (3.6-5.0) 01/18/18 06:30 Chloride 106 mmol/L (98-107) 01/18/18 06:30 Carbon Dioxide 27 mmol/L (21-33) 01/18/18 06:30 Anion Gap 12 (10-20) 01/18/18 06:30 BUN 6 mg/dL (7-21) L 01/18/18 06:30 Creatinine 0.5 mg/dl (0.7-1.2) L 01/18/18 06:30 Est GFR ( Amer) > 60 01/18/18 06:30 Est GFR (Non-Af Amer) > 60 01/18/18 06:30 POC Glucose (mg/dL) 174 mg/dL (65-110) H 01/18/18 11:16 Random Glucose 100 mg/dL (70-110) 01/18/18 06:30 Calcium 8.1 mg/dL (8.4-10.5) L 01/18/18 06:30 Phosphorus 2.6 mg/dL (2.5-4.5) 01/18/18 06:30 Magnesium 2.1 mg/dL (1.7-2.2) 01/18/18 06:30 Total Bilirubin 0.9 mg/dL (0.2-1.3) 01/18/18 06:30 AST 176 U/L (14-36) H D 01/18/18 06:30 ALT 49 U/L (7-56) 01/18/18 06:30 Alkaline Phosphatase 145 U/L (38-126) H 01/18/18 06:30 Lactate Dehydrogenase > 4300 U/L (333-699) H 01/14/18 17:15 Total Creatine Kinase 427 U/L (35-230) H 01/14/18 17:15 CK-MB (CK-2) 2.2 ng/mL (0.0-3.6) 01/14/18 17:15 CK-MB (CK-2) % Cancelled 01/14/18 17:15 Troponin I < 0.01 ng/mL 01/14/18 17:15 NT-Pro-B Natriuret Pep 1510 pg/mL (0-450) H 01/15/18 04:00 Total Protein 5.4 g/dL (5.8-8.3) L 01/18/18 06:30 Albumin 2.7 g/dL (3.0-4.8) L 01/18/18 06:30 Globulin 2.7 gm/dL 01/18/18 06:30 Albumin/Globulin Ratio 1.0 (1.1-1.8) L 01/18/18 06:30 Folate 8.5 ng/mL 01/15/18 05:00 Procalcitonin 0.42 NG/ML (0.19-0.49) 01/15/18 05:00 Free T4 0.93 ng/dL (0.78-2.19) 01/15/18 08:42 TSH 3rd Generation 4.06 mIU/mL (0.46-4.68) 01/15/18 08:42 Cortisol AM Sample 7.9 ug/dL (4.46-22.7) 01/15/18 04:00 Venous Blood Potassium 3.3 mmol/L (3.6-5.2) L 01/15/18 16:10 Urine Color Light yellow (YELLOW) 01/14/18 18:07 Urine Appearance Clear (CLEAR) 01/14/18 18:07 Urine pH 7.0 (4.7-8.0) 01/14/18 18:07 Ur Specific Miller <= 1.005 (1.005-1.035) 01/14/18 18:07 Urine Protein Negative mg/dL (<30 mg/dL) 01/14/18 18:07 Urine Glucose (UA) Negative mg/dL (NEGATIVE) 01/14/18 18:07 Urine Ketones Negative mg/dL (NEGATIVE) 01/14/18 18:07 Urine Blood Small (NEGATIVE) H 01/14/18 18:07 Urine Nitrate Negative (NEGATIVE) 01/14/18 18:07 Urine Bilirubin Negative (NEGATIVE) 01/14/18 18:07 Urine Urobilinogen 0.2 E.U./dL (<1 E.U./dL) 01/14/18 18:07 Ur Leukocyte Esterase Negative Osiel/uL (NEGATIVE) 01/14/18 18:07 Urine RBC 5 - 10 /hpf (0-2) 01/14/18 18:07 Urine WBC 2 - 5 /hpf (0-6) 01/14/18 18:07 Ur Epithelial Cells 1 - 3 /hpf (0-5) 01/14/18 18:07 Urine Bacteria Small (NEG) 01/14/18 18:07 Cryptococcus Ag Screen Not detected (Not Detected) 01/16/18 06:00 Hepatitis A IgM Ab Negative (NEGATIVE) 01/16/18 06:00 Hep Bs Antigen Negative (NEGATIVE) 01/16/18 06:00 Hep B Core IgM Ab Negative (NEGATIVE) 01/16/18 06:00 Hepatitis C Antibody Negative (NEGATIVE) 01/16/18 06:00 Parvovirus B19 IgG Ab 0.1 (<0.9) 01/16/18 06:00 Parvovirus B19 IgM Ab 0.1 (<0.9) 01/16/18 06:00 Parvovirus Interpret (()) 01/16/18 06:00 Toxoplasma Antibody Positive (NEGATIVE) H 01/16/18 06:00 Blood Type B POSITIVE 01/14/18 19:20 Blood Type Confirm B POSITIVE 01/16/18 05:45 Antibody Screen Negative 01/14/18 19:20 DEBORAH, Poly Interpret Negative (NEGATIVE) 01/14/18 19:20 Indirect Antiglob Test Negative 01/14/18 19:20 BBK History Checked No verified bt 01/14/18 19:20 Attending/Attestation - Attestation I have personally seen and examined this patient.: Yes I have fully participated in the care of the patient.: Yes I have reviewed all pertinent clinical information, including history, physical exam and plan: Yes
[2018-01-18 15:06] LABS: PARVOVIRUS B19 AB (IGG) 0.1 (<0.9); PARVOVIRUS B19 AB (IGM) 0.1 (<0.9)
[2018-01-19 10:22] LABS: SOURCE: PLASMA
== END 2018-01-18 17:01 | disposition home or self-care (01) | DRG 710 ==
LOC: ED 16:36 → ERH 19:48 → CCU 22:56 → 5RSO 01-16 12:24
PROVIDERS: ADMIT Internal Medicine; ATTEND Internal Medicine
PROC: 3E0F7GC Introduction of Other Therapeutic Substance into Respiratory Tract, Via Natural or Artificial Opening (ICD-10-PCS; principal; 2018-01-15)
DX: A41.9 Sepsis, unspecified organism (principal); B20 Human immunodeficiency virus [HIV] disease; E87.6 Hypokalemia; A31.0 Pulmonary mycobacterial infection; J44.9 Chronic obstructive pulmonary disease, unspecified; R09.02 Hypoxemia; B37.0 Candidal stomatitis; E87.1 Hypo-osmolality and hyponatremia; D61.818 Other pancytopenia; E87.3 Alkalosis; R65.20 Severe sepsis without septic shock; E83.39 Other disorders of phosphorus metabolism; R00.1 Bradycardia, unspecified; G89.29 Other chronic pain; M54.9 Dorsalgia, unspecified; R74.0 Nonspecific elevation of levels of transaminase and lactic acid dehydrogenase [LDH]; Z91.14 Patient's other noncompliance with medication regimen; F17.210 Nicotine dependence, cigarettes, uncomplicated

== ENCOUNTER 2018-01-19 12:29 | Inpatient (IN) | payer MEDICAID ==
[2018-01-19 12:32] VITALS: BMI 25.8
--- NOTE | 2018-01-19 12:55 | ED PDOC ---
Arrival/HPI - General Chief Complaint: Female Genitourinary Time Seen by Provider: 01/19/18 12:43 Historian: Patient - History of Present Illness Narrative History of Present Illness (Text): 01/19/18 13:16 A 52 year old female, whose past medical history includes HIV, presents to the emergency department complaining of difficulty urinating. Patient was discharged yesterday after [id number] for pneumonia. Since arriving home yesterday, patient has not been able to urinate. Patient notes also experiencing fever, however denies any abdominal pain, headache, or any other complaints at this time. PMD: Dr. Loving Time/Duration: 24 hours Symptom Onset: Sudden Symptom Course: Unchanged Past Medical History - Provider Review Nursing Documentation Reviewed: Yes - Infectious Disease Hx of Infectious Diseases: None - Tetanus Immunization Tetanus Immunization: Unknown - Reproductive Menopause: Yes - Cardiac Hx Cardiac Disorders: No - Pulmonary Hx Respiratory Disorders: Yes Hx Bronchitis: Yes Hx Pneumonia: Yes - Neurological Hx Neurological Disorder: No - HEENT Hx HEENT Disorder: No - Renal Hx Renal Disorder: No - Endocrine/Metabolic Hx Endocrine Disorders: No - Hematological/Oncological Hx Blood Disorders: Yes - Integumentary Hx Dermatological Disorder: No - Musculoskeletal/Rheumatological Hx Musculoskeletal Disorders: No - Gastrointestinal Hx Gastrointestinal Disorders: No - Genitourinary/Gynecological Hx Genitourinary Disorders: No - Psychiatric Hx Psychophysiologic Disorder: No Hx Substance Use: Yes (HEROIN) - Surgical History Hx Orthopedic Surgery: Yes - Anesthesia Hx Anesthesia: Yes Hx Anesthesia Reactions: No Hx Malignant Hyperthermia: No Family/Social History - Physician Review Nursing Documentation Reviewed: Yes Family/Social History: No Known Family HX Smoking Status: Heavy Smoker > 10 Cigarettes Daily Hx Alcohol Use: No Hx Substance Use: Yes (HEROIN) Allergies/Home Meds Allergies/Adverse Reactions: Allergies No Known Allergies Allergy (Verified 01/14/18 16:50) Review of Systems - Physician Review All systems were reviewed & negative as marked: Yes - Review of Systems Constitutional: Fevers Gastrointestinal: absent: Abdominal Pain Genitourinary Female: Urine Output Changes (difficulty urinating) Neurological: absent: Headache Physical Exam - Physical Exam Narrative Physical Exam (Text): Gen: VS reviewed, alert, well developed, well nourished, nontoxic, mild distress. ENT: normal pharynx. Eye: EOMI, PERRL. Neck: no JVD, supple, no adenopathy. CV: regular rate, regular rhythm, no rubs, no murmur, no gallops, S1, S2, pulses equal and strong. Pulm: no distress, clear to auscultation, no wheeze, no rhonchi, breath sounds equal, no rales. Abd: soft, nontender, no guarding, no rebound, no rigidity, normal bowel sounds , rasheed catheter in place yellow urine in collection bag. Ext: no edema. Skin: good color, no rash, no cyanosis. Psych: responds appropriately to questions, normal affect. Neuro: oriented x 3, CN2-12 intact grossly, motor intact, sensation intact. Vital Signs Reviewed: Yes Vital Signs Temp Pulse Resp BP Pulse Ox 01/19/18 17:53 99.8 F H 75 18 119/61 98 01/19/18 16:48 99.8 F H 74 18 95/56 L 96 01/19/18 14:49 100.3 F H 84 20 97/53 L 97 01/19/18 12:47 104.3 F H 95 H 18 135/74 98 Temperature: Febrile Blood Pressure: Normal Pulse: Regular Respiratory Rate: Normal Appearance: Positive for: Well-Appearing, Non-Toxic, Comfortable Pain Distress: None Mental Status: Positive for: Alert and Oriented X 3 Medical Decision Making ED Course and Treatment: 01/19/18 13:17 Impression: 52 year old female with difficulty urinating. No acute findings on physical exam except rasheed catheter in place with yellow urine in collection bag. Plan: -- EKG -- Abd/Pelvis CT -- Chest X-ray -- Venous Blood Gas -- Blood Culture -- Urine Culture -- Labs -- POC Urine Test -- Urinary Catheter Insertion -- Urinalysis -- Tylenol -- IV Fluids -- Reassess and disposition Prior Visits: Notes and results from previous visits were reviewed. Patient was last seen in the emergency department on 01/14/2018 for chest pain, generalized weakness, and syncopal episode. Patient was admitted. Progress Notes: 01/19/18 13:37 EKG: Ordered, reviewed, and independently interpreted the EKG. Rate : 90 BPM Rhythm : NSR Interpretation : Normal QRS, normal access, non-specific ST- and T- wave abnormality. Comparison : No previous EKG for comparison. 01/19/2018 14:10 Chest X-ray IMPRESSION: No active disease. Dictator: Anant Singer MD 01/19/2018 14:42 ABd/Pelvis CT IMPRESSION: No acute intra-abdominal findings. Dictator: Anant Singer MD 01/19/18 16:28 admit accepted by hospitalist dr. carbajal. patient to be admitted for eval and workup and high fever, no overt infectious source at this time, patient denies any focal physical complaints such as headache, photophobia, neck stiffness, dysuria, productive cough, rash. Rasheed catheter was placed for presumed urine retention as this was patient's only presenting complaint. CT was done to rule out overt pelvic tumor. Cultures were obtained. Patient remained in stable condition throughout Ed course. - Lab Interpretations Lab Results: 01/19/18 13:00 01/19/18 13:00 Lab Results 01/19/18 13:05: pO2 32, VBG pH 7.43, VBG pCO2 45.0, VBG HCO3 29.9 H, VBG Total CO2 31.3 H, VBG O2 Sat (Calc) 65.3 H, VBG Base Excess 4.8 H, VBG Potassium 3.4 L , Glucose 73, Lactate 1.6, FiO2 21.0, Sodium 130.0 L, Chloride 97.0 L, Venous Blood Potassium 3.4 L 01/19/18 13:00: Urine Color Yellow, Urine Appearance Clear, Urine pH 7.0, Ur Specific [place] 1.015, Urine Protein Trace H, Urine Glucose (UA) Negative, Urine Ketones Negative, Urine Blood Small H, Urine Nitrate Negative, Urine Bilirubin Negative, Urine Urobilinogen 0.2, Ur Leukocyte Esterase Negative, Urine RBC 1 - 3, Urine WBC 0 - 2, Ur Epithelial Cells 0 - 2, Urine Bacteria Few 01/19/18 13:00: Sodium 131 L, Potassium 3.5 L, Chloride 94 L, Carbon Dioxide 29 , Anion Gap 11, BUN 10, Creatinine 0.7, Est GFR ( Amer) > 60, Est GFR ( Non-Af Amer) > 60, Random Glucose 73, Calcium 8.5, Total Bilirubin 1.7 H, AST 175 H, ALT 55, Alkaline Phosphatase 182 H D, Total Protein 6.6, Albumin 3.2, Globulin 3.4, Albumin/Globulin Ratio 0.9 L 01/19/18 13:00: WBC 6.3 D, RBC 3.05 L, Hgb 8.5 L, Hct 25.1 L, MCV 82.3, MCH 27.9, MCHC 33.9, RDW 15.1 H, Plt Count 114 L, MPV 10.3, Gran % 82.1 H, Lymph % ( Auto) 12.0 L, [place] % (Auto) 5.4, Eos % (Auto) 0.2 L, Baso % (Auto) 0.3, Gran # 5.21, Lymph # (Auto) 0.8 L, [place] # (Auto) 0.3, Eos # (Auto) 0.0, Baso # (Auto) 0.02 I have reviewed the lab results: Yes - RAD Interpretation Radiology Orders: 01/19/18 12:53 CHEST PORTABLE [RAD] Stat 01/19/18 12:54 ABDOMEN & PELVIS [ABD & PELVIS IV CONTRAST ONLY] [CT] Stat - Medication Orders Current Medication Orders: Acetaminophen (Tylenol 325mg Tab) 650 mg PO Q6H PRN PRN Reason: Fever >100.4 F Last Admin: 01/19/18 19:03 Dose: 650 mg MAR Pain/Vitals Document 01/19/18 19:03 VS (Rec: 01/19/18 19:04 VS [id number]) Pain Reassessment Is This A Pain ReAssessment? No Vitals Temperature (97.6 F-99.6 F) 103.6 F Temperature Source Oral Albuterol/Ipratropium (Duoneb 3 Mg/0.5 Mg (3 Ml) Ud) 3 ml IH [id number] [facility] Last Admin: 01/19/18 20:21 Dose: 3 ml Albuterol/Ipratropium (Duoneb 3 Mg/0.5 Mg (3 Ml) Ud) 3 ml IH Q2H PRN PRN Reason: Shortness of Breath Atovaquone (Mepron) 750 mg PO BID [facility] PRN Reason: Protocol Last Admin: 01/19/18 22:24 Dose: 750 mg Clarithromycin (Biaxin Filmtab) 500 mg PO Q12 MCKAYLA PRN Reason: Protocol Last Admin: 01/19/18 22:23 Dose: 500 mg Enoxaparin Sodium (Lovenox) 40 mg SC DAILY [facility] PRN Reason: Protocol Sodium Chloride (Sodium Chloride 0.9%) 1,000 mls @ 75 mls/hr IV .[id number] [facility] Last Admin: 01/19/18 19:42 Dose: 75 mls/hr eMAR Start Stop Document 01/19/18 19:42 VS (Rec: 01/19/18 19:42 VS [id number]) Intravenous Solution Start Date 01/19/18 Start Time 19:42 Meropenem (Merrem Iv 1 Gm Premix) 50 mls @ 100 mls/hr IVPB Q8 MCKAYLA PRN Reason: Protocol Stop: 01/20/18 06:29 Last Admin: 01/19/18 22:24 Dose: 100 mls/hr eMAR Start Stop Document 01/19/18 22:24 LVC (Rec: 01/19/18 22:24 LVC [facility] [id number] Intravenous Solution Start Date 01/19/18 Start Time 22:24 Midodrine (Proamatine) 5 mg PO TID PRN PRN Reason: Systolic Blood Pressure Nystatin (Nystatin Oral Susp) 5 ml PO QID [facility] Last Admin: 01/19/18 22:24 Dose: 5 ml Discontinued Medications Acetaminophen (Tylenol 325mg Tab) 650 mg PO STAT STA Stop: 01/19/18 13:09 Last Admin: 01/19/18 13:15 Dose: 650 mg [facility] Pain/Vitals Document 01/19/18 13:15 SRE (Rec: 01/19/18 13:15 SRE [facility] [id number] Pain Reassessment Is This A Pain ReAssessment? Yes Re-Assess: [facility] Pain/Vitals Document 01/19/18 14:15 SRE (Rec: 01/19/18 17:26 SRE [id number]) Pain Reassessment Is This A Pain ReAssessment? Yes Sleep Is patient sleeping during reassessment? No Presence of Pain Presence of Pain Yes Pain Scale Used Pain Scale Used Numeric Sodium Chloride (Sodium Chloride 0.9%) 1,000 mls @ 150 mls/hr IV .Q6H40M [facility] Last Admin: 01/19/18 13:14 Dose: 150 mls/hr eMAR Start Stop Document 01/19/18 13:14 SRE (Rec: 01/19/18 13:15 SRE [facility] [id number]) Intravenous Solution Start Date 01/19/18 Start Time 13:15 End Date 01/19/18 End time 20:30 Total Infusion Time 435 Sodium Chloride (Sodium Chloride 0.9%) 1,000 mls @ 999 mls/hr IV .Q1H1M STA Stop: 01/19/18 17:24 Last Admin: 01/19/18 17:29 Dose: 999 mls/hr eMAR Start Stop Document 01/19/18 17:29 SRE (Rec: 01/19/18 17:29 SRE [id number]) Intravenous Solution Start Date 01/19/18 Start Time 16:30 End Date 01/19/18 End time 17:30 Total Infusion Time 60 Potassium Chloride (K-Dur 20 Meq Er Tab) 20 meq PO ONCE ONE Stop: 01/19/18 22:01 Last Admin: 01/19/18 22:23 Dose: 20 meq - Scribe Statement The provider has reviewed the documentation as recorded by the Ra Dhaliwal Provider Scribe Attestation: All medical record entries made by the Ra were at my direction and personally dictated by me. I have reviewed the chart and agree that the record accurately reflects my personal performance of the history, physical exam, medical decision making, and the department course for this patient. I have also personally directed, reviewed, and agree with the discharge instructions and disposition. Disposition/Present on Arrival - Present on Arrival Any Indicators Present on Arrival: No History of DVT/PE: No History of Uncontrolled Diabetes: No Urinary Catheter: No History of Decub. Ulcer: No History Surgical Site Infection Following: None - Disposition Have Diagnosis and Disposition been Completed?: Yes Diagnosis: Fever, Urine retention Disposition: HOSPITALIZED Disposition Time: 16:31 Patient Plan: Admission Patient Problems: Current Active Problems Problem Status Onset Fever Acute Urine retention Acute Condition: STABLE
[2018-01-19] MEDS ORDERED: Iohexol 350 MG/100 ML VIAL ONE (13:02)
[2018-01-19] MEDS ORDERED: Sodium Chloride 0.9% 1,000 ML IV SCH (13:15)
[2018-01-19 13:17] LABS: BASO # 0.02 K/mm3 (0.0-2.0); BASO % 0.3 % (0.0-3.0); EOS % 0.2 % (1.5-5.0); GRAN # 5.21 (1.4-6.5); GRAN % 82.1 % (50.0-68.0); HEMOGLOBIN 8.5 g/dL (12.0-16.0); LYMPH # 0.8 (1.2-3.4); MEAN CELL VOLUME 82.3 fl (80.0-105.0); MEAN CORPUSCULAR HEMOGLOBIN 27.9 pg (25.0-35.0); MEAN CORPUSCULAR HGB CONC 33.9 g/dl (31.0-37.0); MEAN PLATELET VOLUME 10.3 fl (7.0-11.0); MONO # 0.3 (0.1-0.6); MONO % 5.4 % (1.0-6.0); RBC 3.05 10^6/uL (3.5-6.1); RED CELL DISTRIBUTION WIDTH 15.1 % (11.5-14.5); WHITE BLOOD COUNT 6.3 10^3/ul (4.5-11.0)
[2018-01-19 13:19] LABS: VENOUS BLOOD GAS BASE EXCESS 4.8 mmol/L (0.0-2.0); VENOUS BLOOD GAS PO2 32 mm/Hg (30-55); VENOUS BLOOD PH 7.43 (7.32-7.43)
[2018-01-19 13:20] LABS: URINE BILIRUBIN NEGATIVE (NEGATIVE); URINE BLOOD SMALL (NEGATIVE); URINE GLUCOSE (UA) NEGATIVE (NEGATIVE); URINE LEUKOCYTE ESTERASE NEGATIVE Leu/uL (NEGATIVE); URINE PROTEIN TRACE mg/dL (<30 mg/dL); URINE UROBILINOGEN 0.2 E.U./dL (<1 E.U./dL)
[2018-01-19 13:21] LABS: URINE APPEARANCE CLEAR (CLEAR); URINE COLOR YELLOW (YELLOW)
[2018-01-19 13:30] LABS: ALB/GLOB RATIO 0.9 (1.1-1.8); ALBUMIN 3.2 g/dL (3.0-4.8); ALT/SGPT 55 U/L (7-56); AST/SGOT 175 U/L (14-36); BLOOD UREA NITROGEN 10 mg/dL (7-21); CALCIUM 8.5 mg/dL (8.4-10.5); GFR NON-AFRICAN AMERICAN > 60; URINE BACTERIA FEW (NEG); URINE EPITHELIAL CELLS 0 - 2 /hpf (0-5); URINE WBC 0 - 2 /hpf (0-6)
--- NOTE | 2018-01-19 14:12 | RAD ---
Date of service: 01/19/2018 HISTORY: chest pain COMPARISON: 01/16/2018 FINDINGS: LUNGS: No active pulmonary disease. PLEURA: No significant pleural effusion identified, no pneumothorax apparent. CARDIOVASCULAR: Normal. OSSEOUS STRUCTURES: No significant abnormalities. VISUALIZED UPPER ABDOMEN: Normal. OTHER FINDINGS: None. IMPRESSION: No active disease.
--- NOTE | 2018-01-19 14:43 | CT ---
Date of service: 01/19/2018 PROCEDURE: CT Abdomen and Pelvis with contrast HISTORY: lower abdominal pain, urine retention COMPARISON: None. TECHNIQUE: Contrast dose: 100 cc of Omni 350 Radiation dose: Total exam DLP = 546 mGy-cm. This CT exam was performed using one or more of the following dose reduction techniques: Automated exposure control, adjustment of the mA and/or kV according to patient size, and/or use of iterative reconstruction technique. FINDINGS: LOWER THORAX: Unremarkable. LIVER: There is a 30 x 37 mm hypodense lesion in the right lobe of the liver with some peripheral enhancing nodularity. Findings are most consistent with hemangioma. A smaller hypodense lesion is seen adjacent to the alida GALLBLADDER AND BILE DUCTS: Unremarkable. PANCREAS: Unremarkable. No gross lesion or ductal dilatation. SPLEEN: Unremarkable. ADRENALS: Unremarkable. No mass. KIDNEYS AND URETERS: Unremarkable. No hydronephrosis. No solid mass. VASCULATURE: Unremarkable. No aortic aneurysm. BOWEL: Unremarkable. No obstruction. No gross mural thickening. APPENDIX: Normal appendix. PERITONEUM: Unremarkable. No free fluid. No free air. LYMPH NODES: Unremarkable. No enlarged lymph nodes. BLADDER: Guerra catheter in the bladder. REPRODUCTIVE: Unremarkable. BONES: No acute fracture. OTHER FINDINGS: None. IMPRESSION: No acute intra-abdominal findings
[2018-01-19] MEDS ORDERED: Sodium Chloride 0.9% 1,000 ML IV STA (16:24)
--- NOTE | 2018-01-19 18:38 | CP.PCM.HP ---
<Gaby Alberts - Last Filed: 01/19/18 19:08> History of Present Illness - History of Present Illness History of Present Illness: Gaby Alberts, PGY-1 H&P Note for Hospitalist Service CC: Urinary retention This is a 52 year old female with PMH of HIV and COPD presenting to the ED today for urinary retention. Patient has been admitted twice to the hospital this month for generalized weakness and COPD exacerbation and was recently diagnosed with HIV and found to have a CD4 <20. Patient's most recent discharge was yesterday and was told to follow up with [facility]'s human immunodeficiency virus clinic to begin HAART therapy. However, patient returned to the ED today for inability to urinate since discharge yesterday. Last bowel movement was yesterday night. Patient denies any other symptoms at this time including CP, SOB, headaches, fevers, chills, nausea, vomiting, back pain, hematochezia and swelling. Patient denies any recent travel, sick contacts at home and recent lifestyle changes. 12 point ROS noted here, otherwise unremarkable. In the ED, patient was given 2L of normal saline and tylenol. CT abd/pelvis was negative for intra-abdominal findings. CXR revealed no acute disease. Guerra catheter placement produced approximately 2L of urine. Being admitted to the hospital for fever of unknown etiology with history of HIV. PMD: Dr. Loving PMHx: HIV and COPD PSHx: Wrist surgery Social Hx: 1 ppd smoker for 25 yrs, denies alcohol use, former heroin use Medications: as per MAR Family Hx: denies Allergies: NKDA Present on Admission - Present on Admission Any Indicators Present on Admission: No Past Patient History - Infectious Disease Hx of Infectious Diseases: None - Tetanus Immunizations Tetanus Immunization: Unknown - Past Social History Smoking Status: Heavy Smoker > 10 Cigarettes Daily - CARDIAC Hx Cardiac Disorders: No - PULMONARY Hx Respiratory Disorders: Yes Hx Bronchitis: Yes Hx Pneumonia: Yes - NEUROLOGICAL Hx Neurological Disorder: No - HEENT Hx HEENT Problems: No - RENAL Hx Chronic Kidney Disease: No - ENDOCRINE/METABOLIC Hx Endocrine Disorders: No - HEMATOLOGICAL/ONCOLOGICAL Hx Blood Disorders: Yes - INTEGUMENTARY Hx Dermatological Problems: No - MUSCULOSKELETAL/RHEUMATOLOGICAL Hx Musculoskeletal Disorders: No - GASTROINTESTINAL Hx Gastrointestinal Disorders: No - GENITOURINARY/GYNECOLOGICAL Hx Genitourinary Disorders: No - PSYCHIATRIC Hx Psychophysiologic Disorder: No Hx Substance Use: Yes (HEROIN) - SURGICAL HISTORY Hx Orthopedic Surgery: Yes - ANESTHESIA Hx Anesthesia: Yes Hx Anesthesia Reactions: No Hx Malignant Hyperthermia: No Meds Allergies/Adverse Reactions: Allergies Allergy/AdvReac Type Severity Reaction Status Date / Time No Known Allergies Allergy Verified 01/14/18 16:50 Physical Exam - Head Exam Head Exam: ATRAUMATIC, NORMOCEPHALIC - Eye Exam Eye Exam: EOMI Pupil Exam: PERRL - ENT Exam ENT Exam: Mucous Membranes Moist - Respiratory Exam Respiratory Exam: Clear to Auscultation Bilateral, NORMAL BREATHING PATTERN - Cardiovascular Exam Cardiovascular Exam: RRR, +S1, +S2 - GI/Abdominal Exam GI & Abdominal Exam: Normal Bowel Sounds, Soft. absent: Firm, Guarding Additional comments: no suprapubic tenderness appreciated - Extremities Exam Extremities exam: Positive for: normal inspection, pedal pulses present. Negative for: calf tenderness - Back Exam Back exam: NORMAL INSPECTION. absent: CVA tenderness (L), CVA tenderness (R) - Neurological Exam Neurological exam: Alert, Oriented x3 - Skin Skin Exam: Normal Color, Warm Results - Vital Signs Recent Vital Signs: Last Vital Signs Temp 99.8 F H 01/19/18 17:56 Pulse 75 01/19/18 17:56 Resp 18 01/19/18 17:56 BP 119/61 01/19/18 17:56 Pulse Ox 98 01/19/18 17:56 - Labs Result Diagrams: 01/19/18 13:00 01/19/18 13:00 Assessment & Plan - Assessment and Plan (Free Text) Assessment: This is a 52 year old female with PMH of HIV and COPD presenting to the hospital for management of fever of unknown etiology. Blood, urine, and sputum culture pending. Most recent CD4 is less than 20. Fever of unknown etiology -fever on presentation to ED was 104.3 -given tylenol with improvement in temperature, however temp continues to be high with most recent of temp of 103.6 -blood, urine, and sputum culture pending -U/A unremarkable -NS @ 75cc/hr -continue clarithromycin, atovaquone (patient's discharge antibiotics from yesterday) -Start merrem -TSH, cortisol pending -tylenol 650mg q6 prn -concern for MAC per ID on last admission -Lactate normal at 1.6 -ID on consult, Dr. Maher History of HIV -HIV RNA 5.65 and CD4 <20 this month -not currently on HIV medications -Head CT on 01/17/18 was normal, patient tested positive for Toxo antibody on -Chest CT on 01/11 showed no evidence of infiltrate. Small pleural based nodules are seen at the left lung base the largest measuring 7mm. -Patient given instructions previously to follow up with [facility]'s human immunodeficiency virus clinic to begin HAART therapy -follow ID recommendations Elevated LFT's -consider MAC -AST/ALT: 175/55 -Total Bili 1.7 -Alkaline phosptataste 182 -CT abd/pelvis today revealed no acute intra-abdominal findings -CT abd/pelvis 01/15: 2 indeterminate hepatic lesions identified, do not represent simple cysts, abscess and neoplasm not excluded. No acute findings noted Anemia -Hg is 8.5 on admission -likely secondary to advanced HIV -will monitor Low Blood pressure -In ED, BP noted to be 97/53 -midodrine 10mg q8 if SBP <100 -Echo from 01/09/18 EF 53%, RVSP of 32. Normal LV segmental wall motion and size -Carotid US on 01/09 showed B/L 0-19 percent proximal ICA stenoses -BNP on 01/15/18 was 1510. Unlikely CHF in light of normal echo History of COPD -duonebs q6 -currently doing well on room air at 98% PPX with heparin Case reviewed and discussed with attending, Dr Zapata <Zoila Batista - Last Filed: 01/20/18 19:13> Results - Vital Signs Recent Vital Signs: Last Vital Signs Temp 98.6 F 01/20/18 16:56 Pulse 91 H 01/20/18 18:00 Resp 20 01/20/18 16:56 BP 100/69 01/20/18 16:56 Pulse Ox 97 01/20/18 16:56 - Labs Result Diagrams: 01/20/18 06:30 01/20/18 06:30 Labs: Laboratory Results - last 24 hr 01/20/18 01/20/18 01/20/18 06:30 06:30 06:30 WBC RBC Hgb Hct MCV MCH MCHC RDW Plt Count MPV Gran % Lymph % (Auto) [place] % (Auto) Eos % (Auto) Baso % (Auto) Gran # Lymph # (Auto) [place] # (Auto) Eos # (Auto) Baso # (Auto) ESR Sodium 136 Potassium 3.8 Chloride 101 Carbon Dioxide 29 Anion Gap 10 BUN 12 Creatinine 0.5 L Est GFR ( Amer) > 60 Est GFR (Non-Af Amer) > 60 Random Glucose 68 L Calcium 8.3 L Phosphorus 3.9 Magnesium 1.9 Total Bilirubin 1.4 H Direct Bilirubin GGT AST 133 H D ALT 47 Alkaline Phosphatase 134 H D Lactate Dehydrogenase 6189 H C-Reactive Protein Total Protein 6.0 Albumin 2.7 L Globulin 3.3 Albumin/Globulin Ratio 0.8 L TSH 3rd Generation 8.55 H Cortisol AM Sample 16.8 01/20/18 01/20/18 01/20/18 06:30 12:30 16:35 WBC 4.5 D RBC 3.33 L Hgb 9.0 L Hct 27.7 L MCV 83.2 MCH 27.0 MCHC 32.5 RDW 15.3 H Plt Count 100 L MPV 10.5 Gran % 83.9 H Lymph % (Auto) 12.5 L [place] % (Auto) 2.5 Eos % (Auto) 0.7 L Baso % (Auto) 0.4 Gran # 3.76 Lymph # (Auto) 0.6 L [place] # (Auto) 0.1 Eos # (Auto) 0.0 Baso # (Auto) 0.02 ESR Sodium Potassium Chloride Carbon Dioxide Anion Gap BUN Creatinine Est GFR ( Amer) Est GFR (Non-Af Amer) Random Glucose Calcium Phosphorus Magnesium Total Bilirubin Direct Bilirubin 0.3 GGT 302 H AST ALT Alkaline Phosphatase Lactate Dehydrogenase C-Reactive Protein 58.80 H Total Protein Albumin Globulin Albumin/Globulin Ratio TSH 3rd Generation Cortisol AM Sample 01/20/18 16:43 WBC RBC Hgb Hct MCV MCH MCHC RDW Plt Count MPV Gran % Lymph % (Auto) [place] % (Auto) Eos % (Auto) Baso % (Auto) Gran # Lymph # (Auto) [place] # (Auto) Eos # (Auto) Baso # (Auto) ESR 27 H Sodium Potassium Chloride Carbon Dioxide Anion Gap BUN Creatinine Est GFR ( Amer) Est GFR (Non-Af Amer) Random Glucose Calcium Phosphorus Magnesium Total Bilirubin Direct Bilirubin GGT AST ALT Alkaline Phosphatase Lactate Dehydrogenase C-Reactive Protein Total Protein Albumin Globulin Albumin/Globulin Ratio TSH 3rd Generation Cortisol AM Sample Attending/Attestation - Attestation I have personally seen and examined this patient.: Yes I have fully participated in the care of the patient.: Yes I have reviewed all pertinent clinical information: Yes
[2018-01-19] MEDS ORDERED: Albuterol-Ipratrop 3 mg / 0.5 (3 ml) UD IH PRN (19:20)
[2018-01-19] MEDS ORDERED: Potassium Chloride 20 mEq ER Tab PO ONE ×2 (19:29→22:00)
[2018-01-19] MEDS: Sodium Chloride 0.9% 1,000 ML IV SCH (19:42)
[2018-01-19] MEDS: Albuterol-Ipratrop 3 mg / 0.5 (3 ml) UD IH SCH (20:21)
[2018-01-19] MEDS: Nystatin 100,000 Units/ml Oral Susp 5 ml UD PO SCH (22:24)
[2018-01-19] MEDS: Atovaquone 750 mg/5 ml Susp UD PO SCH (22:24)
[2018-01-19] MEDS: Meropenem IV 1 gm in NS 50 ML IVPB SCH (22:24)
--- NOTE | 2018-01-20 01:47 | CP.PCM.CON ---
History of Present Illness - History of Present Illness History of Present Illness: Infectious Disease Consultation: December 52 yo female presenting for urinary retention. Multiple hospitalizations this past month for generalized weakness and COPD exacerbation. Recent diagnosis of HIV with CD4 less than 20. Was discharged from the hospital the day before this admission. Returned for inability to urinate for one day. Fever up to 104.3 F. PMHx: HIV and COPD PSHx: Wrist surgery Social Hx: 1 ppd smoker for 25 yrs, denies alcohol use, former heroin use Active Medications Acetaminophen (Tylenol 325mg Tab) 650 mg PO Q6H PRN PRN Reason: Fever >100.4 F Last Admin: 01/20/18 00:48 Dose: 650 mg Albuterol/Ipratropium (Duoneb 3 Mg/0.5 Mg (3 Ml) Ud) 3 ml IH [id number] [facility] Last Admin: 01/20/18 02:15 Dose: 3 ml Albuterol/Ipratropium (Duoneb 3 Mg/0.5 Mg (3 Ml) Ud) 3 ml IH Q2H PRN PRN Reason: Shortness of Breath Atovaquone (Mepron) 750 mg PO BID MCKAYLA PRN Reason: Protocol Last Admin: 01/19/18 22:24 Dose: 750 mg Clarithromycin (Biaxin Filmtab) 500 mg PO Q12 MCKAYLA PRN Reason: Protocol Last Admin: 01/19/18 22:23 Dose: 500 mg Enoxaparin Sodium (Lovenox) 40 mg SC DAILY [facility] PRN Reason: Protocol Sodium Chloride (Sodium Chloride 0.9%) 1,000 mls @ 75 mls/hr IV .[id number] [facility] Last Admin: 01/19/18 19:42 Dose: 75 mls/hr Meropenem (Merrem Iv 1 Gm Premix) 50 mls @ 100 mls/hr IVPB Q8 [facility]CKAYLA PRN Reason: Protocol Stop: 01/20/18 06:29 Last Admin: 01/19/18 22:24 Dose: 100 mls/hr Midodrine (Proamatine) 5 mg PO TID PRN PRN Reason: Systolic Blood Pressure Nystatin (Nystatin Oral Susp) 5 ml PO QID [facility] Last Admin: 01/19/18 22:24 Dose: 5 ml Family Hx: denies Allergies: NKDA ROS: inability to urinate. Positive fevers NO chills, nausea, vomiting, diarrhea, headaches, dizziness, chest pain, abdominal pain, melena, hematuria, hematemesis, hematochezia, depression, anxiety Past Patient History - Infectious Disease Hx of Infectious Diseases: None - Tetanus Immunizations Tetanus Immunization: Unknown - Past Social History Smoking Status: Heavy Smoker > 10 Cigarettes Daily - CARDIAC Hx Cardiac Disorders: No - PULMONARY Hx Respiratory Disorders: Yes Hx Bronchitis: Yes Hx Pneumonia: Yes - NEUROLOGICAL Hx Neurological Disorder: No - HEENT Hx HEENT Problems: No - RENAL Hx Chronic Kidney Disease: No - ENDOCRINE/METABOLIC Hx Endocrine Disorders: No - HEMATOLOGICAL/ONCOLOGICAL Hx Blood Disorders: Yes - INTEGUMENTARY Hx Dermatological Problems: No - MUSCULOSKELETAL/RHEUMATOLOGICAL Hx Musculoskeletal Disorders: No - GASTROINTESTINAL Hx Gastrointestinal Disorders: No - GENITOURINARY/GYNECOLOGICAL Hx Genitourinary Disorders: No - PSYCHIATRIC Hx Psychophysiologic Disorder: No Hx Substance Use: Yes (HEROIN) - SURGICAL HISTORY Hx Orthopedic Surgery: Yes - ANESTHESIA Hx Anesthesia: Yes Hx Anesthesia Reactions: No Hx Malignant Hyperthermia: No Meds Allergies/Adverse Reactions: Allergies Allergy/AdvReac Type Severity Reaction Status Date / Time No Known Allergies Allergy Verified 01/14/18 16:50 - Medications Medications: Current Medications Acetaminophen (Tylenol 325mg Tab) 650 mg PO Q6H PRN PRN Reason: Fever >100.4 F Last Admin: 01/20/18 00:48 Dose: 650 mg Albuterol/Ipratropium (Duoneb 3 Mg/0.5 Mg (3 Ml) Ud) 3 ml IH [id number] [facility] Last Admin: 01/19/18 20:21 Dose: 3 ml Albuterol/Ipratropium (Duoneb 3 Mg/0.5 Mg (3 Ml) Ud) 3 ml IH Q2H PRN PRN Reason: Shortness of Breath Atovaquone (Mepron) 750 mg PO BID [facility] PRN Reason: Protocol Last Admin: 01/19/18 22:24 Dose: 750 mg Clarithromycin (Biaxin Filmtab) 500 mg PO Q12 [facility] PRN Reason: Protocol Last Admin: 01/19/18 22:23 Dose: 500 mg Enoxaparin Sodium (Lovenox) 40 mg SC DAILY [facility] PRN Reason: Protocol Sodium Chloride (Sodium Chloride 0.9%) 1,000 mls @ 75 mls/hr IV .[id number] [facility] Last Admin: 01/19/18 19:42 Dose: 75 mls/hr Meropenem (Merrem Iv 1 Gm Premix) 50 mls @ 100 mls/hr IVPB Q8 [facility] PRN Reason: Protocol Stop: 01/20/18 06:29 Last Admin: 01/19/18 22:24 Dose: 100 mls/hr Midodrine (Proamatine) 5 mg PO TID PRN PRN Reason: Systolic Blood Pressure Nystatin (Nystatin Oral Susp) 5 ml PO QID [facility] Last Admin: 01/19/18 22:24 Dose: 5 ml Physical Exam - Constitutional Appears: Non-toxic, No Acute Distress, Chronically Ill - Head Exam Head Exam: ATRAUMATIC, NORMOCEPHALIC - Eye Exam Eye Exam: EOMI, PERRL Pupil Exam: NORMAL ACCOMODATION, PERRL - ENT Exam ENT Exam: Mucous Membranes Moist, Normal External Ear Exam, TM's Normal Bilaterally - Neck Exam Neck exam: Positive for: Full Rom, Normal Inspection - Respiratory Exam Respiratory Exam: Clear to Auscultation Bilateral, NORMAL BREATHING PATTERN. absent: Rales, Rhonchi, Wheezes - Cardiovascular Exam Cardiovascular Exam: REGULAR RHYTHM, RRR, +S1, +S2 - GI/Abdominal Exam GI & Abdominal Exam: Normal Bowel Sounds, Soft. absent: Distended, Tenderness - Extremities Exam Extremities exam: Positive for: full ROM, normal inspection - Neurological Exam Neurological exam: Alert, CN II-XII Intact, Oriented x3 - Psychiatric Exam Psychiatric exam: Normal Affect, Normal Mood - Skin Skin Exam: Intact, Normal Color Results - Vital Signs Recent Vital Signs: Last Vital Signs Temp 103.1 F H 01/20/18 00:48 Pulse 106 H 01/19/18 18:15 Resp 16 01/19/18 18:15 BP 119/61 01/19/18 18:15 Pulse Ox 98 01/19/18 17:56 - Labs Result Diagrams: 01/19/18 13:00 01/19/18 13:00 Assessment & Plan - Assessment and Plan (Free Text) Assessment: 52 yo Female with newly diagnosed HIV disease presenting with inability to urinate for 1 day and findings of fevers up to 104 F. The patient likely requires set up with HIV clinic and to start HAART. Continue with meropenem for now. CT Abd/Pel with no acute findings. Chest X-ray with no acute cardiopulmonary findings. Given previous hospitalizations and lack of findings with a similar presentation but high [id number], the patient may have a mycobacterium (nontuberculosis) disease of the lung. Thank you for allowing me to participate in the care of the patient, we will follow with you.
[2018-01-20] MEDS: Albuterol-Ipratrop 3 mg / 0.5 (3 ml) UD IH SCH ×4 (02:15→20:00)
--- NOTE | 2018-01-20 05:10 | CARD ---
APPROVED REPORT Date of service: 01/19/2018 EKG Measurement Heart [id number] <Conclusion> Normal sinus rhythm Nonspecific T wave abnormality Abnormal ECG
[2018-01-20] MEDS: Meropenem IV 1 gm in NS 50 ML IVPB SCH (05:50)
[2018-01-20 07:09] LABS: ALB/GLOB RATIO 0.8 (1.1-1.8); ALBUMIN 2.7 g/dL (3.0-4.8); ALT/SGPT 47 U/L (7-56); AST/SGOT 133 U/L (14-36); BLOOD UREA NITROGEN 12 mg/dL (7-21); CALCIUM 8.3 mg/dL (8.4-10.5); GFR NON-AFRICAN AMERICAN > 60
[2018-01-20 07:15] LABS: BASO # 0.02 K/mm3 (0.0-2.0); BASO % 0.4 % (0.0-3.0); EOS % 0.7 % (1.5-5.0); GRAN # 3.76 (1.4-6.5); GRAN % 83.9 % (50.0-68.0); LYMPH # 0.6 (1.2-3.4); LYMPH % 12.5 % (22.0-35.0); MEAN CELL VOLUME 83.2 fl (80.0-105.0); MEAN CORPUSCULAR HGB CONC 32.5 g/dl (31.0-37.0); MEAN PLATELET VOLUME 10.5 fl (7.0-11.0); MONO # 0.1 (0.1-0.6); MONO % 2.5 % (1.0-6.0); RBC 3.33 10^6/uL (3.5-6.1); RED CELL DISTRIBUTION WIDTH 15.3 % (11.5-14.5); WHITE BLOOD COUNT 4.5 10^3/ul (4.5-11.0)
[2018-01-20] MEDS: Enoxaparin 40 mg Syringe SC SCH (10:38)
[2018-01-20] MEDS: Atovaquone 750 mg/5 ml Susp UD PO SCH ×2 (10:39→17:50)
[2018-01-20] MEDS: Nystatin 100,000 Units/ml Oral Susp 5 ml UD PO SCH ×4 (10:39→22:56)
[2018-01-20 12:48] LABS: BILIRUBIN,DIRECT 0.3 mg/dL (0.0-0.4)
[2018-01-20] MEDS: Meropenem 500 MG in Sodium Chloride 0.9% 50 ML IVPB SCH ×2 (13:44→22:56)
[2018-01-20] MEDS: Sodium Chloride 0.9% 1,000 ML IV SCH (13:45)
--- NOTE | 2018-01-20 16:03 | CP.PCM.CON ---
History of Present Illness - History of Present Illness History of Present Illness: 52 F former smoker with recent dx of (AIDS CDS < 20) not on HAART yet also with hx of COPD admitted for the 3rd time within one month. Her first admission was 01/12 for syncope/COPD exasc. She was dx with AIDS on that admission. She was discharged and subsequently readmitted the next day to the ICU with lethargy, sepsis, hypotension and bradycardia. She responded quickly to IV fluids and abx, sent to the floors and d/c on 01/18 on PO Mepron and Biaxin treating JERSON. She returns again with fevers and this time urinary retention. She denies Sob, no cough, no sputum. No ROSE. Of note, I took care of her in the MICU during her last visit. There was a consideration for PCP given her CD4 status and elevated LDH however she did not have any resp symptoms, did not require oxygen and CXR was clear. She has a hx of IVDA which is likely how she acquired the HIV virus. She was born in [place] and has not traveled outside [place]. PMHx: HIV and COPD PSHx: Wrist surgery Social Hx: 1 ppd smoker for 25 yrs, denies alcohol use, former heroin use Medications: as above Family Hx: denies Allergies: NKDA ROS: as above Review of Systems - Constitutional Constitutional: As Per HPI - EENT Eyes: As Per HPI, Decreased Night Vision Nose/Mouth/Throat: As Per HPI - Cardiovascular Cardiovascular: As Per HPI - Respiratory Respiratory: absent: Cough, Dyspnea, Hemoptysis, Dyspnea on Exertion, Wheezing, Pain on Inspiration, Chest Congestion, Change in Mucous Color - Gastrointestinal Gastrointestinal: As Per HPI - Genitourinary Genitourinary: As Per HPI - Musculoskeletal Musculoskeletal: As Per HPI - Integumentary Integumentary: As Per HPI - Neurological Neurological: As Per HPI Past Patient History - Infectious Disease Hx of Infectious Diseases: None - Tetanus Immunizations Tetanus Immunization: Unknown - Past Social History Smoking Status: Heavy Smoker > 10 Cigarettes Daily - CARDIAC Hx Cardiac Disorders: No - PULMONARY Hx Respiratory Disorders: Yes Hx Bronchitis: Yes Hx Pneumonia: Yes - NEUROLOGICAL Hx Neurological Disorder: No - HEENT Hx HEENT Problems: No - RENAL Hx Chronic Kidney Disease: No - ENDOCRINE/METABOLIC Hx Endocrine Disorders: No - HEMATOLOGICAL/ONCOLOGICAL Hx Blood Disorders: Yes - INTEGUMENTARY Hx Dermatological Problems: No - MUSCULOSKELETAL/RHEUMATOLOGICAL Hx Musculoskeletal Disorders: No - GASTROINTESTINAL Hx Gastrointestinal Disorders: No - GENITOURINARY/GYNECOLOGICAL Hx Genitourinary Disorders: No - PSYCHIATRIC Hx Psychophysiologic Disorder: No Hx Substance Use: Yes (HEROIN) - SURGICAL HISTORY Hx Orthopedic Surgery: Yes - ANESTHESIA Hx Anesthesia: Yes Hx Anesthesia Reactions: No Hx Malignant Hyperthermia: No Meds Allergies/Adverse Reactions: Allergies Allergy/AdvReac Type Severity Reaction Status Date / Time No Known Allergies Allergy Verified 01/14/18 16:50 - Medications Medications: Current Medications Acetaminophen (Tylenol 325mg Tab) 650 mg PO Q6H PRN PRN Reason: Fever >100.4 F Last Admin: 01/20/18 13:50 Dose: 650 mg Albuterol/Ipratropium (Duoneb 3 Mg/0.5 Mg (3 Ml) Ud) 3 ml IH [id number] [facility] Last Admin: 01/20/18 08:09 Dose: 3 ml Albuterol/Ipratropium (Duoneb 3 Mg/0.5 Mg (3 Ml) Ud) 3 ml IH Q2H PRN PRN Reason: Shortness of Breath Atovaquone (Mepron) 750 mg PO BID [facility] PRN Reason: Protocol Last Admin: 01/20/18 10:39 Dose: 750 mg Clarithromycin (Biaxin Filmtab) 500 mg PO Q12 [facility]CKAYLA PRN Reason: Protocol Last Admin: 01/20/18 10:38 Dose: 500 mg Enoxaparin Sodium (Lovenox) 40 mg SC DAILY [facility] PRN Reason: Protocol Last Admin: 01/20/18 10:38 Dose: 40 mg Sodium Chloride (Sodium Chloride 0.9%) 1,000 mls @ 75 mls/hr IV .[id number] [facility] Last Admin: 01/20/18 13:45 Dose: 75 mls/hr Meropenem 500 mg/ Sodium (Chloride) 50 mls @ 100 mls/hr IVPB Q8 [facility] PRN Reason: Protocol Last Admin: 01/20/18 13:44 Dose: 100 mls/hr Ibuprofen (Motrin Tab) 400 mg PO Q6H PRN PRN Reason: Fever >100.4 F Midodrine (Proamatine) 5 mg PO TID PRN PRN Reason: Systolic Blood Pressure Nystatin (Nystatin Oral Susp) 5 ml PO QID [facility] Last Admin: 01/20/18 13:44 Dose: 5 ml Physical Exam - Constitutional Appears: Toxic, Unkempt - Head Exam Head Exam: ATRAUMATIC, NORMAL INSPECTION, NORMOCEPHALIC - Eye Exam Eye Exam: EOMI, PERRL - Neck Exam Neck exam: Negative for: Lymphadenopathy, Thyromegaly - Respiratory Exam Respiratory Exam: Clear to Auscultation Bilateral, NORMAL BREATHING PATTERN. absent: Accessory Muscle Use, Chest Wall Tenderness, Prolonged Expiratory Phase - Cardiovascular Exam Cardiovascular Exam: REGULAR RHYTHM - GI/Abdominal Exam GI & Abdominal Exam: Normal Bowel Sounds - Neurological Exam Neurological exam: Alert, Oriented x3 - Psychiatric Exam Psychiatric exam: Normal Affect, Normal Mood - Skin Skin Exam: Diaphoretic, Warm Results - Vital Signs Recent Vital Signs: Last Vital Signs Temp 103.2 F H 01/20/18 13:50 Pulse 101 H 01/20/18 14:00 Resp 19 01/20/18 07:00 BP 108/77 01/20/18 07:00 Pulse Ox 97 01/20/18 07:00 - Labs Result Diagrams: 01/20/18 06:30 01/20/18 06:30 Labs: Laboratory Results - last 24 hr 01/20/18 01/20/18 01/20/18 06:30 06:30 06:30 WBC RBC Hgb Hct MCV MCH MCHC RDW Plt Count MPV Gran % Lymph % (Auto) [place] % (Auto) Eos % (Auto) Baso % (Auto) Gran # Lymph # (Auto) [place] # (Auto) Eos # (Auto) Baso # (Auto) Sodium 136 Potassium 3.8 Chloride 101 Carbon Dioxide 29 Anion Gap 10 BUN 12 Creatinine 0.5 L Est GFR ( Amer) > 60 Est GFR (Non-Af Amer) > 60 Random Glucose 68 L Calcium 8.3 L Phosphorus 3.9 Magnesium 1.9 Total Bilirubin 1.4 H Direct Bilirubin GGT AST 133 H D ALT 47 Alkaline Phosphatase 134 H D Lactate Dehydrogenase 6189 H Total Protein 6.0 Albumin 2.7 L Globulin 3.3 Albumin/Globulin Ratio 0.8 L TSH 3rd Generation 8.55 H Cortisol AM Sample 16.8 01/20/18 01/20/18 06:30 12:30 WBC 4.5 D RBC 3.33 L Hgb 9.0 L Hct 27.7 L MCV 83.2 MCH 27.0 MCHC 32.5 RDW 15.3 H Plt Count 100 L MPV 10.5 Gran % 83.9 H Lymph % (Auto) 12.5 L [place] % (Auto) 2.5 Eos % (Auto) 0.7 L Baso % (Auto) 0.4 Gran # 3.76 Lymph # (Auto) 0.6 L [place] # (Auto) 0.1 Eos # (Auto) 0.0 Baso # (Auto) 0.02 Sodium Potassium Chloride Carbon Dioxide Anion Gap BUN Creatinine Est GFR ( Amer) Est GFR (Non-Af Amer) Random Glucose Calcium Phosphorus Magnesium Total Bilirubin Direct Bilirubin 0.3 GGT 302 H AST ALT Alkaline Phosphatase Lactate Dehydrogenase Total Protein Albumin Globulin Albumin/Globulin Ratio TSH 3rd Generation Cortisol AM Sample Assessment & Plan - Assessment and Plan (Free Text) Assessment: 52F former smoker with COPD and recently dx with AIDS (CD4 < 20) for the third time this month with fevers and this time, urinary symptoms. Although she is a former smoker, it is unclear if she actually has a dx of COPD. She has never had PFTs done and there is no obvious radiographic evidence of air trapping. In addition, she is currently asymptomatic from a pulmonary perspective. She is able to walk 2 flights (prior to first admission) without any difficulty. She is not wheezing and pulm exam is clear. PCP is reasonable to consider while her CD4 < 200 however in the absence of symptoms and normal CXR, it is not very likely at this point. She should be on PCP ppx. MAC/JERSON is likely as it is very common in patient with CD4 < 25. She also has liver simple cysts that may reflect MAC. She does not have TB risk factors that she offers although it must always be considered. At this point I recommend: Empiric duonebs PRN while inpatient Outpatient PFTs when well Follow cultures from past, may need outpatient bronch in the future (r/o MAC and PCP) PCP PPX Cont MAC tx as per ID Rest of care per primary team. Thank you for the consultation. Please re-call if any pulmonary concerns. Samuel Amador MD Pulm/CC/Sleep
--- NOTE | 2018-01-20 17:44 | CP.PCM.PN ---
Subjective - Date & Time of Evaluation Date of Evaluation: 01/20/18 Time of Evaluation: 16:00 - Subjective Subjective: Infectious Disease Follow Up: January 20, 2018 52 yo female presenting for urinary retention. Multiple hospitalizations this past month for generalized weakness and COPD exacerbation. Recent diagnosis of HIV with CD4 less than 20. Was discharged from the hospital the day before this admission. Returned for inability to urinate for one day. Fever up to 104.3 F in the past 24 hours. Still with fever up to 103.2 F today. Most likely diagnosis remains JERSON given the state of her HIV. My concerns remain with her compliance with therapy. Objective - Vital Signs/Intake and Output Vital Signs (last 24 hours): Temp Pulse Resp BP Pulse Ox 98.6 F 87 20 100/69 97 01/20/18 16:56 01/20/18 16:56 01/20/18 16:56 01/20/18 16:56 01/20/18 16:56 - Medications Medications: Current Medications Albuterol/Ipratropium (Duoneb 3 Mg/0.5 Mg (3 Ml) Ud) 3 ml IH [id number] [facility] Last Admin: 01/20/18 08:09 Dose: 3 ml Albuterol/Ipratropium (Duoneb 3 Mg/0.5 Mg (3 Ml) Ud) 3 ml IH Q2H PRN PRN Reason: Shortness of Breath Atovaquone (Mepron) 750 mg PO BID [facility]CKAYLA PRN Reason: Protocol Last Admin: 01/20/18 10:39 Dose: 750 mg Clarithromycin (Biaxin Filmtab) 500 mg PO Q12 [facility]CKAYLA PRN Reason: Protocol Last Admin: 01/20/18 10:38 Dose: 500 mg Enoxaparin Sodium (Lovenox) 40 mg SC DAILY [facility] PRN Reason: Protocol Last Admin: 01/20/18 10:38 Dose: 40 mg Sodium Chloride (Sodium Chloride 0.9%) 1,000 mls @ 75 mls/hr IV .[id number] [facility] Last Admin: 01/20/18 13:45 Dose: 75 mls/hr Meropenem 500 mg/ Sodium (Chloride) 50 mls @ 100 mls/hr IVPB Q8 [facility]CKAY[facility] PRN Reason: Protocol Last Admin: 01/20/18 13:44 Dose: 100 mls/hr Ibuprofen (Motrin Tab) 400 mg PO Q6H PRN PRN Reason: Fever >100.4 F Midodrine (Proamatine) 5 mg PO TID PRN PRN Reason: Systolic Blood Pressure Nystatin (Nystatin Oral Susp) 5 ml PO QID MCKAYLA Last Admin: 01/20/18 13:44 Dose: 5 ml - Labs Labs: 01/20/18 06:30 01/20/18 06:30 - Constitutional Appears: Non-toxic, No Acute Distress, Chronically Ill - Head Exam Head Exam: ATRAUMATIC, NORMOCEPHALIC - Eye Exam Eye Exam: EOMI, PERRL Pupil Exam: NORMAL ACCOMODATION, PERRL - ENT Exam ENT Exam: Mucous Membranes Moist, Normal External Ear Exam, TM's Normal Bilaterally - Neck Exam Neck Exam: Full ROM, Normal Inspection - Respiratory Exam Respiratory Exam: Decreased Breath Sounds, NORMAL BREATHING PATTERN. absent: Rales, Rhonchi, Wheezes - Cardiovascular Exam Cardiovascular Exam: REGULAR RHYTHM, RRR, +S1, +S2 - GI/Abdominal Exam GI & Abdominal Exam: Soft, Normal Bowel Sounds. absent: Distended, Tenderness - Extremities Exam Extremities Exam: Full ROM, Normal Inspection - Neurological Exam Neurological Exam: Alert, Awake, CN II-XII Intact, Oriented x3 - Psychiatric Exam Psychiatric exam: Normal Affect, Normal Mood - Skin Skin Exam: Intact, Normal Color Assessment and Plan - Assessment and Plan (Free Text) Assessment: 52 yo Female with newly diagnosed HIV disease presenting with inability to urinate for 1 day and findings of fevers up to 104 F. The patient likely requires set up with HIV clinic and to start HAART. Continue with meropenem for now. CT Abd/Pel with no acute findings. Chest X-ray with no acute cardiopulmonary findings. Given previous hospitalizations and lack of findings with a similar presentation but high [id number], the patient may have a mycobacterium (nontuberculosis) disease of the lung. Concerns mostly around how the patient would receive therapy especially since the patient came back to the hospital 24 hours of her discharge from the facility. Her treatments for a JERSON pneumonia would still need weeks to months of medications. May need to check if the [facility] is willing to provide follow up on the patient for presumptive JERSON treatment. Thank you for allowing me to participate in the care of the patient, we will follow with you.
--- NOTE | 2018-01-20 17:53 | CP.PCM.PN ---
<Vishnu Henderson - Last Filed: 01/20/18 18:20> Subjective - Date & Time of Evaluation Date of Evaluation: 01/20/18 Time of Evaluation: 10:30 - Subjective Subjective: Vishnu Henderson DO PGY-1, [employer] Medicine Progress Note Pt seen and examined at bedside. Tolerating PO diet well, denies nausea/ vomiting. States she has been sweating due to the fevers. C/o generalized weakness/fatigue, denies abdominal pain. No acute events reported overnight per staff auditor. Denies chest pain, shortness of breath, d/c. Stating urinary retention has improved s/p rasheed catheter placement. Objective - Vital Signs/Intake and Output Vital Signs (last 24 hours): Temp Pulse Resp BP Pulse Ox 98.6 F 87 20 100/69 97 01/20/18 16:56 01/20/18 16:56 01/20/18 16:56 01/20/18 16:56 01/20/18 16:56 - Medications Medications: Current Medications Albuterol/Ipratropium (Duoneb 3 Mg/0.5 Mg (3 Ml) Ud) 3 ml IH [id number] [facility] Last Admin: 01/20/18 08:09 Dose: 3 ml Albuterol/Ipratropium (Duoneb 3 Mg/0.5 Mg (3 Ml) Ud) 3 ml IH Q2H PRN PRN Reason: Shortness of Breath Atovaquone (Mepron) 750 mg PO BID [facility] PRN Reason: Protocol Last Admin: 01/20/18 10:39 Dose: 750 mg Clarithromycin (Biaxin Filmtab) 500 mg PO Q12 [facility] PRN Reason: Protocol Last Admin: 01/20/18 10:38 Dose: 500 mg Enoxaparin Sodium (Lovenox) 40 mg SC DAILY [facility]LA PRN Reason: Protocol Last Admin: 01/20/18 10:38 Dose: 40 mg Sodium Chloride (Sodium Chloride 0.9%) 1,000 mls @ 75 mls/hr IV .[id number] [facility] Last Admin: 01/20/18 13:45 Dose: 75 mls/hr Meropenem 500 mg/ Sodium (Chloride) 50 mls @ 100 mls/hr IVPB Q8 [facility]LA PRN Reason: Protocol Last Admin: 01/20/18 13:44 Dose: 100 mls/hr Ibuprofen (Motrin Tab) 400 mg PO Q6H PRN PRN Reason: Fever >100.4 F Midodrine (Proamatine) 5 mg PO TID PRN PRN Reason: Systolic Blood Pressure Nystatin (Nystatin Oral Susp) 5 ml PO QID [facility]LA Last Admin: 01/20/18 13:44 Dose: 5 ml - Labs Labs: 01/20/18 06:30 01/20/18 06:30 - Constitutional Appears: Non-toxic, No Acute Distress - Head Exam Head Exam: ATRAUMATIC, NORMAL INSPECTION - Eye Exam Eye Exam: EOMI, Normal appearance, PERRL - ENT Exam ENT Exam: Mucous Membranes Moist - Respiratory Exam Respiratory Exam: Clear to Ausculation Bilateral, NORMAL BREATHING PATTERN - Cardiovascular Exam Cardiovascular Exam: REGULAR RHYTHM, +S1, +S2. absent: Gallop, Rubs, Murmur - GI/Abdominal Exam GI & Abdominal Exam: Soft, Normal Bowel Sounds. absent: Distended, Tenderness, Organomegaly, Rebound - Extremities Exam Extremities Exam: Full ROM, Normal Capillary Refill, Normal Inspection - Neurological Exam Neurological Exam: Alert, Awake, CN II-XII Intact, Oriented x3 - Skin Skin Exam: Dry, Intact, Normal Color, Warm Assessment and Plan - Assessment and Plan (Free Text) Assessment: 52 year old female with PMH of HIV and COPD presenting to the hospital for management of fever of unknown etiology, concern for JERSON as per ID on previous admission. Blood, urine, and sputum culture pending. Most recent CD4 is less than 20. CT abd/pelvis demonstrated no acute intra-abdominal findings. On Mepron , Biaxin, and Merrem as per ID. ID (Dr. Maher), GI (Dr. Pulido), and Pulmonology (Dr. Amador) consulted. Plan: Fever of unknown etiology -Fever on presentation to ED was 104.3; pt continuing to spike temps -Given tylenol with improvement in temperature, however temp continues to be high with most recent of temp of 103.6; tylenol switched to Motrin due to elevated LFTs -blood, urine, and sputum culture pending -U/A unremarkable -NS @ 75cc/hr -continue clarithromycin, atovaquone (patient's discharge antibiotics from prior admission) -C/w Merrem as per ID -TSH, cortisol pending -Concern for MAC per ID on last admission -Lactate normal at 1.6 -ID consulted, Dr. Maher, recs appreciated -Pending ESR, CRP Urinary retention -Improved s/p rasheed placement -Pt passed voiding trial, will continue to monitor History of HIV -HIV RNA 5.65 and CD4 <20 within past month -Not currently on HIV medications -Head CT on 01/17/18 was normal, patient tested positive for Toxo antibody on ; CT head neg for acute changes on prior admission -Chest CT on 01/11 showed no evidence of infiltrate. Small pleural based nodules are seen at the left lung base the largest measuring 7mm. -Patient given instructions previously to follow up with [facility]'s human immunodeficiency virus clinic to begin HAART therapy -F/u ID recs Transaminitis -Consider MAC as etiology -Pending Hepatic sono, f/u results -GI consulted (Dr. Pulido), recs appreciated -Ct abd/pelvis on admission unremarkable -Ct abd/pelvis 01/15: 2 indeterminate hepatic lesions identified, do not represent simple cysts, abscess and neoplasm not excluded. No acute findings noted. -GGT elevated 302, Total bili 1.7, direct bili 0.3 Anemia -Hgb 9.0 today -Likely 2/2 to chronic HIV -Will monitor Hypotension -Improved since admission, on IVF -Echo 01/09/18 demonstrated EF 53%, RVSP 32, normal LV segmental wall motion and size -Carotid U/s on 01/09 showed b/l 0-19% proximal ICA stenoses -BNP on 01/15 was 1510; unlikely CHF in light of normal echo Hx COPD -Duonebs q 6 h -Saturating well on room air -Pulmonology consulted, Dr. Amador: recommended outpt PFTs when well, may need outpt bronch in future (r/o PCP and MAC) DVT ppx: Heparin Pt seen, examined at bedside, and plan discussed with Dr. Melvin, attending. <Steven Melvin - Last Filed: 01/20/18 21:52> Objective - Vital Signs/Intake and Output Vital Signs (last 24 hours): Temp Pulse Resp BP Pulse Ox 100.7 F H 91 H 20 100/69 97 01/20/18 20:04 01/20/18 18:00 01/20/18 16:56 01/20/18 16:56 01/20/18 16:56 Intake and Output: 01/20/18 01/21/18 18:59 06:59 Intake Total 2300 Output Total 1800 Balance 500 - Medications Medications: Current Medications Albuterol/Ipratropium (Duoneb 3 Mg/0.5 Mg (3 Ml) Ud) 3 ml IH [id number] [facility] Last Admin: 01/20/18 19:24 Dose: 3 ml Albuterol/Ipratropium (Duoneb 3 Mg/0.5 Mg (3 Ml) Ud) 3 ml IH Q2H PRN PRN Reason: Shortness of Breath Atovaquone (Mepron) 750 mg PO BID [facility]CKAYLA PRN Reason: Protocol Last Admin: 01/20/18 17:50 Dose: 750 mg Clarithromycin (Biaxin Filmtab) 500 mg PO Q12 [facility] PRN Reason: Protocol Last Admin: 01/20/18 10:38 Dose: 500 mg Enoxaparin Sodium (Lovenox) 40 mg SC DAILY [facility]LA PRN Reason: Protocol Last Admin: 01/20/18 10:38 Dose: 40 mg Sodium Chloride (Sodium Chloride 0.9%) 1,000 mls @ 75 mls/hr IV .[id number] [facility] Last Admin: 01/20/18 13:45 Dose: 75 mls/hr Meropenem 500 mg/ Sodium (Chloride) 50 mls @ 100 mls/hr IVPB Q8 [facility] PRN Reason: Protocol Last Admin: 01/20/18 13:44 Dose: 100 mls/hr Ibuprofen (Motrin Tab) 400 mg PO Q6H PRN PRN Reason: Fever >100.4 F Last Admin: 01/20/18 20:04 Dose: 400 mg Midodrine (Proamatine) 5 mg PO TID PRN PRN Reason: Systolic Blood Pressure Nystatin (Nystatin Oral Susp) 5 ml PO QID [facility] Last Admin: 01/20/18 17:50 Dose: 5 ml - Labs Labs: 01/20/18 06:30 01/20/18 06:30 Attending/Attestation - Attestation I have personally seen and examined this patient.: Yes I have fully participated in the care of the patient.: Yes I have reviewed all pertinent clinical information, including history, physical exam and plan: Yes Notes (Text): 01/20/18 21:50 Patient seen and examined at bedside. Labs, vitals and notes reviewed. Agree with the plan of care as discussed and outlined by the resident including continuation of antibiotics and further work up to evaluate for transaminitis. Pulmonary consult reviewed.
[2018-01-20 19:30] LABS: BARBITURATES, UR NEGATIVE (NEGATIVE); BENZODIAZEPINES, UR NEGATIVE (NEGATIVE); OPIATES, UR NEGATIVE (NEGATIVE); PHENCYCLIDINE, UR NEGATIVE (NEGATIVE)
[2018-01-21] MEDS: Albuterol-Ipratrop 3 mg / 0.5 (3 ml) UD IH SCH ×4 (03:13→21:25)
[2018-01-21] MEDS ORDERED: SODIUM CHLORIDE 0.9% IV SCH (06:00)
[2018-01-21] MEDS ORDERED: ACYCLOVIR IV SCH (06:00)
[2018-01-21] MEDS: Sodium Chloride 0.9% 1,000 ML IV SCH (06:06)
[2018-01-21] MEDS: Meropenem 500 MG in Sodium Chloride 0.9% 50 ML IVPB SCH ×3 (06:06→22:09)
[2018-01-21 10:00] LABS: EOS % 1.2 % (1.5-5.0); GRAN # 2.24 (1.4-6.5); GRAN % 89.2 % (50.0-68.0); HEMOGLOBIN 8.3 g/dL (12.0-16.0); LYMPH # 0.2 (1.2-3.4); LYMPH % 8.4 % (22.0-35.0); MEAN CELL VOLUME 81.4 fl (80.0-105.0); MEAN CORPUSCULAR HEMOGLOBIN 27.6 pg (25.0-35.0); MEAN CORPUSCULAR HGB CONC 33.9 g/dl (31.0-37.0); MEAN PLATELET VOLUME 10.1 fl (7.0-11.0); MONO % 1.2 % (1.0-6.0); RBC 3.01 10^6/uL (3.5-6.1)
[2018-01-21 10:03] LABS: WHITE BLOOD COUNT 2.5 10^3/ul (4.5-11.0)
[2018-01-21 10:19] LABS: ALB/GLOB RATIO 0.8 (1.1-1.8); ALBUMIN 2.7 g/dL (3.0-4.8); ALT/SGPT 35 U/L (7-56); AST/SGOT 111 U/L (14-36); BLOOD UREA NITROGEN 12 mg/dL (7-21); CALCIUM 8.2 mg/dL (8.4-10.5); GFR NON-AFRICAN AMERICAN > 60
[2018-01-21] MEDS ORDERED: Fluconazole IV 200mg/100 ml NS 100 ML IVPB SCH (10:30)
[2018-01-21] MEDS: Nystatin 100,000 Units/ml Oral Susp 5 ml UD PO SCH ×4 (10:56→22:10)
[2018-01-21] MEDS: Enoxaparin 40 mg Syringe SC SCH (10:56)
[2018-01-21] MEDS: Atovaquone 750 mg/5 ml Susp UD PO SCH ×2 (10:56→18:33)
[2018-01-21] MEDS ORDERED: Micafungin 100 MG in Sodium Chloride 0.9% 100 ML IV SCH (11:15)
--- NOTE | 2018-01-21 13:04 | CP.PCM.PN ---
<Vishnu Henderson - Last Filed: 01/21/18 13:18> Subjective - Date & Time of Evaluation Date of Evaluation: 01/21/18 Time of Evaluation: 08:40 - Subjective Subjective: Vishnu Henderson DO PGY-1, [employer] Consultant Medicine Progress Note Pt seen and examined at bedside. Per RN report overnight, pt had eruption of lesions/rash on R superior buttock new-onset, painful to palpation as per pt. Was given overnight 1x dose of acyclovir with improvement of rash and was placed on airborne/contact precautions by staff. Pt was also very diaphoretic overnight and had to have her gown changed several times due to profuse sweating. Pt admitting to shakes/chills. Denies shortness of breath or dyspnea on exertion. Tolerating PO diet, denies n/v/d/c. Pt spiking fevers overnight. On IV anbx. Objective - Vital Signs/Intake and Output Vital Signs (last 24 hours): Temp Pulse Resp BP Pulse Ox 102.3 F H 71 18 103/71 100 01/21/18 11:11 01/21/18 06:00 01/21/18 06:00 01/21/18 06:00 01/21/18 06:00 Intake and Output: 01/21/18 01/21/18 06:59 18:59 Intake Total 120 Balance 120 - Medications Medications: Current Medications Acetaminophen (Tylenol 325mg Tab) 650 mg PO Q6H PRN PRN Reason: Fever >100.4 F Last Admin: 01/21/18 11:11 Dose: 650 mg Albuterol/Ipratropium (Duoneb 3 Mg/0.5 Mg (3 Ml) Ud) 3 ml IH [id number] [facility] Last Admin: 01/21/18 07:59 Dose: 3 ml Albuterol/Ipratropium (Duoneb 3 Mg/0.5 Mg (3 Ml) Ud) 3 ml IH Q2H PRN PRN Reason: Shortness of Breath Atovaquone (Mepron) 750 mg PO BID MCKAYLA PRN Reason: Protocol Last Admin: 01/21/18 10:56 Dose: 750 mg Clarithromycin (Biaxin Filmtab) 500 mg PO Q12 [facility]CKAYLA PRN Reason: Protocol Last Admin: 01/21/18 10:55 Dose: 500 mg Enoxaparin Sodium (Lovenox) 40 mg SC DAILY [facility] PRN Reason: Protocol Last Admin: 01/21/18 10:56 Dose: 40 mg Sodium Chloride (Sodium Chloride 0.9%) 1,000 mls @ 75 mls/hr IV .[id number] [facility] Last Admin: 01/21/18 06:06 Dose: 75 mls/hr Meropenem 500 mg/ Sodium (Chloride) 50 mls @ 100 mls/hr IVPB Q8 [facility]LA PRN Reason: Protocol Last Admin: 01/21/18 06:06 Dose: 100 mls/hr Midodrine (Proamatine) 5 mg PO TID PRN PRN Reason: Systolic Blood Pressure Last Admin: 01/21/18 00:07 Dose: 5 mg Nystatin (Nystatin Oral Susp) 5 ml PO QID [facility] Last Admin: 01/21/18 10:56 Dose: 5 ml - Labs Labs: 01/21/18 09:50 01/21/18 09:50 - Constitutional Appears: No Acute Distress, Other (Acutely ill-appearing) - Head Exam Head Exam: ATRAUMATIC, NORMAL INSPECTION - Eye Exam Eye Exam: EOMI, Normal appearance, PERRL - ENT Exam ENT Exam: Mucous Membranes Moist, Normal Oropharynx - Respiratory Exam Respiratory Exam: Clear to Ausculation Bilateral, NORMAL BREATHING PATTERN - Cardiovascular Exam Cardiovascular Exam: REGULAR RHYTHM, +S1, +S2 - GI/Abdominal Exam GI & Abdominal Exam: Soft, Normal Bowel Sounds. absent: Distended, Guarding, Tenderness, Rebound - Extremities Exam Extremities Exam: Full ROM, Normal Capillary Refill, Normal Inspection - Neurological Exam Neurological Exam: Alert, Awake, CN II-XII Intact, Oriented x3 - Psychiatric Exam Psychiatric exam: Normal Affect, Normal Mood - Skin Additional comments: Rash flattened, less erythematous than initial presentation, non-tender to palpation currently, no induration, no avinash pus observed Assessment and Plan - Assessment and Plan (Free Text) Assessment: 52 year old female with PMH of HIV and COPD presenting to the hospital for management of fever of unknown etiology, concern for JERSON as per ID on previous admission. Blood, urine, and sputum culture pending. Most recent CD4 is less than 20. CT abd/pelvis demonstrated no acute intra-abdominal findings. On Mepron , Biaxin, and Merrem as per ID. ID (Dr. Maher), GI (Dr. Pulido), and Pulmonology (Dr. Amador) consulted. Plan: Fever of unknown etiology -Fever on presentation to ED was 104.3; pt continuing to spike temps -Tylenol prn for fevers -Leukopenic on today's labs -blood and sputum cultures pending -Urine cx neg -U/A unremarkable -NS @ 75cc/hr -continue clarithromycin, atovaquone (patient's discharge antibiotics from prior admission) -C/w Merrem as per ID; added micafungin today for empiric fungal coverage -TSH elevated 8.55, T3 and T4 ordered, f/u results -Cortisol wnl -Concern for MAC per ID on last admission -Lactate normal at 1.6 -ID consulted, Dr. Maher, recs appreciated -ESR (27) and CRP (58.8) elevated -Elevated Galactomannin on prior admission -Dr. Amador consulted for possible ICU transfer, recs appreciated Urinary retention -Improved s/p rasheed placement -Pt passed voiding trial, will continue to monitor History of HIV -HIV RNA 5.65 and CD4 <20 within past month -Not currently on HIV medications -Head CT on 01/17/18 was normal, patient tested positive for Toxo antibody on ; CT head neg for acute changes on prior admission -Chest CT on 01/11 showed no evidence of infiltrate. Small pleural based nodules are seen at the left lung base the largest measuring 7mm. -Patient given instructions previously to follow up with [facility]'s human immunodeficiency virus clinic to begin HAART therapy -F/u ID recs Transaminitis -Consider MAC as etiology -Hepatic sono done, f/u results -GI consulted (Dr. Pulido), recs appreciated -Ct abd/pelvis on admission unremarkable -Ct abd/pelvis 01/15: 2 indeterminate hepatic lesions identified, do not represent simple cysts, abscess and neoplasm not excluded. No acute findings noted. -GGT elevated 302, Total bili 1.7, direct bili 0.3 Anemia -Hgb 8.3 today -Likely 2/2 to chronic HIV -Will monitor Hypotension -Episode overnight, on IVF -Echo 01/09/18 demonstrated EF 53%, RVSP 32, normal LV segmental wall motion and size -Carotid U/s on 01/09 showed b/l 0-19% proximal ICA stenoses -BNP on 01/15 was 1510; unlikely CHF in light of normal echo Hx COPD -Duonebs q 6 h -Saturating well on room air -Pulmonology consulted, Dr. Amador: recommended outpt PFTs when well, may need outpt bronch in future (r/o PCP and MAC) DVT ppx: Heparin Pt seen, examined at bedside, and plan discussed with Dr. Melvin, attending. <Steven Melvin - Last Filed: 01/21/18 22:03> Objective - Vital Signs/Intake and Output Vital Signs (last 24 hours): Temp Pulse Resp BP Pulse Ox 102.4 F H 90 19 109/66 95 01/21/18 17:37 01/21/18 16:34 01/21/18 16:34 01/21/18 16:34 01/21/18 16:34 - Medications Medications: Current Medications Acetaminophen (Tylenol 325mg Tab) 650 mg PO Q6H PRN PRN Reason: Fever >100.4 F Last Admin: 01/21/18 16:37 Dose: 650 mg Albuterol/Ipratropium (Duoneb 3 Mg/0.5 Mg (3 Ml) Ud) 3 ml IH [id number] [facility] Last Admin: 01/21/18 21:25 Dose: 3 ml Albuterol/Ipratropium (Duoneb 3 Mg/0.5 Mg (3 Ml) Ud) 3 ml IH Q2H PRN PRN Reason: Shortness of Breath Atovaquone (Mepron) 750 mg PO BID [facility] PRN Reason: Protocol Last Admin: 01/21/18 18:33 Dose: 750 mg Clarithromycin (Biaxin Filmtab) 500 mg PO Q12 [facility] PRN Reason: Protocol Efavirenz/Emtricitabine/Tenofovir (Atripla 600 Mg-200 Mg-300 Mg) 1 tab PO DAILY [facility]LA PRN Reason: Protocol Last Admin: 01/21/18 18:33 Dose: 1 tab Sodium Chloride (Sodium Chloride 0.9%) 1,000 mls @ 75 mls/hr IV .[id number] [facility] Last Admin: 01/21/18 06:06 Dose: 75 mls/hr Meropenem 500 mg/ Sodium (Chloride) 50 mls @ 100 mls/hr IVPB Q8 [facility] PRN Reason: Protocol Last Admin: 01/21/18 15:18 Dose: 100 mls/hr Vancomycin HCl (Vancomycin 1gm) 1 gm in 250 mls @ 167 mls/hr IVPB Q12H [facility] PRN Reason: Protocol Last Admin: 01/21/18 18:38 Dose: 167 mls/hr Micafungin Sodium 100 mg/ (Sodium Chloride) 100 mls @ 100 mls/hr IV DAILY [facility]AYLA PRN Reason: Protocol Midodrine (Proamatine) 5 mg PO TID PRN PRN Reason: Systolic Blood Pressure Last Admin: 01/21/18 20:27 Dose: 5 mg Nystatin (Nystatin Oral Susp) 5 ml PO QID [facility] Last Admin: 01/21/18 18:33 Dose: 5 ml Rifampin (Rifampin Cap) 300 mg PO DAILY [facility]LA PRN Reason: Protocol Last Admin: 01/21/18 18:36 Dose: 300 mg - Labs Labs: 01/21/18 09:50 01/21/18 09:50 Attending/Attestation - Attestation I have personally seen and examined this patient.: Yes I have fully participated in the care of the patient.: Yes I have reviewed all pertinent clinical information, including history, physical exam and plan: Yes Notes (Text): 01/21/18 22:01 Patient seen and examined at bedside. Overnight was placed on isolation for suspicion of shingles, was later discontinued. She continues to spike fevers but the fever trend is improving. ID team has broadened the antibiotic coverage for the treatment of JERSON and added HAART. Transaminitis better, GI consult appreciated. ICU consult appreciated. Agree with the plan as discussed and outlined by the resident.
--- NOTE | 2018-01-21 13:28 | US ---
Date of service: 01/21/2018 HISTORY: Elevated GGT, hx AIDS COMPARISON: CT abdomen and pelvis with IV contrast performed 01/19/18 TECHNIQUE: Sonographic evaluation of the right upper quadrant of the abdomen. FINDINGS: LIVER: Measures 13.5 cm in length. Echogenic liver may be seen in setting of hepatic parenchymal disease or fatty infiltration. The main portal vein appears patent with normal directional flow. No focal hepatic mass identified. No intrahepatic bile duct dilatation. GALLBLADDER: Gallstones. No gallbladder wall thickening or pericholecystic edema. Negative sonographic Guzman's sign as assessed by the injection press operator. COMMON BILE DUCT: Measures 4 mm. PANCREAS: Not well-visualized. RIGHT KIDNEY: Measures 11.2 x 4.4 x 5.7 cm. No obstructing calculus or hydronephrosis identified. AORTA: Limited visualization appears grossly unremarkable. IVC: Limited visualization appears grossly unremarkable. OTHER FINDINGS: None . IMPRESSION: Echogenic liver may be seen in setting of hepatic parenchymal disease or fatty infiltration. Cholelithiasis.
[2018-01-21 14:38] LABS: T4 7.7 ug/dL (5.5-11.0)
[2018-01-21 14:51] LABS: T3 0.72 ng/mL (0.97-1.69)
--- NOTE | 2018-01-21 17:34 | CON ---
Copied To: Bryce Pulido DO Attending MD: Bryce Pulido DO DATE: 01/21/2018 HISTORY OF PRESENT ILLNESS: I saw Ms. Bobby this morning. She is a 52-year-old female with a recent diagnosis of HIV, who presented after recent discharge from the hospital. Currently, the patient presented with complaints of urinary retention and fever. According to Dr. Maher's note, he considers most likely diagnosis on this case is JERSON. Evaluation at the bedside this morning, the patient denies any significant past GI history in the form of gallstones or ulcerative disease, hematemesis, or rectal bleeding, etc. She has not had any issues regarding liver disease as well. Note that she has a recent diagnosis of HIV, which is denied by the patient at the bedside. According to the notes, she was found to have a CD4 less than 20. The patient currently denies alcohol use, but has been a smoker mcfp and has used heroin in the past as well. At this point in time, the patient is unaware of her diagnosis or implications as such. She also did not recall medications or the overall plan of action. She did reveal that her COPD has been a issue for quite a while. PHYSICAL EXAMINATION: VITAL SIGNS: I reviewed this patient's vital signs. HEENT: Noncontributory. LUNGS: Decreased breath sounds, basilar. HEART: Regular rhythm. ABDOMEN: Soft, not distended, no tenderness elicited. LABORATORY DATA: Review of this patient's laboratory data was consistent of negative microbiology today. Note that her white cell count as of yesterday was in the range of 4000 to 4500, H and H 9 and 27 with platelet count of 100. Note that her CMP as of yesterday includes total bilirubin of 1.4 with direct of 0.3. GGT of 302. AST and ALT ratio 133/47, alk phos 134. Her lactate dehydrogenase level of 6189. C-reactive protein is 58.8. The patient had an abdominopelvic CT scan which was essentially unremarkable for intraabdominal findings. ASSESSMENT: This is a 52-year-old female with newly diagnosed human immunodeficiency virus in process of starting therapy for the latter. The patient was admitted for urinary retention and fever. Note that the CT was negative and no examination findings are suggestive of any kind of gastrointestinal issues in this patient. Review of the laboratory date indicated an elevated lactate dehydrogenase and the etiology for this is unclear at the current time point. Note that this may be elevated in several HIV related infections PCP, Toxo etc. Note that she has GGT of 302 with an AST, ALT ratio of 133/47. Note that the reason that the consult was called because of elevated LFTs. Bilirubin is within normal limits. Note that the etiology of the GGT elevation may be alcohol related or secondary to HIV related infections like Toxo etc. If she has been noncompliant with medications in the past, is her alcohol history accurate? Because the alkaline phosphatase is mildly elevated, will order an antimitochondrial antibody positivity of which is less likely. ALP can also be elevated in the context of sepsis secondary to TB, JERSON, Toxo, etc. including an elevation of AST and ALT in the setting of sepsis or infiltrative disease. A hepatitis profile ordered previously was negative. Bryce Pulido DO, PhD MTDGema
--- NOTE | 2018-01-21 17:58 | CP.PCM.PN ---
Subjective - Date & Time of Evaluation Date of Evaluation: 01/21/18 Time of Evaluation: 17:00 - Subjective Subjective: Infectious Disease Follow Up: January 21, 2018 52 yo female presenting for urinary retention. Multiple hospitalizations this past month for generalized weakness and COPD exacerbation. Recent diagnosis of HIV with CD4 less than 20. Was discharged from the hospital the day before this admission. Returned for inability to urinate for one day. Fever up to 104.3 F in the past 24 hours. Still with fever up to 102.3 F today. Most likely diagnosis remains JERSON given the state of her HIV. My concerns remain with her compliance with therapy. Currently on Clarithrimycin and Atovaquone for treatment of suspected JERSON. As fever continue to persist, will add Rifampin to the request for JERSON treatment. IV Vancomycin also added given drainage from raised skin area. Will start HAART with Atripla now. Objective - Vital Signs/Intake and Output Vital Signs (last 24 hours): Temp Pulse Resp BP Pulse Ox 101.0 F H 90 19 109/66 95 01/21/18 16:37 01/21/18 16:34 01/21/18 16:34 01/21/18 16:34 01/21/18 16:34 Intake and Output: 01/21/18 01/21/18 06:59 18:59 Intake Total 120 Balance 120 - Medications Medications: Current Medications Acetaminophen (Tylenol 325mg Tab) 650 mg PO Q6H PRN PRN Reason: Fever >100.4 F Last Admin: 01/21/18 16:37 Dose: 650 mg Albuterol/Ipratropium (Duoneb 3 Mg/0.5 Mg (3 Ml) Ud) 3 ml IH [id number] [facility] Last Admin: 01/21/18 14:10 Dose: 3 ml Albuterol/Ipratropium (Duoneb 3 Mg/0.5 Mg (3 Ml) Ud) 3 ml IH Q2H PRN PRN Reason: Shortness of Breath Atovaquone (Mepron) 750 mg PO BID MCKAYLA PRN Reason: Protocol Last Admin: 01/21/18 10:56 Dose: 750 mg Clarithromycin (Biaxin Filmtab) 500 mg PO Q12 [facility]CK[facility]LA PRN Reason: Protocol Efavirenz/Emtricitabine/Tenofovir (Atripla 600 Mg-200 Mg-300 Mg) 1 tab PO DAILY MCKAYLA PRN Reason: Protocol Enoxaparin Sodium (Lovenox) 40 mg SC DAILY MCKAYLA PRN Reason: Protocol Last Admin: 01/21/18 10:56 Dose: 40 mg Sodium Chloride (Sodium Chloride 0.9%) 1,000 mls @ 75 mls/hr IV .[id number] [facility] Last Admin: 01/21/18 06:06 Dose: 75 mls/hr Meropenem 500 mg/ Sodium (Chloride) 50 mls @ 100 mls/hr IVPB Q8 [facility]LA PRN Reason: Protocol Last Admin: 01/21/18 15:18 Dose: 100 mls/hr Vancomycin HCl (Vancomycin 1gm) 1 gm in 250 mls @ 167 mls/hr IVPB Q12H [facility]LA PRN Reason: Protocol Midodrine (Proamatine) 5 mg PO TID PRN PRN Reason: Systolic Blood Pressure Last Admin: 01/21/18 00:07 Dose: 5 mg Nystatin (Nystatin Oral Susp) 5 ml PO QID [facility] Last Admin: 01/21/18 15:17 Dose: 5 ml Rifampin (Rifampin Cap) 300 mg PO DAILY MCKAYLA PRN Reason: Protocol - Labs Labs: 01/21/18 09:50 01/21/18 09:50 - Constitutional Appears: Non-toxic, No Acute Distress, Chronically Ill - Head Exam Head Exam: ATRAUMATIC, NORMOCEPHALIC - Eye Exam Eye Exam: EOMI, PERRL Pupil Exam: NORMAL ACCOMODATION, PERRL - ENT Exam ENT Exam: Mucous Membranes Moist, Normal External Ear Exam, TM's Normal Bilaterally - Neck Exam Neck Exam: Full ROM, Normal Inspection - Respiratory Exam Respiratory Exam: Decreased Breath Sounds, NORMAL BREATHING PATTERN. absent: Rales, Rhonchi, Wheezes - Cardiovascular Exam Cardiovascular Exam: REGULAR RHYTHM, RRR, +S1, +S2 - GI/Abdominal Exam GI & Abdominal Exam: Soft, Normal Bowel Sounds. absent: Distended, Tenderness - Extremities Exam Extremities Exam: Full ROM, Normal Inspection - Neurological Exam Neurological Exam: Alert, Awake, CN II-XII Intact, Oriented x3 - Psychiatric Exam Psychiatric exam: Normal Affect, Normal Mood - Skin Skin Exam: Intact, Normal Color Assessment and Plan - Assessment and Plan (Free Text) Assessment: 52 yo Female with newly diagnosed HIV disease presenting with inability to urinate for 1 day and findings of fevers up to 104 F. The patient likely requires set up with HIV clinic and to start HAART. Continue with meropenem for now. CT Abd/Pel with no acute findings. Chest X-ray with no acute cardiopulmonary findings. Given previous hospitalizations and lack of findings with a similar presentation but high [id number], the patient may have a mycobacterium (nontuberculosis) disease of the lung. Concerns mostly around how the patient would receive therapy especially since the patient came back to the hospital 24 hours of her discharge from the facility. Her treatments for a JERSON pneumonia would still need weeks to months of medications. May need to check if the [facility] is willing to provide follow up on the patient for presumptive JERSON treatment. Fevers persist however there were episodes of hypothermia overnight with temperature of 96.8 F. In light of this, the patient was already on Clarithromycin and Atovaquone for presumptive JERSON treatment. Add Rifampin to the regimen. There was swelling across one dermatome with drainage of pus. Given the wide fever range and increasing symptomology, will start HAART regimen and obtain Genotype testing. Micafungin also started. Thank you for allowing me to participate in the care of the patient, we will follow with you.
[2018-01-21] MEDS: Efavirenz/Emtricitabine/Teno 1 TAB PO SCH (18:33)
[2018-01-21] MEDS: Vancomycin 1gm in NS 250ml 1 GM/250 ML BAG IVPB SCH (18:38)
--- NOTE | 2018-01-21 18:57 | CP.PCM.PN ---
Subjective - Date & Time of Evaluation Date of Evaluation: 01/21/18 Time of Evaluation: 15:30 - Subjective Subjective: patient seen and examined today still spiking temp tmax 103 earleir however when I saw her, her fever broke and she was feeling much better no cough, no sob Objective - Vital Signs/Intake and Output Vital Signs (last 24 hours): Temp Pulse Resp BP Pulse Ox 102.4 F H 90 19 109/66 95 01/21/18 17:37 01/21/18 16:34 01/21/18 16:34 01/21/18 16:34 01/21/18 16:34 Intake and Output: 01/21/18 01/21/18 06:59 18:59 Intake Total 120 Balance 120 - Medications Medications: Current Medications Acetaminophen (Tylenol 325mg Tab) 650 mg PO Q6H PRN PRN Reason: Fever >100.4 F Last Admin: 01/21/18 16:37 Dose: 650 mg Albuterol/Ipratropium (Duoneb 3 Mg/0.5 Mg (3 Ml) Ud) 3 ml IH [id number] [facility] Last Admin: 01/21/18 14:10 Dose: 3 ml Albuterol/Ipratropium (Duoneb 3 Mg/0.5 Mg (3 Ml) Ud) 3 ml IH Q2H PRN PRN Reason: Shortness of Breath Atovaquone (Mepron) 750 mg PO BID MCKAYLA PRN Reason: Protocol Last Admin: 01/21/18 18:33 Dose: 750 mg Clarithromycin (Biaxin Filmtab) 500 mg PO Q12 MCKAYLA PRN Reason: Protocol Efavirenz/Emtricitabine/Tenofovir (Atripla 600 Mg-200 Mg-300 Mg) 1 tab PO DAILY MCKAYLA PRN Reason: Protocol Last Admin: 01/21/18 18:33 Dose: 1 tab Sodium Chloride (Sodium Chloride 0.9%) 1,000 mls @ 75 mls/hr IV .[id number] [facility] Last Admin: 01/21/18 06:06 Dose: 75 mls/hr Meropenem 500 mg/ Sodium (Chloride) 50 mls @ 100 mls/hr IVPB Q8 [facility] PRN Reason: Protocol Last Admin: 01/21/18 15:18 Dose: 100 mls/hr Vancomycin HCl (Vancomycin 1gm) 1 gm in 250 mls @ 167 mls/hr IVPB Q12H [facility] PRN Reason: Protocol Last Admin: 01/21/18 18:38 Dose: 167 mls/hr Micafungin Sodium 100 mg/ (Sodium Chloride) 100 mls @ 100 mls/hr IV DAILY MCKAYLA PRN Reason: Protocol Midodrine (Proamatine) 5 mg PO TID PRN PRN Reason: Systolic Blood Pressure Last Admin: 01/21/18 00:07 Dose: 5 mg Nystatin (Nystatin Oral Susp) 5 ml PO QID [facility] Last Admin: 01/21/18 18:33 Dose: 5 ml Rifampin (Rifampin Cap) 300 mg PO DAILY MCKAYLA PRN Reason: Protocol Last Admin: 01/21/18 18:36 Dose: 300 mg - Labs Labs: 01/21/18 09:50 01/21/18 09:50 - Constitutional Appears: Toxic, No Acute Distress - Head Exam Head Exam: ATRAUMATIC, NORMAL INSPECTION, NORMOCEPHALIC - Eye Exam Eye Exam: EOMI, Normal appearance, PERRL - Respiratory Exam Respiratory Exam: Clear to Ausculation Bilateral, NORMAL BREATHING PATTERN - Cardiovascular Exam Cardiovascular Exam: REGULAR RHYTHM, +S1, +S2. absent: Murmur - GI/Abdominal Exam GI & Abdominal Exam: Soft, Normal Bowel Sounds. absent: Tenderness - Extremities Exam Extremities Exam: Full ROM, Normal Capillary Refill, Normal Inspection. 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 Although she is a former smoker, it is unclear if she actually has a dx of COPD. She has never had PFTs done and there is no obvious radiographic evidence of air trapping. In addition, she is currently asymptomatic from a pulmonary perspective. She is able to walk 2 flights (prior to first admission) without any difficulty. She is not wheezing and pulm exam is clear. PCP is reasonable to consider while her CD4 < 200 however in the absence of symptoms and normal CXR, it is not very likely at this point. She should be on PCP ppx. MAC/JERSON is likely as it is very common in patient with CD4 < 25. She also has liver simple cysts that may reflect MAC. She does not have TB risk factors that she offers although it must always be considered. She remains hemodynamically stable and her fever has subsided. I would not be surprised if she continues to spike fevers given her immunodef and unclear source. She should be on fungal coverage as well. She does not need ICU level of care at this time however if she becomes unstable please call MICU for transfer. Also - Empiric duonebs PRN while inpatient Outpatient PFTs when well Follow cultures from past, may need outpatient bronch in the future (r/o MAC and PCP) PCP PPX Cont MAC tx as per ID Rest of care per primary team. Samuel Amador MD Pulm/CC/Sleep
[2018-01-22] MEDS: Albuterol-Ipratrop 3 mg / 0.5 (3 ml) UD IH SCH ×4 (03:00→21:01)
[2018-01-22] MEDS: Sodium Chloride 0.9% 1,000 ML IV SCH ×4 (04:43→23:26)
[2018-01-22] MEDS: Meropenem 500 MG in Sodium Chloride 0.9% 50 ML IVPB SCH ×3 (05:10→21:20)
[2018-01-22] MEDS: Vancomycin 1gm in NS 250ml 1 GM/250 ML BAG IVPB SCH ×2 (06:24→17:21)
[2018-01-22 06:46] LABS: EOS % 0.5 % (1.5-5.0); GRAN # 1.55 (1.4-6.5); GRAN % 80.3 % (50.0-68.0); HEMOGLOBIN 7.6 g/dL (12.0-16.0); LYMPH # 0.3 (1.2-3.4); LYMPH % 16.6 % (22.0-35.0); MEAN CELL VOLUME 82.3 fl (80.0-105.0); MEAN CORPUSCULAR HEMOGLOBIN 27.4 pg (25.0-35.0); MEAN CORPUSCULAR HGB CONC 33.3 g/dl (31.0-37.0); MEAN PLATELET VOLUME 11.6 fl (7.0-11.0); MONO # 0.1 (0.1-0.6); MONO % 2.6 % (1.0-6.0); RBC 2.77 10^6/uL (3.5-6.1); RED CELL DISTRIBUTION WIDTH 15.1 % (11.5-14.5)
[2018-01-22 07:25] LABS: ALB/GLOB RATIO 0.8 (1.1-1.8); ALBUMIN 2.5 g/dL (3.0-4.8); ALT/SGPT 29 U/L (7-56); AST/SGOT 100 U/L (14-36); BLOOD UREA NITROGEN 10 mg/dL (7-21); CALCIUM 7.7 mg/dL (8.4-10.5); GFR NON-AFRICAN AMERICAN > 60
[2018-01-22 07:49] LABS: WHITE BLOOD COUNT 1.9 10^3/ul (4.5-11.0)
[2018-01-22] MEDS: Atovaquone 750 mg/5 ml Susp UD PO SCH ×2 (09:19→17:19)
[2018-01-22] MEDS: Nystatin 100,000 Units/ml Oral Susp 5 ml UD PO SCH ×4 (09:19→21:20)
[2018-01-22] MEDS: Micafungin 100 MG in Sodium Chloride 0.9% 100 ML IV SCH (09:20)
[2018-01-22] MEDS: Efavirenz/Emtricitabine/Teno 1 TAB PO SCH (09:22)
--- NOTE | 2018-01-22 11:59 | CP.PCM.PN ---
<Vishnu Henderson - Last Filed: 01/22/18 11:56> Subjective - Date & Time of Evaluation Date of Evaluation: 01/22/18 Time of Evaluation: 09:45 - Subjective Subjective: Vishnu Henderson DO PGY-1, Nurse Healthcare Manager Medicine Progress Note Pt seen and examined at bedside this am. States that she is feeling better compared to yesterday. Sweating has improved from the fevers. Tolerating PO diet , voiding and pos BM without concerns. 12-point ROS obtained, otherwise neg as per patient. Objective - Vital Signs/Intake and Output Vital Signs (last 24 hours): Temp Pulse Resp BP Pulse Ox 99.5 F 84 20 108/69 98 01/22/18 08:48 01/22/18 08:48 01/22/18 08:48 01/22/18 08:48 01/22/18 08:48 Intake and Output: 01/22/18 01/22/18 06:59 18:59 Intake Total 1605 Balance 1605 - Medications Medications: Current Medications Acetaminophen (Tylenol 325mg Tab) 650 mg PO Q6H PRN PRN Reason: Fever >100.4 F Last Admin: 01/22/18 05:11 Dose: 650 mg Albuterol/Ipratropium (Duoneb 3 Mg/0.5 Mg (3 Ml) Ud) 3 ml IH [id number] [facility] Last Admin: 01/22/18 08:03 Dose: 3 ml Albuterol/Ipratropium (Duoneb 3 Mg/0.5 Mg (3 Ml) Ud) 3 ml IH Q2H PRN PRN Reason: Shortness of Breath Atovaquone (Mepron) 750 mg PO BID MCKAYLA PRN Reason: Protocol Last Admin: 01/22/18 09:19 Dose: 750 mg Clarithromycin (Biaxin Filmtab) 500 mg PO Q12 MCKAYLA PRN Reason: Protocol Last Admin: 01/22/18 09:19 Dose: 500 mg Efavirenz/Emtricitabine/Tenofovir (Atripla 600 Mg-200 Mg-300 Mg) 1 tab PO DAILY MCKAYLA PRN Reason: Protocol Last Admin: 01/22/18 09:22 Dose: 1 tab Sodium Chloride (Sodium Chloride 0.9%) 1,000 mls @ 75 mls/hr IV .[id number] [facility] Last Admin: 01/22/18 04:43 Dose: 75 mls/hr Meropenem 500 mg/ Sodium (Chloride) 50 mls @ 100 mls/hr IVPB Q8 MCKAYLA PRN Reason: Protocol Last Admin: 01/22/18 05:10 Dose: 100 mls/hr Vancomycin HCl (Vancomycin 1gm) 1 gm in 250 mls @ 167 mls/hr IVPB Q12H MCKAYLA PRN Reason: Protocol Last Admin: 01/22/18 06:24 Dose: 167 mls/hr Micafungin Sodium 100 mg/ (Sodium Chloride) 100 mls @ 100 mls/hr IV DAILY MCKAYLA PRN Reason: Protocol Last Admin: 01/22/18 09:20 Dose: 100 mls/hr Midodrine (Proamatine) 5 mg PO TID PRN PRN Reason: Systolic Blood Pressure Last Admin: 01/21/18 20:27 Dose: 5 mg Nystatin (Nystatin Oral Susp) 5 ml PO QID [facility] Last Admin: 01/22/18 09:19 Dose: 5 ml Rifampin (Rifampin Cap) 300 mg PO DAILY MCKAYLA PRN Reason: Protocol Last Admin: 01/22/18 09:19 Dose: 300 mg - Labs Labs: 01/22/18 06:00 01/22/18 06:00 - Constitutional Appears: Non-toxic, No Acute Distress, Chronically Ill - Head Exam Head Exam: ATRAUMATIC, NORMAL INSPECTION - Eye Exam Eye Exam: EOMI, Normal appearance, PERRL - ENT Exam ENT Exam: Mucous Membranes Moist, Normal Oropharynx - Respiratory Exam Respiratory Exam: Clear to Ausculation Bilateral, NORMAL BREATHING PATTERN - Cardiovascular Exam Cardiovascular Exam: REGULAR RHYTHM, +S1, +S2 - GI/Abdominal Exam GI & Abdominal Exam: Soft, Normal Bowel Sounds. absent: Distended, Guarding, Tenderness, Organomegaly, Rebound - Extremities Exam Extremities Exam: Full ROM, Normal Capillary Refill, Normal Inspection - Neurological Exam Neurological Exam: Alert, Awake, CN II-XII Intact, Normal Gait, Oriented x3 - Skin Skin Exam: Dry, Intact, Warm Additional comments: Healing lesions on superior R buttock in dermatomal distribution, non-tender to palpation, no drainage observed Assessment and Plan - Assessment and Plan (Free Text) Assessment: 52 year old female with PMH of HIV and COPD presenting to the hospital for management of fever of unknown etiology, concern for JERSON as per ID on previous admission. Blood, urine, and sputum culture pending, demonstrating no growth thus far. Most recent CD4 is less than 20. CT abd/pelvis demonstrated no acute intra-abdominal findings. On Mepron, Biaxin, and Merrem as per ID. ID (Dr. Maher), GI (Dr. Pulido), and Pulmonology (Dr. Amador) consulted. Plan: Fever of unknown etiology -Fever on presentation to ED was 104.3; pt continuing to spike temps -Tylenol prn for fevers -Leukopenic -blood and sputum cultures pending, neg growth thus far -Urine cx neg -U/A unremarkable -NS @ 75cc/hr -continue clarithromycin, atovaquone (patient's discharge antibiotics from prior admission) -C/w Merrem as per ID; Micafungin 100 mg daily -Per ID (Dr. Maher), added Rifampin 300 mg daily, Vanco 1 g q 12 h, Atripla daily ( HAART therapy initiated) -TSH elevated 8.55, T3 and T4 ordered, f/u results -Cortisol wnl -Concern for MAC per ID on last admission -Lactate normal at 1.6 -ID consulted, Dr. Maher, recs appreciated -ESR and CRP elevated -Elevated Galactomannin on prior admission Urinary retention -Improved s/p rasheed placement -Pt passed voiding trial, will continue to monitor History of HIV -HIV RNA 5.65 and CD4 <20 within past month -Atripla daily per ID rec -Head CT on 01/17/18 was normal, patient tested positive for Toxo antibody on ; CT head neg for acute changes on prior admission -Chest CT on 01/11 showed no evidence of infiltrate. Small pleural based nodules are seen at the left lung base the largest measuring 7mm. -Patient given instructions previously to follow up with [facility] human immunodeficiency virus clinic -F/u ID recs Transaminitis -Consider MAC as etiology -Hepatic U/s demonstrated cholelithasis; no c/o RUQ/abd pain at this time -GI consulted (Dr. Pulido), recs appreciated -Ct abd/pelvis on admission unremarkable -Ct abd/pelvis 01/15: 2 indeterminate hepatic lesions identified, do not represent simple cysts, abscess and neoplasm not excluded. No acute findings noted. -GGT elevated 302, Total bili 1.7, direct bili 0.3 Anemia -Hgb 7.6 today, pt asx, continue to trend -Likely 2/2 to chronic HIV -Will monitor Hypotension -On IVF, cont to monitor -Echo 01/09/18 demonstrated EF 53%, RVSP 32, normal LV segmental wall motion and size -Carotid U/s on 01/09 showed b/l 0-19% proximal ICA stenoses -BNP on 01/15 was 1510; unlikely CHF in light of normal echo Hx COPD -Duonebs q 6 h -Saturating well on room air -Pulmonology consulted, Dr. Amador: recommended outpt PFTs when well, may need outpt bronch in future (r/o PCP and MAC) DVT ppx: Heparin Pt seen, examined with, and plan discussed with Dr. Bruno, attending. <Jeremy Bruno - Last Filed: 01/27/18 14:20> Objective - Vital Signs/Intake and Output Vital Signs (last 24 hours): Temp Pulse Resp BP Pulse Ox 98.8 F 92 H 20 96/63 L 96 01/27/18 08:15 01/27/18 08:15 01/27/18 08:15 01/27/18 08:15 01/27/18 08:15 Intake and Output: 01/27/18 01/27/18 06:59 18:59 Intake Total 2255 Balance 2255 - Medications Medications: Current Medications Acetaminophen (Tylenol 325mg Tab) 650 mg PO Q6H PRN PRN Reason: Fever >100.4 F Last Admin: 01/27/18 08:27 Dose: 650 mg Albuterol/Ipratropium (Duoneb 3 Mg/0.5 Mg (3 Ml) Ud) 3 ml IH [id number] [facility] Last Admin: 01/27/18 13:45 Dose: Not Given Albuterol/Ipratropium (Duoneb 3 Mg/0.5 Mg (3 Ml) Ud) 3 ml IH Q2H PRN PRN Reason: Shortness of Breath Atovaquone (Mepron) 750 mg PO BID MCKAYLA PRN Reason: Protocol Last Admin: 01/27/18 10:12 Dose: 750 mg Clarithromycin (Biaxin Filmtab) 500 mg PO Q12 MCKAYLA PRN Reason: Protocol Last Admin: 01/27/18 10:12 Dose: 500 mg Efavirenz/Emtricitabine/Tenofovir (Atripla 600 Mg-200 Mg-300 Mg) 1 tab PO DAILY MCKAYLA PRN Reason: Protocol Last Admin: 01/27/18 10:11 Dose: 1 tab Gabapentin (Neurontin) 300 mg PO TID MCKAYLA PRN Reason: Protocol Last Admin: 01/27/18 10:11 Dose: 300 mg Vancomycin HCl (Vancomycin 1gm) 1 gm in 250 mls @ 167 mls/hr IVPB Q12H [facility] PRN Reason: Protocol Last Admin: 01/27/18 12:59 Dose: Not Given Micafungin Sodium 100 mg/ (Sodium Chloride) 100 mls @ 100 mls/hr IV DAILY MCKAYLA PRN Reason: Protocol Stop: 01/30/18 10:59 Last Admin: 01/27/18 10:12 Dose: 100 mls/hr Nystatin (Nystatin Oral Susp) 5 ml PO QID [facility]CK[facility]LA Last Admin: 01/27/18 10:11 Dose: 5 ml Rifampin (Rifampin Cap) 300 mg PO DAILY MCKAYLA PRN Reason: Protocol Last Admin: 01/27/18 10:11 Dose: 300 mg - Labs Labs: 01/27/18 06:30 01/27/18 06:30 Attending/Attestation - Attestation I have personally seen and examined this patient.: Yes I have fully participated in the care of the patient.: Yes I have reviewed all pertinent clinical information, including history, physical exam and plan: Yes Notes (Text): 01/27/18 14:17 Patient was seen and examined with medical records coordinator. 52 yo Female with newly diagnosed HIV disease was readmitted with urinary retention and fevers up to 104 F. Given previous hospitalizations and lack of findings with a similar presentation but high [id number], the patient may have a mycobacterium (nontuberculosis) disease of the lung Patient is spiking high fever, on Broad spectrum IV antibiotics as per ID.Cultures are negative for any growth. Pancytopenia due bone marrow suppression due to HIV and possible medication induced, we will get Hematology consult. Hypotension is resolved. Prognosis is guarded.
--- NOTE | 2018-01-22 16:53 | CP.PCM.PN ---
Subjective - Date & Time of Evaluation Date of Evaluation: 01/22/18 Time of Evaluation: 16:00 - Subjective Subjective: Infectious Disease Follow Up: January 22, 2018 52 yo female presenting for urinary retention. Multiple hospitalizations this past month for generalized weakness and COPD exacerbation. Recent diagnosis of HIV with CD4 less than 20. Was discharged from the hospital the day before this admission. Returned for inability to urinate for one day. Fever up to 104.3 F in this hospitalization. Still with fever up to 103.2 F today. Most likely diagnosis remains JERSON given the state of her HIV. My concerns remain with her compliance with therapy. Currently on Clarithrimycin and Atovaquone for treatment of suspected JERSON. As fever continue to persist, will add Rifampin to the regimen for JERSON treatment. IV Vancomycin also added given reported drainage from raised skin area on buttocks. On HAART with Atripla now. Patient states that she feels better although the patient is still having high fevers. Objective - Vital Signs/Intake and Output Vital Signs (last 24 hours): Temp Pulse Resp BP Pulse Ox 101 F H 107 H 20 92/66 L 96 01/22/18 16:15 01/22/18 16:15 01/22/18 16:15 01/22/18 16:15 01/22/18 16:15 Intake and Output: 01/22/18 01/22/18 06:59 18:59 Intake Total 1605 Balance 1605 - Medications Medications: Current Medications Acetaminophen (Tylenol 325mg Tab) 650 mg PO Q6H PRN PRN Reason: Fever >100.4 F Last Admin: 01/22/18 12:59 Dose: 650 mg Albuterol/Ipratropium (Duoneb 3 Mg/0.5 Mg (3 Ml) Ud) 3 ml IH [id number] [facility] Last Admin: 01/22/18 13:59 Dose: 3 ml Albuterol/Ipratropium (Duoneb 3 Mg/0.5 Mg (3 Ml) Ud) 3 ml IH Q2H PRN PRN Reason: Shortness of Breath Atovaquone (Mepron) 750 mg PO BID MCKAYLA PRN Reason: Protocol Last Admin: 01/22/18 09:19 Dose: 750 mg Clarithromycin (Biaxin Filmtab) 500 mg PO Q12 [facility]LA PRN Reason: Protocol Last Admin: 01/22/18 09:19 Dose: 500 mg Efavirenz/Emtricitabine/Tenofovir (Atripla 600 Mg-200 Mg-300 Mg) 1 tab PO DAILY MCKAYLA PRN Reason: Protocol Last Admin: 01/22/18 09:22 Dose: 1 tab Meropenem 500 mg/ Sodium (Chloride) 50 mls @ 100 mls/hr IVPB Q8 MCKAYLA PRN Reason: Protocol Last Admin: 01/22/18 13:03 Dose: 100 mls/hr Vancomycin HCl (Vancomycin 1gm) 1 gm in 250 mls @ 167 mls/hr IVPB Q12H [facility]CK[facility]LA PRN Reason: Protocol Last Admin: 01/22/18 06:24 Dose: 167 mls/hr Micafungin Sodium 100 mg/ (Sodium Chloride) 100 mls @ 100 mls/hr IV DAILY MCKAYLA PRN Reason: Protocol Last Admin: 01/22/18 09:20 Dose: 100 mls/hr Sodium Chloride (Sodium Chloride 0.9%) 1,000 mls @ 125 mls/hr IV .Q8H MCKAYLA Midodrine (Proamatine) 5 mg PO TID PRN PRN Reason: Systolic Blood Pressure Last Admin: 01/21/18 20:27 Dose: 5 mg Nystatin (Nystatin Oral Susp) 5 ml PO QID [facility]CK[facility] Last Admin: 01/22/18 13:01 Dose: 5 ml Rifampin (Rifampin Cap) 300 mg PO DAILY MCKAYLA PRN Reason: Protocol Last Admin: 01/22/18 09:19 Dose: 300 mg - Labs Labs: 01/22/18 06:00 01/22/18 06:00 - Constitutional Appears: Non-toxic, No Acute Distress, Chronically Ill - Head Exam Head Exam: ATRAUMATIC, NORMOCEPHALIC - Eye Exam Eye Exam: EOMI, PERRL Pupil Exam: NORMAL ACCOMODATION, PERRL - ENT Exam ENT Exam: Mucous Membranes Moist, Normal External Ear Exam, TM's Normal Bilaterally - Neck Exam Neck Exam: Full ROM, Normal Inspection - Respiratory Exam Respiratory Exam: Decreased Breath Sounds, NORMAL BREATHING PATTERN. absent: Rales, Rhonchi, Wheezes - Cardiovascular Exam Cardiovascular Exam: REGULAR RHYTHM, RRR, +S1, +S2 - GI/Abdominal Exam GI & Abdominal Exam: Soft, Normal Bowel Sounds. absent: Distended, Tenderness - Extremities Exam Extremities Exam: Full ROM, Normal Inspection - Neurological Exam Neurological Exam: Alert, Awake, CN II-XII Intact, Oriented x3 - Psychiatric Exam Psychiatric exam: Normal Affect, Normal Mood - Skin Skin Exam: Intact, Normal Color Assessment and Plan - Assessment and Plan (Free Text) Assessment: 52 yo Female with newly diagnosed HIV disease presenting with inability to urinate for 1 day and findings of fevers up to 104 F. The patient likely requires set up with HIV clinic and to start HAART. Continue with meropenem for now. CT Abd/Pel with no acute findings. Chest X-ray with no acute cardiopulmonary findings. Given previous hospitalizations and lack of findings with a similar presentation but high [id number], the patient may have a mycobacterium (nontuberculosis) disease of the lung. Concerns mostly around how the patient would receive therapy especially since the patient came back to the hospital 24 hours of her discharge from the facility. Her treatments for a JERSON pneumonia would still need weeks to months of medications. May need to check if the [facility] is willing to provide follow up on the patient for presumptive JERSON treatment. Fevers persist however there were episodes of hypothermia overnight with temperature of 96.8 F. In light of this, the patient was already on Clarithromycin and Atovaquone for presumptive JERSON treatment. Add Rifampin to the regimen. There was swelling across one dermatome with drainage of pus. Given the wide fever range and increasing symptomology, started HAART regimen and obtain Genotype testing. Micafungin also started. Patient states she feels better and has less sweating but the fevers remain high. Thank you for allowing me to participate in the care of the patient, we will follow with you.
[2018-01-23] MEDS: Vancomycin 1gm in NS 250ml 1 GM/250 ML BAG IVPB SCH ×2 (04:45→17:25)
[2018-01-23] MEDS: Meropenem 500 MG in Sodium Chloride 0.9% 50 ML IVPB SCH ×2 (05:48→13:42)
[2018-01-23 07:10] LABS: EOS % 1.2 % (1.5-5.0); GRAN # 1.34 (1.4-6.5); GRAN % 80.7 % (50.0-68.0); LYMPH # 0.3 (1.2-3.4); LYMPH % 15.7 % (22.0-35.0); MEAN CELL VOLUME 80.3 fl (80.0-105.0); MEAN CORPUSCULAR HGB CONC 33.7 g/dl (31.0-37.0); MEAN PLATELET VOLUME 11.3 fl (7.0-11.0); MONO % 2.4 % (1.0-6.0); RBC 2.59 10^6/uL (3.5-6.1); RED CELL DISTRIBUTION WIDTH 15.1 % (11.5-14.5)
[2018-01-23 07:25] LABS: WHITE BLOOD COUNT 1.7 10^3/ul (4.5-11.0)
[2018-01-23 07:46] LABS: ALB/GLOB RATIO 0.8 (1.1-1.8); ALBUMIN 2.3 g/dL (3.0-4.8); ALT/SGPT 30 U/L (7-56); AST/SGOT 75 U/L (14-36); BLOOD UREA NITROGEN 6 mg/dL (7-21); CALCIUM 7.1 mg/dL (8.4-10.5); GFR NON-AFRICAN AMERICAN > 60
[2018-01-23] MEDS: Albuterol-Ipratrop 3 mg / 0.5 (3 ml) UD IH SCH ×3 (07:54→20:48)
--- NOTE | 2018-01-23 08:16 | PN ---
Copied To: Bryce Pulido DO Attending MD: Bryce Pulido DO DATE: 01/22/2018 SUBJECTIVE: I reviewed the progress notes and labs for Ms. Bobby and dictated a consult yesterday. She is a 52-year-old female with recent diagnosis of HIV who re-presented after recent discharge from the hospital. Note that her complaint is now recurrent fever. According to the notes Dr. Maher. Note that I reviewed the notes of Dr. Melvin as well as Dr. Amador. Consult was called because of elevated LFTs in this particular case. After seeing the patient yesterday morning at our research study on association of elevated LFTs with toxoplasmosis and HIV. In view of the fact that this patient presented with mildly elevated LFTs in the form of AST and ALT elevation of 111 and 35, GGT of 302, direct bilirubin mildly elevated, especially an LDH of 6189. It was interesting to note that lactate dehydrogenase is virulence factor for toxoplasmosis. In many cases, it was found that extremely elevated LDH levels were associated with disseminated toxoplasmosis. In some cases, they can be associated with . Again, markedly elevated LDH may be included to a diagnosis of disseminated histoplasmosis. One can also make a distinction whether an associated PCP is elevated with same laboratory data. Regarding the other lab data, note that with toxoplasmosis involvement of the liver, one may experience mildly elevated LFTs including alkaline phosphatase. Note that GGT has also been seen in case of hepatic involvement with toxoplasmosis. Note that there is a variety of literature available on this topic. I am not sure that this particular entity has been considered in the acute differential diagnosis for this patient. I think given the most likely probability that this is due to an infectious cause, for example, toxoplasmosis plus/minus PCP. I will sign off the case at this particular time point. 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 Bryce Pulido DO
[2018-01-23] MEDS ORDERED: Potassium Chloride 40 mEq/30 ml LIQ UD PO ONE (08:34)
[2018-01-23] MEDS: Sodium Chloride 0.9% 1,000 ML IV SCH ×2 (09:39→23:41)
[2018-01-23] MEDS: Micafungin 100 MG in Sodium Chloride 0.9% 100 ML IV SCH (09:39)
[2018-01-23] MEDS: Efavirenz/Emtricitabine/Teno 1 TAB PO SCH (09:40)
[2018-01-23] MEDS: Nystatin 100,000 Units/ml Oral Susp 5 ml UD PO SCH ×4 (09:40→21:27)
[2018-01-23] MEDS: Atovaquone 750 mg/5 ml Susp UD PO SCH ×2 (09:40→17:24)
--- NOTE | 2018-01-23 15:24 | CP.PCM.PN ---
<SantiagoTonya - Last Filed: 01/23/18 15:35> Subjective - Date & Time of Evaluation Date of Evaluation: 01/23/18 Time of Evaluation: 11:20 - Subjective Subjective: Vishnu Henderson DO PGY-1, Chemistry Tutor Medicine Progress Note Pt seen and examined at bedside this am. States she is still having fevers but is comfortable currently. Denies any acute complaints. No acute events reported overnight. 12-point ROS obtained, otherwise neg as per pt. No shortness of breath, abd pain, or RUQ pain. Tolerating PO diet. Voiding and pos BM as per pt without concerns. Objective - Vital Signs/Intake and Output Vital Signs (last 24 hours): Temp Pulse Resp BP Pulse Ox 102.5 F H 92 H 20 108/66 96 01/23/18 15:12 01/23/18 10:00 01/23/18 08:15 01/23/18 08:15 01/23/18 08:15 Intake and Output: 01/23/18 01/23/18 06:59 18:59 Intake Total 3320 Output Total 600 Balance 2720 - Medications Medications: Current Medications Acetaminophen (Tylenol 325mg Tab) 650 mg PO Q6H PRN PRN Reason: Fever >100.4 F Last Admin: 01/23/18 13:21 Dose: 650 mg Albuterol/Ipratropium (Duoneb 3 Mg/0.5 Mg (3 Ml) Ud) 3 ml IH [id number] MCKAYLA Last Admin: 01/23/18 14:02 Dose: 3 ml Albuterol/Ipratropium (Duoneb 3 Mg/0.5 Mg (3 Ml) Ud) 3 ml IH Q2H PRN PRN Reason: Shortness of Breath Atovaquone (Mepron) 750 mg PO BID MCKAYLA PRN Reason: Protocol Last Admin: 01/23/18 09:40 Dose: 750 mg Clarithromycin (Biaxin Filmtab) 500 mg PO Q12 MCKAYLA PRN Reason: Protocol Last Admin: 01/23/18 09:40 Dose: 500 mg Efavirenz/Emtricitabine/Tenofovir (Atripla 600 Mg-200 Mg-300 Mg) 1 tab PO DAILY MCKAYLA PRN Reason: Protocol Last Admin: 01/23/18 09:40 Dose: 1 tab Vancomycin HCl (Vancomycin 1gm) 1 gm in 250 mls @ 167 mls/hr IVPB Q12H MCKAYLA PRN Reason: Protocol Last Admin: 01/23/18 04:45 Dose: 167 mls/hr Micafungin Sodium 100 mg/ (Sodium Chloride) 100 mls @ 100 mls/hr IV DAILY MCKAYLA PRN Reason: Protocol Last Admin: 01/23/18 09:39 Dose: 100 mls/hr Sodium Chloride (Sodium Chloride 0.9%) 1,000 mls @ 125 mls/hr IV .Q8H MCKAYLA Last Admin: 01/23/18 09:39 Dose: 125 mls/hr Midodrine (Proamatine) 5 mg PO TID PRN PRN Reason: Systolic Blood Pressure Last Admin: 01/22/18 16:27 Dose: 5 mg Nystatin (Nystatin Oral Susp) 5 ml PO QID MCKAYLA Last Admin: 01/23/18 13:39 Dose: 5 ml Rifampin (Rifampin Cap) 300 mg PO DAILY MCKAYLA PRN Reason: Protocol Last Admin: 01/23/18 09:40 Dose: 300 mg - Labs Labs: 01/23/18 06:20 01/23/18 06:20 - Constitutional Appears: No Acute Distress, Chronically Ill - Head Exam Head Exam: ATRAUMATIC, NORMAL INSPECTION - Eye Exam Eye Exam: EOMI, Normal appearance, PERRL - ENT Exam ENT Exam: Mucous Membranes Moist, Normal Oropharynx - Respiratory Exam Respiratory Exam: Clear to Ausculation Bilateral, NORMAL BREATHING PATTERN - Cardiovascular Exam Cardiovascular Exam: REGULAR RHYTHM, +S1, +S2 - GI/Abdominal Exam GI & Abdominal Exam: Soft, Normal Bowel Sounds. absent: Distended, Guarding, Tenderness, Rebound - Extremities Exam Extremities Exam: Full ROM, Normal Capillary Refill, Normal Inspection. absent : Tenderness - Neurological Exam Neurological Exam: Alert, Awake, CN II-XII Intact, Normal Gait, Oriented x3 - Skin Skin Exam: Dry, Intact, Warm Assessment and Plan - Assessment and Plan (Free Text) Assessment: 52 year old female with PMH of HIV and COPD presenting to the hospital for management of fever of unknown etiology, concern for JERSON as per ID on previous admission. Blood, urine, and sputum cultures drawn, sputum cx showing Stenotrophomonas maltophilia. Most recent CD4 is less than 20. CT abd/pelvis demonstrated no acute intra-abdominal findings. On Mepron, Biaxin, and Merrem as per ID. ID (Dr. Maher), GI (Dr. Pulido), and Pulmonology (Dr. Amador) consulted. Plan: Fever of unknown etiology -Fever on presentation to ED was 104.3; pt continuing to spike temps -Tylenol prn for fevers -Leukopenic; on neutropenic precautions -blood and sputum cultures pending; sputum cx showing Stenotrophomonas maltoplilia -Urine cx neg -U/A unremarkable -NS @ 125cc/hr -continue clarithromycin, atovaquone (patient's discharge antibiotics from prior admission) -Micafungin 100 mg daily -Per ID: Rifampin 300 mg daily, Vanco 1 g q 12 h, Atripla daily (HAART therapy initiated) -TSH elevated 8.55, T3 and T4 ordered, f/u results -Cortisol wnl -Concern for MAC per ID on last admission -Lactate normal at 1.6 -ID consulted, Dr. Maher, recs appreciated -ESR and CRP elevated -Elevated Galactomannin on prior admission Urinary retention -Improved s/p rasheed placement -Pt passed voiding trial, will continue to monitor History of HIV -HIV RNA 5.65 and CD4 <20 within past month -Atripla daily per ID rec -Head CT on 01/17/18 was normal, patient tested positive for Toxo antibody on ; CT head neg for acute changes on prior admission -Chest CT on 01/11 showed no evidence of infiltrate. Small pleural based nodules are seen at the left lung base the largest measuring 7mm. -Patient given instructions previously to follow up with [facility]'s human immunodeficiency virus clinic -F/u ID recs Transaminitis - improving -Consider MAC as etiology -Hepatic U/s demonstrated cholelithasis; no c/o RUQ/abd pain at this time -GI consulted (Dr. Pulido), recs appreciated -Ct abd/pelvis on admission unremarkable -Ct abd/pelvis 01/15: 2 indeterminate hepatic lesions identified, do not represent simple cysts, abscess and neoplasm not excluded. No acute findings noted. -GGT elevated 302, Total bili 1.7, direct bili 0.3 Anemia -Hgb 7.0 today, pt asx, continue to trend; pt may need transfusion if symptomatic or continues to drop -Likely 2/2 to chronic HIV; pancytopenia -Will monitor -F/u retic ct, peripheral smear -Heme/onc consulted for pancytopenia, recs appreciated Hypotension -On IVF, cont to monitor -Echo 01/09/18 demonstrated EF 53%, RVSP 32, normal LV segmental wall motion and size -Carotid U/s on 01/09 showed b/l 0-19% proximal ICA stenoses -BNP on 01/15 was 1510; unlikely CHF in light of normal echo Hx COPD -Duonebs q 6 h -Saturating well on room air -Pulmonology consulted, Dr. Amador: recommended outpt PFTs when well, may need outpt bronch in future (r/o PCP and MAC) DVT ppx: Heparin Pt seen, examined with, and plan discussed with Dr. Bruno, attending. <Jeremy Bruno - Last Filed: 01/27/18 14:26> Objective - Vital Signs/Intake and Output Vital Signs (last 24 hours): Temp Pulse Resp BP Pulse Ox 98.8 F 92 H 20 96/63 L 96 01/27/18 08:15 01/27/18 08:15 01/27/18 08:15 01/27/18 08:15 01/27/18 08:15 Intake and Output: 01/27/18 01/27/18 06:59 18:59 Intake Total 2255 Balance 2255 - Medications Medications: Current Medications Acetaminophen (Tylenol 325mg Tab) 650 mg PO Q6H PRN PRN Reason: Fever >100.4 F Last Admin: 01/27/18 08:27 Dose: 650 mg Albuterol/Ipratropium (Duoneb 3 Mg/0.5 Mg (3 Ml) Ud) 3 ml IH [id number] [facility] Last Admin: 01/27/18 13:45 Dose: Not Given Albuterol/Ipratropium (Duoneb 3 Mg/0.5 Mg (3 Ml) Ud) 3 ml IH Q2H PRN PRN Reason: Shortness of Breath Atovaquone (Mepron) 750 mg PO BID MCKAYLA PRN Reason: Protocol Last Admin: 01/27/18 10:12 Dose: 750 mg Clarithromycin (Biaxin Filmtab) 500 mg PO Q12 MCKAYLA PRN Reason: Protocol Last Admin: 01/27/18 10:12 Dose: 500 mg Efavirenz/Emtricitabine/Tenofovir (Atripla 600 Mg-200 Mg-300 Mg) 1 tab PO DAILY MCKAYLA PRN Reason: Protocol Last Admin: 01/27/18 10:11 Dose: 1 tab Gabapentin (Neurontin) 300 mg PO TID MCKAYLA PRN Reason: Protocol Last Admin: 01/27/18 10:11 Dose: 300 mg Vancomycin HCl (Vancomycin 1gm) 1 gm in 250 mls @ 167 mls/hr IVPB Q12H MCKAYLA PRN Reason: Protocol Last Admin: 01/27/18 12:59 Dose: Not Given Micafungin Sodium 100 mg/ (Sodium Chloride) 100 mls @ 100 mls/hr IV DAILY MCKAYLA PRN Reason: Protocol Stop: 01/30/18 10:59 Last Admin: 01/27/18 10:12 Dose: 100 mls/hr Nystatin (Nystatin Oral Susp) 5 ml PO QID MCKAYLA Last Admin: 01/27/18 10:11 Dose: 5 ml Rifampin (Rifampin Cap) 300 mg PO DAILY MCKAYLA PRN Reason: Protocol Last Admin: 01/27/18 10:11 Dose: 300 mg - Labs Labs: 01/27/18 06:30 01/27/18 06:30 Attending/Attestation - Attestation I have personally seen and examined this patient.: Yes I have fully participated in the care of the patient.: Yes I have reviewed all pertinent clinical information, including history, physical exam and plan: Yes Notes (Text): 01/27/18 14:24 Patient was seen and examined with medical delivery technician. 52 yo Female with newly diagnosed HIV disease was readmitted with urinary retention and fevers up to 104 F. Given previous hospitalizations and lack of findings with a similar presentation but high Epcy-G-Dwausm, the patient may have a mycobacterium (nontuberculosis) disease of the lung Continue with meropenem for now. CT Abd/Pel with no acute findings. Chest X- ray with no acute cardiopulmonary findings, Clarithromycin ,Atovaquone and Rifampin for presumptive JERSON treatment as per ID.Patient fever is improving, will need 6-9 month treatment for JERSON infection.Continue HAART regimen . 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 Sinus tachycardia is improved.
--- NOTE | 2018-01-23 18:35 | CP.PCM.PN ---
Subjective - Date & Time of Evaluation Date of Evaluation: 01/23/18 Time of Evaluation: 18:30 - Subjective Subjective: Infectious Disease Follow Up: January 23, 2018 52 yo female presenting for urinary retention. Multiple hospitalizations this past month for generalized weakness and COPD exacerbation. Recent diagnosis of HIV with CD4 less than 20. Was discharged from the hospital the day before this admission. Returned for inability to urinate for one day. Fever up to 104.3 F in this hospitalization. Still with fever up to 103.2 F today. Most likely diagnosis remains JERSON given the state of her HIV. My concerns remain with her compliance with therapy. Currently on Clarithrimycin and Atovaquone for treatment of suspected JERSON. As fever continue to persist, will add Rifampin to the regimen for JERSON treatment. IV Vancomycin also added given reported drainage from raised skin area on buttocks. On HAART with Atripla now. Patient states that she feels better although the patient is still having high fevers. Tachycardia. Objective - Vital Signs/Intake and Output Vital Signs (last 24 hours): Temp Pulse Resp BP Pulse Ox 98 F 125 H 22 106/63 96 01/23/18 17:46 01/23/18 17:33 01/23/18 17:33 01/23/18 17:33 01/23/18 17:33 Intake and Output: 01/23/18 01/23/18 06:59 18:59 Intake Total 3320 Output Total 600 Balance 2720 - Medications Medications: Current Medications Acetaminophen (Tylenol 325mg Tab) 650 mg PO Q6H PRN PRN Reason: Fever >100.4 F Last Admin: 01/23/18 13:21 Dose: 650 mg Albuterol/Ipratropium (Duoneb 3 Mg/0.5 Mg (3 Ml) Ud) 3 ml IH [id number] MCKAYLA Last Admin: 01/23/18 14:02 Dose: 3 ml Albuterol/Ipratropium (Duoneb 3 Mg/0.5 Mg (3 Ml) Ud) 3 ml IH Q2H PRN PRN Reason: Shortness of Breath Atovaquone (Mepron) 750 mg PO BID MCKAYLA PRN Reason: Protocol Last Admin: 01/23/18 17:24 Dose: 750 mg Clarithromycin (Biaxin Filmtab) 500 mg PO Q12 MCKAYLA PRN Reason: Protocol Last Admin: 01/23/18 09:40 Dose: 500 mg Efavirenz/Emtricitabine/Tenofovir (Atripla 600 Mg-200 Mg-300 Mg) 1 tab PO DAILY MCKAYLA PRN Reason: Protocol Last Admin: 01/23/18 09:40 Dose: 1 tab Vancomycin HCl (Vancomycin 1gm) 1 gm in 250 mls @ 167 mls/hr IVPB Q12H MCKAYLA PRN Reason: Protocol Last Admin: 01/23/18 17:25 Dose: 167 mls/hr Micafungin Sodium 100 mg/ (Sodium Chloride) 100 mls @ 100 mls/hr IV DAILY MCKAYLA PRN Reason: Protocol Last Admin: 01/23/18 09:39 Dose: 100 mls/hr Sodium Chloride (Sodium Chloride 0.9%) 1,000 mls @ 125 mls/hr IV .Q8H MCKAYLA Last Admin: 01/23/18 09:39 Dose: 125 mls/hr Midodrine (Proamatine) 5 mg PO TID PRN PRN Reason: Systolic Blood Pressure Last Admin: 01/22/18 16:27 Dose: 5 mg Nystatin (Nystatin Oral Susp) 5 ml PO QID MCKAYLA Last Admin: 01/23/18 17:24 Dose: 5 ml Rifampin (Rifampin Cap) 300 mg PO DAILY MCKAYLA PRN Reason: Protocol Last Admin: 01/23/18 09:40 Dose: 300 mg - Labs Labs: 01/23/18 06:20 01/23/18 06:20 - Constitutional Appears: Non-toxic, No Acute Distress, Chronically Ill - Head Exam Head Exam: ATRAUMATIC, NORMOCEPHALIC - Eye Exam Eye Exam: EOMI, PERRL Pupil Exam: NORMAL ACCOMODATION, PERRL - ENT Exam ENT Exam: Mucous Membranes Moist, Normal External Ear Exam, TM's Normal Bilaterally - Neck Exam Neck Exam: Full ROM, Normal Inspection - Respiratory Exam Respiratory Exam: Decreased Breath Sounds, NORMAL BREATHING PATTERN. absent: Rales, Rhonchi, Wheezes - Cardiovascular Exam Cardiovascular Exam: REGULAR RHYTHM, RRR, +S1, +S2 - GI/Abdominal Exam GI & Abdominal Exam: Soft, Normal Bowel Sounds. absent: Distended, Tenderness - Extremities Exam Extremities Exam: Full ROM, Normal Inspection - Neurological Exam Neurological Exam: Alert, Awake, CN II-XII Intact, Oriented x3 - Psychiatric Exam Psychiatric exam: Normal Affect, Normal Mood - Skin Skin Exam: Intact, Normal Color Assessment and Plan - Assessment and Plan (Free Text) Assessment: 52 yo Female with newly diagnosed HIV disease presenting with inability to urinate for 1 day and findings of fevers up to 104 F. The patient likely requires set up with HIV clinic and to start HAART. Continue with meropenem for now. CT Abd/Pel with no acute findings. Chest X-ray with no acute cardiopulmonary findings. Given previous hospitalizations and lack of findings with a similar presentation but high [id number]-[id number], the patient may have a mycobacterium (nontuberculosis) disease of the lung. Concerns mostly around how the patient would receive therapy especially since the patient came back to the hospital 24 hours of her discharge from the facility. Her treatments for a JERSON pneumonia would still need weeks to months of medications. May need to check if the [facility] is willing to provide follow up on the patient for presumptive JERSON treatment. Fevers persist however there were episodes of hypothermia two nights ago with temperature of 96.8 F. In light of this, the patient was already on Clarithromycin and Atovaquone for presumptive JERSON treatment. Add Rifampin to the regimen. There was swelling across one dermatome with drainage of pus. Given the wide fever range and increasing symptomology, started HAART regimen and obtain Genotype testing. Micafungin also started. Patient states she feels better overall and has less sweating but the fevers remain high in spurts. Supportive care. IRIS? Thank you for allowing me to participate in the care of the patient, we will follow with you.
--- NOTE | 2018-01-23 19:52 | CP.PCM.CON ---
History of Present Illness - History of Present Illness History of Present Illness: 52 year old female with a history of tobacco abuse, COPD, untreated AIDS, presenting for urinary retention, found to have fever, currently on antibiotics , with pancytopenia. The patient is unsure if she has had blood problems in the past. She feels her health has been slowly declining. She reports to knowing she was HIV positive for at least 3 years but has not started HAART therapy as she was too busy with work. Past medical history: tobacco abuse, COPD, AIDS Past surgical history: Wrist surgery Family history: Denies hematologic and oncologic problems Social history: 1ppd x 25 years, denies alcohol, former IVDA Allergies: NKA Review of systems: All remaining review of systems including HEENT, cardiovascular, respiratory, gastrointestinal, genitourinary, musculoskeletal, dermatologic, neurologic, and psychiatric are negative unless mentioned in the HPI. Past Patient History - Infectious Disease Hx of Infectious Diseases: None - Tetanus Immunizations Tetanus Immunization: Unknown - Past Social History Smoking Status: Heavy Smoker > 10 Cigarettes Daily - CARDIAC Hx Cardiac Disorders: No - PULMONARY Hx Respiratory Disorders: Yes Hx Bronchitis: Yes Hx Pneumonia: Yes - NEUROLOGICAL Hx Neurological Disorder: No - HEENT Hx HEENT Problems: No - RENAL Hx Chronic Kidney Disease: No - ENDOCRINE/METABOLIC Hx Endocrine Disorders: No - HEMATOLOGICAL/ONCOLOGICAL Hx Blood Disorders: Yes - INTEGUMENTARY Hx Dermatological Problems: No - MUSCULOSKELETAL/RHEUMATOLOGICAL Hx Musculoskeletal Disorders: No - GASTROINTESTINAL Hx Gastrointestinal Disorders: No - GENITOURINARY/GYNECOLOGICAL Hx Genitourinary Disorders: No - PSYCHIATRIC Hx Psychophysiologic Disorder: No Hx Substance Use: Yes (HEROIN) - SURGICAL HISTORY Hx Orthopedic Surgery: Yes - ANESTHESIA Hx Anesthesia: Yes Hx Anesthesia Reactions: No Hx Malignant Hyperthermia: No Meds Allergies/Adverse Reactions: Allergies Allergy/AdvReac Type Severity Reaction Status Date / Time No Known Allergies Allergy Verified 01/14/18 16:50 - Medications Medications: Current Medications Acetaminophen (Tylenol 325mg Tab) 650 mg PO Q6H PRN PRN Reason: Fever >100.4 F Last Admin: 01/23/18 13:21 Dose: 650 mg Albuterol/Ipratropium (Duoneb 3 Mg/0.5 Mg (3 Ml) Ud) 3 ml IH [id number] [facility]CKAYLA Last Admin: 01/23/18 14:02 Dose: 3 ml Albuterol/Ipratropium (Duoneb 3 Mg/0.5 Mg (3 Ml) Ud) 3 ml IH Q2H PRN PRN Reason: Shortness of Breath Atovaquone (Mepron) 750 mg PO BID MCKAYLA PRN Reason: Protocol Last Admin: 01/23/18 17:24 Dose: 750 mg Clarithromycin (Biaxin Filmtab) 500 mg PO Q12 MCKAYLA PRN Reason: Protocol Last Admin: 01/23/18 09:40 Dose: 500 mg Efavirenz/Emtricitabine/Tenofovir (Atripla 600 Mg-200 Mg-300 Mg) 1 tab PO DAILY MCKAYLA PRN Reason: Protocol Last Admin: 01/23/18 09:40 Dose: 1 tab Vancomycin HCl (Vancomycin 1gm) 1 gm in 250 mls @ 167 mls/hr IVPB Q12H MCKAYLA PRN Reason: Protocol Last Admin: 01/23/18 17:25 Dose: 167 mls/hr Micafungin Sodium 100 mg/ (Sodium Chloride) 100 mls @ 100 mls/hr IV DAILY MCKAYLA PRN Reason: Protocol Last Admin: 01/23/18 09:39 Dose: 100 mls/hr Sodium Chloride (Sodium Chloride 0.9%) 1,000 mls @ 125 mls/hr IV .Q8H [facility] Last Admin: 01/23/18 09:39 Dose: 125 mls/hr Midodrine (Proamatine) 5 mg PO TID PRN PRN Reason: Systolic Blood Pressure Last Admin: 01/22/18 16:27 Dose: 5 mg Nystatin (Nystatin Oral Susp) 5 ml PO QID [facility] Last Admin: 01/23/18 17:24 Dose: 5 ml Rifampin (Rifampin Cap) 300 mg PO DAILY MCKAYLA PRN Reason: Protocol Last Admin: 01/23/18 09:40 Dose: 300 mg Physical Exam - Head Exam Head Exam: ATRAUMATIC - Eye Exam Eye Exam: Normal appearance - ENT Exam ENT Exam: Mucous Membranes Dry - Respiratory Exam Respiratory Exam: NORMAL BREATHING PATTERN - Cardiovascular Exam Cardiovascular Exam: +S1, +S2 - GI/Abdominal Exam GI & Abdominal Exam: Normal Bowel Sounds Results - Vital Signs Recent Vital Signs: Last Vital Signs Temp 98 F 01/23/18 17:46 Pulse 125 H 01/23/18 17:33 Resp 22 01/23/18 17:33 BP 106/63 01/23/18 17:33 Pulse Ox 96 09/04/18 17:33 - Labs Result Diagrams: 01/23/18 06:20 01/23/18 06:20 Labs: Laboratory Results - last 24 hr 01/21/18 01/21/18 01/23/18 09:50 09:50 06:00 WBC RBC Hgb Hct MCV MCH MCHC RDW Plt Count MPV Gran % Lymph % (Auto) [place] % (Auto) Eos % (Auto) Baso % (Auto) Gran # Lymph # (Auto) [place] # (Auto) Eos # (Auto) Baso # (Auto) ESR 47 H Sodium Potassium Chloride Carbon Dioxide Anion Gap BUN Creatinine Est GFR ( Amer) Est GFR (Non-Af Amer) Random Glucose Calcium Total Bilirubin AST ALT Alkaline Phosphatase C-React Prot High Sens Total Protein Albumin Globulin Albumin/Globulin Ratio IgE 156 H Anti-Mitochondrial Ab Negative 01/23/18 01/23/18 01/23/18 06:00 06:20 06:20 WBC 1.7 L* RBC 2.59 L Hgb 7.0 L Hct 20.8 L* MCV 80.3 MCH 27.0 MCHC 33.7 RDW 15.1 H Plt Count 58 L MPV 11.3 H Gran % 80.7 H Lymph % (Auto) 15.7 L [place] % (Auto) 2.4 Eos % (Auto) 1.2 L Baso % (Auto) 0.0 Gran # 1.34 L Lymph # (Auto) 0.3 L [place] # (Auto) 0.0 L Eos # (Auto) 0.0 Baso # (Auto) 0.00 ESR Sodium 132 Potassium 3.2 L Chloride 103 Carbon Dioxide 24 Anion Gap 8 L BUN 6 L Creatinine 0.4 L Est GFR ( Amer) > 60 Est GFR (Non-Af Amer) > 60 Random Glucose 76 Calcium 7.1 L Total Bilirubin 1.3 AST 75 H D ALT 30 Alkaline Phosphatase 128 H C-React Prot High Sens > 15.00 H Total Protein 5.3 L Albumin 2.3 L Globulin 3.0 Albumin/Globulin Ratio 0.8 L IgE Anti-Mitochondrial Ab Assessment & Plan (1) Pancytopenia Assessment and Plan: likely AIDS related with exacerbation of counts by medication anemia of HIV and chronic disease; recommend 2U PRBC cont. to monitor platelet count Thank you for this interesting consult. Status: Acute
[2018-01-24] MEDS: Albuterol-Ipratrop 3 mg / 0.5 (3 ml) UD IH SCH ×4 (02:25→19:41)
[2018-01-24] MEDS: Vancomycin 1gm in NS 250ml 1 GM/250 ML BAG IVPB SCH ×2 (04:59→18:03)
[2018-01-24 07:13] LABS: BASO # 0.01 K/mm3 (0.0-2.0); BASO % 0.4 % (0.0-3.0); EOS % 0.9 % (1.5-5.0); GRAN # 1.88 (1.4-6.5); GRAN % 80.3 % (50.0-68.0); HEMOGLOBIN 7.2 g/dL (12.0-16.0); LYMPH # 0.4 (1.2-3.4); LYMPH % 17.1 % (22.0-35.0); MEAN CELL VOLUME 81.8 fl (80.0-105.0); MEAN CORPUSCULAR HEMOGLOBIN 27.3 pg (25.0-35.0); MEAN CORPUSCULAR HGB CONC 33.3 g/dl (31.0-37.0); MEAN PLATELET VOLUME 11.3 fl (7.0-11.0); MONO % 1.3 % (1.0-6.0); RBC 2.64 10^6/uL (3.5-6.1); RED CELL DISTRIBUTION WIDTH 15.5 % (11.5-14.5)
[2018-01-24 07:23] LABS: ALB/GLOB RATIO 0.8 (1.1-1.8); ALBUMIN 2.4 g/dL (3.0-4.8); ALT/SGPT 25 U/L (7-56); AST/SGOT 64 U/L (14-36); BLOOD UREA NITROGEN 5 mg/dL (7-21); CALCIUM 7.4 mg/dL (8.4-10.5); GFR NON-AFRICAN AMERICAN > 60
[2018-01-24 07:52] LABS: WHITE BLOOD COUNT 2.3 10^3/ul (4.5-11.0)
[2018-01-24] MEDS: Efavirenz/Emtricitabine/Teno 1 TAB PO SCH (10:01)
[2018-01-24] MEDS: Atovaquone 750 mg/5 ml Susp UD PO SCH ×2 (10:01→17:56)
[2018-01-24] MEDS: Nystatin 100,000 Units/ml Oral Susp 5 ml UD PO SCH ×4 (10:01→22:33)
[2018-01-24] MEDS: Micafungin 100 MG in Sodium Chloride 0.9% 100 ML IV SCH (10:03)
[2018-01-24] MEDS: Sodium Chloride 0.9% 1,000 ML IV SCH ×3 (10:15→22:35)
[2018-01-24 12:34] LABS: HEPATITIS B SURFACE AG Negative (NEGATIVE)
[2018-01-24 12:40] LABS: HEPATITIS A IGM NEGATIVE (NEGATIVE); HEPATITIS B CORE AB NEGATIVE (NEGATIVE)
[2018-01-24 12:55] LABS: HEPATITIS C ANTIBODY NEGATIVE (NEGATIVE)
--- NOTE | 2018-01-24 14:06 | CP.PCM.PN ---
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 Last temp 101.9 last evening before midnight. States she feels ok today, c/o pain in the balls of her feet b/l that worsens with walking. States this started yesterday and that she wants something to help the pain. No acute events reported overnight. Pt using cooling blanket as needed which helps with her fevers and sweating. 12-point ROS obtained, otherwise neg as per pt. Objective - Vital Signs/Intake and Output Vital Signs (last 24 hours): Temp Pulse Resp BP Pulse Ox 99.9 F H 110 H 22 110/70 116 H 01/24/18 13:54 01/24/18 13:54 01/24/18 13:54 01/24/18 13:54 01/24/18 11:30 Intake and Output: 01/24/18 01/24/18 06:59 18:59 Intake Total 1980 0 Output Total 1100 Balance 880 0 - Medications Medications: Current Medications Acetaminophen (Tylenol 325mg Tab) 650 mg PO Q6H PRN PRN Reason: Fever >100.4 F Last Admin: 01/24/18 12:09 Dose: 650 mg Albuterol/Ipratropium (Duoneb 3 Mg/0.5 Mg (3 Ml) Ud) 3 ml IH [id number] MCKAYLA Last Admin: 01/24/18 13:51 Dose: Not Given Albuterol/Ipratropium (Duoneb 3 Mg/0.5 Mg (3 Ml) Ud) 3 ml IH Q2H PRN PRN Reason: Shortness of Breath Atovaquone (Mepron) 750 mg PO BID [facility]CK[facility]LA PRN Reason: Protocol Last Admin: 01/24/18 10:01 Dose: 750 mg Clarithromycin (Biaxin Filmtab) 500 mg PO Q12 MCKAYLA PRN Reason: Protocol Last Admin: 01/24/18 10:01 Dose: 500 mg Efavirenz/Emtricitabine/Tenofovir (Atripla 600 Mg-200 Mg-300 Mg) 1 tab PO DAILY [facility]CKAYLA PRN Reason: Protocol Last Admin: 01/24/18 10:01 Dose: 1 tab Gabapentin (Neurontin) 300 mg PO TID MCKAYLA PRN Reason: Protocol Last Admin: 01/24/18 13:22 Dose: 300 mg Vancomycin HCl (Vancomycin 1gm) 1 gm in 250 mls @ 167 mls/hr IVPB Q12H MCKAYLA PRN Reason: Protocol Last Admin: 01/24/18 04:59 Dose: 167 mls/hr Micafungin Sodium 100 mg/ (Sodium Chloride) 100 mls @ 100 mls/hr IV DAILY MCKAYLA PRN Reason: Protocol Last Admin: 01/24/18 10:03 Dose: 100 mls/hr Sodium Chloride (Sodium Chloride 0.9%) 1,000 mls @ 125 mls/hr IV .Q8H MCKAYLA Last Admin: 01/24/18 10:15 Dose: 125 mls/hr Midodrine (Proamatine) 5 mg PO TID PRN PRN Reason: Systolic Blood Pressure Last Admin: 01/22/18 16:27 Dose: 5 mg Nystatin (Nystatin Oral Susp) 5 ml PO QID MCKAYLA Last Admin: 01/24/18 13:23 Dose: 5 ml Rifampin (Rifampin Cap) 300 mg PO DAILY MCKAYLA PRN Reason: Protocol Last Admin: 01/24/18 10:11 Dose: 300 mg - Labs Labs: 01/24/18 06:30 01/24/18 06:30 - Constitutional Appears: Non-toxic, No Acute Distress - Head Exam Head Exam: ATRAUMATIC, NORMAL INSPECTION - Eye Exam Eye Exam: EOMI, Normal appearance, PERRL - ENT Exam ENT Exam: Mucous Membranes Moist - Respiratory Exam Respiratory Exam: Clear to Ausculation Bilateral, NORMAL BREATHING PATTERN - Cardiovascular Exam Cardiovascular Exam: REGULAR RHYTHM, +S1, +S2 - GI/Abdominal Exam GI & Abdominal Exam: Soft, Normal Bowel Sounds. absent: Distended, Guarding, Tenderness - Extremities Exam Extremities Exam: Full ROM, Normal Capillary Refill, Normal Inspection - Neurological Exam Neurological Exam: Alert, Awake, CN II-XII Intact, Oriented x3 - Skin Skin Exam: Dry, Intact, Warm Assessment and Plan - Assessment and Plan (Free Text) Assessment: 52 year old female with PMH of HIV and COPD presenting to the hospital for management of fever of unknown etiology, concern for JERSON as per ID on previous admission. Blood, urine, and sputum cultures drawn, sputum cx showing Stenotrophomonas maltophilia. Most recent CD4 is less than 20. CT abd/pelvis demonstrated no acute intra-abdominal findings. On Mepron, Biaxin, and Merrem as per ID. ID (Dr. Maher), GI (Dr. Pulido), and Pulmonology (Dr. Amador) consulted. Plan: Fever of unknown etiology -Fever on presentation to ED was 104.3; pt continuing to spike temps -Tylenol prn for fevers -Leukopenic; on neutropenic precautions -blood cultures neg; sputum cx showing Stenotrophomonas maltoplilia -Urine cx neg -U/A unremarkable -NS @ 125cc/hr -continue clarithromycin, atovaquone (patient's discharge antibiotics from prior admission) -Micafungin 100 mg daily -Per ID: Rifampin 300 mg daily, Vanco 1 g q 12 h, Atripla daily (HAART therapy initiated) -TSH elevated 8.55, T3 and T4 ordered, f/u results -Cortisol wnl -Concern for MAC per ID on last admission -Lactate normal at 1.6 -ID consulted, Dr. Maher, recs appreciated -ESR and CRP elevated -Elevated Galactomannin on prior admission Urinary retention -Improved s/p rasheed placement -Pt passed voiding trial, will continue to monitor History of HIV -HIV RNA 5.65 and CD4 <20 within past month -Atripla daily per ID rec -Head CT on 01/17/18 was normal, patient tested positive for Toxo antibody on ; CT head neg for acute changes on prior admission -Chest CT on 01/11 showed no evidence of infiltrate. Small pleural based nodules are seen at the left lung base the largest measuring 7mm. -Patient given instructions previously to follow up with [facility]'s human immunodeficiency virus clinic -F/u ID recs Transaminitis - improving -Consider MAC as etiology -Hepatic U/s demonstrated cholelithasis; no c/o RUQ/abd pain at this time -GI consulted (Dr. Pulido), recs appreciated -Ct abd/pelvis on admission unremarkable -Ct abd/pelvis 01/15: 2 indeterminate hepatic lesions identified, do not represent simple cysts, abscess and neoplasm not excluded. No acute findings noted. -GGT elevated 302, Total bili 1.7, direct bili 0.3 Anemia -Hgb 7.2 today, pt asx, continue to trend; pt to receive 2 units PRBCs today -Likely 2/2 to chronic HIV; pancytopenia -Will monitor -Retic ct 0.35, peripheral smear demonstrated pancytopenia -Heme/onc consulted for pancytopenia, recs appreciated Hypotension -On IVF, cont to monitor -Echo 01/09/18 demonstrated EF 53%, RVSP 32, normal LV segmental wall motion and size -Carotid U/s on 01/09 showed b/l 0-19% proximal ICA stenoses -BNP on 01/15 was 1510; unlikely CHF in light of normal echo Hx COPD -Duonebs q 6 h -Saturating well on room air -Pulmonology consulted, Dr. Amador: recommended outpt PFTs when well, may need outpt bronch in future (r/o PCP and MAC) DVT ppx: Heparin Pt seen, examined with, and plan discussed with Dr. Bruno, attending. <Jeremy Bruno - Last Filed: 01/27/18 14:26> Objective - Vital Signs/Intake and Output Vital Signs (last 24 hours): Temp Pulse Resp BP Pulse Ox 98.8 F 92 H 20 96/63 L 96 01/27/18 08:15 01/27/18 08:15 01/27/18 08:15 01/27/18 08:15 01/27/18 08:15 Intake and Output: 01/27/18 01/27/18 06:59 18:59 Intake Total 2255 Balance 2255 - Medications Medications: Current Medications Acetaminophen (Tylenol 325mg Tab) 650 mg PO Q6H PRN PRN Reason: Fever >100.4 F Last Admin: 01/27/18 08:27 Dose: 650 mg Albuterol/Ipratropium (Duoneb 3 Mg/0.5 Mg (3 Ml) Ud) 3 ml IH [id number] [facility] Last Admin: 01/27/18 13:45 Dose: Not Given Albuterol/Ipratropium (Duoneb 3 Mg/0.5 Mg (3 Ml) Ud) 3 ml IH Q2H PRN PRN Reason: Shortness of Breath Atovaquone (Mepron) 750 mg PO BID MCKAYLA PRN Reason: Protocol Last Admin: 01/27/18 10:12 Dose: 750 mg Clarithromycin (Biaxin Filmtab) 500 mg PO Q12 MCKAYLA PRN Reason: Protocol Last Admin: 01/27/18 10:12 Dose: 500 mg Efavirenz/Emtricitabine/Tenofovir (Atripla 600 Mg-200 Mg-300 Mg) 1 tab PO DAILY MCKAYLA PRN Reason: Protocol Last Admin: 01/27/18 10:11 Dose: 1 tab Gabapentin (Neurontin) 300 mg PO TID MCKAYLA PRN Reason: Protocol Last Admin: 01/27/18 10:11 Dose: 300 mg Vancomycin HCl (Vancomycin 1gm) 1 gm in 250 mls @ 167 mls/hr IVPB Q12H MCKAYLA PRN Reason: Protocol Last Admin: 01/27/18 12:59 Dose: Not Given Micafungin Sodium 100 mg/ (Sodium Chloride) 100 mls @ 100 mls/hr IV DAILY MCKAYLA PRN Reason: Protocol Stop: 01/30/18 10:59 Last Admin: 01/27/18 10:12 Dose: 100 mls/hr Nystatin (Nystatin Oral Susp) 5 ml PO QID MCKAYLA Last Admin: 01/27/18 10:11 Dose: 5 ml Rifampin (Rifampin Cap) 300 mg PO DAILY MCKAYLA PRN Reason: Protocol Last Admin: 01/27/18 10:11 Dose: 300 mg - Labs Labs: 01/27/18 06:30 01/27/18 06:30 Attending/Attestation - Attestation I have personally seen and examined this patient.: Yes I have fully participated in the care of the patient.: Yes I have reviewed all pertinent clinical information, including history, physical exam and plan: Yes Notes (Text): 01/27/18 14:26 Medical record note made by the resident after discussion with my direction and input after the patient was personally seen and examined by me. I have reviewed the chart and agree that the record accurately reflects by personal performance of the history, physical exam, data review, and medical decision-making, in the course for the patient. I have also personally directed the plan of care.
--- NOTE | 2018-01-24 15:42 | CP.PCM.PN ---
Subjective - Date & Time of Evaluation Date of Evaluation: 01/24/18 Time of Evaluation: 15:00 - Subjective Subjective: Infectious Disease Follow Up: January 24, 2018 52 yo female presenting for urinary retention. Multiple hospitalizations this past month for generalized weakness and COPD exacerbation. Recent diagnosis of HIV with CD4 less than 20. Was discharged from the hospital the day before this admission. Returned for inability to urinate for one day. Fever up to 104.3 F in this hospitalization. Still with fever up to 103.2 F today. Most likely diagnosis remains JERSON given the state of her HIV. My concerns remain with her compliance with therapy. Currently on Clarithrimycin and Atovaquone for treatment of suspected JERSON. As fever continue to persist, will add Rifampin to the regimen for JERSON treatment. IV Vancomycin also added given reported drainage from raised skin area on buttocks. On HAART with Atripla now. Patient states that she feels better although the patient is still having high fevers. Tachycardia. Both tachycardia and the fevers are stabilizing. Objective - Vital Signs/Intake and Output Vital Signs (last 24 hours): Temp Pulse Resp BP Pulse Ox 100 F H 97 H 18 100/65 116 H 01/24/18 14:55 01/24/18 14:55 01/24/18 14:55 01/24/18 14:55 01/24/18 11:30 Intake and Output: 01/24/18 01/24/18 06:59 18:59 Intake Total 1980 0 Output Total 1100 Balance 880 0 - Medications Medications: Current Medications Acetaminophen (Tylenol 325mg Tab) 650 mg PO Q6H PRN PRN Reason: Fever >100.4 F Last Admin: 01/24/18 12:09 Dose: 650 mg Albuterol/Ipratropium (Duoneb 3 Mg/0.5 Mg (3 Ml) Ud) 3 ml IH [id number] [facility] Last Admin: 01/24/18 13:51 Dose: Not Given Albuterol/Ipratropium (Duoneb 3 Mg/0.5 Mg (3 Ml) Ud) 3 ml IH Q2H PRN PRN Reason: Shortness of Breath Atovaquone (Mepron) 750 mg PO BID [facility] PRN Reason: Protocol Last Admin: 01/24/18 10:01 Dose: 750 mg Clarithromycin (Biaxin Filmtab) 500 mg PO Q12 MCKAYLA PRN Reason: Protocol Last Admin: 01/24/18 10:01 Dose: 500 mg Efavirenz/Emtricitabine/Tenofovir (Atripla 600 Mg-200 Mg-300 Mg) 1 tab PO DAILY MCKAYLA PRN Reason: Protocol Last Admin: 01/24/18 10:01 Dose: 1 tab Gabapentin (Neurontin) 300 mg PO TID MCKAYLA PRN Reason: Protocol Last Admin: 01/24/18 13:22 Dose: 300 mg Vancomycin HCl (Vancomycin 1gm) 1 gm in 250 mls @ 167 mls/hr IVPB Q12H MCKAYLA PRN Reason: Protocol Last Admin: 01/24/18 04:59 Dose: 167 mls/hr Micafungin Sodium 100 mg/ (Sodium Chloride) 100 mls @ 100 mls/hr IV DAILY MCKAYLA PRN Reason: Protocol Last Admin: 01/24/18 10:03 Dose: 100 mls/hr Sodium Chloride (Sodium Chloride 0.9%) 1,000 mls @ 125 mls/hr IV .Q8H MCKAYLA Last Admin: 01/24/18 10:15 Dose: 125 mls/hr Midodrine (Proamatine) 5 mg PO TID PRN PRN Reason: Systolic Blood Pressure Last Admin: 01/22/18 16:27 Dose: 5 mg Nystatin (Nystatin Oral Susp) 5 ml PO QID MCKAYLA Last Admin: 01/24/18 13:23 Dose: 5 ml Rifampin (Rifampin Cap) 300 mg PO DAILY MCKAYLA PRN Reason: Protocol Last Admin: 01/24/18 10:11 Dose: 300 mg - Labs Labs: 01/24/18 06:30 01/24/18 06:30
--- NOTE | 2018-01-24 21:04 | CP.PCM.PN ---
Subjective - Date & Time of Evaluation Date of Evaluation: 01/24/18 Time of Evaluation: 17:00 - Subjective Subjective: Feeling better Objective - Vital Signs/Intake and Output Vital Signs (last 24 hours): Temp Pulse Resp BP Pulse Ox 102.7 F H 90 20 110/75 98 01/24/18 19:38 01/24/18 17:04 01/24/18 17:04 01/24/18 17:04 01/24/18 17:04 Intake and Output: 01/24/18 01/25/18 18:59 06:59 Intake Total 310 Balance 310 - Medications Medications: Current Medications Acetaminophen (Tylenol 325mg Tab) 650 mg PO Q6H PRN PRN Reason: Fever >100.4 F Last Admin: 01/24/18 19:38 Dose: 650 mg Albuterol/Ipratropium (Duoneb 3 Mg/0.5 Mg (3 Ml) Ud) 3 ml IH [id number] MCKAYLA Last Admin: 01/24/18 19:41 Dose: Not Given Albuterol/Ipratropium (Duoneb 3 Mg/0.5 Mg (3 Ml) Ud) 3 ml IH Q2H PRN PRN Reason: Shortness of Breath Clarithromycin (Biaxin Filmtab) 500 mg PO Q12 MCKAYLA PRN Reason: Protocol Last Admin: 01/24/18 10:01 Dose: 500 mg Efavirenz/Emtricitabine/Tenofovir (Atripla 600 Mg-200 Mg-300 Mg) 1 tab PO DAILY MCKAYLA PRN Reason: Protocol Last Admin: 01/24/18 10:01 Dose: 1 tab Gabapentin (Neurontin) 300 mg PO TID MCKAYLA PRN Reason: Protocol Last Admin: 01/24/18 17:57 Dose: 300 mg Micafungin Sodium 100 mg/ (Sodium Chloride) 100 mls @ 100 mls/hr IV DAILY MCKAYLA PRN Reason: Protocol Last Admin: 01/24/18 10:03 Dose: 100 mls/hr Sodium Chloride (Sodium Chloride 0.9%) 1,000 mls @ 125 mls/hr IV .Q8H MCKAYLA Last Admin: 01/24/18 17:53 Dose: Not Given Midodrine (Proamatine) 5 mg PO TID PRN PRN Reason: Systolic Blood Pressure Last Admin: 01/22/18 16:27 Dose: 5 mg Nystatin (Nystatin Oral Susp) 5 ml PO QID MCKAYLA Last Admin: 01/24/18 17:56 Dose: 5 ml - Labs Labs: 01/24/18 06:30 01/24/18 06:30 - Head Exam Head Exam: ATRAUMATIC - Eye Exam Eye Exam: Normal appearance - ENT Exam ENT Exam: Mucous Membranes Dry - Respiratory Exam Respiratory Exam: NORMAL BREATHING PATTERN - Cardiovascular Exam Cardiovascular Exam: +S1, +S2 - GI/Abdominal Exam GI & Abdominal Exam: Normal Bowel Sounds Assessment and Plan (1) Pancytopenia Assessment & Plan: likely AIDS related with exacerbation of counts by medication anemia of HIV and chronic disease; recommend 2U PRBC cont. to monitor platelet count Status: Acute
[2018-01-25] MEDS: Albuterol-Ipratrop 3 mg / 0.5 (3 ml) UD IH SCH ×4 (01:14→19:21)
[2018-01-25 06:43] LABS: EOS % 1.1 % (1.5-5.0); GRAN # 1.51 (1.4-6.5); GRAN % 85.4 % (50.0-68.0); HEMOGLOBIN 8.6 g/dL (12.0-16.0); LYMPH # 0.2 (1.2-3.4); LYMPH % 10.7 % (22.0-35.0); MEAN CORPUSCULAR HEMOGLOBIN 27.7 pg (25.0-35.0); MEAN CORPUSCULAR HGB CONC 34.3 g/dl (31.0-37.0); MONO # 0.1 (0.1-0.6); MONO % 2.8 % (1.0-6.0); RED CELL DISTRIBUTION WIDTH 15.3 % (11.5-14.5)
[2018-01-25 07:00] LABS: PLATELET COUNT 39 10^3/uL (120.0-450.0); WHITE BLOOD COUNT 1.8 10^3/ul (4.5-11.0)
[2018-01-25 07:41] LABS: ALB/GLOB RATIO 0.8 (1.1-1.8); ALBUMIN 2.3 g/dL (3.0-4.8); ALT/SGPT 25 U/L (7-56); AST/SGOT 63 U/L (14-36); BLOOD UREA NITROGEN 6 mg/dL (7-21); CALCIUM 8.7 mg/dL (8.4-10.5); GFR NON-AFRICAN AMERICAN > 60
[2018-01-25] MEDS: Nystatin 100,000 Units/ml Oral Susp 5 ml UD PO SCH ×4 (09:38→21:16)
[2018-01-25] MEDS: Efavirenz/Emtricitabine/Teno 1 TAB PO SCH (09:38)
[2018-01-25] MEDS: Potassium Chloride 20 mEq ER Tab PO SCH ×2 (09:39→11:57)
[2018-01-25] MEDS: Sodium Chloride 0.9% 1,000 ML IV SCH ×2 (09:39→17:40)
[2018-01-25] MEDS: Micafungin 100 MG in Sodium Chloride 0.9% 100 ML IV SCH (09:40)
[2018-01-25] MEDS: Atovaquone 750 mg/5 ml Susp UD PO SCH (17:40)
--- NOTE | 2018-01-25 17:41 | CP.PCM.PN ---
<Vishnu Henderson - Last Filed: 01/25/18 18:00> Subjective - Date & Time of Evaluation Date of Evaluation: 01/25/18 Time of Evaluation: 07:30 - Subjective Subjective: Vishnu Henderson DO PGY-1, [employer] Observer Medicine Progress Note Pt seen and examined at bedside this am, denies any acute complaints. Reports pain on balls of her feet b/l are improving. Spiking fevers, but states that she is comfortable this am, no acute distress. 12-point ROS obtained, otherwise neg as per pt. Objective - Vital Signs/Intake and Output Vital Signs (last 24 hours): Temp Pulse Resp BP Pulse Ox 100.9 F H 80 20 116/77 97 01/25/18 13:53 01/25/18 10:00 01/25/18 08:40 01/25/18 08:40 01/25/18 08:40 Intake and Output: 01/25/18 01/25/18 06:59 18:59 Intake Total 1845 Output Total 1250 Balance 595 - Medications Medications: Current Medications Acetaminophen (Tylenol 325mg Tab) 650 mg PO Q6H PRN PRN Reason: Fever >100.4 F Last Admin: 01/25/18 12:53 Dose: 650 mg Albuterol/Ipratropium (Duoneb 3 Mg/0.5 Mg (3 Ml) Ud) 3 ml IH [id number] [facility] Last Admin: 01/25/18 13:30 Dose: 3 ml Albuterol/Ipratropium (Duoneb 3 Mg/0.5 Mg (3 Ml) Ud) 3 ml IH Q2H PRN PRN Reason: Shortness of Breath Atovaquone (Mepron) 750 mg PO BID MCKAYLA PRN Reason: Protocol Clarithromycin (Biaxin Filmtab) 500 mg PO Q12 MCKAYLA PRN Reason: Protocol Efavirenz/Emtricitabine/Tenofovir (Atripla 600 Mg-200 Mg-300 Mg) 1 tab PO DAILY MCKAYLA PRN Reason: Protocol Last Admin: 01/25/18 09:38 Dose: 1 tab Gabapentin (Neurontin) 300 mg PO TID MCKAYLA PRN Reason: Protocol Last Admin: 01/25/18 14:23 Dose: 300 mg Sodium Chloride (Sodium Chloride 0.9%) 1,000 mls @ 125 mls/hr IV .Q8H MCKAYLA Last Admin: 01/25/18 09:39 Dose: 125 mls/hr Vancomycin HCl (Vancomycin 1gm) 1 gm in 250 mls @ 167 mls/hr IVPB Q12H MCKAYLA PRN Reason: Protocol Micafungin Sodium 100 mg/ (Sodium Chloride) 100 mls @ 100 mls/hr IV DAILY MCKAYLA PRN Reason: Protocol Stop: 01/26/18 10:59 Midodrine (Proamatine) 5 mg PO TID PRN PRN Reason: Systolic Blood Pressure Last Admin: 01/22/18 16:27 Dose: 5 mg Nystatin (Nystatin Oral Susp) 5 ml PO QID MCKAYLA Last Admin: 01/25/18 14:23 Dose: 5 ml Rifampin (Rifampin Cap) 300 mg PO DAILY MCKAYLA PRN Reason: Protocol - Labs Labs: 01/25/18 05:30 01/25/18 05:30 - Constitutional Appears: Non-toxic, No Acute Distress, Chronically Ill - Head Exam Head Exam: ATRAUMATIC, NORMAL INSPECTION - Eye Exam Eye Exam: EOMI, Normal appearance, PERRL - ENT Exam ENT Exam: Mucous Membranes Moist - Respiratory Exam Respiratory Exam: Clear to Ausculation Bilateral, NORMAL BREATHING PATTERN - Cardiovascular Exam Cardiovascular Exam: REGULAR RHYTHM, +S1, +S2 - GI/Abdominal Exam GI & Abdominal Exam: Soft, Normal Bowel Sounds. absent: Distended, Guarding, Tenderness, Organomegaly - Extremities Exam Extremities Exam: Full ROM, Normal Capillary Refill, Normal Inspection. absent : Pedal Edema, Tenderness - Neurological Exam Neurological Exam: Alert, Awake, CN II-XII Intact, Normal Gait, Oriented x3 - Skin Skin Exam: Dry, Intact, Warm Assessment and Plan - Assessment and Plan (Free Text) Assessment: 52 year old female with PMH of HIV and COPD presenting to the hospital for management of fever of unknown etiology, concern for JERSON as per ID on previous admission. Blood, urine, and sputum cultures drawn, sputum cx showing Stenotrophomonas maltophilia. Most recent CD4 is less than 20. CT abd/pelvis demonstrated no acute intra-abdominal findings. On Mepron, Biaxin, and Merrem as per ID. ID (Dr. Maher), GI (Dr. Pulido), Heme/Onc (Torsten), and Pulmonology ( Dr. Amador) consulted. Plan: Fever of unknown etiology -Fever on presentation to ED was 104.3; pt continuing to spike temps -Tylenol prn for fevers -Leukopenic; on neutropenic precautions -blood cultures neg; sputum cx showing Stenotrophomonas maltoplilia -Urine cx neg -U/A unremarkable -NS @ 125cc/hr -continue clarithromycin, atovaquone (patient's discharge antibiotics from prior admission) -Micafungin 100 mg daily -Per ID: Rifampin 300 mg daily, Vanco d/c'd by ID, Atripla daily (HAART therapy initiated) -TSH elevated 8.55, T3 and T4 ordered, f/u results -Cortisol wnl -Concern for MAC per ID on last admission -Lactate normal at 1.6 -ID consulted, Dr. Maher, recs appreciated -ESR and CRP elevated -Elevated Galactomannin on prior admission Urinary retention -Improved s/p rasheed placement -Pt passed voiding trial, will continue to monitor History of HIV -HIV RNA 5.65 and CD4 <20 within past month -Atripla daily per ID rec -Head CT on 01/17/18 was normal, patient tested positive for Toxo antibody on ; CT head neg for acute changes on prior admission -Chest CT on 01/11 showed no evidence of infiltrate. Small pleural based nodules are seen at the left lung base the largest measuring 7mm. -Patient given instructions previously to follow up with [facility]'s human immunodeficiency virus clinic -F/u ID recs Transaminitis - improving -Consider MAC as etiology -Hepatic U/s demonstrated cholelithasis; no c/o RUQ/abd pain at this time -GI consulted (Dr. Pulido), recs appreciated -Ct abd/pelvis on admission unremarkable -Ct abd/pelvis 01/15: 2 indeterminate hepatic lesions identified, do not represent simple cysts, abscess and neoplasm not excluded. No acute findings noted. -GGT elevated 302, Total bili 1.7, direct bili 0.3 Anemia -Hgb 8.6 today, pt asx, continue to trend; s/p 2 units PRBCs -Likely 2/2 to chronic HIV; pancytopenia -Will monitor -Retic ct 0.35, peripheral smear demonstrated pancytopenia -Heme/onc consulted for pancytopenia, recs appreciated Thrombocytopenia -Plts 39,000, continue to monitor Hypotension -On IVF, cont to monitor -Echo 01/09/18 demonstrated EF 53%, RVSP 32, normal LV segmental wall motion and size -Carotid U/s on 01/09 showed b/l 0-19% proximal ICA stenoses -BNP on 01/15 was 1510; unlikely CHF in light of normal echo Hx COPD -Duonebs q 6 h -Saturating well on room air -Pulmonology consulted, Dr. Amador: recommended outpt PFTs when well, may need outpt bronch in future (r/o PCP and MAC) DVT ppx: Heparin Pt seen, examined with, and plan discussed with Dr. Bruno, attending. <eJremy Bruno - Last Filed: 01/27/18 14:27> Objective - Vital Signs/Intake and Output Vital Signs (last 24 hours): Temp Pulse Resp BP Pulse Ox 98.8 F 92 H 20 96/63 L 96 01/27/18 08:15 01/27/18 08:15 01/27/18 08:15 01/27/18 08:15 01/27/18 08:15 Intake and Output: 01/27/18 01/27/18 06:59 18:59 Intake Total 2255 Balance 2255 - Medications Medications: Current Medications Acetaminophen (Tylenol 325mg Tab) 650 mg PO Q6H PRN PRN Reason: Fever >100.4 F Last Admin: 01/27/18 08:27 Dose: 650 mg Albuterol/Ipratropium (Duoneb 3 Mg/0.5 Mg (3 Ml) Ud) 3 ml IH [id number] MCKAYLA Last Admin: 01/27/18 13:45 Dose: Not Given Albuterol/Ipratropium (Duoneb 3 Mg/0.5 Mg (3 Ml) Ud) 3 ml IH Q2H PRN PRN Reason: Shortness of Breath Atovaquone (Mepron) 750 mg PO BID MCKAYLA PRN Reason: Protocol Last Admin: 01/27/18 10:12 Dose: 750 mg Clarithromycin (Biaxin Filmtab) 500 mg PO Q12 [facility]CKAYLA PRN Reason: Protocol Last Admin: 01/27/18 10:12 Dose: 500 mg Efavirenz/Emtricitabine/Tenofovir (Atripla 600 Mg-200 Mg-300 Mg) 1 tab PO DAILY MCKAYLA PRN Reason: Protocol Last Admin: 01/27/18 10:11 Dose: 1 tab Gabapentin (Neurontin) 300 mg PO TID MCKAYLA PRN Reason: Protocol Last Admin: 01/27/18 10:11 Dose: 300 mg Vancomycin HCl (Vancomycin 1gm) 1 gm in 250 mls @ 167 mls/hr IVPB Q12H [facility]CK[facility]LA PRN Reason: Protocol Last Admin: 01/27/18 12:59 Dose: Not Given Micafungin Sodium 100 mg/ (Sodium Chloride) 100 mls @ 100 mls/hr IV DAILY MCKAYLA PRN Reason: Protocol Stop: 01/30/18 10:59 Last Admin: 01/27/18 10:12 Dose: 100 mls/hr Nystatin (Nystatin Oral Susp) 5 ml PO QID MCKAYLA Last Admin: 01/27/18 10:11 Dose: 5 ml Rifampin (Rifampin Cap) 300 mg PO DAILY MCKAYLA PRN Reason: Protocol Last Admin: 01/27/18 10:11 Dose: 300 mg - Labs Labs: 01/27/18 06:30 01/27/18 06:30 Attending/Attestation - Attestation I have personally seen and examined this patient.: Yes I have fully participated in the care of the patient.: Yes I have reviewed all pertinent clinical information, including history, physical exam and plan: Yes Notes (Text): 01/27/18 14:27 Medical record note made by the resident after discussion with my direction and input after the patient was personally seen and examined by me. I have reviewed the chart and agree that the record accurately reflects by personal performance of the history, physical exam, data review, and medical decision-making, in the course for the patient. I have also personally directed the plan of care.
--- NOTE | 2018-01-25 19:27 | CP.PCM.PN ---
Subjective - Date & Time of Evaluation Date of Evaluation: 01/25/18 Time of Evaluation: 17:45 - Subjective Subjective: Infectious Disease Follow Up: January 25, 2018 52 yo female presenting for urinary retention. Multiple hospitalizations this past month for generalized weakness and COPD exacerbation. Recent diagnosis of HIV with CD4 less than 20. Was discharged from the hospital the day before this admission. Returned for inability to urinate for one day. Fever up to 104.3 F in this hospitalization. Still with fever up to 103.2 F today. Most likely diagnosis remains JERSON given the state of her HIV. My concerns remain with her compliance with therapy. Currently on Clarithrimycin and Atovaquone for treatment of suspected JERSON. As fever continue to persist, will add Rifampin to the regimen for JERSON treatment. IV Vancomycin also added given reported drainage from raised skin area on buttocks. On HAART with Atripla now. Patient states that she feels better although the patient is still having high fevers. Tachycardia. Both tachycardia and the fevers are stabilizing. Single fever of 101 this morning. Objective - Vital Signs/Intake and Output Vital Signs (last 24 hours): Temp Pulse Resp BP Pulse Ox 101.3 F H 108 H 20 86/57 L 100 01/25/18 19:02 01/25/18 18:33 01/25/18 18:33 01/25/18 18:33 01/25/18 18:33 - Medications Medications: Current Medications Acetaminophen (Tylenol 325mg Tab) 650 mg PO Q6H PRN PRN Reason: Fever >100.4 F Last Admin: 01/25/18 19:02 Dose: 650 mg Albuterol/Ipratropium (Duoneb 3 Mg/0.5 Mg (3 Ml) Ud) 3 ml IH [id number] [facility] Last Admin: 01/25/18 13:30 Dose: 3 ml Albuterol/Ipratropium (Duoneb 3 Mg/0.5 Mg (3 Ml) Ud) 3 ml IH Q2H PRN PRN Reason: Shortness of Breath Atovaquone (Mepron) 750 mg PO BID MCKAYLA PRN Reason: Protocol Last Admin: 01/25/18 17:40 Dose: 750 mg Clarithromycin (Biaxin Filmtab) 500 mg PO Q12 MCKAYLA PRN Reason: Protocol Efavirenz/Emtricitabine/Tenofovir (Atripla 600 Mg-200 Mg-300 Mg) 1 tab PO DAILY MCKAYLA PRN Reason: Protocol Last Admin: 01/25/18 09:38 Dose: 1 tab Gabapentin (Neurontin) 300 mg PO TID MCKAYLA PRN Reason: Protocol Last Admin: 01/25/18 17:40 Dose: 300 mg Sodium Chloride (Sodium Chloride 0.9%) 1,000 mls @ 125 mls/hr IV .Q8H MCKAYLA Last Admin: 01/25/18 17:40 Dose: 125 mls/hr Vancomycin HCl (Vancomycin 1gm) 1 gm in 250 mls @ 167 mls/hr IVPB Q12H MCKAYLA PRN Reason: Protocol Micafungin Sodium 100 mg/ (Sodium Chloride) 100 mls @ 100 mls/hr IV DAILY MCKAYLA PRN Reason: Protocol Stop: 01/26/18 10:59 Midodrine (Proamatine) 5 mg PO TID PRN PRN Reason: Systolic Blood Pressure Last Admin: 01/22/18 16:27 Dose: 5 mg Nystatin (Nystatin Oral Susp) 5 ml PO QID MCKAYLA Last Admin: 01/25/18 17:40 Dose: 5 ml Rifampin (Rifampin Cap) 300 mg PO DAILY MCKAYLA PRN Reason: Protocol - Labs Labs: 01/25/18 05:30 01/25/18 05:30 - Constitutional Appears: Non-toxic, No Acute Distress, Chronically Ill - Head Exam Head Exam: ATRAUMATIC, NORMOCEPHALIC - Eye Exam Eye Exam: EOMI, PERRL Pupil Exam: NORMAL ACCOMODATION, PERRL - ENT Exam ENT Exam: Mucous Membranes Moist, Normal External Ear Exam, TM's Normal Bilaterally - Neck Exam Neck Exam: Full ROM, Normal Inspection - Respiratory Exam Respiratory Exam: Clear to Ausculation Bilateral, NORMAL BREATHING PATTERN. absent: Rales, Rhonchi, Wheezes - Cardiovascular Exam Cardiovascular Exam: REGULAR RHYTHM, RRR, +S1, +S2 - GI/Abdominal Exam GI & Abdominal Exam: Soft, Normal Bowel Sounds. absent: Distended, Tenderness - Extremities Exam Extremities Exam: Full ROM, Normal Inspection - Neurological Exam Neurological Exam: Alert, Awake, CN II-XII Intact, Oriented x3 - Psychiatric Exam Psychiatric exam: Normal Affect, Normal Mood - Skin Skin Exam: Intact, Normal Color Additional comments: healing rash on right buttocks. Assessment and Plan - Assessment and Plan (Free Text) Assessment: 52 yo Female with newly diagnosed HIV disease presenting with inability to urinate for 1 day and findings of fevers up to 104 F. The patient likely requires set up with HIV clinic and to start HAART. Continue with meropenem for now. CT Abd/Pel with no acute findings. Chest X-ray with no acute cardiopulmonary findings. Given previous hospitalizations and lack of findings with a similar presentation but high [id number], the patient may have a mycobacterium (nontuberculosis) disease of the lung. Concerns mostly around how the patient would receive therapy especially since the patient came back to the hospital 24 hours of her discharge from the facility. Her treatments for a JERSON pneumonia would still need weeks to months of medications. May need to check if the [facility] is willing to provide follow up on the patient for presumptive JERSON treatment. Fevers persist however there were episodes of hypothermia two nights ago with temperature of 96.8 F. In light of this, the patient was already on Clarithromycin and Atovaquone for presumptive JERSON treatment. Added Rifampin to the regimen. There was swelling across one dermatome with drainage of pus. Given the wide fever range and increasing symptomology, started HAART regimen and obtain Genotype testing. Micafungin also started. Patient states she feels better overall and has less sweating. Fevers decreasing... one episode today. Supportive care. IRIS? Thank you for allowing me to participate in the care of the patient, we will follow with you.
[2018-01-25] MEDS: Vancomycin 1gm in NS 250ml 1 GM/250 ML BAG IVPB SCH (21:17)
--- NOTE | 2018-01-25 23:46 | CP.PCM.PN ---
Subjective - Date & Time of Evaluation Date of Evaluation: 01/25/18 Time of Evaluation: 12:00 - Subjective Subjective: Feels better, fevers less intense Objective - Vital Signs/Intake and Output Vital Signs (last 24 hours): Temp Pulse Resp BP Pulse Ox 101.3 F H 108 H 20 86/57 L 100 01/25/18 19:02 01/25/18 18:33 01/25/18 18:33 01/25/18 18:33 01/25/18 18:33 Intake and Output: 01/25/18 01/26/18 18:59 06:59 Intake Total 2155 Output Total 1600 Balance 555 - Medications Medications: Current Medications Acetaminophen (Tylenol 325mg Tab) 650 mg PO Q6H PRN PRN Reason: Fever >100.4 F Last Admin: 01/25/18 19:02 Dose: 650 mg Albuterol/Ipratropium (Duoneb 3 Mg/0.5 Mg (3 Ml) Ud) 3 ml IH [id number] [facility]CKAYLA Last Admin: 01/25/18 19:21 Dose: Not Given Albuterol/Ipratropium (Duoneb 3 Mg/0.5 Mg (3 Ml) Ud) 3 ml IH Q2H PRN PRN Reason: Shortness of Breath Atovaquone (Mepron) 750 mg PO BID MCKAYLA PRN Reason: Protocol Last Admin: 01/25/18 17:40 Dose: 750 mg Clarithromycin (Biaxin Filmtab) 500 mg PO Q12 MCKAYLA PRN Reason: Protocol Last Admin: 01/25/18 21:17 Dose: 500 mg Efavirenz/Emtricitabine/Tenofovir (Atripla 600 Mg-200 Mg-300 Mg) 1 tab PO DAILY MCKAYLA PRN Reason: Protocol Last Admin: 01/25/18 09:38 Dose: 1 tab Gabapentin (Neurontin) 300 mg PO TID MCKAYLA PRN Reason: Protocol Last Admin: 01/25/18 17:40 Dose: 300 mg Sodium Chloride (Sodium Chloride 0.9%) 1,000 mls @ 125 mls/hr IV .Q8H MCKAYLA Last Admin: 01/25/18 17:40 Dose: 125 mls/hr Vancomycin HCl (Vancomycin 1gm) 1 gm in 250 mls @ 167 mls/hr IVPB Q12H MCKAYLA PRN Reason: Protocol Last Admin: 01/25/18 21:17 Dose: 167 mls/hr Micafungin Sodium 100 mg/ (Sodium Chloride) 100 mls @ 100 mls/hr IV DAILY MCKAYLA PRN Reason: Protocol Stop: 01/30/18 10:59 Midodrine (Proamatine) 5 mg PO TID PRN PRN Reason: Systolic Blood Pressure Last Admin: 01/22/18 16:27 Dose: 5 mg Nystatin (Nystatin Oral Susp) 5 ml PO QID MCKAYLA Last Admin: 01/25/18 21:16 Dose: 5 ml Rifampin (Rifampin Cap) 300 mg PO DAILY MCKAYLA PRN Reason: Protocol - Labs Labs: 01/25/18 05:30 01/25/18 05:30 - Head Exam Head Exam: ATRAUMATIC - Eye Exam Eye Exam: Normal appearance - ENT Exam ENT Exam: Mucous Membranes Dry - Respiratory Exam Respiratory Exam: NORMAL BREATHING PATTERN - Cardiovascular Exam Cardiovascular Exam: +S1, +S2 - GI/Abdominal Exam GI & Abdominal Exam: Normal Bowel Sounds Assessment and Plan (1) Pancytopenia Assessment & Plan: likely AIDS related with exacerbation of counts by medication anemia of HIV and chronic disease; transfusion support PRN cont. to monitor platelet count Status: Acute
[2018-01-26] MEDS: Albuterol-Ipratrop 3 mg / 0.5 (3 ml) UD IH SCH ×4 (01:08→19:55)
[2018-01-26] MEDS: Sodium Chloride 0.9% 1,000 ML IV SCH (05:53)
[2018-01-26 06:45] LABS: BASO # 0.01 K/mm3 (0.0-2.0); BASO % 0.7 % (0.0-3.0); EOS % 0.7 % (1.5-5.0); GRAN % 82.1 % (50.0-68.0); HEMOGLOBIN 8.7 g/dL (12.0-16.0); LYMPH # 0.2 (1.2-3.4); LYMPH % 14.4 % (22.0-35.0); MEAN CELL VOLUME 82.1 fl (80.0-105.0); MEAN CORPUSCULAR HEMOGLOBIN 27.4 pg (25.0-35.0); MEAN CORPUSCULAR HGB CONC 33.3 g/dl (31.0-37.0); MEAN PLATELET VOLUME 11.2 fl (7.0-11.0); MONO % 2.1 % (1.0-6.0); RBC 3.18 10^6/uL (3.5-6.1); RED CELL DISTRIBUTION WIDTH 15.3 % (11.5-14.5)
[2018-01-26 06:54] LABS: ALB/GLOB RATIO 0.8 (1.1-1.8); ALBUMIN 2.4 g/dL (3.0-4.8); ALT/SGPT 24 U/L (7-56); AST/SGOT 67 U/L (14-36); BLOOD UREA NITROGEN 6 mg/dL (7-21); CALCIUM 7.4 mg/dL (8.4-10.5); GFR NON-AFRICAN AMERICAN > 60
[2018-01-26 07:47] LABS: PLATELET COUNT 39 10^3/uL (120.0-450.0); WHITE BLOOD COUNT 1.5 10^3/ul (4.5-11.0)
[2018-01-26] MEDS: Efavirenz/Emtricitabine/Teno 1 TAB PO SCH (09:17)
[2018-01-26] MEDS: Atovaquone 750 mg/5 ml Susp UD PO SCH ×2 (09:18→17:32)
[2018-01-26] MEDS: Micafungin 100 MG in Sodium Chloride 0.9% 100 ML IV SCH (09:18)
[2018-01-26] MEDS: Nystatin 100,000 Units/ml Oral Susp 5 ml UD PO SCH ×4 (09:19→21:25)
[2018-01-26] MEDS ORDERED: Micafungin 100 MG in Sodium Chloride 0.9% 100 ML IV SCH (10:00)
[2018-01-26] MEDS: Vancomycin 1gm in NS 250ml 1 GM/250 ML BAG IVPB SCH ×2 (10:46→21:28)
--- NOTE | 2018-01-26 11:52 | CP.PCM.PN ---
<SantiagoTonya - Last Filed: 01/26/18 20:11> Subjective - Date & Time of Evaluation Date of Evaluation: 01/26/18 Time of Evaluation: 07:15 - Subjective Subjective: Vishnu Henderson DO PGY-1, Lead Ruby On Rails Developer Medicine Progress Note Pt seen and examined at bedside this am, denies any acute complaints. Reports pain on balls of her feet b/l are improving. Spiking fevers, but states that she is comfortable this am, no acute distress. 12-point ROS obtained, otherwise neg as per pt. Pt had episode of urinary incontinence overnight as per staff developer. Objective - Vital Signs/Intake and Output Vital Signs (last 24 hours): Temp Pulse Resp BP Pulse Ox 98.3 F 100 H 20 115/77 99 01/26/18 06:00 01/26/18 10:00 01/26/18 06:00 01/26/18 06:00 01/26/18 06:00 Intake and Output: 01/26/18 01/26/18 06:59 18:59 Intake Total 1665 Output Total 400 Balance 1265 - Medications Medications: Current Medications Acetaminophen (Tylenol 325mg Tab) 650 mg PO Q6H PRN PRN Reason: Fever >100.4 F Last Admin: 01/25/18 19:02 Dose: 650 mg Albuterol/Ipratropium (Duoneb 3 Mg/0.5 Mg (3 Ml) Ud) 3 ml IH [id number] MCKAYLA Last Admin: 01/26/18 07:41 Dose: 3 ml Albuterol/Ipratropium (Duoneb 3 Mg/0.5 Mg (3 Ml) Ud) 3 ml IH Q2H PRN PRN Reason: Shortness of Breath Atovaquone (Mepron) 750 mg PO BID MCKAYLA PRN Reason: Protocol Last Admin: 01/26/18 09:18 Dose: 750 mg Clarithromycin (Biaxin Filmtab) 500 mg PO Q12 MCKAYLA PRN Reason: Protocol Last Admin: 01/26/18 09:18 Dose: 500 mg Efavirenz/Emtricitabine/Tenofovir (Atripla 600 Mg-200 Mg-300 Mg) 1 tab PO DAILY MCKAYLA PRN Reason: Protocol Last Admin: 01/26/18 09:17 Dose: 1 tab Gabapentin (Neurontin) 300 mg PO TID MCKAYLA PRN Reason: Protocol Last Admin: 01/26/18 09:18 Dose: 300 mg Sodium Chloride (Sodium Chloride 0.9%) 1,000 mls @ 125 mls/hr IV .Q8H MCKAYLA Last Admin: 01/26/18 05:53 Dose: 125 mls/hr Vancomycin HCl (Vancomycin 1gm) 1 gm in 250 mls @ 167 mls/hr IVPB Q12H MCKAYLA PRN Reason: Protocol Last Admin: 01/26/18 10:46 Dose: 167 mls/hr Micafungin Sodium 100 mg/ (Sodium Chloride) 100 mls @ 100 mls/hr IV DAILY MCKAYLA PRN Reason: Protocol Stop: 01/30/18 10:59 Last Admin: 01/26/18 09:18 Dose: 100 mls/hr Nystatin (Nystatin Oral Susp) 5 ml PO QID [facility] Last Admin: 01/26/18 09:19 Dose: 5 ml Rifampin (Rifampin Cap) 300 mg PO DAILY MCKAYLA PRN Reason: Protocol Last Admin: 01/26/18 09:19 Dose: 300 mg - Labs Labs: 01/26/18 05:30 01/26/18 05:30 - Constitutional Appears: Non-toxic, No Acute Distress, Chronically Ill - Head Exam Head Exam: ATRAUMATIC, NORMAL INSPECTION - Eye Exam Eye Exam: EOMI, Normal appearance, PERRL - ENT Exam ENT Exam: Mucous Membranes Moist - Respiratory Exam Respiratory Exam: Clear to Ausculation Bilateral, NORMAL BREATHING PATTERN - Cardiovascular Exam Cardiovascular Exam: REGULAR RHYTHM, +S1, +S2 - GI/Abdominal Exam GI & Abdominal Exam: Soft, Normal Bowel Sounds. absent: Tenderness - Extremities Exam Extremities Exam: Full ROM, Normal Capillary Refill, Normal Inspection - Neurological Exam Neurological Exam: Alert, Awake, CN II-XII Intact, Oriented x3 - Skin Skin Exam: Dry, Intact, Warm Assessment and Plan - Assessment and Plan (Free Text) Assessment: 52 year old female with PMH of HIV and COPD presenting to the hospital for management of fever of unknown etiology, concern for JERSON as per ID on previous admission. Blood, urine, and sputum cultures drawn, sputum cx showing Stenotrophomonas maltophilia. Most recent CD4 is less than 20. CT abd/pelvis demonstrated no acute intra-abdominal findings. On Mepron, Biaxin, and Merrem as per ID. ID (Dr. Maher), GI (Dr. Pulido), Heme/Onc (Torsten), and Pulmonology ( Dr. Amador) consulted. Plan: Fever of unknown etiology -Fever on presentation to ED was 104.3; pt continuing to spike temps -Tylenol prn for fevers -Leukopenic; on neutropenic precautions -blood cultures neg; sputum cx showing Stenotrophomonas maltoplilia -Urine cx neg -U/A unremarkable -IVF d/c'd, Midodrine d/c'd -continue clarithromycin, atovaquone (patient's discharge antibiotics from prior admission) -Micafungin 100 mg daily -Per ID: Rifampin 300 mg daily, Vanco d/c'd by ID, Atripla daily (HAART therapy initiated) -TSH elevated 8.55, T3 and T4 ordered, f/u results -Cortisol wnl -Concern for MAC per ID on last admission -Lactate normal at 1.6 -ID consulted, Dr. Maher, recs appreciated -ESR and CRP elevated -Elevated Galactomannin on prior admission Urinary retention -Improved s/p rasheed placement -Pt passed voiding trial, will continue to monitor -Pt had episode of urine incontinence overnight, f/u bladder scan results History of HIV -HIV RNA 5.65 and CD4 <20 within past month -Atripla daily per ID rec -Head CT on 01/17/18 was normal, patient tested positive for Toxo antibody on ; CT head neg for acute changes on prior admission -Chest CT on 01/11 showed no evidence of infiltrate. Small pleural based nodules are seen at the left lung base the largest measuring 7mm. -Patient given instructions previously to follow up with [facility]'s human immunodeficiency virus clinic -F/u ID recs Transaminitis - improving -Consider MAC as etiology -Hepatic U/s demonstrated cholelithasis; no c/o RUQ/abd pain at this time -GI consulted (Dr. Pulido), recs appreciated -Ct abd/pelvis on admission unremarkable -Ct abd/pelvis 01/15: 2 indeterminate hepatic lesions identified, do not represent simple cysts, abscess and neoplasm not excluded. No acute findings noted. -GGT elevated 302, Total bili 1.7, direct bili 0.3 Anemia -Hgb stable today, pt asx, continue to trend; s/p 2 units PRBCs -Likely 2/2 to chronic HIV; pancytopenia -Will monitor -Retic ct 0.35, peripheral smear demonstrated pancytopenia -Heme/onc consulted for pancytopenia, recs appreciated Thrombocytopenia -Plts 39,000, continue to monitor Hypotension -Off IVF, cont to monitor -Echo 01/09/18 demonstrated EF 53%, RVSP 32, normal LV segmental wall motion and size -Carotid U/s on 01/09 showed b/l 0-19% proximal ICA stenoses -BNP on 01/15 was 1510; unlikely CHF in light of normal echo Hx COPD -Duonebs q 6 h -Saturating well on room air -Pulmonology consulted, Dr. Amador: recommended outpt PFTs when well, may need outpt bronch in future (r/o PCP and MAC) DVT ppx: Heparin Pt seen, examined with, and plan discussed with Dr. Bruno, attending. <Jeremy Bruno - Last Filed: 01/27/18 14:23> Objective - Vital Signs/Intake and Output Vital Signs (last 24 hours): Temp Pulse Resp BP Pulse Ox 98.8 F 92 H 20 96/63 L 96 01/27/18 08:15 01/27/18 08:15 01/27/18 08:15 01/27/18 08:15 01/27/18 08:15 Intake and Output: 01/27/18 01/27/18 06:59 18:59 Intake Total 2255 Balance 2255 - Medications Medications: Current Medications Acetaminophen (Tylenol 325mg Tab) 650 mg PO Q6H PRN PRN Reason: Fever >100.4 F Last Admin: 01/27/18 08:27 Dose: 650 mg Albuterol/Ipratropium (Duoneb 3 Mg/0.5 Mg (3 Ml) Ud) 3 ml IH [id number] MCKAYLA Last Admin: 01/27/18 13:45 Dose: Not Given Albuterol/Ipratropium (Duoneb 3 Mg/0.5 Mg (3 Ml) Ud) 3 ml IH Q2H PRN PRN Reason: Shortness of Breath Atovaquone (Mepron) 750 mg PO BID MCKAYLA PRN Reason: Protocol Last Admin: 01/27/18 10:12 Dose: 750 mg Clarithromycin (Biaxin Filmtab) 500 mg PO Q12 MCKAYLA PRN Reason: Protocol Last Admin: 01/27/18 10:12 Dose: 500 mg Efavirenz/Emtricitabine/Tenofovir (Atripla 600 Mg-200 Mg-300 Mg) 1 tab PO DAILY MCKAYLA PRN Reason: Protocol Last Admin: 01/27/18 10:11 Dose: 1 tab Gabapentin (Neurontin) 300 mg PO TID MCKAYLA PRN Reason: Protocol Last Admin: 01/27/18 10:11 Dose: 300 mg Vancomycin HCl (Vancomycin 1gm) 1 gm in 250 mls @ 167 mls/hr IVPB Q12H MCKAYLA PRN Reason: Protocol Last Admin: 01/27/18 12:59 Dose: Not Given Micafungin Sodium 100 mg/ (Sodium Chloride) 100 mls @ 100 mls/hr IV DAILY MCKAYLA PRN Reason: Protocol Stop: 01/30/18 10:59 Last Admin: 01/27/18 10:12 Dose: 100 mls/hr Nystatin (Nystatin Oral Susp) 5 ml PO QID MCKAYLA Last Admin: 01/27/18 10:11 Dose: 5 ml Rifampin (Rifampin Cap) 300 mg PO DAILY MCKAYLA PRN Reason: Protocol Last Admin: 01/27/18 10:11 Dose: 300 mg - Labs Labs: 01/27/18 06:30 01/27/18 06:30 Attending/Attestation - Attestation I have personally seen and examined this patient.: Yes I have fully participated in the care of the patient.: Yes I have reviewed all pertinent clinical information, including history, physical exam and plan: Yes Notes (Text): 01/27/18 14:21 Patient was seen and examined with medical health researcher. 52 yo Female with newly diagnosed HIV disease was readmitted with urinary retention and fevers up to 104 F. Given previous hospitalizations and lack of findings with a similar presentation but high [id number], the patient may have a mycobacterium (nontuberculosis) disease of the lung The patient likely requires set up with HIV clinic and to start HAART. Continue with meropenem for now. CT Abd/Pel with no acute findings. Chest X- ray with no acute cardiopulmonary findings, Clarithromycin ,Atovaquone and Rifampin for presumptive JERSON treatment as per ID.Patient fever is improving, will need 6-9 month treatment for JERSON infection.Continue HAART regimen . 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 Prognosis is guarded.
--- NOTE | 2018-01-26 15:46 | CP.PCM.PN ---
Subjective - Date & Time of Evaluation Date of Evaluation: 01/26/18 Time of Evaluation: 14:20 - Subjective Subjective: Infectious Disease Follow Up: January 26, 2018 52 yo female presenting for urinary retention. Multiple hospitalizations this past month for generalized weakness and COPD exacerbation. Recent diagnosis of HIV with CD4 less than 20. Was discharged from the hospital the day before this admission. Returned for inability to urinate for one day. Fever up to 104.3 F in this hospitalization. Still with fever up to 103.2 F today. Most likely diagnosis remains JERSON given the state of her HIV. My concerns remain with her compliance with therapy. Currently on Clarithrimycin and Atovaquone for treatment of suspected JERSON. As fever continue to persist, will add Rifampin to the regimen for JERSON treatment. IV Vancomycin also added given reported drainage from raised skin area on buttocks. On HAART with Atripla now. Patient states that she feels better although the patient is still having high fevers. Tachycardia. Both tachycardia and the fevers are stabilizing. Fevers of 103.1 yesterday. Had one fever episode of 102.8 F. Less frequent fever episodes. Objective - Vital Signs/Intake and Output Vital Signs (last 24 hours): Temp Pulse Resp BP Pulse Ox 102.8 F H 100 H 20 115/77 99 01/26/18 14:04 01/26/18 10:00 01/26/18 06:00 01/26/18 06:00 01/26/18 06:00 Intake and Output: 01/26/18 01/26/18 06:59 18:59 Intake Total 1665 Output Total 400 Balance 1265 - Medications Medications: Current Medications Acetaminophen (Tylenol 325mg Tab) 650 mg PO Q6H PRN PRN Reason: Fever >100.4 F Last Admin: 01/26/18 14:04 Dose: 650 mg Albuterol/Ipratropium (Duoneb 3 Mg/0.5 Mg (3 Ml) Ud) 3 ml IH [id number] [facility] Last Admin: 01/26/18 13:35 Dose: 3 ml Albuterol/Ipratropium (Duoneb 3 Mg/0.5 Mg (3 Ml) Ud) 3 ml IH Q2H PRN PRN Reason: Shortness of Breath Atovaquone (Mepron) 750 mg PO BID [facility] PRN Reason: Protocol Last Admin: 01/26/18 09:18 Dose: 750 mg Clarithromycin (Biaxin Filmtab) 500 mg PO Q12 MCKAYLA PRN Reason: Protocol Last Admin: 01/26/18 09:18 Dose: 500 mg Efavirenz/Emtricitabine/Tenofovir (Atripla 600 Mg-200 Mg-300 Mg) 1 tab PO DAILY MCKAYLA PRN Reason: Protocol Last Admin: 01/26/18 09:17 Dose: 1 tab Gabapentin (Neurontin) 300 mg PO TID MCKAYLA PRN Reason: Protocol Last Admin: 01/26/18 14:04 Dose: 300 mg Sodium Chloride (Sodium Chloride 0.9%) 1,000 mls @ 125 mls/hr IV .Q8H MCKAYLA Last Admin: 01/26/18 05:53 Dose: 125 mls/hr Vancomycin HCl (Vancomycin 1gm) 1 gm in 250 mls @ 167 mls/hr IVPB Q12H [facility]CKAYLA PRN Reason: Protocol Last Admin: 01/26/18 10:46 Dose: 167 mls/hr Micafungin Sodium 100 mg/ (Sodium Chloride) 100 mls @ 100 mls/hr IV DAILY MCKAYLA PRN Reason: Protocol Stop: 01/30/18 10:59 Last Admin: 01/26/18 09:18 Dose: 100 mls/hr Nystatin (Nystatin Oral Susp) 5 ml PO QID [facility] Last Admin: 01/26/18 14:04 Dose: 5 ml Rifampin (Rifampin Cap) 300 mg PO DAILY MCKAYLA PRN Reason: Protocol Last Admin: 01/26/18 09:19 Dose: 300 mg - Labs Labs: 01/26/18 05:30 01/26/18 05:30 - Constitutional Appears: Non-toxic, No Acute Distress, Chronically Ill - Head Exam Head Exam: ATRAUMATIC, NORMOCEPHALIC - Eye Exam Eye Exam: EOMI, PERRL Pupil Exam: NORMAL ACCOMODATION, PERRL - ENT Exam ENT Exam: Mucous Membranes Moist, Normal External Ear Exam, TM's Normal Bilaterally - Neck Exam Neck Exam: Full ROM, Normal Inspection - Respiratory Exam Respiratory Exam: Clear to Ausculation Bilateral, NORMAL BREATHING PATTERN. absent: Rales, Rhonchi, Wheezes - Cardiovascular Exam Cardiovascular Exam: REGULAR RHYTHM, RRR, +S1, +S2 - GI/Abdominal Exam GI & Abdominal Exam: Soft, Normal Bowel Sounds. absent: Distended, Tenderness - Extremities Exam Extremities Exam: Full ROM, Normal Inspection - Neurological Exam Neurological Exam: Alert, Awake, CN II-XII Intact, Oriented x3 - Psychiatric Exam Psychiatric exam: Normal Affect, Normal Mood - Skin Skin Exam: Intact, Normal Color Additional comments: healing rash on right buttocks. Assessment and Plan - Assessment and Plan (Free Text) Assessment: 52 yo Female with newly diagnosed HIV disease presenting with inability to urinate for 1 day and findings of fevers up to 104 F. The patient likely requires set up with HIV clinic and to start HAART. Continue with meropenem for now. CT Abd/Pel with no acute findings. Chest X-ray with no acute cardiopulmonary findings. Given previous hospitalizations and lack of findings with a similar presentation but high Inex-B-Aptyat, the patient may have a mycobacterium (nontuberculosis) disease of the lung. Concerns mostly around how the patient would receive therapy especially since the patient came back to the hospital 24 hours of her discharge from the facility. Her treatments for a JERSON pneumonia would still need weeks to months of medications. May need to check if the [facility] is willing to provide follow up on the patient for presumptive JERSON treatment. Fevers persist however there were episodes of hypothermia two nights ago with temperature of 96.8 F. In light of this, the patient was already on Clarithromycin and Atovaquone for presumptive JERSON treatment. Added Rifampin to the regimen. There was swelling across one dermatome with drainage of pus. Given the wide fever range and increasing symptomology, started HAART regimen and obtain Genotype testing. Micafungin also started. Patient states she feels better overall and has less sweating. Fevers decreasing in frequency. Supportive care. IRIS? Noted fever high was 103.1F in the past 24 hours. Patient's appetite is improving. Overall the patient states that she is feeling better and feeling stronger. Thank you for allowing me to participate in the care of the patient, we will follow with you.
[2018-01-26] MEDS ORDERED: Sodium Chloride 0.9% 1,000 ML IV STA (18:45)
[2018-01-27] MEDS: Albuterol-Ipratrop 3 mg / 0.5 (3 ml) UD IH SCH ×4 (02:45→19:26)
[2018-01-27 07:19] LABS: BASO # 0.01 K/mm3 (0.0-2.0); BASO % 0.7 % (0.0-3.0); EOS % 0.7 % (1.5-5.0); GRAN # 1.16 (1.4-6.5); GRAN % 82.9 % (50.0-68.0); HEMOGLOBIN 8.7 g/dL (12.0-16.0); LYMPH # 0.2 (1.2-3.4); LYMPH % 13.6 % (22.0-35.0); MEAN CELL VOLUME 82.3 fl (80.0-105.0); MEAN CORPUSCULAR HEMOGLOBIN 27.5 pg (25.0-35.0); MEAN CORPUSCULAR HGB CONC 33.5 g/dl (31.0-37.0); MONO % 2.1 % (1.0-6.0); RBC 3.16 10^6/uL (3.5-6.1); RED CELL DISTRIBUTION WIDTH 15.4 % (11.5-14.5)
[2018-01-27 07:34] LABS: ALB/GLOB RATIO 0.7 (1.1-1.8); ALBUMIN 2.2 g/dL (3.0-4.8); ALT/SGPT 21 U/L (7-56); AST/SGOT 65 U/L (14-36); BLOOD UREA NITROGEN 7 mg/dL (7-21); CALCIUM 7.4 mg/dL (8.4-10.5); GFR NON-AFRICAN AMERICAN > 60
[2018-01-27 07:48] LABS: WHITE BLOOD COUNT 1.4 10^3/ul (4.5-11.0)
[2018-01-27 07:49] LABS: PLATELET COUNT 36 10^3/uL (120.0-450.0)
[2018-01-27] MEDS: Sodium Chloride 0.9% 1,000 ML IV SCH ×2 (08:29→08:30)
[2018-01-27 08:42] LABS: ERYTHROCYTE SEDIMENTATION RATE 30 mm/hr (0.0-20.0)
[2018-01-27] MEDS: Nystatin 100,000 Units/ml Oral Susp 5 ml UD PO SCH ×4 (10:11→21:18)
[2018-01-27] MEDS: Efavirenz/Emtricitabine/Teno 1 TAB PO SCH (10:11)
[2018-01-27] MEDS: Micafungin 100 MG in Sodium Chloride 0.9% 100 ML IV SCH (10:12)
[2018-01-27] MEDS: Atovaquone 750 mg/5 ml Susp UD PO SCH ×2 (10:12→17:23)
--- NOTE | 2018-01-27 11:50 | CP.PCM.PN ---
<Elpidio Ang - Last Filed: 01/27/18 12:29> Subjective - Date & Time of Evaluation Date of Evaluation: 01/27/18 Time of Evaluation: 08:45 - Subjective Subjective: Patient seen and examined at bedside in no acute distress. Patient offers no complaints at this time. 12-point ROS obtained, otherwise neg as per pt. Objective - Vital Signs/Intake and Output Vital Signs (last 24 hours): Temp Pulse Resp BP Pulse Ox 98.8 F 92 H 20 96/63 L 96 01/27/18 08:15 01/27/18 08:15 01/27/18 08:15 01/27/18 08:15 01/27/18 08:15 Intake and Output: 01/27/18 01/27/18 06:59 18:59 Intake Total 2255 Balance 2255 - Medications Medications: Current Medications Acetaminophen (Tylenol 325mg Tab) 650 mg PO Q6H PRN PRN Reason: Fever >100.4 F Last Admin: 01/27/18 08:27 Dose: 650 mg Albuterol/Ipratropium (Duoneb 3 Mg/0.5 Mg (3 Ml) Ud) 3 ml IH [id number] MCKAYLA Last Admin: 01/27/18 08:17 Dose: Not Given Albuterol/Ipratropium (Duoneb 3 Mg/0.5 Mg (3 Ml) Ud) 3 ml IH Q2H PRN PRN Reason: Shortness of Breath Atovaquone (Mepron) 750 mg PO BID MCKAYLA PRN Reason: Protocol Last Admin: 01/27/18 10:12 Dose: 750 mg Clarithromycin (Biaxin Filmtab) 500 mg PO Q12 MCKAYLA PRN Reason: Protocol Last Admin: 01/27/18 10:12 Dose: 500 mg Efavirenz/Emtricitabine/Tenofovir (Atripla 600 Mg-200 Mg-300 Mg) 1 tab PO DAILY MCKAYLA PRN Reason: Protocol Last Admin: 01/27/18 10:11 Dose: 1 tab Gabapentin (Neurontin) 300 mg PO TID MCKAYLA PRN Reason: Protocol Last Admin: 01/27/18 10:11 Dose: 300 mg Vancomycin HCl (Vancomycin 1gm) 1 gm in 250 mls @ 167 mls/hr IVPB Q12H MCKAYLA PRN Reason: Protocol Last Admin: 09/07/18 21:28 Dose: 167 mls/hr Micafungin Sodium 100 mg/ (Sodium Chloride) 100 mls @ 100 mls/hr IV DAILY MCKAYLA PRN Reason: Protocol Stop: 01/30/18 10:59 Last Admin: 01/27/18 10:12 Dose: 100 mls/hr Nystatin (Nystatin Oral Susp) 5 ml PO QID MCKAYLA Last Admin: 01/27/18 10:11 Dose: 5 ml Rifampin (Rifampin Cap) 300 mg PO DAILY MCKAYLA PRN Reason: Protocol Last Admin: 01/27/18 10:11 Dose: 300 mg - Labs Labs: 01/27/18 06:30 01/27/18 06:30 - Head Exam Head Exam: ATRAUMATIC, NORMOCEPHALIC - Eye Exam Eye Exam: EOMI, Normal appearance - ENT Exam ENT Exam: Mucous Membranes Moist, Normal Exam - Neck Exam Neck Exam: Full ROM - Respiratory Exam Respiratory Exam: Clear to Ausculation Bilateral, NORMAL BREATHING PATTERN - Cardiovascular Exam Cardiovascular Exam: REGULAR RHYTHM, +S1, +S2 - GI/Abdominal Exam GI & Abdominal Exam: Soft, Normal Bowel Sounds - Extremities Exam Extremities Exam: Normal Inspection - Back Exam Back Exam: NORMAL INSPECTION - Neurological Exam Neurological Exam: Alert, Awake, Oriented x3 - Psychiatric Exam Psychiatric exam: Normal Affect, Normal Mood - Skin Skin Exam: Normal Color, Warm Assessment and Plan - Assessment and Plan (Free Text) Assessment: 52 year old female with PMH of HIV and COPD presenting to the hospital for management of fever of unknown etiology, concern for JERSON as per ID on previous admission. Blood, urine, and sputum cultures drawn, sputum cx showing Stenotrophomonas maltophilia. Most recent CD4 is less than 20. CT abd/pelvis demonstrated no acute intra-abdominal findings. On Mepron, Biaxin, and Merrem as per ID. ID (Dr. Maher), GI (Dr. Pulido), Heme/Onc (Torsten), and Pulmonology ( Dr. Amador) consulted. Plan: Fever of unknown etiology -Fever on presentation to ED was 104.3; pt continuing to spike temps -Tylenol prn for fevers -Leukopenic; on neutropenic precautions -blood cultures neg; sputum cx showing Stenotrophomonas maltoplilia -Urine cx neg -U/A unremarkable -IVF d/c'd, Midodrine d/c'd -continue clarithromycin, atovaquone (patient's discharge antibiotics from prior admission) -Micafungin 100 mg daily; will discuss discontinuing with ID -Per ID: Rifampin 300 mg daily, Vanco; will discuss d/c with ID, Atripla daily ( HAART therapy initiated) -TSH elevated 8.55, will repeat -Cortisol wnl -Concern for MAC per ID on last admission -Lactate normal at 1.6 -ID consulted, Dr. Maher, recs appreciated -ESR and CRP elevated -Elevated Galactomannin on prior admission Urinary retention -Improved s/p rasheed placement -Pt passed voiding trial, will continue to monitor History of HIV -HIV RNA 5.65 and CD4 <20 within past month -Atripla daily per ID rec -Head CT on 01/17/18 was normal, patient tested positive for Toxo antibody on ; CT head neg for acute changes on prior admission -Chest CT on 01/11 showed no evidence of infiltrate. Small pleural based nodules are seen at the left lung base the largest measuring 7mm. -Patient given instructions previously to follow up with [facility]'s human immunodeficiency virus clinic -F/u ID recs Transaminitis - improving -Consider MAC as etiology -Hepatic U/s demonstrated cholelithasis; no c/o RUQ/abd pain at this time -GI consulted (Dr. Pulido), recs appreciated -Ct abd/pelvis on admission unremarkable -Ct abd/pelvis 01/15: 2 indeterminate hepatic lesions identified, do not represent simple cysts, abscess and neoplasm not excluded. No acute findings noted. Anemia -Hgb stable, pt asx, continue to trend; s/p 2 units PRBCs -Likely 2/2 to chronic HIV; pancytopenia -Will monitor -Retic ct 0.35, peripheral smear demonstrated pancytopenia -Heme/onc consulted for pancytopenia, recs appreciated Thrombocytopenia -Plt ct 36,000; continue to monitor Hypotension-improved -Off IVF, cont to monitor -Echo 01/09/18 demonstrated EF 53%, RVSP 32, normal LV segmental wall motion and size -Carotid U/s on 01/09 showed b/l 0-19% proximal ICA stenoses -BNP on 01/15 was 1510; unlikely CHF in light of normal echo Hx COPD -Duonebs q 6 h -Saturating well on room air -Pulmonology consulted, Dr. Amador: recommended outpt PFTs when well, may need outpt bronch in future (r/o PCP and MAC) DVT ppx: Heparin Disposition plan: Will see if patient remains afebrile for next 24 hours if so will discharge patient on mepron, clarithomycin, HAART therapy , and rifampin. Pt seen, examined with, and plan discussed with Dr. Bruno, attending. <Jeremy Bruno - Last Filed: 01/27/18 14:15> Objective - Vital Signs/Intake and Output Vital Signs (last 24 hours): Temp Pulse Resp BP Pulse Ox 98.8 F 92 H 20 96/63 L 96 01/27/18 08:15 01/27/18 08:15 01/27/18 08:15 01/27/18 08:15 01/27/18 08:15 Intake and Output: 01/27/18 01/27/18 06:59 18:59 Intake Total 2255 Balance 2255 - Medications Medications: Current Medications Acetaminophen (Tylenol 325mg Tab) 650 mg PO Q6H PRN PRN Reason: Fever >100.4 F Last Admin: 01/27/18 08:27 Dose: 650 mg Albuterol/Ipratropium (Duoneb 3 Mg/0.5 Mg (3 Ml) Ud) 3 ml IH [id number] MCKAYLA Last Admin: 01/27/18 13:45 Dose: Not Given Albuterol/Ipratropium (Duoneb 3 Mg/0.5 Mg (3 Ml) Ud) 3 ml IH Q2H PRN PRN Reason: Shortness of Breath Atovaquone (Mepron) 750 mg PO BID MCKAYLA PRN Reason: Protocol Last Admin: 01/27/18 10:12 Dose: 750 mg Clarithromycin (Biaxin Filmtab) 500 mg PO Q12 MCKAYLA PRN Reason: Protocol Last Admin: 01/27/18 10:12 Dose: 500 mg Efavirenz/Emtricitabine/Tenofovir (Atripla 600 Mg-200 Mg-300 Mg) 1 tab PO DAILY MCKAYLA PRN Reason: Protocol Last Admin: 01/27/18 10:11 Dose: 1 tab Gabapentin (Neurontin) 300 mg PO TID MCKAYLA PRN Reason: Protocol Last Admin: 01/27/18 10:11 Dose: 300 mg Vancomycin HCl (Vancomycin 1gm) 1 gm in 250 mls @ 167 mls/hr IVPB Q12H MCKAYLA PRN Reason: Protocol Last Admin: 01/27/18 12:59 Dose: Not Given Micafungin Sodium 100 mg/ (Sodium Chloride) 100 mls @ 100 mls/hr IV DAILY MCKAYLA PRN Reason: Protocol Stop: 01/30/18 10:59 Last Admin: 01/27/18 10:12 Dose: 100 mls/hr Nystatin (Nystatin Oral Susp) 5 ml PO QID MCKAYLA Last Admin: 01/27/18 10:11 Dose: 5 ml Rifampin (Rifampin Cap) 300 mg PO DAILY MCKAYLA PRN Reason: Protocol Last Admin: 01/27/18 10:11 Dose: 300 mg - Labs Labs: 01/27/18 06:30 01/27/18 06:30 Attending/Attestation - Attestation I have personally seen and examined this patient.: Yes I have fully participated in the care of the patient.: Yes I have reviewed all pertinent clinical information, including history, physical exam and plan: Yes Notes (Text): 01/27/18 14:10 Patient was seen and examined with certified medical aide. 52 yo Female with newly diagnosed HIV disease was readmitted with urinary retention and fevers up to 104 F. Given previous hospitalizations and lack of findings with a similar presentation but high [id number], the patient may have a mycobacterium (nontuberculosis) disease of the lung The patient likely requires set up with HIV clinic and to start HAART. Continue with meropenem for now. CT Abd/Pel with no acute findings. Chest X- ray with no acute cardiopulmonary findings, Clarithromycin ,Atovaquone and Rifampin for presumptive JERSON treatment as per ID.Patient fever is improving, will need 6-9 month treatment for JERSON infection.Continue HAART regimen . 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 .
[2018-01-27] MEDS: Vancomycin 1gm in NS 250ml 1 GM/250 ML BAG IVPB SCH ×2 (12:59→21:17)
--- NOTE | 2018-01-27 16:33 | CP.PCM.PN ---
Subjective - Date & Time of Evaluation Date of Evaluation: 01/27/18 Time of Evaluation: 15:30 - Subjective Subjective: Infectious Disease Follow Up: January 27, 2018 52 yo female presenting for urinary retention. Multiple hospitalizations this past month for generalized weakness and COPD exacerbation. Recent diagnosis of HIV with CD4 less than 20. Was discharged from the hospital the day before this admission. Returned for inability to urinate for one day. Fever up to 104.3 F in this hospitalization. Still with fever up to 103.2 F today. Most likely diagnosis remains JERSON given the state of her HIV. My concerns remain with her compliance with therapy. Currently on Clarithrimycin and Atovaquone for treatment of suspected JERSON. As fever continue to persist, will add Rifampin to the regimen for JERSON treatment. IV Vancomycin also added given reported drainage from raised skin area on buttocks. On HAART with Atripla now. Patient states that she feels better although the patient is still having high fevers. Tachycardia. Both tachycardia and the fevers are stabilizing. Fevers as high as 102.6 F in past 24 hours. Less frequent fever episodes. Had 101.8 F today. Patient making few complaints. Objective - Vital Signs/Intake and Output Vital Signs (last 24 hours): Temp Pulse Resp BP Pulse Ox 101.8 F H 92 H 20 96/63 L 96 01/27/18 15:30 01/27/18 08:15 01/27/18 08:15 01/27/18 08:15 01/27/18 08:15 Intake and Output: 01/27/18 01/27/18 06:59 18:59 Intake Total 2255 Balance 2255 - Medications Medications: Current Medications Acetaminophen (Tylenol 325mg Tab) 650 mg PO Q6H PRN PRN Reason: Fever >100.4 F Last Admin: 01/27/18 15:30 Dose: 650 mg Albuterol/Ipratropium (Duoneb 3 Mg/0.5 Mg (3 Ml) Ud) 3 ml IH [id number] [facility] Last Admin: 01/27/18 13:45 Dose: Not Given Albuterol/Ipratropium (Duoneb 3 Mg/0.5 Mg (3 Ml) Ud) 3 ml IH Q2H PRN PRN Reason: Shortness of Breath Atovaquone (Mepron) 750 mg PO BID MCKAYLA PRN Reason: Protocol Last Admin: 01/27/18 10:12 Dose: 750 mg Clarithromycin (Biaxin Filmtab) 500 mg PO Q12 MCKAYLA PRN Reason: Protocol Last Admin: 01/27/18 10:12 Dose: 500 mg Efavirenz/Emtricitabine/Tenofovir (Atripla 600 Mg-200 Mg-300 Mg) 1 tab PO DAILY MCKAYLA PRN Reason: Protocol Last Admin: 01/27/18 10:11 Dose: 1 tab Gabapentin (Neurontin) 300 mg PO TID MCKAYLA PRN Reason: Protocol Last Admin: 01/27/18 10:11 Dose: 300 mg Vancomycin HCl (Vancomycin 1gm) 1 gm in 250 mls @ 167 mls/hr IVPB Q12H MCKAYLA PRN Reason: Protocol Last Admin: 01/27/18 12:59 Dose: Not Given Micafungin Sodium 100 mg/ (Sodium Chloride) 100 mls @ 100 mls/hr IV DAILY MCKAYLA PRN Reason: Protocol Stop: 01/30/18 10:59 Last Admin: 01/27/18 10:12 Dose: 100 mls/hr Nystatin (Nystatin Oral Susp) 5 ml PO QID MCKAYLA Last Admin: 01/27/18 10:11 Dose: 5 ml Rifampin (Rifampin Cap) 300 mg PO DAILY MCKAYLA PRN Reason: Protocol Last Admin: 01/27/18 10:11 Dose: 300 mg - Labs Labs: 01/27/18 06:30 01/27/18 06:30 - Constitutional Appears: Non-toxic, No Acute Distress, Chronically Ill - Head Exam Head Exam: ATRAUMATIC, NORMOCEPHALIC - Eye Exam Eye Exam: EOMI, PERRL Pupil Exam: NORMAL ACCOMODATION, PERRL - ENT Exam ENT Exam: Mucous Membranes Moist, Normal External Ear Exam, TM's Normal Bilaterally - Neck Exam Neck Exam: Full ROM, Normal Inspection - Respiratory Exam Respiratory Exam: Clear to Ausculation Bilateral, NORMAL BREATHING PATTERN. absent: Rales, Rhonchi, Wheezes - Cardiovascular Exam Cardiovascular Exam: REGULAR RHYTHM, RRR, +S1, +S2 - GI/Abdominal Exam GI & Abdominal Exam: Soft, Normal Bowel Sounds. absent: Distended, Tenderness - Extremities Exam Extremities Exam: Full ROM, Normal Inspection - Neurological Exam Neurological Exam: Alert, Awake, CN II-XII Intact, Oriented x3 - Psychiatric Exam Psychiatric exam: Normal Affect, Normal Mood - Skin Skin Exam: Intact, Normal Color Additional comments: healing rash on right buttocks. Assessment and Plan - Assessment and Plan (Free Text) Assessment: 52 yo Female with newly diagnosed HIV disease presenting with inability to urinate for 1 day and findings of fevers up to 104 F. The patient likely requires set up with HIV clinic and to start HAART. Continue with meropenem for now. CT Abd/Pel with no acute findings. Chest X-ray with no acute cardiopulmonary findings. Given previous hospitalizations and lack of findings with a similar presentation but high [id number], the patient may have a mycobacterium (nontuberculosis) disease of the lung. Concerns mostly around how the patient would receive therapy especially since the patient came back to the hospital 24 hours of her discharge from the facility. Her treatments for a JERSON pneumonia would still need weeks to months of medications. May need to check if the [facility] is willing to provide follow up on the patient for presumptive JERSON treatment. Fevers persist however there were episodes of hypothermia two nights ago with temperature of 96.8 F. In light of this, the patient was already on Clarithromycin and Atovaquone for presumptive JERSON treatment. Added Rifampin to the regimen. There was swelling across one dermatome with drainage of pus. Given the wide fever range and increasing symptomology, started HAART regimen and obtain Genotype testing. Micafungin also started. Patient states she feels better overall and has less sweating. Fevers decreasing in frequency. Supportive care. IRIS? Noted fever high was 102.6F in the past 24 hours. Today, fever up to 101.8 F. Patient's appetite is improving. Overall the patient states that she is feeling better and feeling stronger. She does NOT appear toxic. Still with leukopenia. Thank you for allowing me to participate in the care of the patient, we will follow with you.
[2018-01-28] MEDS: Albuterol-Ipratrop 3 mg / 0.5 (3 ml) UD IH SCH ×4 (01:12→20:09)
[2018-01-28 06:52] LABS: GRAN # 0.95 (1.4-6.5); GRAN % 69.4 % (50.0-68.0); HEMOGLOBIN 9.1 g/dL (12.0-16.0); LYMPH # 0.4 (1.2-3.4); MEAN CELL VOLUME 81.2 fl (80.0-105.0); MEAN CORPUSCULAR HEMOGLOBIN 27.6 pg (25.0-35.0); MONO # 0.1 (0.1-0.6); MONO % 3.6 % (1.0-6.0); RED CELL DISTRIBUTION WIDTH 15.5 % (11.5-14.5)
[2018-01-28 06:59] LABS: PLATELET COUNT 33 10^3/uL (120.0-450.0); WHITE BLOOD COUNT 1.4 10^3/ul (4.5-11.0)
[2018-01-28 07:29] LABS: ALB/GLOB RATIO 0.8 (1.1-1.8); ALBUMIN 2.4 g/dL (3.0-4.8); ALT/SGPT 23 U/L (7-56); AST/SGOT 95 U/L (14-36); BLOOD UREA NITROGEN 8 mg/dL (7-21); CALCIUM 7.4 mg/dL (8.4-10.5); GFR NON-AFRICAN AMERICAN > 60
[2018-01-28] MEDS: Efavirenz/Emtricitabine/Teno 1 TAB PO SCH (10:01)
[2018-01-28] MEDS: Atovaquone 750 mg/5 ml Susp UD PO SCH ×3 (10:01→17:21)
[2018-01-28] MEDS: Nystatin 100,000 Units/ml Oral Susp 5 ml UD PO SCH ×5 (10:01→21:51)
[2018-01-28] MEDS: Micafungin 100 MG in Sodium Chloride 0.9% 100 ML IV SCH (10:02)
[2018-01-28] MEDS: Vancomycin 1gm in NS 250ml 1 GM/250 ML BAG IVPB SCH ×2 (11:23→21:51)
--- NOTE | 2018-01-28 12:29 | CARD ---
APPROVED REPORT Date of service: 01/28/2018 EKG Measurement Heart [id number] <Conclusion> Normal sinus rhythm Possible Inferior infarct, age undetermined Abnormal ECG
--- NOTE | 2018-01-28 17:57 | CP.PCM.PN ---
Subjective - Date & Time of Evaluation Date of Evaluation: 01/28/18 Time of Evaluation: 09:00 - Subjective Subjective: Franklin Myrick D.O. PGY 2 - IM Progress Note for Hospitalist Service Patient seen and examined this AM. Patient continues to have low grade temperatures overnight. Controlled with Tylenol. Patient complaining of fever and body aches. Pt reports 12 point ROS benign other than per her complaints. Objective - Vital Signs/Intake and Output Vital Signs (last 24 hours): Temp Pulse Resp BP Pulse Ox 100 F H 100 H 20 112/69 95 01/28/18 08:50 01/28/18 14:00 01/28/18 08:50 01/28/18 08:50 01/28/18 08:50 Intake and Output: 01/28/18 01/28/18 06:59 18:59 Intake Total 430 Output Total 1050 Balance -620 - Medications Medications: Current Medications Acetaminophen (Tylenol 325mg Tab) 650 mg PO Q6H PRN PRN Reason: Fever >100.4 F Last Admin: 01/28/18 17:20 Dose: 650 mg Albuterol/Ipratropium (Duoneb 3 Mg/0.5 Mg (3 Ml) Ud) 3 ml IH [id number] MCKAYLA Last Admin: 01/28/18 14:09 Dose: Not Given Albuterol/Ipratropium (Duoneb 3 Mg/0.5 Mg (3 Ml) Ud) 3 ml IH Q2H PRN PRN Reason: Shortness of Breath Atovaquone (Mepron) 750 mg PO BID MCKAYLA PRN Reason: Protocol Last Admin: 01/28/18 17:21 Dose: Not Given Clarithromycin (Biaxin Filmtab) 500 mg PO Q12 MCKAYLA PRN Reason: Protocol Last Admin: 01/28/18 10:01 Dose: 500 mg Efavirenz/Emtricitabine/Tenofovir (Atripla 600 Mg-200 Mg-300 Mg) 1 tab PO DAILY MCKAYLA PRN Reason: Protocol Last Admin: 01/28/18 10:01 Dose: 1 tab Gabapentin (Neurontin) 300 mg PO TID MCKAYLA PRN Reason: Protocol Last Admin: 01/28/18 17:12 Dose: 300 mg Vancomycin HCl (Vancomycin 1gm) 1 gm in 250 mls @ 167 mls/hr IVPB Q12H MCKAYLA PRN Reason: Protocol Last Admin: 01/28/18 11:23 Dose: 167 mls/hr Micafungin Sodium 100 mg/ (Sodium Chloride) 100 mls @ 100 mls/hr IV DAILY MCKAYLA PRN Reason: Protocol Stop: 01/30/18 10:59 Last Admin: 01/28/18 10:02 Dose: 100 mls/hr Nystatin (Nystatin Oral Susp) 5 ml PO QID MCKAYLA Last Admin: 01/28/18 17:20 Dose: Not Given Rifampin (Rifampin Cap) 300 mg PO DAILY MCKAYLA PRN Reason: Protocol Last Admin: 01/28/18 10:01 Dose: 300 mg - Labs Labs: 01/28/18 05:00 01/28/18 05:00 - Constitutional Appears: No Acute Distress - Head Exam Head Exam: ATRAUMATIC, NORMAL INSPECTION, NORMOCEPHALIC - Eye Exam Eye Exam: EOMI, PERRL - ENT Exam ENT Exam: Mucous Membranes Moist - Respiratory Exam Respiratory Exam: Clear to Ausculation Bilateral, NORMAL BREATHING PATTERN - Cardiovascular Exam Cardiovascular Exam: Tachycardia, REGULAR RHYTHM, +S1, +S2 - GI/Abdominal Exam GI & Abdominal Exam: Soft, Normal Bowel Sounds - Extremities Exam Extremities Exam: Full ROM. absent: Calf Tenderness - Neurological Exam Neurological Exam: Alert, Awake, Oriented x3 - Psychiatric Exam Psychiatric exam: Normal Affect, Normal Mood - Skin Skin Exam: Intact, Normal Color Assessment and Plan - Assessment and Plan (Free Text) Assessment: 52 year old female with PMH of HIV and COPD presenting to the hospital for management of fever of unknown etiology, concern for JERSON as per ID on previous admission. Blood, urine, and sputum cultures drawn, sputum cx showing Stenotrophomonas maltophilia. Most recent CD4 is less than 20. CT abd/pelvis demonstrated no acute intra-abdominal findings. On Mepron, Biaxin, and Merrem as per ID. ID (Dr. Maher), GI (Dr. Pulido), Heme/Onc (Torsten), and Pulmonology ( Dr. Amador) consulted. Plan: Fever of unknown etiology -Tylenol prn for fevers -Persistnent low grade fevers throughout stay with intermittent spikes -Leukopenic; continue neutropenic precautions -blood cultures neg; sputum cx showing Stenotrophomonas maltoplilia -Urine cx neg -U/A unremarkable -continue clarithromycin, atovaquone (patient's discharge antibiotics from prior admission) -Micafungin 100 mg daily; will discuss discontinuing with ID -Per ID: Rifampin 300 mg daily, Vanco; will discuss d/c with ID, Atripla daily ( HAART therapy initiated) -TSH elevated 8.55, will repeat -ID consulted, Dr. Maher, recs appreciated - ID concerned for JERSON in setting of HIV -Elevated Galactomannin on prior admission, ESR and CRP elevated History of HIV -HIV RNA 5.65 and CD4 <20 within past month -Atripla daily per ID rec -Head CT on 01/17/18 was normal, patient tested positive for Toxo antibody on ; CT head neg for acute changes on prior admission -Chest CT on 01/11 showed no evidence of infiltrate. Small pleural based nodules are seen at the left lung base the largest measuring 7mm. -Patient given instructions previously to follow up with [facility]'s HIV clinic -F/u ID recs Transaminitis - improving -Consider MAC as etiology -Hepatic U/s demonstrated cholelithasis; no c/o RUQ/abd pain at this time -GI consulted (Dr. Pulido), recs appreciated -Ct abd/pelvis 01/15: 2 indeterminate hepatic lesions identified, do not represent simple cysts, abscess and neoplasm not excluded. No acute findings noted. Pancytopenia -Hgb stable, pt asx, continue to trend; s/p 2 units PRBCs -Likely 2/2 to chronic HIV and bone marrow suppression -Retic ct 0.35, peripheral smear demonstrated pancytopenia -Plt ct 36,000; continue to monitor -Heme/onc consulted for pancytopenia, recs appreciated - likely AIDS related with exacerbation of counts by medication - Anemia of HIV and Chronic disease - Transfusion support PRN - Continue to monitor Plt count Hypotension-improved -Off IVF, cont to monitor -Echo 01/09/18 demonstrated EF 53%, RVSP 32, normal LV segmental wall motion and size -Carotid U/s on 01/09 showed b/l 0-19% proximal ICA stenoses -BNP on 01/15 was 1510; unlikely CHF in light of normal echo Hx COPD -Duonebs q 6 h -Saturating well on room air -Pulmonology consulted, Dr. Amador: recommended outpt PFTs when well, may need outpt bronch in future (r/o PCP and MAC) GI/DVT ppx - Heparin - Protonix Disposition plan: Continue to monitor patient clinically with plan to discharge patient on mepron, clarithomycin, HAART therapy, and rifampin. Will need 6-9 months of JERSON treatment Pt seen, examined with, and plan discussed with Dr. Bruno, attending. Rod Myrick PGY-2
--- NOTE | 2018-01-28 18:59 | CP.PCM.PN ---
Subjective - Date & Time of Evaluation Date of Evaluation: 01/28/18 Time of Evaluation: 16:15 - Subjective Subjective: Infectious Disease Follow Up: January 28, 2018 52 yo female presenting for urinary retention. Multiple hospitalizations this past month for generalized weakness and COPD exacerbation. Recent diagnosis of HIV with CD4 less than 20. Was discharged from the hospital the day before this admission. Returned for inability to urinate for one day. Fever up to 104.3 F in this hospitalization. Still with fever up to 103.2 F today. Most likely diagnosis remains JERSON given the state of her HIV. My concerns remain with her compliance with therapy. Currently on Clarithrimycin and Atovaquone for treatment of suspected JERSON. As fever continue to persist, will add Rifampin to the regimen for JERSON treatment. IV Vancomycin also added given reported drainage from raised skin area on buttocks. On HAART with Atripla now. Patient states that she feels better although the patient is still having high fevers. Tachycardia. Both tachycardia and the fevers are stabilizing. Fevers as high as 103.0 F in past 24 hours. Frequency of fever episodes has increased compared to yesterday. Had fevers up to 103.0 F today. Patient making few complaints. Objective - Vital Signs/Intake and Output Vital Signs (last 24 hours): Temp Pulse Resp BP Pulse Ox 101.1 F H 110 H 19 91/57 L 99 01/28/18 18:20 01/28/18 18:00 01/28/18 18:00 01/28/18 18:00 01/28/18 18:00 Intake and Output: 01/28/18 01/28/18 06:59 18:59 Intake Total 430 Output Total 1050 Balance -620 - Medications Medications: Current Medications Acetaminophen (Tylenol 325mg Tab) 650 mg PO Q6H PRN PRN Reason: Fever >100.4 F Last Admin: 01/28/18 17:20 Dose: 650 mg Albuterol/Ipratropium (Duoneb 3 Mg/0.5 Mg (3 Ml) Ud) 3 ml IH [id number] MCKAYLA Last Admin: 01/28/18 14:09 Dose: Not Given Albuterol/Ipratropium (Duoneb 3 Mg/0.5 Mg (3 Ml) Ud) 3 ml IH Q2H PRN PRN Reason: Shortness of Breath Atovaquone (Mepron) 750 mg PO BID MCKAYLA PRN Reason: Protocol Last Admin: 01/28/18 17:21 Dose: Not Given Clarithromycin (Biaxin Filmtab) 500 mg PO Q12 MCKAYLA PRN Reason: Protocol Last Admin: 01/28/18 10:01 Dose: 500 mg Efavirenz/Emtricitabine/Tenofovir (Atripla 600 Mg-200 Mg-300 Mg) 1 tab PO DAILY MCKAYLA PRN Reason: Protocol Last Admin: 01/28/18 10:01 Dose: 1 tab Gabapentin (Neurontin) 300 mg PO TID MCKAYLA PRN Reason: Protocol Last Admin: 01/28/18 17:12 Dose: 300 mg Vancomycin HCl (Vancomycin 1gm) 1 gm in 250 mls @ 167 mls/hr IVPB Q12H MCKAYLA PRN Reason: Protocol Last Admin: 01/28/18 11:23 Dose: 167 mls/hr Micafungin Sodium 100 mg/ (Sodium Chloride) 100 mls @ 100 mls/hr IV DAILY MCKAYLA PRN Reason: Protocol Stop: 01/30/18 10:59 Last Admin: 01/28/18 10:02 Dose: 100 mls/hr Nystatin (Nystatin Oral Susp) 5 ml PO QID MCKAYLA Last Admin: 01/28/18 17:20 Dose: Not Given Rifampin (Rifampin Cap) 300 mg PO DAILY MCKAYLA PRN Reason: Protocol Last Admin: 01/28/18 10:01 Dose: 300 mg - Labs Labs: 01/28/18 05:00 01/28/18 05:00 - Constitutional Appears: Non-toxic, No Acute Distress, Chronically Ill - Head Exam Head Exam: ATRAUMATIC, NORMOCEPHALIC - Eye Exam Eye Exam: EOMI, PERRL Pupil Exam: NORMAL ACCOMODATION, PERRL - ENT Exam ENT Exam: Mucous Membranes Moist, Normal External Ear Exam, TM's Normal Bilaterally - Neck Exam Neck Exam: Full ROM, Normal Inspection - Respiratory Exam Respiratory Exam: Clear to Ausculation Bilateral, NORMAL BREATHING PATTERN. absent: Rales, Rhonchi, Wheezes - Cardiovascular Exam Cardiovascular Exam: REGULAR RHYTHM, RRR, +S1, +S2 - GI/Abdominal Exam GI & Abdominal Exam: Soft, Normal Bowel Sounds. absent: Distended, Tenderness - Extremities Exam Extremities Exam: Full ROM, Normal Inspection - Neurological Exam Neurological Exam: Alert, Awake, CN II-XII Intact, Oriented x3 - Psychiatric Exam Psychiatric exam: Normal Affect, Normal Mood - Skin Additional comments: healing rash on right buttocks. Assessment and Plan - Assessment and Plan (Free Text) Assessment: 52 yo Female with newly diagnosed HIV disease presenting with inability to urinate for 1 day and findings of fevers up to 104 F. The patient likely requires set up with HIV clinic and to start HAART. Continue with meropenem for now. CT Abd/Pel with no acute findings. Chest X-ray with no acute cardiopulmonary findings. Given previous hospitalizations and lack of findings with a similar presentation but high [id number], the patient may have a mycobacterium (nontuberculosis) disease of the lung. Concerns mostly around how the patient would receive therapy especially since the patient came back to the hospital 24 hours of her discharge from the facility. Her treatments for a JERSON pneumonia would still need weeks to months of medications. May need to check if the [facility] is willing to provide follow up on the patient for presumptive JERSON treatment. Fevers persist however there were episodes of hypothermia two nights ago with temperature of 96.8 F. In light of this, the patient was already on Clarithromycin and Atovaquone for presumptive JERSON treatment. Added Rifampin to the regimen. There was swelling across one dermatome with drainage of pus. Given the wide fever range and increasing symptomology, started HAART regimen and obtain Genotype testing. Micafungin also started. Patient states she feels better overall and has less sweating. Fevers decreasing in frequency. Supportive care. IRIS? Today, fever up to 103.0 F. Patient's appetite is improving. Overall the patient states that she is feeling better and feeling stronger. She does NOT appear toxic. Still with leukopenia. Unfortunately, the patient had increased fever frequency today. Will consider acyclovir/valgancyclovir use if fevers persist in this manner. Thank you for allowing me to participate in the care of the patient, we will follow with you.
--- NOTE | 2018-01-29 01:07 | CP.PCM.PN ---
Subjective - Date & Time of Evaluation Date of Evaluation: 01/26/18 Time of Evaluation: 13:05 - Subjective Subjective: Feels tired. Objective - Vital Signs/Intake and Output Vital Signs (last 24 hours): Temp Pulse Resp BP Pulse Ox 102 F H 104 H 19 91/57 L 99 01/29/18 00:00 01/28/18 18:00 01/28/18 18:00 01/28/18 18:00 01/28/18 18:00 - Medications Medications: Current Medications Acetaminophen (Tylenol 325mg Tab) 650 mg PO Q6H PRN PRN Reason: Fever >100.4 F Last Admin: 01/28/18 22:04 Dose: 650 mg Albuterol/Ipratropium (Duoneb 3 Mg/0.5 Mg (3 Ml) Ud) 3 ml IH [id number] MCKAYLA Last Admin: 01/28/18 20:09 Dose: Not Given Albuterol/Ipratropium (Duoneb 3 Mg/0.5 Mg (3 Ml) Ud) 3 ml IH Q2H PRN PRN Reason: Shortness of Breath Atovaquone (Mepron) 750 mg PO BID MCKAYLA PRN Reason: Protocol Last Admin: 01/28/18 17:21 Dose: Not Given Clarithromycin (Biaxin Filmtab) 500 mg PO Q12 MCKAYLA PRN Reason: Protocol Last Admin: 01/28/18 21:51 Dose: 500 mg Efavirenz/Emtricitabine/Tenofovir (Atripla 600 Mg-200 Mg-300 Mg) 1 tab PO DAILY MCKAYLA PRN Reason: Protocol Last Admin: 01/28/18 10:01 Dose: 1 tab Gabapentin (Neurontin) 300 mg PO TID MCKAYLA PRN Reason: Protocol Last Admin: 01/28/18 17:12 Dose: 300 mg Vancomycin HCl (Vancomycin 1gm) 1 gm in 250 mls @ 167 mls/hr IVPB Q12H MCKAYLA PRN Reason: Protocol Last Admin: 01/28/18 21:51 Dose: 167 mls/hr Micafungin Sodium 100 mg/ (Sodium Chloride) 100 mls @ 100 mls/hr IV DAILY MCKAYLA PRN Reason: Protocol Stop: 01/30/18 10:59 Last Admin: 01/28/18 10:02 Dose: 100 mls/hr Nystatin (Nystatin Oral Susp) 5 ml PO QID MCKAYLA Last Admin: 01/28/18 21:51 Dose: 5 ml Rifampin (Rifampin Cap) 300 mg PO DAILY MCKAYLA PRN Reason: Protocol Last Admin: 01/28/18 10:01 Dose: 300 mg - Labs Labs: 01/28/18 05:00 01/28/18 05:00 - Head Exam Head Exam: ATRAUMATIC - Eye Exam Eye Exam: Normal appearance - ENT Exam ENT Exam: Mucous Membranes Dry - Respiratory Exam Respiratory Exam: NORMAL BREATHING PATTERN - Cardiovascular Exam Cardiovascular Exam: +S1, +S2 - GI/Abdominal Exam GI & Abdominal Exam: Normal Bowel Sounds Assessment and Plan (1) Pancytopenia Assessment & Plan: likely AIDS related with exacerbation of counts by medication anemia of HIV and chronic disease; transfusion support PRN cont. to monitor platelet count Status: Acute
--- NOTE | 2018-01-29 01:08 | CP.PCM.PN ---
Subjective - Date & Time of Evaluation Date of Evaluation: 01/27/18 Time of Evaluation: 15:00 - Subjective Subjective: Feels tired. Objective - Vital Signs/Intake and Output Vital Signs (last 24 hours): Temp Pulse Resp BP Pulse Ox 102 F H 104 H 19 91/57 L 99 01/29/18 00:00 01/28/18 18:00 01/28/18 18:00 01/28/18 18:00 01/28/18 18:00 - Medications Medications: Current Medications Acetaminophen (Tylenol 325mg Tab) 650 mg PO Q6H PRN PRN Reason: Fever >100.4 F Last Admin: 01/28/18 22:04 Dose: 650 mg Albuterol/Ipratropium (Duoneb 3 Mg/0.5 Mg (3 Ml) Ud) 3 ml IH [id number] MCKAYLA Last Admin: 01/28/18 20:09 Dose: Not Given Albuterol/Ipratropium (Duoneb 3 Mg/0.5 Mg (3 Ml) Ud) 3 ml IH Q2H PRN PRN Reason: Shortness of Breath Atovaquone (Mepron) 750 mg PO BID MCKAYLA PRN Reason: Protocol Last Admin: 01/28/18 17:21 Dose: Not Given Clarithromycin (Biaxin Filmtab) 500 mg PO Q12 MCKAYLA PRN Reason: Protocol Last Admin: 01/28/18 21:51 Dose: 500 mg Efavirenz/Emtricitabine/Tenofovir (Atripla 600 Mg-200 Mg-300 Mg) 1 tab PO DAILY MCKAYLA PRN Reason: Protocol Last Admin: 01/28/18 10:01 Dose: 1 tab Gabapentin (Neurontin) 300 mg PO TID MCKAYLA PRN Reason: Protocol Last Admin: 01/28/18 17:12 Dose: 300 mg Vancomycin HCl (Vancomycin 1gm) 1 gm in 250 mls @ 167 mls/hr IVPB Q12H MCKAYLA PRN Reason: Protocol Last Admin: 01/28/18 21:51 Dose: 167 mls/hr Micafungin Sodium 100 mg/ (Sodium Chloride) 100 mls @ 100 mls/hr IV DAILY MCKAYLA PRN Reason: Protocol Stop: 01/30/18 10:59 Last Admin: 01/28/18 10:02 Dose: 100 mls/hr Nystatin (Nystatin Oral Susp) 5 ml PO QID MCKAYLA Last Admin: 01/28/18 21:51 Dose: 5 ml Rifampin (Rifampin Cap) 300 mg PO DAILY MCKAYLA PRN Reason: Protocol Last Admin: 01/28/18 10:01 Dose: 300 mg - Labs Labs: 01/28/18 05:00 01/28/18 05:00 - Head Exam Head Exam: ATRAUMATIC - Eye Exam Eye Exam: Normal appearance - ENT Exam ENT Exam: Mucous Membranes Dry - Respiratory Exam Respiratory Exam: NORMAL BREATHING PATTERN - Cardiovascular Exam Cardiovascular Exam: +S1, +S2 - GI/Abdominal Exam GI & Abdominal Exam: Normal Bowel Sounds Assessment and Plan (1) Pancytopenia Assessment & Plan: likely AIDS related with exacerbation of counts by medication anemia of HIV and chronic disease; transfusion support PRN cont. to monitor platelet count growth factor support if ANC < 500 Status: Acute
--- NOTE | 2018-01-29 01:09 | CP.PCM.PN ---
Subjective - Date & Time of Evaluation Date of Evaluation: 01/28/18 Time of Evaluation: 20:00 - Subjective Subjective: Feels tired. Objective - Vital Signs/Intake and Output Vital Signs (last 24 hours): Temp Pulse Resp BP Pulse Ox 102 F H 104 H 19 91/57 L 99 01/29/18 00:00 01/28/18 18:00 01/28/18 18:00 01/28/18 18:00 01/28/18 18:00 - Medications Medications: Current Medications Acetaminophen (Tylenol 325mg Tab) 650 mg PO Q6H PRN PRN Reason: Fever >100.4 F Last Admin: 01/28/18 22:04 Dose: 650 mg Albuterol/Ipratropium (Duoneb 3 Mg/0.5 Mg (3 Ml) Ud) 3 ml IH [id number] MCKAYLA Last Admin: 01/28/18 20:09 Dose: Not Given Albuterol/Ipratropium (Duoneb 3 Mg/0.5 Mg (3 Ml) Ud) 3 ml IH Q2H PRN PRN Reason: Shortness of Breath Atovaquone (Mepron) 750 mg PO BID MCKAYLA PRN Reason: Protocol Last Admin: 01/28/18 17:21 Dose: Not Given Clarithromycin (Biaxin Filmtab) 500 mg PO Q12 MCKAYLA PRN Reason: Protocol Last Admin: 01/28/18 21:51 Dose: 500 mg Efavirenz/Emtricitabine/Tenofovir (Atripla 600 Mg-200 Mg-300 Mg) 1 tab PO DAILY MCKAYLA PRN Reason: Protocol Last Admin: 01/28/18 10:01 Dose: 1 tab Gabapentin (Neurontin) 300 mg PO TID MCKAYLA PRN Reason: Protocol Last Admin: 01/28/18 17:12 Dose: 300 mg Vancomycin HCl (Vancomycin 1gm) 1 gm in 250 mls @ 167 mls/hr IVPB Q12H MCKAYLA PRN Reason: Protocol Last Admin: 01/28/18 21:51 Dose: 167 mls/hr Micafungin Sodium 100 mg/ (Sodium Chloride) 100 mls @ 100 mls/hr IV DAILY MCKAYLA PRN Reason: Protocol Stop: 01/30/18 10:59 Last Admin: 01/28/18 10:02 Dose: 100 mls/hr Nystatin (Nystatin Oral Susp) 5 ml PO QID MCKAYLA Last Admin: 01/28/18 21:51 Dose: 5 ml Rifampin (Rifampin Cap) 300 mg PO DAILY MCKAYLA PRN Reason: Protocol Last Admin: 01/28/18 10:01 Dose: 300 mg - Labs Labs: 01/28/18 05:00 01/28/18 05:00 - Head Exam Head Exam: ATRAUMATIC - Eye Exam Eye Exam: Normal appearance - ENT Exam ENT Exam: Mucous Membranes Dry - Respiratory Exam Respiratory Exam: NORMAL BREATHING PATTERN - Cardiovascular Exam Cardiovascular Exam: +S1, +S2 - GI/Abdominal Exam GI & Abdominal Exam: Normal Bowel Sounds Assessment and Plan (1) Pancytopenia Assessment & Plan: likely AIDS related with exacerbation of counts by medication anemia of HIV and chronic disease; transfusion support PRN cont. to monitor platelet count growth factor support if ANC < 500 Status: Acute
[2018-01-29] MEDS: Albuterol-Ipratrop 3 mg / 0.5 (3 ml) UD IH SCH ×3 (02:11→20:04)
[2018-01-29 06:27] LABS: GRAN # 1.28 (1.4-6.5); GRAN % 77.6 % (50.0-68.0); HEMOGLOBIN 9.4 g/dL (12.0-16.0); LYMPH # 0.3 (1.2-3.4); LYMPH % 19.4 % (22.0-35.0); MEAN CELL VOLUME 81.2 fl (80.0-105.0); MEAN CORPUSCULAR HEMOGLOBIN 27.2 pg (25.0-35.0); MEAN CORPUSCULAR HGB CONC 33.6 g/dl (31.0-37.0); MONO # 0.1 (0.1-0.6); RBC 3.45 10^6/uL (3.5-6.1); RED CELL DISTRIBUTION WIDTH 15.6 % (11.5-14.5)
[2018-01-29 06:57] LABS: ALB/GLOB RATIO 0.7 (1.1-1.8); ALBUMIN 2.6 g/dL (3.0-4.8); ALT/SGPT 19 U/L (7-56); AST/SGOT 131 U/L (14-36); BLOOD UREA NITROGEN 9 mg/dL (7-21); CALCIUM 7.4 mg/dL (8.4-10.5); GFR NON-AFRICAN AMERICAN > 60
[2018-01-29 07:00] LABS: PLATELET COUNT 36 10^3/uL (120.0-450.0); WHITE BLOOD COUNT 1.7 10^3/ul (4.5-11.0)
[2018-01-29] MEDS: Efavirenz/Emtricitabine/Teno 1 TAB PO SCH (10:50)
[2018-01-29] MEDS: Micafungin 100 MG in Sodium Chloride 0.9% 100 ML IV SCH (10:51)
[2018-01-29] MEDS: Atovaquone 750 mg/5 ml Susp UD PO SCH ×3 (10:51→18:20)
[2018-01-29] MEDS: Nystatin 100,000 Units/ml Oral Susp 5 ml UD PO SCH ×5 (10:52→21:17)
[2018-01-29] MEDS: Vancomycin 1gm in NS 250ml 1 GM/250 ML BAG IVPB SCH ×3 (10:54→22:00)
--- NOTE | 2018-01-29 12:22 | CP.PCM.PN ---
<Germán Sood - Last Filed: 01/29/18 15:55> Subjective - Date & Time of Evaluation Date of Evaluation: 01/29/18 Time of Evaluation: 06:30 - Subjective Subjective: Germán Sood DO PGY-1, Internal Medicine Resident. Hospitalist Progress Note Patient seen and examined at bedside. Patient reported fever, Tmax 103.5, controlled with Tylenol. Still c/o bilateral feet paresthesia. Patient denied CP , SOB, palpitation, headache, dizziness. ROS otherwise negative Objective - Vital Signs/Intake and Output Vital Signs (last 24 hours): Temp Pulse Resp BP Pulse Ox 101.5 F H 116 H 20 114/76 100 01/29/18 11:37 01/29/18 08:25 01/29/18 08:25 01/29/18 08:25 01/29/18 08:25 Intake and Output: 01/29/18 01/29/18 06:59 18:59 Intake Total 490 Output Total 300 Balance 190 - Medications Medications: Current Medications Acetaminophen (Tylenol 325mg Tab) 650 mg PO Q6H PRN PRN Reason: Fever >100.4 F Last Admin: 01/29/18 11:33 Dose: 650 mg Albuterol/Ipratropium (Duoneb 3 Mg/0.5 Mg (3 Ml) Ud) 3 ml IH [id number] [facility] Last Admin: 01/29/18 07:56 Dose: Not Given Albuterol/Ipratropium (Duoneb 3 Mg/0.5 Mg (3 Ml) Ud) 3 ml IH Q2H PRN PRN Reason: Shortness of Breath Atovaquone (Mepron) 750 mg PO BID MCKAYLA PRN Reason: Protocol Last Admin: 01/29/18 11:09 Dose: Not Given Clarithromycin (Biaxin Filmtab) 500 mg PO Q12 MCKAYLA PRN Reason: Protocol Last Admin: 01/29/18 10:51 Dose: 500 mg Efavirenz/Emtricitabine/Tenofovir (Atripla 600 Mg-200 Mg-300 Mg) 1 tab PO DAILY MCKAYLA PRN Reason: Protocol Last Admin: 01/29/18 10:50 Dose: 1 tab Gabapentin (Neurontin) 300 mg PO TID MCKAYLA PRN Reason: Protocol Last Admin: 01/29/18 10:52 Dose: 300 mg Vancomycin HCl (Vancomycin 1gm) 1 gm in 250 mls @ 167 mls/hr IVPB Q12H MCKAYLA PRN Reason: Protocol Last Admin: 01/29/18 10:54 Dose: 167 mls/hr Nystatin (Nystatin Oral Susp) 5 ml PO QID MCKAYLA Last Admin: 01/29/18 10:52 Dose: 5 ml Rifampin (Rifampin Cap) 300 mg PO DAILY MCKAYLA PRN Reason: Protocol Last Admin: 01/29/18 10:54 Dose: 300 mg - Labs Labs: 01/29/18 05:30 01/29/18 05:30 - Constitutional Appears: Well, No Acute Distress - Head Exam Head Exam: ATRAUMATIC, NORMOCEPHALIC - Eye Exam Eye Exam: EOMI, PERRL Pupil Exam: NORMAL ACCOMODATION - ENT Exam ENT Exam: Mucous Membranes Dry - Neck Exam Neck Exam: Normal Inspection. absent: Lymphadenopathy, Thyromegaly - Respiratory Exam Respiratory Exam: Clear to Ausculation Bilateral, NORMAL BREATHING PATTERN - Cardiovascular Exam Cardiovascular Exam: Tachycardia, +S1, +S2. absent: Gallop, Rubs, Murmur - GI/Abdominal Exam GI & Abdominal Exam: Soft, Normal Bowel Sounds. absent: Tenderness - Extremities Exam Extremities Exam: Full ROM, Normal Capillary Refill, Normal Inspection. absent : Joint Swelling, Pedal Edema - Back Exam Back Exam: NORMAL INSPECTION - Neurological Exam Neurological Exam: Alert, Awake, CN II-XII Intact, Motor Sensory Deficit, Oriented x3 Additional comments: paresthesia b/l feet - Psychiatric Exam Psychiatric exam: Normal Affect, Normal Mood - Skin Skin Exam: Dry, Intact, Normal Color, Warm Assessment and Plan - Assessment and Plan (Free Text) Assessment: 52 y/o female with PMH of HIV and COPD admitted for management of fever of unknown etiology, concern for JERSON. Sputum cultures shows Stenotrophomonas maltophilia. Most recent CD4< 20. CT abd/pelvis. On empiric antibiotic therapy Plan: Fever of unknown etiology -Patient still have spike of fever controlled with Tylenol -blood and urine cultures negative -sputum cx showing Stenotrophomonas maltoplilia -continue micafungin, Atripla -continue Rifampin, Vanco, clarithromycin, atovaquone for JERSON -TSH elevated 8.55, will repeat -Elevated Galactomannin on prior admission, ESR and CRP elevated -Will consider acyclovir/valgancyclovir use if fevers persist in this manner as per ID consult History of HIV -positive for Toxo antibody -HIV RNA 5.65 and CD4 <20 within past month -Head CT negative -Chest CT showed small pleural based nodules are seen at the left lung base the largest measuring 7mm. -outpatient PFTs, brochoscopy as per pulm recs -will need 6-9 months of JERSON treatment Pancytopenia -patient asymptomatic. continue to monitor. transfuse platelet, RBC prn -Likely 2/2 to chronic HIV and bone marrow suppression -s/p 2 PRBCs transfusion. Hgb stable, continue to monitor -Retic ct 0.35, peripheral smear demonstrated pancytopenia -As per Heme/onc consult; it's likely AIDS related with exacerbation of counts by medication. Anemia of HIV and Chronic disease. growth factor support if ANC < 500 Transaminitis -Patient is symptom free. 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 Chris <Esha Chris - Last Filed: 01/29/18 17:23> Objective - Vital Signs/Intake and Output Vital Signs (last 24 hours): Temp Pulse Resp BP Pulse Ox 99.8 F H 100 H 19 127/77 95 01/29/18 16:38 01/29/18 16:38 01/29/18 16:38 01/29/18 16:38 01/29/18 16:38 Intake and Output: 01/29/18 01/29/18 06:59 18:59 Intake Total 490 Output Total 300 Balance 190 - Medications Medications: Current Medications Acetaminophen (Tylenol 325mg Tab) 650 mg PO Q6H PRN PRN Reason: Fever >100.4 F Last Admin: 01/29/18 11:33 Dose: 650 mg Albuterol/Ipratropium (Duoneb 3 Mg/0.5 Mg (3 Ml) Ud) 3 ml IH [id number] MCKAYLA Last Admin: 01/29/18 07:56 Dose: Not Given Albuterol/Ipratropium (Duoneb 3 Mg/0.5 Mg (3 Ml) Ud) 3 ml IH Q2H PRN PRN Reason: Shortness of Breath Atovaquone (Mepron) 750 mg PO BID MCKAYLA PRN Reason: Protocol Last Admin: 01/29/18 11:09 Dose: Not Given Clarithromycin (Biaxin Filmtab) 500 mg PO Q12 MCKAYLA PRN Reason: Protocol Last Admin: 01/29/18 10:51 Dose: 500 mg Efavirenz/Emtricitabine/Tenofovir (Atripla 600 Mg-200 Mg-300 Mg) 1 tab PO DAILY MCKAYLA PRN Reason: Protocol Last Admin: 01/29/18 10:50 Dose: 1 tab Gabapentin (Neurontin) 300 mg PO TID MCKAYLA PRN Reason: Protocol Last Admin: 01/29/18 13:29 Dose: 300 mg Vancomycin HCl (Vancomycin 1gm) 1 gm in 250 mls @ 167 mls/hr IVPB Q12H MCKAYLA PRN Reason: Protocol Last Admin: 01/29/18 10:54 Dose: 167 mls/hr Nystatin (Nystatin Oral Susp) 5 ml PO QID MCKAYLA Last Admin: 01/29/18 13:29 Dose: 5 ml Rifampin (Rifampin Cap) 300 mg PO DAILY MCKAYLA PRN Reason: Protocol Last Admin: 01/29/18 10:54 Dose: 300 mg - Labs Labs: 01/29/18 05:30 01/29/18 05:30 Attending/Attestation - Attestation I have personally seen and examined this patient.: Yes I have fully participated in the care of the patient.: Yes I have reviewed all pertinent clinical information, including history, physical exam and plan: Yes Notes (Text): 01/29/18 17:18 52 year old female with past medical history of HIV who was admitted with fever. Recent admission workup revealed loren [id number] level. Concern for JERSON. Patient is currently on micafungin, atripla, rifampin, clarithromycin, atovaquone and vanco. ID and hematology are following the patient. Will follow up with recommendations. Continue to monitor pancytopenia and transaminitis closely. Esha Chris MD Hospitalist.
--- NOTE | 2018-01-29 19:35 | CP.PCM.PN ---
Subjective - Date & Time of Evaluation Date of Evaluation: 01/29/18 Time of Evaluation: 18:30 - Subjective Subjective: Infectious Disease Follow Up: January 29, 2018 52 yo female presenting for urinary retention. Multiple hospitalizations this past month for generalized weakness and COPD exacerbation. Recent diagnosis of HIV with CD4 less than 20. Was discharged from the hospital the day before this admission. Returned for inability to urinate for one day. Fever up to 104.3 F in this hospitalization. Still with fever up to 103.2 F today. Most likely diagnosis remains JERSON given the state of her HIV. My concerns remain with her compliance with therapy. Currently on Clarithrimycin and Atovaquone for treatment of suspected JERSON. As fever continue to persist, will add Rifampin to the regimen for JERSON treatment. IV Vancomycin also added given reported drainage from raised skin area on buttocks. On HAART with Atripla now. Patient states that she feels better although the patient is still having high fevers. Tachycardia. Both tachycardia and the fevers are stabilizing. Fevers as high as 103.0 F in past 48 hours. Persistent fever episodes now. Had fevers up to 103.0 F today. Patient making few complaints but feels more tired today. Objective - Vital Signs/Intake and Output Vital Signs (last 24 hours): Temp Pulse Resp BP Pulse Ox 99.8 F H 121 H 19 127/77 95 01/29/18 16:38 01/29/18 18:00 01/29/18 16:38 01/29/18 16:38 01/29/18 16:38 Intake and Output: 01/29/18 01/30/18 18:59 06:59 Intake Total 2049 Balance 2049 - Medications Medications: Current Medications Acetaminophen (Tylenol 325mg Tab) 650 mg PO Q6H PRN PRN Reason: Fever >100.4 F Last Admin: 01/29/18 11:33 Dose: 650 mg Albuterol/Ipratropium (Duoneb 3 Mg/0.5 Mg (3 Ml) Ud) 3 ml IH [id number] [facility] Last Admin: 01/29/18 07:56 Dose: Not Given Albuterol/Ipratropium (Duoneb 3 Mg/0.5 Mg (3 Ml) Ud) 3 ml IH Q2H PRN PRN Reason: Shortness of Breath Atovaquone (Mepron) 750 mg PO BID [facility] PRN Reason: Protocol Last Admin: 01/29/18 18:20 Dose: Not Given Clarithromycin (Biaxin Filmtab) 500 mg PO Q12 [facility] PRN Reason: Protocol Last Admin: 01/29/18 10:51 Dose: 500 mg Efavirenz/Emtricitabine/Tenofovir (Atripla 600 Mg-200 Mg-300 Mg) 1 tab PO DAILY [facility]LA PRN Reason: Protocol Last Admin: 01/29/18 10:50 Dose: 1 tab Gabapentin (Neurontin) 300 mg PO TID [facility]LA PRN Reason: Protocol Last Admin: 01/29/18 18:20 Dose: 300 mg Vancomycin HCl (Vancomycin 1gm) 1 gm in 250 mls @ 167 mls/hr IVPB Q12H [facility] PRN Reason: Protocol Last Admin: 01/29/18 10:54 Dose: 167 mls/hr Nystatin (Nystatin Oral Susp) 5 ml PO QID [facility] Last Admin: 01/29/18 18:20 Dose: 5 ml Rifampin (Rifampin Cap) 300 mg PO DAILY [facility]AYLA PRN Reason: Protocol Last Admin: 01/29/18 10:54 Dose: 300 mg Valacyclovir HCl (Valtrex) 1 gm PO BID MCKAYLA PRN Reason: Protocol - Labs Labs: 01/29/18 05:30 01/29/18 05:30 - Constitutional Appears: Non-toxic, No Acute Distress, Chronically Ill - Head Exam Head Exam: ATRAUMATIC, NORMOCEPHALIC - Eye Exam Eye Exam: EOMI, PERRL Pupil Exam: NORMAL ACCOMODATION, PERRL - ENT Exam ENT Exam: Mucous Membranes Moist, Normal External Ear Exam, TM's Normal Bilaterally - Neck Exam Neck Exam: Full ROM, Normal Inspection - Respiratory Exam Respiratory Exam: Clear to Ausculation Bilateral, NORMAL BREATHING PATTERN. absent: Rales, Rhonchi, Wheezes - Cardiovascular Exam Cardiovascular Exam: REGULAR RHYTHM, RRR, +S1, +S2 - GI/Abdominal Exam GI & Abdominal Exam: Soft, Normal Bowel Sounds. absent: Distended, Tenderness - Extremities Exam Extremities Exam: Full ROM, Normal Inspection - Neurological Exam Neurological Exam: Alert, Awake, CN II-XII Intact, Oriented x3 - Psychiatric Exam Psychiatric exam: Normal Affect, Normal Mood - Skin Additional comments: healing rash on right buttocks. Assessment and Plan - Assessment and Plan (Free Text) Assessment: 52 yo Female with newly diagnosed HIV disease presenting with inability to urinate for 1 day and findings of fevers up to 104 F. The patient likely requires set up with HIV clinic and to start HAART. Continue with meropenem for now. CT Abd/Pel with no acute findings. Chest X-ray with no acute cardiopulmonary findings. Given previous hospitalizations and lack of findings with a similar presentation but high Vixy-A-Mgxqim, the patient may have a mycobacterium (nontuberculosis) disease of the lung. Concerns mostly around how the patient would receive therapy especially since the patient came back to the hospital 24 hours of her discharge from the facility. Her treatments for a JERSON pneumonia would still need weeks to months of medications. May need to check if the [facility] is willing to provide follow up on the patient for presumptive JERSON treatment. Fevers persist however there were episodes of hypothermia two nights ago with temperature of 96.8 F. In light of this, the patient was already on Clarithromycin and Atovaquone for presumptive JERSON treatment. Added Rifampin to the regimen. There was swelling across one dermatome with drainage of pus. Given the wide fever range and increasing symptomology, started HAART regimen and obtain Genotype testing. Micafungin also started. Patient states she feels better overall and has less sweating. Fevers decreasing in frequency. Supportive care. IRIS? Today, fever up to 103.0 F. Patient's appetite is improving. Overall the patient states that she is feeling better and feeling stronger. She does NOT appear toxic. Persistent leukopenia. Persistent fevers the past 48 hours. Started valacyclovir treatment in the patient as well. Thank you for allowing me to participate in the care of the patient, we will follow with you.
[2018-01-30] MEDS: Albuterol-Ipratrop 3 mg / 0.5 (3 ml) UD IH SCH ×4 (01:25→20:37)
[2018-01-30 06:37] LABS: EOS % 1.9 % (1.5-5.0); GRAN # 0.46 (1.4-6.5); GRAN % 85.1 % (50.0-68.0); HEMOGLOBIN 8.4 g/dL (12.0-16.0); LYMPH # 0.1 (1.2-3.4); LYMPH % 11.1 % (22.0-35.0); MEAN CELL VOLUME 79.4 fl (80.0-105.0); MEAN CORPUSCULAR HEMOGLOBIN 27.1 pg (25.0-35.0); MEAN CORPUSCULAR HGB CONC 34.1 g/dl (31.0-37.0); MONO % 1.9 % (1.0-6.0); RED CELL DISTRIBUTION WIDTH 15.6 % (11.5-14.5)
[2018-01-30 06:43] LABS: PLATELET COUNT 25 10^3/uL (120.0-450.0); WHITE BLOOD COUNT 0.5 10^3/ul (4.5-11.0)
[2018-01-30 07:09] LABS: ALB/GLOB RATIO 0.7 (1.1-1.8); ALBUMIN 2.2 g/dL (3.0-4.8); ALT/SGPT 18 U/L (7-56); AST/SGOT 189 U/L (14-36); BLOOD UREA NITROGEN 13 mg/dL (7-21); CALCIUM 7.2 mg/dL (8.4-10.5); GFR NON-AFRICAN AMERICAN > 60
[2018-01-30] MEDS ORDERED: Tranexamic Acid 2 ML ONE (07:26)
[2018-01-30] MEDS ORDERED: Vancomycin 1 g Inj ONE (07:26)
[2018-01-30] MEDS ORDERED: Sodium Chloride 0.9% 40 ML IV ONE (07:27)
[2018-01-30] MEDS ORDERED: Bupivacaine Liposomal Inj 20 ml ONE (07:27)
[2018-01-30] MEDS ORDERED: Potassium Chloride 40 mEq/30 ml LIQ UD PO STA (08:18)
[2018-01-30] MEDS: Atovaquone 750 mg/5 ml Susp UD PO SCH ×4 (09:57→18:26)
[2018-01-30] MEDS: Efavirenz/Emtricitabine/Teno 1 TAB PO SCH (09:57)
[2018-01-30] MEDS: Nystatin 100,000 Units/ml Oral Susp 5 ml UD PO SCH ×4 (09:59→21:24)
[2018-01-30] MEDS: Sodium Chloride 0.9% 1,000 ML IV SCH (09:59)
[2018-01-30] MEDS ORDERED: Micafungin 100 MG in Sodium Chloride 0.9% 100 ML IV SCH (10:00)
--- NOTE | 2018-01-30 13:11 | RAD ---
Date of service: 01/30/2018 HISTORY: septic w/u COMPARISON: 01/19/2018. FINDINGS: LUNGS: The lungs are well inflated. There is mild pulmonary venous congestion. No focal consolidation. PLEURA: No significant pleural effusion identified, no pneumothorax apparent. CARDIOVASCULAR: Normal. OSSEOUS STRUCTURES: No significant abnormalities. VISUALIZED UPPER ABDOMEN: Normal. OTHER FINDINGS: None. IMPRESSION: No acute findings.
[2018-01-30] MEDS: Vancomycin 1gm in NS 250ml 1 GM/250 ML BAG IVPB SCH ×2 (13:57→21:25)
[2018-01-30 13:58] LABS: BLOOD UREA NITROGEN 14 mg/dL (7-21); CALCIUM 7.4 mg/dL (8.4-10.5); GFR NON-AFRICAN AMERICAN 58
--- NOTE | 2018-01-30 16:20 | CP.PCM.PN ---
<BarrieGermán - Last Filed: 01/30/18 16:21> Subjective - Date & Time of Evaluation Date of Evaluation: 01/30/18 Time of Evaluation: 06:34 - Subjective Subjective: Patient seen and examined at bedside. Patient reported fever, Tmax 105.6, controlled with Motrin. Patient had 4 episodes of loose stool following Valtrex administration last night. Patient denied CP, SOB, palpitation, headache, dizziness. Objective - Vital Signs/Intake and Output Vital Signs (last 24 hours): Temp Pulse Resp BP Pulse Ox 101.6 F H 120 H 20 111/71 96 01/30/18 12:50 01/30/18 08:30 01/30/18 08:30 01/30/18 08:30 01/30/18 08:30 Intake and Output: 01/30/18 01/30/18 06:59 18:59 Intake Total 300 Balance 300 - Medications Medications: Current Medications Acetaminophen (Tylenol 325mg Tab) 650 mg PO Q6H PRN PRN Reason: Fever >100.4 F Last Admin: 01/29/18 11:33 Dose: 650 mg Albuterol/Ipratropium (Duoneb 3 Mg/0.5 Mg (3 Ml) Ud) 3 ml IH [id number] [facility] Last Admin: 01/30/18 13:22 Dose: 3 ml Albuterol/Ipratropium (Duoneb 3 Mg/0.5 Mg (3 Ml) Ud) 3 ml IH Q2H PRN PRN Reason: Shortness of Breath Atovaquone (Mepron) 750 mg PO BID [facility]LA PRN Reason: Protocol Last Admin: 01/30/18 10:21 Dose: Not Given Clarithromycin (Biaxin Filmtab) 500 mg PO Q12 [facility] PRN Reason: Protocol Last Admin: 01/30/18 09:57 Dose: 500 mg Efavirenz/Emtricitabine/Tenofovir (Atripla 600 Mg-200 Mg-300 Mg) 1 tab PO DAILY [facility]LA PRN Reason: Protocol Last Admin: 01/30/18 09:57 Dose: 1 tab Gabapentin (Neurontin) 300 mg PO TID [facility]LA PRN Reason: Protocol Last Admin: 01/30/18 13:56 Dose: 300 mg Vancomycin HCl (Vancomycin 1gm) 1 gm in 250 mls @ 167 mls/hr IVPB Q12H [facility] PRN Reason: Protocol Last Admin: 01/30/18 13:57 Dose: 167 mls/hr Sodium Chloride (Sodium Chloride 0.9%) 1,000 mls @ 100 mls/hr IV .Q10H [facility] Last Admin: 01/30/18 09:59 Dose: 100 mls/hr Nystatin (Nystatin Oral Susp) 5 ml PO QID [facility] Last Admin: 01/30/18 13:56 Dose: 5 ml Rifampin (Rifampin Cap) 300 mg PO DAILY MCKAYLA PRN Reason: Protocol Last Admin: 01/30/18 09:59 Dose: 300 mg Valacyclovir HCl (Valtrex) 1 gm PO BID MCKAYLA PRN Reason: Protocol Last Admin: 01/30/18 10:00 Dose: 1 gm - Labs Labs: 01/30/18 06:00 01/30/18 13:00 - Additional Findings Additional findings: - Constitutional Appears: Well, No Acute Distress - Head Exam Head Exam: ATRAUMATIC, NORMOCEPHALIC - Eye Exam Eye Exam: EOMI, PERRL Pupil Exam: NORMAL ACCOMODATION - ENT Exam ENT Exam: Mucous Membranes Dry - Neck Exam Neck Exam: Normal Inspection. absent: Lymphadenopathy, Thyromegaly - Respiratory Exam Respiratory Exam: Clear to Ausculation Bilateral, NORMAL BREATHING PATTERN - Cardiovascular Exam Cardiovascular Exam: Tachycardia, +S1, +S2. absent: Gallop, Rubs, Murmur - GI/Abdominal Exam GI & Abdominal Exam: Soft, Normal Bowel Sounds. absent: Tenderness - Extremities Exam Extremities Exam: Full ROM, Normal Capillary Refill, Normal Inspection. absent : Joint Swelling, Pedal Edema - Back Exam Back Exam: NORMAL INSPECTION - Neurological Exam Neurological Exam: Alert, Awake, CN II-XII Intact, Motor Sensory Deficit, Oriented x3 Additional comments: paresthesia b/l feet - Psychiatric Exam Psychiatric exam: Normal Affect, Normal Mood - Skin Skin Exam: Dry, Intact, Normal Color, Warm Assessment and Plan - Assessment and Plan (Free Text) Assessment: 52 y/o female with PMH of HIV and COPD admitted for management of fever of unknown etiology, concern for JERSON. Sputum cultures shows Stenotrophomonas maltophilia. Most recent CD4< 20. CT abd/pelvis. On empiric antibiotic therapy. Patient continues to have spikes of fever Tmax 105.6 Plan: Fever of unknown etiology -Patient still have spike of fever controlled with Mortin -blood and urine cultures negative -sputum cx showing Stenotrophomonas maltoplilia -continue micafungin, Atripla -continue Rifampin, Vanco, clarithromycin, atovaquone for JERSON -TSH elevated 8.55, will repeat -Elevated Galactomannin on prior admission, ESR and CRP elevated -On Valtrex. developed 4 loose bowel movements with no blood. resolved now History of HIV -positive for Toxo antibody -HIV RNA 5.65 and CD4 <20 within past month -Head CT negative -Chest CT showed small pleural based nodules are seen at the left lung base the largest measuring 7mm. -outpatient PFTs, brochoscopy as per pulm recs -will need 6-9 months of JERSON treatment Pancytopenia -patient asymptomatic. continue to monitor. transfuse platelet, RBC prn -Likely 2/2 to chronic HIV and bone marrow suppression -s/p 2 PRBCs transfusion. Hgb stable, continue to monitor -Retic ct 0.35, peripheral smear demonstrated pancytopenia -As per Heme/onc consult; it's likely AIDS related with exacerbation of counts by medication. Anemia of HIV and Chronic disease. -As per Dr Castro, Granix 480mcg one dose given and to follow up CBC with differential the next day. ANC 425 today Transaminitis -Patient is symptom free. 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 Chris <Esha Chris - Last Filed: 01/30/18 17:54> Objective - Vital Signs/Intake and Output Vital Signs (last 24 hours): Temp Pulse Resp BP Pulse Ox 99.2 F 120 H 20 111/71 96 01/30/18 13:50 01/30/18 08:30 01/30/18 08:30 01/30/18 08:30 01/30/18 08:30 Intake and Output: 01/30/18 01/30/18 06:59 18:59 Intake Total 300 Balance 300 - Medications Medications: Current Medications Acetaminophen (Tylenol 325mg Tab) 650 mg PO Q6H PRN PRN Reason: Fever >100.4 F Last Admin: 01/29/18 11:33 Dose: 650 mg Albuterol/Ipratropium (Duoneb 3 Mg/0.5 Mg (3 Ml) Ud) 3 ml IH [id number] [facility] Last Admin: 01/30/18 13:22 Dose: 3 ml Albuterol/Ipratropium (Duoneb 3 Mg/0.5 Mg (3 Ml) Ud) 3 ml IH Q2H PRN PRN Reason: Shortness of Breath Atovaquone (Mepron) 750 mg PO BID [facility]LA PRN Reason: Protocol Last Admin: 01/30/18 10:21 Dose: Not Given Clarithromycin (Biaxin Filmtab) 500 mg PO Q12 [facility] PRN Reason: Protocol Last Admin: 01/30/18 09:57 Dose: 500 mg Efavirenz/Emtricitabine/Tenofovir (Atripla 600 Mg-200 Mg-300 Mg) 1 tab PO DAILY [facility]LA PRN Reason: Protocol Last Admin: 01/30/18 09:57 Dose: 1 tab Gabapentin (Neurontin) 300 mg PO TID [facility]LA PRN Reason: Protocol Last Admin: 01/30/18 13:56 Dose: 300 mg Vancomycin HCl (Vancomycin 1gm) 1 gm in 250 mls @ 167 mls/hr IVPB Q12H [facility] PRN Reason: Protocol Last Admin: 01/30/18 13:57 Dose: 167 mls/hr Sodium Chloride (Sodium Chloride 0.9%) 1,000 mls @ 100 mls/hr IV .Q10H [facility] Last Admin: 01/30/18 09:59 Dose: 100 mls/hr Nystatin (Nystatin Oral Susp) 5 ml PO QID [facility] Last Admin: 01/30/18 13:56 Dose: 5 ml Rifampin (Rifampin Cap) 300 mg PO DAILY [facility]LA PRN Reason: Protocol Last Admin: 01/30/18 09:59 Dose: 300 mg Valacyclovir HCl (Valtrex) 1 gm PO BID [facility]AYLA PRN Reason: Protocol Last Admin: 01/30/18 10:00 Dose: 1 gm - Labs Labs: 01/30/18 06:00 01/30/18 13:00 Attending/Attestation - Attestation I have personally seen and examined this patient.: Yes I have fully participated in the care of the patient.: Yes I have reviewed all pertinent clinical information, including history, physical exam and plan: Yes Notes (Text): 01/30/18 17:52 52 year old female with past medical history of HIV who was admitted with fever. Recent admission workup revealed loren [id number] level. Concern for JERSON. Patient is currently on micafungin, atripla, rifampin, clarithromycin, atovaquone and vanco. Patient continues to have high grade fevers. Will repeat septic workup and discuss with ID. Patient also has pancytopenia with worsening neutropenia. Granix ordered as per heme recommendations. Overall prognosis is poor. Esha Chris MD Hospitalist.
--- NOTE | 2018-01-30 18:10 | CP.PCM.PN ---
Subjective - Date & Time of Evaluation Date of Evaluation: 01/30/18 Time of Evaluation: 17:02 - Subjective Subjective: Infectious Disease Follow Up: January 30, 2018 52 yo female presenting for urinary retention. Multiple hospitalizations this past month for generalized weakness and COPD exacerbation. Recent diagnosis of HIV with CD4 less than 20. Was discharged from the hospital the day before this admission. Returned for inability to urinate for one day. Fever up to 104.3 F in this hospitalization. Still with fever up to 103.2 F today. Most likely diagnosis remains JERSON given the state of her HIV. My concerns remain with her compliance with therapy. Currently on Clarithrimycin and Atovaquone for treatment of suspected JERSON. As fever continue to persist, will add Rifampin to the regimen for JERSON treatment. IV Vancomycin also added given reported drainage from raised skin area on buttocks. On HAART with Atripla now. Patient states that she feels better although the patient is still having high fevers. Tachycardia. Both tachycardia and the fevers are stabilizing. Fevers as high as 105.6 F in past 12 hours. Persistent fever episodes now. Had fevers up to 105.6 F today. Patient making few complaints but feels more tired today. Objective - Vital Signs/Intake and Output Vital Signs (last 24 hours): Temp Pulse Resp BP Pulse Ox 99.2 F 120 H 20 111/71 96 01/30/18 13:50 01/30/18 08:30 01/30/18 08:30 01/30/18 08:30 01/30/18 08:30 Intake and Output: 01/30/18 01/30/18 06:59 18:59 Intake Total 300 Balance 300 - Medications Medications: Current Medications Acetaminophen (Tylenol 325mg Tab) 650 mg PO Q6H PRN PRN Reason: Fever >100.4 F Last Admin: 01/29/18 11:33 Dose: 650 mg Albuterol/Ipratropium (Duoneb 3 Mg/0.5 Mg (3 Ml) Ud) 3 ml IH [id number] Last Admin: 01/30/18 13:22 Dose: 3 ml Albuterol/Ipratropium (Duoneb 3 Mg/0.5 Mg (3 Ml) Ud) 3 ml IH Q2H PRN PRN Reason: Shortness of Breath Atovaquone (Mepron) 750 mg PO BID [facility] PRN Reason: Protocol Last Admin: 01/30/18 10:21 Dose: Not Given Clarithromycin (Biaxin Filmtab) 500 mg PO Q12 [facility] PRN Reason: Protocol Last Admin: 01/30/18 09:57 Dose: 500 mg Efavirenz/Emtricitabine/Tenofovir (Atripla 600 Mg-200 Mg-300 Mg) 1 tab PO DAILY [facility] PRN Reason: Protocol Last Admin: 01/30/18 09:57 Dose: 1 tab Gabapentin (Neurontin) 300 mg PO TID [facility] PRN Reason: Protocol Last Admin: 01/30/18 13:56 Dose: 300 mg Vancomycin HCl (Vancomycin 1gm) 1 gm in 250 mls @ 167 mls/hr IVPB Q12H [facility] PRN Reason: Protocol Last Admin: 01/30/18 13:57 Dose: 167 mls/hr Sodium Chloride (Sodium Chloride 0.9%) 1,000 mls @ 100 mls/hr IV .Q10H [facility] Last Admin: 01/30/18 09:59 Dose: 100 mls/hr Nystatin (Nystatin Oral Susp) 5 ml PO QID [facility] Last Admin: 01/30/18 13:56 Dose: 5 ml Rifampin (Rifampin Cap) 300 mg PO DAILY [facility] PRN Reason: Protocol Last Admin: 01/30/18 09:59 Dose: 300 mg Valacyclovir HCl (Valtrex) 1 gm PO BID [facility] PRN Reason: Protocol Last Admin: 01/30/18 10:00 Dose: 1 gm - Labs Labs: 01/30/18 06:00 01/30/18 13:00 - Constitutional Appears: Non-toxic, No Acute Distress, Chronically Ill - Head Exam Head Exam: ATRAUMATIC, NORMOCEPHALIC - Eye Exam Eye Exam: EOMI, PERRL Pupil Exam: NORMAL ACCOMODATION, PERRL - ENT Exam ENT Exam: Mucous Membranes Moist, Normal External Ear Exam, TM's Normal Bilaterally - Neck Exam Neck Exam: Full ROM, Normal Inspection - Respiratory Exam Respiratory Exam: Clear to Ausculation Bilateral, NORMAL BREATHING PATTERN. absent: Rales, Rhonchi, Wheezes - Cardiovascular Exam Cardiovascular Exam: REGULAR RHYTHM, RRR, +S1, +S2 - GI/Abdominal Exam GI & Abdominal Exam: Soft, Normal Bowel Sounds. absent: Distended, Tenderness - Extremities Exam Extremities Exam: Full ROM, Normal Inspection - Neurological Exam Neurological Exam: Alert, Awake, CN II-XII Intact, Oriented x3 - Psychiatric Exam Psychiatric exam: Normal Affect, Normal Mood - Skin Additional comments: healing rash on right buttocks. Assessment and Plan - Assessment and Plan (Free Text) Assessment: 52 yo Female with newly diagnosed HIV disease presenting with inability to urinate for 1 day and findings of fevers up to 104 F. The patient likely requires set up with HIV clinic and to start HAART. Continue with meropenem for now. CT Abd/Pel with no acute findings. Chest X-ray with no acute cardiopulmonary findings. Given previous hospitalizations and lack of findings with a similar presentation but high [id number], the patient may have a mycobacterium (nontuberculosis) disease of the lung. Concerns mostly around how the patient would receive therapy especially since the patient came back to the hospital 24 hours of her discharge from the facility. Her treatments for a JERSON pneumonia would still need weeks to months of medications. May need to check if the [facility] is willing to provide follow up on the patient for presumptive JERSON treatment. Fevers persist however there were episodes of hypothermia several nights ago with temperature of 96.8 F. In light of this, the patient was already on Clarithromycin and Atovaquone for presumptive JERSON treatment. Added Rifampin to the regimen. There was swelling across one dermatome with drainage of pus. Given the wide fever range and increasing symptomology, started HAART regimen and obtain Genotype testing. Micafungin continued. Patient states she feels better overall and has less sweating. Fevers decreasing in frequency. Supportive care. IRIS? Today, fever up to 105.6 F. Patient's appetite is improving. Overall the patient states that she is feeling better and feeling stronger. She does NOT appear toxic. Persistent leukopenia. Persistent fevers the past 48 hours. Continuing on valacyclovir treatment in the patient as well. 4 episodes of diarrhea overnight after starting Valtrex. Thank you for allowing me to participate in the care of the patient, we will follow with you.
[2018-01-31] MEDS: Sodium Chloride 0.9% 1,000 ML IV SCH ×2 (00:17→10:16)
[2018-01-31] MEDS: Albuterol-Ipratrop 3 mg / 0.5 (3 ml) UD IH SCH ×4 (02:09→20:35)
--- NOTE | 2018-01-31 07:54 | CP.PCM.PN ---
<Germán Sood - Last Filed: 01/31/18 18:58> Subjective - Date & Time of Evaluation Date of Evaluation: 01/31/18 Time of Evaluation: 05:42 - Subjective Subjective: Germán Sood DO PGY-1, Internal Medicine Resident. Hospitalist Progress Note Patient seen and examined at bedside. Patient reported fever, Tmax 105.6, controlled with Motrin. Patient denied CP, SOB, palpitation, headache, dizziness. Objective - Vital Signs/Intake and Output Vital Signs (last 24 hours): Temp Pulse Resp BP Pulse Ox 98.1 F 125 H 20 97/62 L 99 01/31/18 02:35 01/31/18 05:00 01/31/18 00:00 01/31/18 00:00 01/31/18 00:00 Intake and Output: 01/31/18 01/31/18 06:59 18:59 Intake Total 4160 Output Total 656 Balance 3504 - Medications Medications: Current Medications Acetaminophen (Tylenol 325mg Tab) 650 mg PO Q6H PRN PRN Reason: Fever >100.4 F Last Admin: 01/29/18 11:33 Dose: 650 mg Albuterol/Ipratropium (Duoneb 3 Mg/0.5 Mg (3 Ml) Ud) 3 ml IH [id number] MCKAYLA Last Admin: 01/31/18 02:09 Dose: Not Given Albuterol/Ipratropium (Duoneb 3 Mg/0.5 Mg (3 Ml) Ud) 3 ml IH Q2H PRN PRN Reason: Shortness of Breath Atovaquone (Mepron) 750 mg PO BID MCKAYLA PRN Reason: Protocol Last Admin: 01/30/18 18:26 Dose: Not Given Efavirenz/Emtricitabine/Tenofovir (Atripla 600 Mg-200 Mg-300 Mg) 1 tab PO DAILY MCKAYLA PRN Reason: Protocol Last Admin: 01/30/18 09:57 Dose: 1 tab Gabapentin (Neurontin) 300 mg PO TID MCKAYLA PRN Reason: Protocol Last Admin: 01/30/18 18:16 Dose: 300 mg Sodium Chloride (Sodium Chloride 0.9%) 1,000 mls @ 100 mls/hr IV .Q10H MCKAYLA Last Admin: 01/31/18 00:17 Dose: 100 mls/hr Ibuprofen (Motrin Tab) 400 mg PO Q6H PRN PRN Reason: Fever >100.4 F Last Admin: 01/30/18 21:23 Dose: 400 mg Nystatin (Nystatin Oral Susp) 5 ml PO QID [facility] Last Admin: 01/30/18 21:24 Dose: 5 ml Rifampin (Rifampin Cap) 300 mg PO DAILY MCKAYLA PRN Reason: Protocol Last Admin: 01/30/18 09:59 Dose: 300 mg Valacyclovir HCl (Valtrex) 1 gm PO BID MCKAYLA PRN Reason: Protocol Last Admin: 01/30/18 18:16 Dose: 1 gm - Labs Labs: 01/30/18 06:00 01/30/18 13:00 - Additional Findings Additional findings: - Constitutional Appears: Well, No Acute Distress - Head Exam Head Exam: ATRAUMATIC, NORMOCEPHALIC - Eye Exam Eye Exam: EOMI, PERRL Pupil Exam: NORMAL ACCOMODATION - ENT Exam ENT Exam: Mucous Membranes Dry - Neck Exam Neck Exam: Normal Inspection. absent: Lymphadenopathy, Thyromegaly - Respiratory Exam Respiratory Exam: Clear to Ausculation Bilateral, NORMAL BREATHING PATTERN - Cardiovascular Exam Cardiovascular Exam: Tachycardia, +S1, +S2. absent: Gallop, Rubs, Murmur - GI/Abdominal Exam GI & Abdominal Exam: Soft, Normal Bowel Sounds. absent: Tenderness - Extremities Exam Extremities Exam: Full ROM, Normal Capillary Refill, Normal Inspection. absent : Joint Swelling, Pedal Edema - Back Exam Back Exam: NORMAL INSPECTION - Neurological Exam Neurological Exam: Alert, Awake, CN II-XII Intact, Motor Sensory Deficit, Oriented x3 Additional comments: paresthesia b/l feet - Psychiatric Exam Psychiatric exam: Normal Affect, Normal Mood - Skin Skin Exam: Dry, Intact, Normal Color, Warm Assessment and Plan - Assessment and Plan (Free Text) Assessment: 52 y/o female with PMH of HIV and COPD admitted for management of fever of unknown etiology, concern for JERSON. Sputum cultures shows Stenotrophomonas maltophilia. Most recent CD4< 20. CT abd/pelvis. On empiric antibiotic therapy. Patient continues to have spikes of fever Tmax 105.6 last night Plan: Fever of unknown etiology -Patient still have spike of fever controlled with Mortin -continue micafungin, Atripla -continue Rifampin, Vanco, clarithromycin, atovaquone for JERSON -continue Valtrex -blood and urine cultures negative -sputum cx showing Stenotrophomonas maltoplilia -Elevated Galactomannin on prior admission, ESR and CRP elevated History of HIV -Procalcitonin ordered -HSV 1/2 IGM/IGG ordered -positive for Toxo antibody -HIV RNA 5.65 and CD4 <20 within past month -Head CT negative -Chest CT showed small pleural based nodules are seen at the left lung base the largest measuring 7mm. -outpatient PFTs, brochoscopy as per pulm recs -will need 6-9 months of JERSON treatment Pancytopenia -patient asymptomatic. continue to monitor. transfuse platelet, RBC prn -Likely 2/2 to chronic HIV and bone marrow suppression -s/p 2 PRBCs transfusion. Hgb stable, continue to monitor -Retic ct 0.35, peripheral smear demonstrated pancytopenia -As per Heme/onc consult; it's likely AIDS related with exacerbation of counts by medication. Anemia of HIV and Chronic disease. -As per Dr Castro, Granix 480mcg QD for 2 days and to follow up CBC with differential the next day. ANC still in 420s Transaminitis -Patient is symptom free. 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 Chris <Esha Chris - Last Filed: 02/01/18 07:43> Objective - Vital Signs/Intake and Output Vital Signs (last 24 hours): Temp Pulse Resp BP Pulse Ox 98.9 F 115 H 18 104/69 98 01/31/18 22:10 02/01/18 02:00 01/31/18 22:36 01/31/18 18:04 01/31/18 22:36 - Medications Medications: Current Medications Acetaminophen (Tylenol 325mg Tab) 650 mg PO Q6H PRN PRN Reason: Fever >100.4 F Last Admin: 01/29/18 11:33 Dose: 650 mg Albuterol/Ipratropium (Duoneb 3 Mg/0.5 Mg (3 Ml) Ud) 3 ml IH [id number] MCKAYLA Last Admin: 02/01/18 01:32 Dose: Not Given Albuterol/Ipratropium (Duoneb 3 Mg/0.5 Mg (3 Ml) Ud) 3 ml IH Q2H PRN PRN Reason: Shortness of Breath Atovaquone (Mepron) 750 mg PO BID MCKAYLA PRN Reason: Protocol Last Admin: 01/31/18 19:00 Dose: Not Given Clarithromycin (Biaxin Filmtab) 500 mg PO Q12 MCKAYLA PRN Reason: Protocol Last Admin: 01/31/18 22:34 Dose: 500 mg Efavirenz/Emtricitabine/Tenofovir (Atripla 600 Mg-200 Mg-300 Mg) 1 tab PO DAILY MCKAYLA PRN Reason: Protocol Last Admin: 01/31/18 10:02 Dose: 1 tab Gabapentin (Neurontin) 300 mg PO TID MCKAYLA PRN Reason: Protocol Last Admin: 01/31/18 17:00 Dose: 300 mg Sodium Chloride (Sodium Chloride 0.9%) 1,000 mls @ 100 mls/hr IV .Q10H MCKAYLA Last Admin: 02/01/18 06:00 Dose: 100 mls/hr Meropenem 500 mg/ Sodium (Chloride) 50 mls @ 100 mls/hr IVPB Q8 MCKAYLA PRN Reason: Protocol Last Admin: 02/01/18 05:59 Dose: 100 mls/hr Ibuprofen (Motrin Tab) 400 mg PO Q6H PRN PRN Reason: Fever >100.4 F Last Admin: 01/31/18 18:24 Dose: 400 mg Nystatin (Nystatin Oral Susp) 5 ml PO QID MCKAYLA Last Admin: 01/31/18 22:39 Dose: 5 ml Rifampin (Rifampin Cap) 300 mg PO DAILY MCKAYLA PRN Reason: Protocol Last Admin: 01/31/18 15:42 Dose: Not Given Valacyclovir HCl (Valtrex) 1 gm PO BID MCKAYLA PRN Reason: Protocol Last Admin: 01/31/18 17:00 Dose: 1 gm - Labs Labs: 02/01/18 06:30 02/01/18 06:30 Attending/Attestation - Attestation I have personally seen and examined this patient.: Yes I have fully participated in the care of the patient.: Yes I have reviewed all pertinent clinical information, including history, physical exam and plan: Yes Notes (Text): 01/31/18 52 year old female with past medical history of HIV who was admitted with fever. Recent admission workup revealed loren [id number]-[id number] level. Concern for JERSON. Patient is currently on micafungin, atripla, rifampin, clarithromycin, atovaquone and vanco. Patient continues to have fevers although tmax has come down. Will follow up on repeat septic workup. ID is following. Case was discussed with Dr. Maher today. Patient also has pancytopenia with worsening neutropenia. Granix ordered as per heme recommendations. Overall prognosis is poor. Esha Chris MD Hospitalist.
[2018-01-31] MEDS: Atovaquone 750 mg/5 ml Susp UD PO SCH ×3 (10:02→19:00)
[2018-01-31] MEDS: Nystatin 100,000 Units/ml Oral Susp 5 ml UD PO SCH ×5 (10:02→22:39)
[2018-01-31] MEDS: Efavirenz/Emtricitabine/Teno 1 TAB PO SCH (10:02)
[2018-01-31 11:40] LABS: BASO # 0.01 K/mm3 (0.0-2.0); BASO % 1.6 % (0.0-3.0); EOS % 1.6 % (1.5-5.0); GRAN # 0.45 (1.4-6.5); GRAN % 73.8 % (50.0-68.0); HEMOGLOBIN 7.6 g/dL (12.0-16.0); LYMPH # 0.1 (1.2-3.4); LYMPH % 19.7 % (22.0-35.0); MEAN CELL VOLUME 79.2 fl (80.0-105.0); MEAN CORPUSCULAR HEMOGLOBIN 27.2 pg (25.0-35.0); MEAN CORPUSCULAR HGB CONC 34.4 g/dl (31.0-37.0); MONO % 3.3 % (1.0-6.0); RBC 2.79 10^6/uL (3.5-6.1)
[2018-01-31 11:50] LABS: WHITE BLOOD COUNT 0.6 10^3/ul (4.5-11.0)
[2018-01-31 11:51] LABS: PLATELET COUNT 35 10^3/uL (120.0-450.0)
[2018-01-31 12:49] LABS: PLATELET ESTIMATE LOW (NORMAL)
--- NOTE | 2018-01-31 15:25 | CP.PCM.PN ---
Subjective - Date & Time of Evaluation Date of Evaluation: 01/31/18 Time of Evaluation: 14:30 - Subjective Subjective: Infectious Disease Follow Up: January 31, 2018 52 yo female presenting for urinary retention. Multiple hospitalizations this past month for generalized weakness and COPD exacerbation. Recent diagnosis of HIV with CD4 less than 20. Was discharged from the hospital the day before this admission. Returned for inability to urinate for one day. Fever up to 104.3 F in this hospitalization. Still with fever up to 103.2 F today. Most likely diagnosis remains JERSON given the state of her HIV. My concerns remain with her compliance with therapy. Currently on Clarithrimycin and Atovaquone for treatment of suspected JERSON. As fever continue to persist, will add Rifampin to the regimen for JERSON treatment. IV Vancomycin also added given reported drainage from raised skin area on buttocks. On HAART with Atripla now. Patient states that she feels better although the patient is still having high fevers. Tachycardia. Both tachycardia and the fevers are stabilizing. Afebrile the past 24 hours. Still with tachycardia. Afebrile today but has leukopenia. Patient making few complaints but feels more tired today. Objective - Vital Signs/Intake and Output Vital Signs (last 24 hours): Temp Pulse Resp BP Pulse Ox 98.3 F 143 H 20 108/71 98 01/31/18 13:56 01/31/18 10:00 01/31/18 08:00 01/31/18 08:00 01/31/18 08:00 Intake and Output: 01/31/18 01/31/18 06:59 18:59 Intake Total 4160 Output Total 656 Balance 3504 - Medications Medications: Current Medications Acetaminophen (Tylenol 325mg Tab) 650 mg PO Q6H PRN PRN Reason: Fever >100.4 F Last Admin: 01/29/18 11:33 Dose: 650 mg Albuterol/Ipratropium (Duoneb 3 Mg/0.5 Mg (3 Ml) Ud) 3 ml IH [id number] [facility] Last Admin: 01/31/18 13:35 Dose: 3 ml Albuterol/Ipratropium (Duoneb 3 Mg/0.5 Mg (3 Ml) Ud) 3 ml IH Q2H PRN PRN Reason: Shortness of Breath Atovaquone (Mepron) 750 mg PO BID MCKAYLA PRN Reason: Protocol Last Admin: 01/31/18 10:16 Dose: Not Given Efavirenz/Emtricitabine/Tenofovir (Atripla 600 Mg-200 Mg-300 Mg) 1 tab PO DAILY MCKAYLA PRN Reason: Protocol Last Admin: 01/31/18 10:02 Dose: 1 tab Gabapentin (Neurontin) 300 mg PO TID MCKAYLA PRN Reason: Protocol Last Admin: 01/31/18 13:49 Dose: 300 mg Sodium Chloride (Sodium Chloride 0.9%) 1,000 mls @ 100 mls/hr IV .Q10H [facility] Last Admin: 01/31/18 10:16 Dose: 100 mls/hr Ibuprofen (Motrin Tab) 400 mg PO Q6H PRN PRN Reason: Fever >100.4 F Last Admin: 01/30/18 21:23 Dose: 400 mg Nystatin (Nystatin Oral Susp) 5 ml PO QID [facility] Last Admin: 01/31/18 13:49 Dose: 5 ml Valacyclovir HCl (Valtrex) 1 gm PO BID MCKAYLA PRN Reason: Protocol Last Admin: 01/31/18 10:02 Dose: 1 gm - Labs Labs: 01/31/18 11:20 01/30/18 13:00 - Constitutional Appears: Non-toxic, No Acute Distress, Chronically Ill - Head Exam Head Exam: ATRAUMATIC, NORMOCEPHALIC - Eye Exam Eye Exam: EOMI, PERRL Pupil Exam: NORMAL ACCOMODATION, PERRL - ENT Exam ENT Exam: Mucous Membranes Moist, Normal External Ear Exam, TM's Normal Bilaterally - Neck Exam Neck Exam: Full ROM, Normal Inspection - Respiratory Exam Respiratory Exam: Clear to Ausculation Bilateral, NORMAL BREATHING PATTERN. absent: Rales, Rhonchi, Wheezes - Cardiovascular Exam Cardiovascular Exam: REGULAR RHYTHM, RRR, +S1, +S2 - GI/Abdominal Exam GI & Abdominal Exam: Soft, Normal Bowel Sounds. absent: Distended, Tenderness - Extremities Exam Extremities Exam: Full ROM, Normal Inspection - Neurological Exam Neurological Exam: Alert, Awake, CN II-XII Intact, Oriented x3 - Psychiatric Exam Psychiatric exam: Normal Affect, Normal Mood - Skin Skin Exam: Intact, Normal Color Assessment and Plan - Assessment and Plan (Free Text) Assessment: 52 yo Female with newly diagnosed HIV disease presenting with inability to urinate for 1 day and findings of fevers up to 104 F. The patient likely requires set up with HIV clinic and to start HAART. Continue with meropenem for now. CT Abd/Pel with no acute findings. Chest X-ray with no acute cardiopulmonary findings. Given previous hospitalizations and lack of findings with a similar presentation but high [id number], the patient may have a mycobacterium (nontuberculosis) disease of the lung. Concerns mostly around how the patient would receive therapy especially since the patient came back to the hospital 24 hours of her discharge from the facility. Her treatments for a JERSON pneumonia would still need weeks to months of medications. May need to check if the [facility] is willing to provide follow up on the patient for presumptive JERSON treatment. Fevers persist however there were episodes of hypothermia several nights ago with temperature of 96.8 F. In light of this, the patient was already on Clarithromycin and Atovaquone for presumptive JERSON treatment. Added Rifampin to the regimen. There was swelling across one dermatome with drainage of pus. Given the wide fever range and increasing symptomology, started HAART regimen and obtain Genotype testing. Micafungin continued. Patient states she feels better overall and has less sweating. Supportive care. IRIS? Today, patient afebrile. Patient's appetite is improving. Overall the patient states that she is feeling better and feeling stronger. She does NOT appear toxic. Persistent leukopenia. Afebrile the past 24 hours. Continuing on valacyclovir treatment in the patient as well. 4 episodes of diarrhea overnight after starting Valtrex. The patient is however neutropenic at this time. Thank you for allowing me to participate in the care of the patient, we will follow with you.
[2018-01-31] MEDS: Meropenem 500 MG in Sodium Chloride 0.9% 50 ML IVPB SCH ×2 (16:50→22:38)
[2018-02-01] MEDS: Sodium Chloride 0.9% 1,000 ML IV SCH ×2 (01:00→06:00)
[2018-02-01] MEDS: Albuterol-Ipratrop 3 mg / 0.5 (3 ml) UD IH SCH ×4 (01:32→19:37)
[2018-02-01] MEDS: Meropenem 500 MG in Sodium Chloride 0.9% 50 ML IVPB SCH ×2 (05:59→15:20)
[2018-02-01 06:31] LABS: VENOUS BLOOD GAS BASE EXCESS -12.2 mmol/L (0.0-2.0); VENOUS BLOOD GAS PO2 100 mm/Hg (30-55); VENOUS BLOOD PH 7.26 (7.32-7.43)
[2018-02-01 06:50] LABS: BASO # 0.02 K/mm3 (0.0-2.0); BASO % 4.3 % (0.0-3.0); EOS % 2.1 % (1.5-5.0); GRAN # 0.27 (1.4-6.5); GRAN % 57.5 % (50.0-68.0); HEMOGLOBIN 7.6 g/dL (12.0-16.0); LYMPH # 0.2 (1.2-3.4); MEAN CELL VOLUME 78.3 fl (80.0-105.0); MEAN CORPUSCULAR HEMOGLOBIN 27.4 pg (25.0-35.0); MONO % 2.1 % (1.0-6.0); RBC 2.77 10^6/uL (3.5-6.1); RED CELL DISTRIBUTION WIDTH 16.3 % (11.5-14.5)
[2018-02-01 07:06] LABS: PLATELET COUNT 47 10^3/uL (120.0-450.0); WHITE BLOOD COUNT 0.5 10^3/ul (4.5-11.0)
[2018-02-01 07:07] LABS: PLATELET ESTIMATE LOW (NORMAL)
[2018-02-01] MEDS ORDERED: Albuterol-Ipratrop 3 mg / 0.5 (3 ml) UD IH STA (07:19)
[2018-02-01 07:23] LABS: ALB/GLOB RATIO 0.6 (1.1-1.8); ALBUMIN 1.9 g/dL (3.0-4.8); CALCIUM 6.6 mg/dL (8.4-10.5)
--- NOTE | 2018-02-01 07:51 | CP.PCM.PN ---
Subjective - Date & Time of Evaluation Date of Evaluation: 02/01/18 Time of Evaluation: 05:36 - Subjective Subjective: Germán Sood DO PGY-1, Internal Medicine Resident. Hospitalist Progress Note Patient seen and examined at bedside. Patient is in respiratory distress, lethargic. She afebrile last night, Tmax 100.3 She has a temp of 95.5 Patient denied CP, palpitation, headache, dizziness. Objective - Vital Signs/Intake and Output Vital Signs (last 24 hours): Temp Pulse Resp BP Pulse Ox 98.9 F 115 H 18 104/69 98 01/31/18 22:10 02/01/18 02:00 01/31/18 22:36 01/31/18 18:04 01/31/18 22:36 - Medications Medications: Current Medications Acetaminophen (Tylenol 325mg Tab) 650 mg PO Q6H PRN PRN Reason: Fever >100.4 F Last Admin: 01/29/18 11:33 Dose: 650 mg Albuterol/Ipratropium (Duoneb 3 Mg/0.5 Mg (3 Ml) Ud) 3 ml IH [id number] MCKAYLA Last Admin: 02/01/18 01:32 Dose: Not Given Albuterol/Ipratropium (Duoneb 3 Mg/0.5 Mg (3 Ml) Ud) 3 ml IH Q2H PRN PRN Reason: Shortness of Breath Atovaquone (Mepron) 750 mg PO BID MCKAYLA PRN Reason: Protocol Last Admin: 01/31/18 19:00 Dose: Not Given Clarithromycin (Biaxin Filmtab) 500 mg PO Q12 MCKAYLA PRN Reason: Protocol Last Admin: 01/31/18 22:34 Dose: 500 mg Efavirenz/Emtricitabine/Tenofovir (Atripla 600 Mg-200 Mg-300 Mg) 1 tab PO DAILY MCKAYLA PRN Reason: Protocol Last Admin: 01/31/18 10:02 Dose: 1 tab Gabapentin (Neurontin) 300 mg PO TID MCKAYLA PRN Reason: Protocol Last Admin: 01/31/18 17:00 Dose: 300 mg Sodium Chloride (Sodium Chloride 0.9%) 1,000 mls @ 100 mls/hr IV .Q10H MCKAYLA Last Admin: 02/01/18 06:00 Dose: 100 mls/hr Meropenem 500 mg/ Sodium (Chloride) 50 mls @ 100 mls/hr IVPB Q8 MCKAYLA PRN Reason: Protocol Last Admin: 02/01/18 05:59 Dose: 100 mls/hr Ibuprofen (Motrin Tab) 400 mg PO Q6H PRN PRN Reason: Fever >100.4 F Last Admin: 01/31/18 18:24 Dose: 400 mg Nystatin (Nystatin Oral Susp) 5 ml PO QID MCKAYLA Last Admin: 01/31/18 22:39 Dose: 5 ml Rifampin (Rifampin Cap) 300 mg PO DAILY MCKAYLA PRN Reason: Protocol Last Admin: 01/31/18 15:42 Dose: Not Given Valacyclovir HCl (Valtrex) 1 gm PO BID MCKAYLA PRN Reason: Protocol Last Admin: 01/31/18 17:00 Dose: 1 gm - Labs Labs: 02/01/18 06:30 02/01/18 06:30 - Constitutional Appears: In Acute Distress, Chronically Ill - Head Exam Head Exam: ATRAUMATIC, NORMOCEPHALIC - Eye Exam Eye Exam: EOMI, Normal appearance, PERRL Pupil Exam: NORMAL ACCOMODATION, PERRL - ENT Exam ENT Exam: Mucous Membranes Dry - Neck Exam Neck Exam: Full ROM, Normal Inspection. absent: Lymphadenopathy - Respiratory Exam Respiratory Exam: Accessory Muscle Use, Rales, Rhonchi, Respiratory Distress - Cardiovascular Exam Cardiovascular Exam: Bradycardia, REGULAR RHYTHM, +S1, +S2 - GI/Abdominal Exam GI & Abdominal Exam: Soft, Normal Bowel Sounds. absent: Tenderness - Back Exam Back Exam: NORMAL INSPECTION - Neurological Exam Neurological Exam: Awake - Psychiatric Exam Psychiatric exam: Flat Affect - Skin Skin Exam: Dry Additional comments: patient looks pale . cool to touch. Assessment and Plan - Assessment and Plan (Free Text) Assessment: 52 y/o female with PMH of HIV and COPD admitted for management of fever of unknown etiology, concern for JERSON. Sputum cultures shows Stenotrophomonas maltophilia. Most recent CD4< 20. CT abd/pelvis. On empiric antibiotic therapy. Patient temp 95.5, did not make urine, in respiratory distress Plan: In respiratory distress. crackles heard b/l VBG with shock panel CBC, CMP did not make urine last night . bladder scan showed 640cc this am Lasix 40, Duoneb given Fever of unknown etiology -Patient did not use heating blanket. Temp 95.5 -continue micafungin, Atripla -continue Rifampin, Vanco, clarithromycin, atovaquone for JERSON -continue Valtrex -blood and urine cultures negative -sputum cx showing Stenotrophomonas maltoplilia -Elevated Galactomannin on prior admission, ESR and CRP elevated History of HIV -Procalcitonin ordered -HSV 1/2 IGM/IGG ordered -positive for Toxo antibody -HIV RNA 5.65 and CD4 <20 within past month -Head CT negative -Chest CT showed small pleural based nodules are seen at the left lung base the largest measuring 7mm. -outpatient PFTs, brochoscopy as per pulm recs -will need 6-9 months of JERSON treatment Pancytopenia -patient asymptomatic. continue to monitor. transfuse platelet, RBC prn -Likely 2/2 to chronic HIV and bone marrow suppression -s/p 2 PRBCs transfusion. Hgb stable, continue to monitor -Retic ct 0.35, peripheral smear demonstrated pancytopenia -As per Heme/onc consult; it's likely AIDS related with exacerbation of counts by medication. Anemia of HIV and Chronic disease. -As per Dr Castro, Granix 480mcg QD for 2 days and to follow up CBC with differential the next day. ANC still in 420s Transaminitis -Patient is symptom free. 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 Chris Draft not finalized
[2018-02-01 08:50] VITALS: RESP 20
--- NOTE | 2018-02-01 09:11 | RAD ---
Date of service: 02/01/2018 HISTORY: respiratory distress COMPARISON: No prior. FINDINGS: LUNGS: Limited patchy density seen at the mid to inferior right lung zone which may reflect interval limited atelectasis or early infiltrate. Clinically correlate further. No left-sided alveolitis however bilateral reticular markings remain increased likely a function of the aforementioned PLEURA: Active CHF. CARDIOVASCULAR: Cardiac silhouette is stable. Hilar vascular markings remain slightly increase in reticular markings R unchanged supporting pulmonary vascular congestion though mild. OSSEOUS STRUCTURES: No significant abnormalities. VISUALIZED UPPER ABDOMEN: Normal. OTHER FINDINGS: None. IMPRESSION: Pulmonary vascular congestion unchanged with mild potential infiltrate or atelectasis mid to inferior right lung zone.
[2018-02-01 09:20] LABS: ARTERIAL BLOOD GAS HCO3 12.7 mmol/L (21-28); ARTERIAL BLOOD GAS O2 CAPACITY 11.1 mL/dl (16-24); ARTERIAL BLOOD GAS O2 CONTENT 10.9 ML/dl (15-23); ARTERIAL BLOOD GAS O2 SAT 98.4 % (95-98); ARTERIAL BLOOD GAS PCO2 24 mm/Hg (35-45); ARTERIAL BLOOD GAS PH 7.33 (7.35-7.45); ARTERIAL BLOOD GAS TCO2 13.4 mmol.L (22-28)
[2018-02-01] MEDS ORDERED: Dextrose 50% SYRINGE Inj (50 ml) IVP ONE (09:20)
[2018-02-01] MEDS ORDERED: Magnesium Sulfate 2 gm/50 ml 2 GM/50 ML BAG IVPB ONE (09:23)
[2018-02-01] MEDS ORDERED: levoFLOXacin 750 mg in D5W 750 MG/150 ML BAG IVPB SCH (10:00)
[2018-02-01] MEDS: Efavirenz/Emtricitabine/Teno 1 TAB PO SCH (10:37)
[2018-02-01] MEDS: Atovaquone 750 mg/5 ml Susp UD PO SCH ×2 (10:38→17:40)
[2018-02-01] MEDS: Nystatin 100,000 Units/ml Oral Susp 5 ml UD PO SCH ×3 (10:38→17:41)
[2018-02-01 11:03] LABS: TROPONIN I 0.02 ng/mL
[2018-02-01 11:06] LABS: CALCIUM 6.6 mg/dL (8.4-10.5)
[2018-02-01 12:20] LABS: OSMOLALITY,URINE 244 mosm/kg (300-1000)
[2018-02-01] MEDS ORDERED: Sodium Bicarbonate 8.4% 150 MEQ in Dextrose 5% In Water 1,000 ML IV SCH (14:45)
[2018-02-01] MEDS ORDERED: Dextrose 50% SYRINGE Inj (50 ml) IVP PRN (15:29)
--- NOTE | 2018-02-01 17:25 | CP.PCM.CON ---
History of Present Illness - History of Present Illness History of Present Illness: Nephrology Consultation Note: Assessment: critical Acute Kidney Injury (N17.9) likely due to ATN due to sepsis with ? contribution from urine retention Hyponatremia hypovolemic NAGMA (likely due to diarrhoea) with respi compensation, mild hypokalemia, severe hypoalbuminemia neutropenic fever, pancytopenia ? JERSON infection AMS, HIV/AIDS likely dehydrated with aspiration pna, doesn't appear to have fluid overload COPD with exacerbation Plan No acute need for renal replacement therapy at this time. . Maintain hemodynamics stable. Avoid hypotension. Patient not on ACEI/ARB due to recent KELSEY Monitor Input/Output, daily weights and renal function with basic metabolic panel start Bicarb drip with D5W and 150 meq Bicarb @ 100-150 ml/hr supplement lytes as needed argue against lasix as pt appears dehydrated and less likely fluid overloaded. monitor serum Na every 6-8 hrs, avoid correction in serum Na >6-8 meq/24 hrs. AMS less likely due to hyponatremia, hence defer hypertonic saline CT brain considering AMS and pupillary findings. respi support as per primary team. may consider ICU eval. heme, ID following d/w team to dose levofloxacin q 48 hr and valtrex q day based upon KELSEY and current renal function. adjust further based upon renal function. Dose meds/antibiotics for reduced GFR. Avoid fleets enema/magnesium based laxatives. Avoid nephrotoxins/NSAIDs/ iodinated contrast (unless needed emergently) Glycemic control Further work up/management as per primary team Thanks for allowing me to participate in care of your patient. Will follow patient with you. Please call if any Qs. d/w team Dr Oscar Us Office: [phone] Chief Complaint; unable Reason for consult: Acute Kidney Injury HPI: Pt is a 52 F with hx of HIV/AIDS with Cd4 count <20, non compliant to meds COPD admitted with sepsis and ? JERSON infection, pancytopenia. also with episode of hypothermia, AMS and KELSEY hence renal consulted no known OTC/herbal meds or NSAIDs except 2 dose of ibuprofen ove rlast 2 days had recent iodinated contrast exposure 01/18/18. Noted obvious episodes of low BP. ROS: pt in AMS and unable to provide ROS. apparently had loose stool and urine retention s/p rasheed 600-700 mL UOP. Physical Examination: General Appearance: uncomfortable,ill appearing. audible rales without ausc heard Vitals reviewed and noted as below Head; Atraumatic, normocephalic ENT: no ulcers no thrush. Tongue is midline and very dry. Oropharynx: no rash or ulcers. EYES: Rt pupil dilated and sluggish. left pupil WNL Neck; supple no lymphadenopathy, no thyromegaly or bruit Lungs: Increased respiratory rate/effort. Breath sounds bilateral + with crackles R>L Heart: Normal rate. s1s2 normal. No rub or gallop. Extremities: no edema. No varicose veins Neurological: Patient is delirious Skin: Warm and dry. Normal turgor. No rash. Palpitation: Normal elasticity for age Abdomen: Abdomen is soft. Bowel sounds +. There is no abdominal tenderness, no guarding/rigidity no organomegaly Psych: unable MSK: no joint tenderness or swelling. Digits and nails normal, no deformity : kidney or bladder not palpable Labs/imaging reviewed. Past medical history, past surgical history, family history, social history, allergy reviewed and noted as below Family hx: no hx of CKD. Rest non-contributory urine Na 96 osmol 244 Lactic acid WNL TSAT 19% Ferritin 1666 renal imaging WNL Past Patient History - Infectious Disease Hx of Infectious Diseases: None - Tetanus Immunizations Tetanus Immunization: Unknown - Past Social History Smoking Status: Heavy Smoker > 10 Cigarettes Daily - CARDIAC Hx Cardiac Disorders: No - PULMONARY Hx Respiratory Disorders: Yes Hx Bronchitis: Yes Hx Pneumonia: Yes - NEUROLOGICAL Hx Neurological Disorder: No - HEENT Hx HEENT Problems: No - RENAL Hx Chronic Kidney Disease: No - ENDOCRINE/METABOLIC Hx Endocrine Disorders: No - HEMATOLOGICAL/ONCOLOGICAL Hx Blood Disorders: Yes - INTEGUMENTARY Hx Dermatological Problems: No - MUSCULOSKELETAL/RHEUMATOLOGICAL Hx Musculoskeletal Disorders: No - GASTROINTESTINAL Hx Gastrointestinal Disorders: No - GENITOURINARY/GYNECOLOGICAL Hx Genitourinary Disorders: No - PSYCHIATRIC Hx Psychophysiologic Disorder: No Hx Substance Use: Yes (HEROIN) - SURGICAL HISTORY Hx Orthopedic Surgery: Yes - ANESTHESIA Hx Anesthesia: Yes Hx Anesthesia Reactions: No Hx Malignant Hyperthermia: No Meds Allergies/Adverse Reactions: Allergies Allergy/AdvReac Type Severity Reaction Status Date / Time No Known Allergies Allergy Verified 01/14/18 16:50 - Medications Medications: Current Medications Acetaminophen (Tylenol 325mg Tab) 650 mg PO Q6H PRN PRN Reason: Fever >100.4 F Last Admin: 01/29/18 11:33 Dose: 650 mg Albuterol/Ipratropium (Duoneb 3 Mg/0.5 Mg (3 Ml) Ud) 3 ml IH [id number] MCKAYLA Last Admin: 02/01/18 13:16 Dose: 3 ml Albuterol/Ipratropium (Duoneb 3 Mg/0.5 Mg (3 Ml) Ud) 3 ml IH Q2H PRN PRN Reason: Shortness of Breath Atovaquone (Mepron) 750 mg PO BID MCKAYAL PRN Reason: Protocol Last Admin: 02/01/18 10:38 Dose: Not Given Clarithromycin (Biaxin Filmtab) 500 mg PO Q12 MCKAYLA PRN Reason: Protocol Last Admin: 02/01/18 10:37 Dose: Not Given Dextrose (Dextrose 50% Inj) 50 ml IVP Q4H PRN PRN Reason: hypoglycemia Efavirenz/Emtricitabine/Tenofovir (Atripla 600 Mg-200 Mg-300 Mg) 1 tab PO DAILY MCKAYLA PRN Reason: Protocol Last Admin: 02/01/18 10:37 Dose: Not Given Gabapentin (Neurontin) 300 mg PO TID MCKAYLA PRN Reason: Protocol Last Admin: 02/01/18 15:08 Dose: Not Given Sodium Chloride (Sodium Chloride 0.9%) 1,000 mls @ 100 mls/hr IV .Q10H [facility] Last Admin: 02/01/18 06:00 Dose: 100 mls/hr Meropenem 500 mg/ Sodium (Chloride) 50 mls @ 100 mls/hr IVPB Q8 MCKAYLA PRN Reason: Protocol Last Admin: 02/01/18 15:20 Dose: 100 mls/hr Levofloxacin/Dextrose (Levaquin 750mg) 750 mg in 150 mls @ 100 mls/hr IVPB QOD MCKAYLA PRN Reason: Protocol Last Admin: 02/01/18 10:56 Dose: 100 mls/hr Sodium Bicarbonate 150 meq/ (Dextrose) 1,150 mls @ 100 mls/hr IV .[id number] [facility] Last Admin: 02/01/18 15:06 Dose: 100 mls/hr Nystatin (Nystatin Oral Susp) 5 ml PO QID MCKAYLA Last Admin: 02/01/18 15:09 Dose: Not Given Rifampin (Rifampin Cap) 300 mg PO DAILY MCKAYLA PRN Reason: Protocol Last Admin: 02/01/18 10:38 Dose: Not Given Valacyclovir HCl (Valtrex) 1 gm PO BID MCKAYLA PRN Reason: Protocol Last Admin: 02/01/18 10:38 Dose: Not Given Results - Vital Signs Recent Vital Signs: Last Vital Signs Temp 95.9 F L 02/01/18 08:49 Pulse 110 H 02/01/18 14:07 Resp 20 02/01/18 08:49 BP 99/71 L 02/01/18 08:49 Pulse Ox 98 02/01/18 08:49 - Labs Result Diagrams: 02/01/18 06:30 02/01/18 10:30 Labs: Laboratory Results - last 24 hr 02/01/18 02/01/18 02/01/18 06:00 06:00 06:30 WBC 0.5 L* RBC 2.77 L Hgb 7.6 L Hct 21.7 L MCV 78.3 L MCH 27.4 MCHC 35.0 RDW 16.3 H Plt Count 47 L* Gran % 57.5 Lymph % (Auto) 34.0 Fannin % (Auto) 2.1 Eos % (Auto) 2.1 Baso % (Auto) 4.3 H Gran # 0.27 L Lymph # (Auto) 0.2 L Fannin # (Auto) 0.0 L Eos # (Auto) 0.0 Baso # (Auto) 0.02 Platelet Evaluation Low pCO2 pO2 100 H HCO3 ABG pH ABG Total CO2 ABG O2 Saturation ABG O2 Content ABG Base Excess ABG Hemoglobin ABG Carboxyhemoglobin POC ABG HHb (Measured) ABG Methemoglobin ABG O2 Capacity VBG pH 7.26 L VBG pCO2 30.0 L VBG HCO3 13.5 L VBG Total CO2 14.4 L VBG O2 Sat (Calc) 99.0 H VBG Base Excess -12.2 L VBG Potassium 3.5 L Hgb O2 Saturation Sodium 123.0 L Chloride 100.0 Glucose 53 L Lactate 1.8 FiO2 21.0 Potassium Carbon Dioxide Anion Gap BUN Creatinine Est GFR ( Amer) Est GFR (Non-Af Amer) POC Glucose (mg/dL) Random Glucose Serum Osmolality Calcium Phosphorus Magnesium Total Bilirubin AST ALT Alkaline Phosphatase Troponin I Total Protein Albumin Globulin Albumin/Globulin Ratio Procalcitonin 37.05 H Venous Blood Potassium 3.5 L Urine Osmolality Ur Random Creatinine Ur Random Sodium 02/01/18 02/01/18 02/01/18 06:30 07:30 08:43 WBC RBC Hgb Hct MCV MCH MCHC RDW Plt Count Gran % Lymph % (Auto) Fannin % (Auto) Eos % (Auto) Baso % (Auto) Gran # Lymph # (Auto) Fannin # (Auto) Eos # (Auto) Baso # (Auto) Platelet Evaluation pCO2 24 L pO2 89.0 HCO3 12.7 L ABG pH 7.33 L ABG Total CO2 13.4 L ABG O2 Saturation 98.4 H ABG O2 Content 10.9 L ABG Base Excess -11.9 L ABG Hemoglobin 8.0 L ABG Carboxyhemoglobin 1.1 POC ABG HHb (Measured) 1.6 ABG Methemoglobin 1.4 ABG O2 Capacity 11.1 L VBG pH VBG pCO2 VBG HCO3 VBG Total CO2 VBG O2 Sat (Calc) VBG Base Excess VBG Potassium Hgb O2 Saturation 95.9 Sodium 124 L Chloride 100 Glucose Lactate FiO2 36.0 Potassium 3.6 Carbon Dioxide 15 L Anion Gap 13 BUN 24 H Creatinine 1.9 H Est GFR ( Amer) 33 Est GFR (Non-Af Amer) 28 POC Glucose (mg/dL) Random Glucose 50 L Serum Osmolality 258 L Calcium 6.6 L* Phosphorus 4.3 Magnesium 1.6 L Total Bilirubin 1.4 H AST 331 H D ALT 20 Alkaline Phosphatase 514 H D Troponin I Total Protein 4.9 L Albumin 1.9 L Globulin 3.0 Albumin/Globulin Ratio 0.6 L Procalcitonin Venous Blood Potassium Urine Osmolality Ur Random Creatinine Ur Random Sodium 02/01/18 02/01/18 02/01/18 09:31 10:05 10:30 WBC RBC Hgb Hct MCV MCH MCHC RDW Plt Count Gran % Lymph % (Auto) Fannin % (Auto) Eos % (Auto) Baso % (Auto) Gran # Lymph # (Auto) Fannin # (Auto) Eos # (Auto) Baso # (Auto) Platelet Evaluation pCO2 pO2 HCO3 ABG pH ABG Total CO2 ABG O2 Saturation ABG O2 Content ABG Base Excess ABG Hemoglobin ABG Carboxyhemoglobin POC ABG HHb (Measured) ABG Methemoglobin ABG O2 Capacity VBG pH VBG pCO2 VBG HCO3 VBG Total CO2 VBG O2 Sat (Calc) VBG Base Excess VBG Potassium Hgb O2 Saturation Sodium 124 L Chloride 100 Glucose Lactate FiO2 Potassium 3.5 L Carbon Dioxide 14 L Anion Gap 15 BUN 25 H Creatinine 2.0 H Est GFR ( Amer) 31 Est GFR (Non-Af Amer) 26 POC Glucose (mg/dL) 39 L 178 H Random Glucose 130 H Serum Osmolality Calcium 6.6 L* Phosphorus Magnesium Total Bilirubin AST ALT Alkaline Phosphatase Troponin I 0.02 D Total Protein Albumin Globulin Albumin/Globulin Ratio Procalcitonin Venous Blood Potassium Urine Osmolality Ur Random Creatinine Ur Random Sodium 02/01/18 02/01/18 02/01/18 11:45 12:00 13:29 WBC RBC Hgb Hct MCV MCH MCHC RDW Plt Count Gran % Lymph % (Auto) Fannin % (Auto) Eos % (Auto) Baso % (Auto) Gran # Lymph # (Auto) Fannin # (Auto) Eos # (Auto) Baso # (Auto) Platelet Evaluation pCO2 pO2 HCO3 ABG pH ABG Total CO2 ABG O2 Saturation ABG O2 Content ABG Base Excess ABG Hemoglobin ABG Carboxyhemoglobin POC ABG HHb (Measured) ABG Methemoglobin ABG O2 Capacity VBG pH VBG pCO2 VBG HCO3 VBG Total CO2 VBG O2 Sat (Calc) VBG Base Excess VBG Potassium Hgb O2 Saturation Sodium Chloride Glucose Lactate FiO2 Potassium Carbon Dioxide Anion Gap BUN Creatinine Est GFR ( Amer) Est GFR (Non-Af Amer) POC Glucose (mg/dL) 89 Random Glucose Serum Osmolality Calcium Phosphorus Magnesium Total Bilirubin AST ALT Alkaline Phosphatase Troponin I Total Protein Albumin Globulin Albumin/Globulin Ratio Procalcitonin Venous Blood Potassium Urine Osmolality 244 L Ur Random Creatinine 16 Ur Random Sodium 96 02/01/18 16:57 WBC RBC Hgb Hct MCV MCH MCHC RDW Plt Count Gran % Lymph % (Auto) Fannin % (Auto) Eos % (Auto) Baso % (Auto) Gran # Lymph # (Auto) Fannin # (Auto) Eos # (Auto) Baso # (Auto) Platelet Evaluation pCO2 pO2 HCO3 ABG pH ABG Total CO2 ABG O2 Saturation ABG O2 Content ABG Base Excess ABG Hemoglobin ABG Carboxyhemoglobin POC ABG HHb (Measured) ABG Methemoglobin ABG O2 Capacity VBG pH VBG pCO2 VBG HCO3 VBG Total CO2 VBG O2 Sat (Calc) VBG Base Excess VBG Potassium Hgb O2 Saturation Sodium Chloride Glucose Lactate FiO2 Potassium Carbon Dioxide Anion Gap BUN Creatinine Est GFR ( Amer) Est GFR (Non-Af Amer) POC Glucose (mg/dL) 69 Random Glucose Serum Osmolality Calcium Phosphorus Magnesium Total Bilirubin AST ALT Alkaline Phosphatase Troponin I Total Protein Albumin Globulin Albumin/Globulin Ratio Procalcitonin Venous Blood Potassium Urine Osmolality Ur Random Creatinine Ur Random Sodium
[2018-02-01 17:31] VITALS: BP 117/97; TEMP 97.8; O2SAT 96
[2018-02-01 18:07] VITALS: PULSE 113
--- NOTE | 2018-02-01 19:03 | CP.PCM.PN ---
Subjective - Date & Time of Evaluation Date of Evaluation: 02/01/18 Time of Evaluation: 18:30 - Subjective Subjective: Infectious Disease Follow Up: February 01, 2018 52 yo female presenting for urinary retention. Multiple hospitalizations this past month for generalized weakness and COPD exacerbation. Recent diagnosis of HIV with CD4 less than 20. Was discharged from the hospital the day before this admission. Returned for inability to urinate for one day. Fever up to 104.3 F in this hospitalization. Still with fever up to 103.2 F today. Most likely diagnosis remains JERSON given the state of her HIV. My concerns remain with her compliance with therapy. Currently on Clarithrimycin and Atovaquone for treatment of suspected JERSON. As fever continue to persist, will add Rifampin to the regimen for JERSON treatment. IV Vancomycin also added given reported drainage from raised skin area on buttocks. On HAART with Atripla now. Patient states that she feels better although the patient is still having high fevers. Tachycardia. Both tachycardia and the fevers are stabilizing. Afebrile the past 24 hours. Still with tachycardia. Afebrile today but has leukopenia. Patient making few complaints but feels a little better today. The patient has been afebrile although a single episode of 95.9 F today is worrisome. She remains tachycardic. Objective - Vital Signs/Intake and Output Vital Signs (last 24 hours): Temp Pulse Resp BP Pulse Ox 97.8 F 113 H 20 117/97 H 96 02/01/18 17:30 02/01/18 18:00 02/01/18 17:30 02/01/18 17:30 02/01/18 17:30 Intake and Output: 02/01/18 02/01/18 06:59 18:59 Intake Total 120 1800 Output Total 750 Balance 120 1050 - Medications Medications: Current Medications Acetaminophen (Tylenol 325mg Tab) 650 mg PO Q6H PRN PRN Reason: Fever >100.4 F Last Admin: 01/29/18 11:33 Dose: 650 mg Albuterol/Ipratropium (Duoneb 3 Mg/0.5 Mg (3 Ml) Ud) 3 ml IH [id number] MCKAYLA Last Admin: 02/01/18 13:16 Dose: 3 ml Albuterol/Ipratropium (Duoneb 3 Mg/0.5 Mg (3 Ml) Ud) 3 ml IH Q2H PRN PRN Reason: Shortness of Breath Atovaquone (Mepron) 750 mg PO BID MCKAYLA PRN Reason: Protocol Last Admin: 02/01/18 17:40 Dose: Not Given Clarithromycin (Biaxin Filmtab) 500 mg PO Q12 MCKAYLA PRN Reason: Protocol Last Admin: 02/01/18 10:37 Dose: Not Given Dextrose (Dextrose 50% Inj) 50 ml IVP Q4H PRN PRN Reason: hypoglycemia Efavirenz/Emtricitabine/Tenofovir (Atripla 600 Mg-200 Mg-300 Mg) 1 tab PO DAILY MCKAYLA PRN Reason: Protocol Last Admin: 02/01/18 10:37 Dose: Not Given Gabapentin (Neurontin) 300 mg PO TID MCKAYLA PRN Reason: Protocol Last Admin: 02/01/18 17:40 Dose: Not Given Sodium Chloride (Sodium Chloride 0.9%) 1,000 mls @ 100 mls/hr IV .Q10H MCKAYLA Last Admin: 02/01/18 06:00 Dose: 100 mls/hr Meropenem 500 mg/ Sodium (Chloride) 50 mls @ 100 mls/hr IVPB Q8 MCKAYLA PRN Reason: Protocol Last Admin: 02/01/18 15:20 Dose: 100 mls/hr Levofloxacin/Dextrose (Levaquin 750mg) 750 mg in 150 mls @ 100 mls/hr IVPB QOD MCKAYLA PRN Reason: Protocol Last Admin: 02/01/18 10:56 Dose: 100 mls/hr Sodium Bicarbonate 150 meq/ (Dextrose) 1,150 mls @ 100 mls/hr IV .[id number] [facility] Last Admin: 02/01/18 15:06 Dose: 100 mls/hr Nystatin (Nystatin Oral Susp) 5 ml PO QID MCKAYLA Last Admin: 02/01/18 17:41 Dose: Not Given Rifampin (Rifampin Cap) 300 mg PO DAILY MCKAYLA PRN Reason: Protocol Last Admin: 02/01/18 10:38 Dose: Not Given Valacyclovir HCl (Valtrex) 1 gm PO BID MCKAYLA PRN Reason: Protocol Last Admin: 02/01/18 17:41 Dose: Not Given - Labs Labs: 02/01/18 06:30 02/01/18 10:30 - Constitutional Appears: Non-toxic, No Acute Distress, Chronically Ill - Head Exam Head Exam: ATRAUMATIC, NORMOCEPHALIC - Eye Exam Eye Exam: EOMI, PERRL Pupil Exam: NORMAL ACCOMODATION, PERRL - ENT Exam ENT Exam: Mucous Membranes Moist, Normal External Ear Exam, TM's Normal Bilaterally - Neck Exam Neck Exam: Full ROM, Normal Inspection - Respiratory Exam Respiratory Exam: Clear to Ausculation Bilateral, NORMAL BREATHING PATTERN. absent: Rales, Rhonchi, Wheezes - Cardiovascular Exam Cardiovascular Exam: REGULAR RHYTHM, RRR, +S1, +S2 - GI/Abdominal Exam GI & Abdominal Exam: Soft, Normal Bowel Sounds. absent: Distended, Tenderness - Extremities Exam Extremities Exam: Full ROM, Normal Inspection - Neurological Exam Neurological Exam: Alert, Awake, CN II-XII Intact, Oriented x3 - Psychiatric Exam Psychiatric exam: Normal Affect, Normal Mood - Skin Skin Exam: Intact, Normal Color Assessment and Plan - Assessment and Plan (Free Text) Assessment: 52 yo Female with newly diagnosed HIV disease presenting with inability to urinate for 1 day and findings of fevers up to 104 F. The patient likely requires set up with HIV clinic and to start HAART. Continue with meropenem for now. CT Abd/Pel with no acute findings. Chest X-ray with no acute cardiopulmonary findings. Given previous hospitalizations and lack of findings with a similar presentation but high [id number], the patient may have a mycobacterium (nontuberculosis) disease of the lung. Concerns mostly around how the patient would receive therapy especially since the patient came back to the hospital 24 hours of her discharge from the facility. Her treatments for a JERSON pneumonia would still need weeks to months of medications. May need to check if the [facility] is willing to provide follow up on the patient for presumptive JERSON treatment. Fevers persist however there were episodes of hypothermia several nights ago with temperature of 96.8 F. In light of this, the patient was already on Clarithromycin and Atovaquone for presumptive JERSON treatment. Added Rifampin to the regimen. There was swelling across one dermatome with drainage of pus. Given the wide fever range and increasing symptomology, started HAART regimen and obtain Genotype testing. Micafungin continued. Patient states she feels better overall and has less sweating. Supportive care. IRIS? Today, patient afebrile. Patient's appetite is improving. Overall the patient states that she is feeling better and feeling stronger. She does NOT appear toxic. Persistent leukopenia. Afebrile the past 24 hours. Continuing on valacyclovir treatment in the patient as well. 4 episodes of diarrhea overnight after starting Valtrex. The patient is however neutropenic at this time. Single episode of 95.9 F today. Thank you for allowing me to participate in the care of the patient, we will follow with you.
--- NOTE | 2018-02-02 16:32 | CP.PCM.DIS ---
Provider - Provider Date of Admission: 01/19/18 16:25 Attending physician: Esha Chris MD Primary care physician: Sienna Loving MD Hospital Course - Lab Results Lab Results: Micro Results 01/30/18 13:00 Blood Blood Culture - Preliminary NO GROWTH AFTER 3 DAYS 01/30/18 12:30 Blood Blood Culture - Preliminary NO GROWTH AFTER 3 DAYS 01/31/18 03:51 Urine Urine Culture - Final No Growth (<1,000 CFU/ML) 01/31/18 18:20 Stool C. difficile Antigen & Toxin A,B (M - Final 01/21/18 16:45 Sputum Gram Stain - Final 01/21/18 16:45 Sputum Sputum Culture - Final Stenotrophomonas Maltophilia 01/20/18 18:40 Urine Urine Culture - Final No Growth (<1,000 CFU/ML) Most Recent Lab Values WBC 0.5 10^3/ul (4.5-11.0) L* 02/01/18 06:30 RBC 2.77 10^6/uL (3.5-6.1) L 02/01/18 06:30 Hgb 7.6 g/dL (12.0-16.0) L 02/01/18 06:30 Hct 21.7 % (36.0-48.0) L 02/01/18 06:30 MCV 78.3 fl (80.0-105.0) L 02/01/18 06:30 MCH 27.4 pg (25.0-35.0) 02/01/18 06:30 MCHC 35.0 g/dl (31.0-37.0) 02/01/18 06:30 RDW 16.3 % (11.5-14.5) H 02/01/18 06:30 Plt Count 47 10^3/uL (120.0-450.0) L* 02/01/18 06:30 MPV 11.0 fl (7.0-11.0) 01/27/18 06:30 Gran % 57.5 % (50.0-68.0) 02/01/18 06:30 Lymph % (Auto) 34.0 % (22.0-35.0) 02/01/18 06:30 [place] % (Auto) 2.1 % (1.0-6.0) 02/01/18 06:30 Eos % (Auto) 2.1 % (1.5-5.0) 02/01/18 06:30 Baso % (Auto) 4.3 % (0.0-3.0) H 02/01/18 06:30 Gran # 0.27 (1.4-6.5) L 02/01/18 06:30 Lymph # (Auto) 0.2 (1.2-3.4) L 02/01/18 06:30 [place] # (Auto) 0.0 (0.1-0.6) L 02/01/18 06:30 Eos # (Auto) 0.0 (0.0-0.7) 02/01/18 06:30 Baso # (Auto) 0.02 K/mm3 (0.0-2.0) 02/01/18 06:30 Platelet Evaluation Low (NORMAL) 02/01/18 06:30 ESR 30 mm/hr (0.0-20.0) H 01/27/18 06:30 Retic Count 0.35 % (0.5-1.5) L 01/24/18 06:30 pCO2 24 mm/Hg (35-45) L 02/01/18 08:43 pO2 89.0 mm/Hg (80-100) 02/01/18 08:43 HCO3 12.7 mmol/L (21-28) L 02/01/18 08:43 ABG pH 7.33 (7.35-7.45) L 02/01/18 08:43 ABG Total CO2 13.4 mmol.L (22-28) L 02/01/18 08:43 ABG O2 Saturation 98.4 % (95-98) H 02/01/18 08:43 ABG O2 Content 10.9 ML/dl (15-23) L 02/01/18 08:43 ABG Base Excess -11.9 mmol/L (-2.0-3.0) L 02/01/18 08:43 ABG Hemoglobin 8.0 g/dL (11.7-17.4) L 02/01/18 08:43 ABG Carboxyhemoglobin 1.1 % (0.5-1.5) 02/01/18 08:43 POC ABG HHb (Measured) 1.6 % (0-5) 02/01/18 08:43 ABG Methemoglobin 1.4 % (0.0-3.0) 02/01/18 08:43 ABG O2 Capacity 11.1 mL/dl (16-24) L 02/01/18 08:43 VBG pH 7.26 (7.32-7.43) L 02/01/18 06:00 VBG pCO2 30.0 (40-60) L 02/01/18 06:00 VBG HCO3 13.5 mmol/l (21-28) L 02/01/18 06:00 VBG Total CO2 14.4 mmol.L (22-28) L 02/01/18 06:00 VBG O2 Sat (Calc) 99.0 % (40-65) H 02/01/18 06:00 VBG Base Excess -12.2 mmol/L (0.0-2.0) L 02/01/18 06:00 VBG Potassium 3.5 mmol/L (3.6-5.2) L 02/01/18 06:00 Hgb O2 Saturation 95.9 % (95.0-98.0) 02/01/18 08:43 Sodium 123.0 mmol/L (132-148) L 02/01/18 06:00 Chloride 100.0 mmol/L (98-107) 02/01/18 06:00 Glucose 53 mg/dl (65-105) L 02/01/18 06:00 Lactate 1.8 mmol/L (0.7-2.1) 02/01/18 06:00 FiO2 36.0 % 02/01/18 08:43 Sodium 124 mmol/L (132-148) L 02/01/18 10:30 Potassium 3.5 mmol/L (3.6-5.0) L 02/01/18 10:30 Chloride 100 mmol/L (98-107) 02/01/18 10:30 Carbon Dioxide 14 mmol/L (21-33) L 02/01/18 10:30 Anion Gap 15 (10-20) 02/01/18 10:30 BUN 25 mg/dL (7-21) H 02/01/18 10:30 Creatinine 2.0 mg/dl (0.7-1.2) H 02/01/18 10:30 Est GFR ( Amer) 31 02/01/18 10:30 Est GFR (Non-Af Amer) 26 02/01/18 10:30 POC Glucose (mg/dL) 69 mg/dL (65-110) 02/01/18 16:57 Random Glucose 130 mg/dL (70-110) H 02/01/18 10:30 Serum Osmolality 258 mosm/kg (272-300) L 02/01/18 07:30 Calcium 6.6 mg/dL (8.4-10.5) L* 02/01/18 10:30 Phosphorus 4.3 mg/dL (2.5-4.5) 02/01/18 06:30 Magnesium 1.6 mg/dL (1.7-2.2) L 02/01/18 06:30 Total Bilirubin 1.4 mg/dL (0.2-1.3) H 02/01/18 06:30 Direct Bilirubin 0.3 mg/dL (0.0-0.4) 01/20/18 12:30 GGT 302 U/L (8-78) H 01/20/18 12:30 AST 331 U/L (14-36) H D 02/01/18 06:30 ALT 20 U/L (7-56) 02/01/18 06:30 Alkaline Phosphatase 514 U/L (38-126) H D 02/01/18 06:30 Lactate Dehydrogenase 7249 U/L (333-699) H 01/30/18 06:30 Troponin I 0.02 ng/mL D 02/01/18 10:30 C-Reactive Protein 58.80 mg/L (0.0-9.9) H 01/20/18 16:35 C-React Prot High Sens > 15.00 mg/L (1.00-3.00) H 01/27/18 06:30 Total Protein 4.9 g/dL (5.8-8.3) L 02/01/18 06:30 Albumin 1.9 g/dL (3.0-4.8) L 02/01/18 06:30 Globulin 3.0 gm/dL 02/01/18 06:30 Albumin/Globulin Ratio 0.6 (1.1-1.8) L 02/01/18 06:30 Procalcitonin 37.05 NG/ML (0.19-0.49) H 02/01/18 06:00 Thyroxine (T4) 7.7 ug/dL (5.5-11.0) 01/21/18 12:00 Total T3 0.72 ng/mL (0.97-1.69) L 01/21/18 12:00 TSH 3rd Generation 3.71 mIU/mL (0.46-4.68) 01/27/18 13:00 Cortisol AM Sample 16.8 ug/dL (4.46-22.7) 01/20/18 06:30 Venous Blood Potassium 3.5 mmol/L (3.6-5.2) L 02/01/18 06:00 Urine Color Yellow (YELLOW) 01/19/18 13:00 Urine Appearance Clear (CLEAR) 01/19/18 13:00 Urine pH 7.0 (4.7-8.0) 01/19/18 13:00 Ur Specific [place] 1.015 (1.005-1.035) 01/19/18 13:00 Urine Protein Trace mg/dL (<30 mg/dL) H 01/19/18 13:00 Urine Glucose (UA) Negative mg/dL (NEGATIVE) 01/19/18 13:00 Urine Ketones Negative mg/dL (NEGATIVE) 01/19/18 13:00 Urine Blood Small (NEGATIVE) H 01/19/18 13:00 Urine Nitrate Negative (NEGATIVE) 01/19/18 13:00 Urine Bilirubin Negative (NEGATIVE) 01/19/18 13:00 Urine Urobilinogen 0.2 E.U./dL (<1 E.U./dL) 01/19/18 13:00 Ur Leukocyte Esterase Negative [place]/uL (NEGATIVE) 01/19/18 13:00 Urine RBC 1 - 3 /hpf (0-2) 01/19/18 13:00 Urine WBC 0 - 2 /hpf (0-6) 01/19/18 13:00 Ur Epithelial Cells 0 - 2 /hpf (0-5) 01/19/18 13:00 Urine Bacteria Few (NEG) 01/19/18 13:00 Urine Eosinophils Negative 01/21/18 19:57 Urine Osmolality 244 mosm/kg (300-1000) L 02/01/18 11:45 Ur Random Creatinine 16 mg/dL 02/01/18 12:00 Ur Random Sodium 96 meq/L 02/01/18 11:45 Urine Opiates Screen Negative (NEGATIVE) 01/20/18 18:40 Urine Methadone Screen Negative (NEGATIVE) 01/20/18 18:40 Ur Barbiturates Screen Negative (NEGATIVE) 01/20/18 18:40 Ur Phencyclidine Scrn Negative (NEGATIVE) 01/20/18 18:40 Ur Amphetamines Screen Negative (NEGATIVE) 01/20/18 18:40 U Benzodiazepines Scrn Negative (NEGATIVE) 01/20/18 18:40 U Oth Cocaine Metabols Negative (NEGATIVE) 01/20/18 18:40 U Cannabinoids Screen Negative (NEGATIVE) 01/20/18 18:40 IgE 156 kU/L (<dc=726) H 01/21/18 09:50 Anti-Mitochondrial Ab Negative (Negative) 01/21/18 09:50 Hepatitis A IgM Ab Negative (NEGATIVE) 01/24/18 06:30 Hep Bs Antigen Negative (NEGATIVE) 01/24/18 06:30 Hep B Core IgM Ab Negative (NEGATIVE) 01/24/18 06:30 Hepatitis C Antibody Negative (NEGATIVE) 01/24/18 06:30 Ur L.pneumophila Ag Negative (NEGATIVE) 01/31/18 03:51 Beta-(1,3)-D-Glucan 175 pg/mL (<60) H 01/24/18 06:30 B-(1,3)-D-Glucan Intrp Positive H 01/24/18 06:30 Blood Type B POSITIVE 01/24/18 10:33 Antibody Screen Negative 01/24/18 10:33 Crossmatch See Detail 01/24/18 10:33 BBK History Checked Patient has bt 01/24/18 10:33 Discharge Exam - Head Exam Head Exam: ATRAUMATIC, NORMOCEPHALIC Discharge Plan - Follow Up Plan Condition: STABLE Disposition: HOSPICE - MEDICAL FACILITY Additional Instructions: Outpatient PFTs when well Follow cultures from past, may need outpatient bronch in the future (r/o MAC and PCP) PCP PPX Referrals: Sienna Loving MD [Primary Care Provider] -
[2018-02-03 02:49] LABS: HIV-1 GENOTYPE DETECTED
== END 2018-02-01 21:13 | disposition hospice, inpatient (51) | DRG 710 ==
LOC: ED 12:29 → ERH 16:25 → 3RSO 18:13
PROVIDERS: ADMIT Hospitalist; ATTEND Internal Medicine
DX: A41.9 Sepsis, unspecified organism (principal); B20 Human immunodeficiency virus [HIV] disease; A31.0 Pulmonary mycobacterial infection; B58.9 Toxoplasmosis, unspecified; J15.8 Pneumonia due to other specified bacteria; J69.0 Pneumonitis due to inhalation of food and vomit; N17.9 Acute kidney failure, unspecified; D61.818 Other pancytopenia; E87.1 Hypo-osmolality and hyponatremia; J44.0 Chronic obstructive pulmonary disease with (acute) lower respiratory infection; J44.1 Chronic obstructive pulmonary disease with (acute) exacerbation; R32 Unspecified urinary incontinence; E87.6 Hypokalemia; E86.0 Dehydration; E86.1 Hypovolemia; F17.210 Nicotine dependence, cigarettes, uncomplicated; G62.9 Polyneuropathy, unspecified; T50.905A Adverse effect of unspecified drugs, medicaments and biological substances, initial encounter; Z78.9 Other specified health status; Z87.01 Personal history of pneumonia (recurrent); R33.9 Retention of urine, unspecified; F19.11 Other psychoactive substance abuse, in remission; E88.09 Other disorders of plasma-protein metabolism, not elsewhere classified; Z66 Do not resuscitate

== ENCOUNTER 2018-02-01 21:28 | Inpatient (IN) | payer OTHER ==
[2018-02-01 21:43] VITALS: BP 117/97; PULSE 115; RESP 28; TEMP 97.8
[2018-02-01] MEDS ORDERED: Morphine PCA 1 mg/ml (30ml) 30 ML IV PRN (22:00)
--- NOTE | 2018-02-02 01:37 | CP.PCM.PRO ---
Pronouncement of Note - Clinical Findings Physical Exam: No Response Verbal/Painful Stimuli, Absent Peripheral Pulses{ Carotid & Femoral}, Absent Heart & Breath Sounds, No Pupillary Light Reflex, No Corneal Reflex, Pupils Fixed & Dilated, Absence of Vital Signs - Pronouncement Time Time of Pronouncement of : 00:49 - Notifications Pronouncement Notifications: Family Notified, Atending Notified [employer]ation [employer] Supervisor Notified: No - Autopsy Autopsy Requested: No [place]: [id number] Additional Comments: Gaurav low
--- NOTE | 2018-02-02 16:32 | CP.PCM.DIS ---
Provider - Provider Date of Admission: 02/01/18 21:28 Attending physician: Esha Chris MD Primary care physician: Sienna Loving MD Consults: hospice care Time Spent in preparation of Discharge (in minutes): 20 Hospital Course - Hospital Course Hospital Course: Few hours after patient transfer to hospice care, patient on 02/02/18 at 00:49 Please refer to Pronouncement of Note. [place]EDRS Number: [id number] Discharge Exam - Additional Findings Additional findings: No Response Verbal/Painful Stimuli, Absent Peripheral Pulses{Carotid & Femoral} , Absent Heart & Breath Sounds, No Pupillary Light Reflex, No Corneal Reflex, Pupils Fixed & Dilated, Absence of Vital Signs Discharge Plan - Follow Up Plan Condition: Disposition: WITH WITHOUT AUTOPSY Referrals: Sienna Loving MD [Primary Care Provider] -
== END 2018-02-02 00:42 | DRG 977 ==
LOC: 3RSO 21:28
PROVIDERS: ADMIT Internal Medicine; ATTEND Internal Medicine
DX: B20 Human immunodeficiency virus [HIV] disease (principal); D61.818 Other pancytopenia; A31.0 Pulmonary mycobacterial infection; Z51.5 Encounter for palliative care; Z66 Do not resuscitate; J44.9 Chronic obstructive pulmonary disease, unspecified; R50.9 Fever, unspecified